=== PATIENT | female | born 1965 | race Caucasian/White ===

== ENCOUNTER 2017-10-01 08:24 | Outpatient (CLI) | payer OTHER, SELFPAY ==
[2017-10-01 09:04] VITALS: BP 136/99; PULSE 88; RESP 16; TEMP 36.8; O2SAT 98; BMI 44.9
[2017-10-01] MEDS: DiphenhydrAMINE 50 MG/ML Syringe 25 MG IV (09:07)
[2017-10-01] MEDS: Acetaminophen 325 MG Tablet 650 MG PO (09:08)
[2017-10-01] MEDS: Hydrocortisone Sod Succinate 100 MG/2 ML Vial IV (09:08)
[2017-10-01] MEDS: Immune Globulin 20 gm Premixed Solution IV ×3 (09:40→12:10)
[2017-10-01 10:17] VITALS: BP 132/77; PULSE 83; RESP 16; TEMP 36.7; O2SAT 96
[2017-10-01 10:53] VITALS: BP 142/84; PULSE 77; RESP 18; TEMP 36.6; O2SAT 97
[2017-10-01] MEDS: 0.9% NaCl PICC Flush IV ×3 (11:25→13:27)
[2017-10-01 12:07] VITALS: BP 140/88; PULSE 90; RESP 18; TEMP 37.1; O2SAT 98
[2017-10-01] MEDS: Immune Globulin 10 gm Premixed Solution IV (13:01)
[2017-10-01 13:18] VITALS: BP 137/81; PULSE 89; RESP 16; TEMP 36.8; O2SAT 97
== END 2017-10-01 13:40 | disposition home or self-care (01) ==
LOC: MEDOUTP 08:25 → MS2 08:31
PROVIDERS: Family Provider Family Medicine; PCP Family Medicine; Visit Provider Internal Medicine Hematology & Oncology
DX: D69.3 Immune thrombocytopenic purpura (principal); D50.8 Other iron deficiency anemias
CPT/HCPCS: 96365 ×2; 96366; 96375; A4216; J1568

== ENCOUNTER 2017-10-22 07:49 | Outpatient (CLI) | payer OTHER, SELFPAY ==
[2017-10-22] VITALS (7 sets, daily range): BP systolic 125–139; BP diastolic 73–90; PULSE 71–97; RESP 18; TEMP 36.4–36.8; O2SAT 97–98; BMI 42.7
[2017-10-22] MEDS: Hydrocortisone Sod Succinate 100 MG/2 ML Vial IV (08:55)
[2017-10-22] MEDS: Acetaminophen 325 MG Tablet 650 MG PO (08:55)
[2017-10-22] MEDS: DiphenhydrAMINE 50 MG/ML Syringe 25 MG IV (08:55)
[2017-10-22] MEDS: 0.9% NaCl VAD Flush 10 ML IV ×2 (09:30→13:12)
[2017-10-22] MEDS: Immune Globulin 20 gm Premixed Solution IV ×3 (09:32→11:49)
--- NOTE | 2017-10-22 10:50 | CASEMGMT ---
Per Razia, MS3 charge, pt has some concerns with insurance and coverage of infusion. This RN CM to room to speak with pt and per pt, she has been getting same IVIG infusions for a long time and has never had a problem with insurance coverage but as of yesterday she was still dealing with her work and insurance on coverage. Pt's insurance is the same and there have been no changes with this. Pt states that her boss and insurance both told her last pm that it would be covered but she was concerned because she had to sign a form this am prior to infusion stating that she would be responsible if insurance did not cover. This RN CM provided pt with number to [facility] Financial services and she was very appreciative at this time. Pt states she will be following up with insurance first thing tuesday am. Pt states no further concerns/needs for this RN CM at this time. SStaten RN CM
[2017-10-22] MEDS: Immune Globulin 10 gm Premixed Solution IV (12:44)
== END 2017-10-22 13:15 | disposition home or self-care (01) ==
LOC: MEDOUTP 07:52 → MS3 07:54
PROVIDERS: Family Provider Family Medicine; PCP Family Medicine; Visit Provider Internal Medicine Hematology & Oncology
DX: D69.3 Immune thrombocytopenic purpura (principal); D50.8 Other iron deficiency anemias
CPT/HCPCS: 96365; 96366; 96375; A4216; J1568

== ENCOUNTER 2017-11-05 08:12 | Outpatient (CLI) | payer OTHER, SELFPAY ==
[2017-11-05] VITALS (8 sets, daily range): BP systolic 114–134; BP diastolic 66–83; PULSE 70–90; RESP 16–20; TEMP 36.6; O2SAT 98–99
[2017-11-05] MEDS: Acetaminophen 325 MG Tablet 650 MG PO (09:13)
[2017-11-05] MEDS: DiphenhydrAMINE 50 MG/ML Syringe 25 MG IV (09:13)
[2017-11-05] MEDS: Hydrocortisone Sod Succinate 100 MG/2 ML Vial IV (09:14)
[2017-11-05] MEDS: 0.9% NaCl VAD Flush 10 ML IV ×3 (09:15→13:46)
[2017-11-05] MEDS: Immune Globulin 20 gm Premixed Solution IV ×3 (09:50→12:28)
[2017-11-05] MEDS: Immune Globulin 10 gm Premixed Solution IV (13:20)
== END 2017-11-05 14:04 | disposition home or self-care (01) ==
LOC: MEDOUTP 08:13 → MS3 08:14
PROVIDERS: Family Provider Family Medicine; PCP Family Medicine; Visit Provider Internal Medicine Hematology & Oncology
DX: D69.3 Immune thrombocytopenic purpura (principal); D50.9 Iron deficiency anemia, unspecified
CPT/HCPCS: 96365; 96366; 96375; A4216; J1568

== ENCOUNTER 2017-11-12 07:51 | Outpatient (CLI) | payer OTHER, SELFPAY ==
[2017-11-12] MEDS: Hydrocortisone Sod Succinate 100 MG/2 ML Vial IV (08:42)
[2017-11-12] MEDS: DiphenhydrAMINE 50 MG/ML Syringe 25 MG IV (08:43)
[2017-11-12] MEDS: Acetaminophen 325 MG Tablet 650 MG PO (08:43)
[2017-11-12] MEDS: 0.9% NaCl VAD Flush 10 ML IV (08:44)
[2017-11-12] MEDS: Immune Globulin 10 gm Premixed Solution IV (08:44)
[2017-11-12 08:45] VITALS: BP 122/70; PULSE 83; RESP 16; TEMP 36.7; O2SAT 98
--- NOTE | 2017-11-12 09:20 | NURSING ---
IVIG STARTED @ PRESCRIBED RATE @ 0915-AFTER 30 MINUTE WAIT AFTER PREMEDS
[2017-11-12 09:45] VITALS: BP 126/78; PULSE 76; RESP 16; TEMP 36.8; O2SAT 98
[2017-11-12] MEDS: Immune Globulin 20 gm Premixed Solution IV ×3 (10:12→11:58)
[2017-11-12 10:15] VITALS: BP 124/71; PULSE 78; RESP 16; TEMP 37; O2SAT 96
[2017-11-12 10:51] VITALS: BP 113/68; PULSE 74; RESP 16; TEMP 36.9; O2SAT 96
[2017-11-12 11:45] VITALS: BP 142/85; PULSE 86; RESP 16; TEMP 37; O2SAT 97
[2017-11-12 12:43] VITALS: BP 130/70; PULSE 90; RESP 16; TEMP 36.9; O2SAT 97
== END 2017-11-12 12:50 | disposition home or self-care (01) ==
LOC: MS3OUT 07:52 → MS3 07:52
PROVIDERS: Family Provider Family Medicine; PCP Family Medicine; Visit Provider Internal Medicine Hematology & Oncology
DX: D69.3 Immune thrombocytopenic purpura (principal); D50.8 Other iron deficiency anemias
CPT/HCPCS: 96365; 96366; 96375; A4216; J1568

== ENCOUNTER 2017-12-03 08:01 | Outpatient (CLI) | payer OTHER, SELFPAY ==
[2017-12-03] MEDS: 0.9% NaCl VAD Flush 10 ML IV ×4 (08:50→10:09)
[2017-12-03] MEDS: DiphenhydrAMINE 50 MG/ML Syringe 25 MG IV (08:52)
[2017-12-03] MEDS: Acetaminophen 325 MG Tablet 650 MG PO (08:52)
[2017-12-03] MEDS: Hydrocortisone Sod Succinate 100 MG/2 ML Vial IV (09:23)
[2017-12-03 09:25] VITALS: BP 116/78; PULSE 76; RESP 18; TEMP 36.7; O2SAT 98
[2017-12-03] MEDS: Immune Globulin 20 gm Premixed Solution IV ×3 (09:33→11:53)
[2017-12-03 10:00] VITALS: BP 115/72; PULSE 68; RESP 18; TEMP 36.6; O2SAT 94
[2017-12-03 11:20] VITALS: BP 130/73; PULSE 75; TEMP 36.4; O2SAT 97
[2017-12-03 11:56] VITALS: BP 120/74; PULSE 76; RESP 16; TEMP 36.7; O2SAT 97
[2017-12-03] MEDS: Immune Globulin 10 gm Premixed Solution IV (12:35)
== END 2017-12-03 13:15 | disposition home or self-care (01) ==
LOC: MEDOUTP 08:01 → MS2 08:12
PROVIDERS: Family Provider Family Medicine; PCP Family Medicine; Visit Provider Internal Medicine Hematology & Oncology
DX: D69.3 Immune thrombocytopenic purpura (principal); D50.8 Other iron deficiency anemias
CPT/HCPCS: 96365; 96366 ×4; 96375 ×2; A4216; J1568

== ENCOUNTER 2017-12-17 08:01 | Outpatient (CLI) | payer OTHER, SELFPAY ==
[2017-12-17 08:15] VITALS: BP 127/84; PULSE 85; RESP 16; TEMP 36.9; O2SAT 97
[2017-12-17 08:33] VITALS: BMI 42.9
[2017-12-17] MEDS: Acetaminophen 325 MG Tablet 650 MG PO (08:48)
[2017-12-17] MEDS: DiphenhydrAMINE 50 MG/ML Syringe 25 MG IV (08:48)
[2017-12-17] MEDS: Hydrocortisone Sod Succinate 100 MG/2 ML Vial IV (08:49)
[2017-12-17] MEDS: 0.9% NaCl VAD Flush 10 ML IV ×6 (08:57→12:40)
[2017-12-17] MEDS: Immune Globulin 20 gm Premixed Solution IV ×3 (09:29→11:27)
[2017-12-17 09:57] VITALS: BP 120/71; PULSE 73; RESP 14; TEMP 36.8; O2SAT 97
[2017-12-17 10:25] VITALS: BP 126/82; PULSE 74; RESP 14; TEMP 37; O2SAT 98
[2017-12-17 10:55] VITALS: BP 134/90; PULSE 72; RESP 16; TEMP 36.8; O2SAT 95
[2017-12-17 11:30] VITALS: BP 123/79; PULSE 67; RESP 14; TEMP 36.8; O2SAT 94
[2017-12-17] MEDS: Immune Globulin 10 gm Premixed Solution IV (12:14)
[2017-12-17 12:20] VITALS: BP 136/87; PULSE 81; RESP 16; TEMP 36.7; O2SAT 99
== END 2017-12-17 12:58 | disposition home or self-care (01) ==
LOC: MEDOUTP 08:01 → MS2 08:02
PROVIDERS: Family Provider Family Medicine; PCP Family Medicine; Visit Provider Internal Medicine Hematology & Oncology
DX: D69.3 Immune thrombocytopenic purpura (principal); D50.8 Other iron deficiency anemias
CPT/HCPCS: 96365; 96366; 96375; A4216; J1568

== ENCOUNTER 2017-12-31 07:56 | Outpatient (CLI) | payer OTHER, SELFPAY ==
[2017-12-31] MEDS: DiphenhydrAMINE 50 MG/ML Syringe 25 MG IV (08:21)
[2017-12-31] MEDS: Hydrocortisone Sod Succinate 100 MG/2 ML Vial IV (08:22)
[2017-12-31] MEDS: Acetaminophen 325 MG Tablet 650 MG PO (08:22)
[2017-12-31 08:39] VITALS: BP 127/77; PULSE 81; RESP 16; TEMP 36.9; O2SAT 98
[2017-12-31] MEDS: Immune Globulin 20 gm Premixed Solution IV ×3 (08:49→11:28)
[2017-12-31 08:57] VITALS: BP 126/81; PULSE 81; RESP 16; TEMP 36.9; O2SAT 97
[2017-12-31 09:28] VITALS: BP 124/70; PULSE 70; RESP 16; TEMP 36.9; O2SAT 96
[2017-12-31 09:58] VITALS: BP 126/71; PULSE 73; RESP 16; TEMP 36.8; O2SAT 98
[2017-12-31 10:43] VITALS: BP 125/69; PULSE 84; RESP 16; TEMP 36.9; O2SAT 97
[2017-12-31 11:33] VITALS: BP 118/83; PULSE 76; RESP 16; TEMP 36.7; O2SAT 96
[2017-12-31] MEDS: Immune Globulin 10 gm Premixed Solution IV (12:09)
[2017-12-31] MEDS: 0.9% NaCl PICC Flush IV (12:57)
== END 2017-12-31 12:58 | disposition home or self-care (01) ==
LOC: MS3OUT 07:56 → MS3 07:57
PROVIDERS: Family Provider Family Medicine; PCP Family Medicine; Visit Provider Internal Medicine Hematology & Oncology
DX: D69.3 Immune thrombocytopenic purpura (principal); D50.8 Other iron deficiency anemias
CPT/HCPCS: 96365; 96366; 96375; A4216; J1568

== ENCOUNTER 2018-01-14 08:03 | Outpatient (CLI) | payer OTHER, SELFPAY ==
[2018-01-14] MEDS: DiphenhydrAMINE 50 MG/ML Syringe 25 MG IV (08:58)
[2018-01-14] MEDS: Acetaminophen 325 MG Tablet 650 MG PO (08:58)
[2018-01-14] MEDS: 0.9% NaCl VAD Flush 10 ML IV ×3 (08:59→14:30)
[2018-01-14] MEDS: Hydrocortisone Sod Succinate 100 MG/2 ML Vial IV (09:59)
[2018-01-14] MEDS: Immune Globulin 20 gm Premixed Solution IV ×2 (10:00→11:51)
[2018-01-14 10:11] VITALS: BP 108/68; PULSE 74; RESP 16; TEMP 36.9; O2SAT 95
[2018-01-14 10:47] VITALS: BP 124/67; PULSE 74; RESP 16; TEMP 36.4; O2SAT 98
[2018-01-14 11:17] VITALS: BP 128/74; PULSE 75; RESP 16; TEMP 36.6; O2SAT 98
[2018-01-14 11:55] VITALS: BP 124/74; PULSE 75; RESP 16; TEMP 36.6; O2SAT 96
[2018-01-14] MEDS: Immune Globulin 20 gm Premixed Solution 4 GM IV (12:39)
[2018-01-14] MEDS: Immune Globulin 10 gm Premixed Solution IV (13:40)
[2018-01-14 13:43] VITALS: BP 129/71; PULSE 95; RESP 18; TEMP 37; O2SAT 96
== END 2018-01-14 14:36 | disposition home or self-care (01) ==
LOC: MEDOUTP 08:03 → MS3 08:05
PROVIDERS: Family Provider Family Medicine; PCP Family Medicine; Visit Provider Internal Medicine Hematology & Oncology
DX: D69.3 Immune thrombocytopenic purpura (principal); D50.8 Other iron deficiency anemias
CPT/HCPCS: 96365; 96366; 96375; A4216; J1568

== ENCOUNTER 2018-01-21 07:48 | Outpatient (CLI) | payer OTHER, SELFPAY ==
[2018-01-21] MEDS: DiphenhydrAMINE 50 MG/ML Syringe 25 MG IV (08:13)
[2018-01-21] MEDS: Acetaminophen 325 MG Tablet 650 MG PO (08:13)
[2018-01-21] MEDS: Hydrocortisone Sod Succinate 100 MG/2 ML Vial IV (08:14)
[2018-01-21 08:15] VITALS: BP 129/89; PULSE 77; RESP 18; TEMP 37.4; O2SAT 97
[2018-01-21] MEDS: Immune Globulin 20 gm Premixed Solution IV ×3 (08:45→11:09)
[2018-01-21 08:50] VITALS: BP 127/76; PULSE 75; RESP 18; TEMP 37.1; O2SAT 96
[2018-01-21 09:23] VITALS: BP 132/81; PULSE 75; RESP 18; TEMP 37.1; O2SAT 97
[2018-01-21 09:51] VITALS: BP 134/78; PULSE 72; RESP 18; TEMP 37.2; O2SAT 97
[2018-01-21 10:21] VITALS: BP 125/81; PULSE 79; RESP 18; TEMP 37.1; O2SAT 97
[2018-01-21] MEDS: Immune Globulin 10 gm Premixed Solution IV (12:02)
[2018-01-21 12:04] VITALS: BP 122/77; PULSE 80; RESP 18; TEMP 37.1; O2SAT 97
== END 2018-01-21 13:00 | disposition home or self-care (01) ==
LOC: MEDOUTP 07:48 → MS3 07:49
PROVIDERS: Family Provider Family Medicine; PCP Family Medicine; Visit Provider Internal Medicine Hematology & Oncology
DX: D69.3 Immune thrombocytopenic purpura (principal); D50.8 Other iron deficiency anemias
CPT/HCPCS: 96365; 96366; 96375; A4216; J1568

== ENCOUNTER 2018-02-18 08:01 | Outpatient (CLI) | payer OTHER, SELFPAY ==
[2018-02-18] MEDS: Acetaminophen 325 MG Tablet 650 MG PO (08:30)
[2018-02-18] MEDS: DiphenhydrAMINE 50 MG/ML Syringe 25 MG IV (08:55)
[2018-02-18] MEDS: 0.9% NaCl VAD Flush 10 ML IV ×3 (08:56→14:06)
[2018-02-18] MEDS: Hydrocortisone Sod Succinate 100 MG/2 ML Vial IV (08:56)
[2018-02-18] MEDS: Immune Globulin 20 gm Premixed Solution IV ×3 (09:22→11:47)
[2018-02-18 09:24] VITALS: BP 148/79; PULSE 83; RESP 18; TEMP 36.6; O2SAT 99; BMI 28.2
[2018-02-18 10:08] VITALS: BP 135/80; PULSE 78; RESP 18; TEMP 36.5; O2SAT 97; BMI 28.2
[2018-02-18 10:30] VITALS: BP 123/77; PULSE 75; RESP 20; TEMP 36.6; O2SAT 97
[2018-02-18 11:02] VITALS: BP 141/87; PULSE 76; RESP 18; TEMP 36.5; O2SAT 97
[2018-02-18 11:44] VITALS: BP 142/94; PULSE 81; RESP 18; TEMP 36.5; O2SAT 99
[2018-02-18] MEDS: Immune Globulin 10 gm Premixed Solution IV (12:57)
== END 2018-02-18 13:45 | disposition home or self-care (01) ==
LOC: MEDOUTP 08:01 → MS3 08:03
PROVIDERS: Family Provider Family Medicine; PCP Family Medicine; Visit Provider Internal Medicine Hematology & Oncology
DX: D69.3 Immune thrombocytopenic purpura (principal); D50.8 Other iron deficiency anemias
CPT/HCPCS: 96365; 96366; 96375; A4216; J1568

== ENCOUNTER 2018-03-11 08:01 | Outpatient (CLI) | payer OTHER, SELFPAY ==
[2018-03-11 09:00] VITALS: BMI 28.2
[2018-03-11] MEDS: 0.9% NaCl VAD Flush 10 ML IV ×3 (09:00→13:50)
[2018-03-11] MEDS: Acetaminophen 325 MG Tablet 650 MG PO (09:06)
[2018-03-11] MEDS: DiphenhydrAMINE 50 MG/ML Syringe 25 MG IV (09:07)
[2018-03-11] MEDS: Hydrocortisone Sod Succinate 100 MG/2 ML Vial IV (09:14)
[2018-03-11 09:30] VITALS: BP 147/78; PULSE 64; RESP 18; TEMP 36.7; O2SAT 99
[2018-03-11] MEDS: Immune Globulin 20 gm Premixed Solution IV ×3 (09:43→11:51)
[2018-03-11 10:00] VITALS: BP 148/76; PULSE 62; RESP 18; TEMP 36.8; O2SAT 99
[2018-03-11 10:39] VITALS: BP 139/81; PULSE 62; RESP 16; TEMP 36.6; O2SAT 99
[2018-03-11 12:11] VITALS: BP 138/74; PULSE 74; RESP 20; TEMP 36.7; O2SAT 97
[2018-03-11 12:30] VITALS: BP 134/72; PULSE 83; RESP 18; TEMP 36.7; O2SAT 98
[2018-03-11] MEDS: Immune Globulin 10 gm Premixed Solution IV (12:57)
== END 2018-03-11 14:00 | disposition home or self-care (01) ==
LOC: MEDOUTP 08:01 → MS2 08:02
PROVIDERS: Family Provider Family Medicine; PCP Family Medicine; Visit Provider Internal Medicine Hematology & Oncology
DX: D69.3 Immune thrombocytopenic purpura (principal); D50.8 Other iron deficiency anemias
CPT/HCPCS: 96365; 96366; 96375; A4216; J1568

== ENCOUNTER 2018-04-01 08:02 | Outpatient (CLI) | payer OTHER, SELFPAY ==
[2018-04-01 08:11] VITALS: BP 142/91; PULSE 82; RESP 18; TEMP 36.7; O2SAT 100
[2018-04-01 08:12] VITALS: BMI 43.0
[2018-04-01] MEDS: DiphenhydrAMINE 50 MG/ML Syringe 25 MG IV (08:31)
[2018-04-01] MEDS: Hydrocortisone Sod Succinate 100 MG/2 ML Vial IV (08:31)
[2018-04-01] MEDS: Acetaminophen 325 MG Tablet 650 MG PO (08:31)
[2018-04-01] MEDS: 0.9% NaCl VAD Flush 10 ML IV ×3 (08:35→13:17)
[2018-04-01] MEDS: Immune Globulin 20 gm Premixed Solution IV ×3 (09:13→11:47)
[2018-04-01 10:05] VITALS: BP 131/84; PULSE 74; RESP 18; O2SAT 97
[2018-04-01 10:45] VITALS: BP 156/99; PULSE 84; RESP 18; O2SAT 99
[2018-04-01 11:35] VITALS: BP 141/87; PULSE 77; RESP 18; O2SAT 97
[2018-04-01] MEDS: Immune Globulin 10 gm Premixed Solution IV (12:45)
[2018-04-01 13:22] VITALS: BP 129/77; PULSE 92; RESP 18; O2SAT 99
== END 2018-04-01 13:35 | disposition home or self-care (01) ==
LOC: MEDOUTP 08:02 → MS3 10:29
PROVIDERS: Family Provider Family Medicine; PCP Family Medicine; Visit Provider Internal Medicine Hematology & Oncology
DX: D69.3 Immune thrombocytopenic purpura (principal); D50.8 Other iron deficiency anemias
CPT/HCPCS: 96365; 96366; 96375; A4216; J1568

== ENCOUNTER → 2018-04-14 09:25 | Outpatient (CLI) | payer OTHER, SELFPAY ==
[2018-04-14 09:34] VITALS: BP 154/86; PULSE 81; RESP 16; TEMP 36.7; O2SAT 93; BMI 42.3
[2018-04-14] MEDS: Acetaminophen 325 MG Tablet 650 MG PO (09:52)
[2018-04-14] MEDS: DiphenhydrAMINE 50 MG/ML Syringe 25 MG IV (09:53)
[2018-04-14] MEDS: Hydrocortisone Sod Succinate 100 MG/2 ML Vial IV (10:02)
[2018-04-14] MEDS: Immune Globulin 20 gm Premixed Solution IV ×3 (10:23→12:59)
[2018-04-14 10:55] VITALS: BP 133/73; PULSE 62; RESP 15
[2018-04-14 12:15] VITALS: BP 138/83; PULSE 74; RESP 18; TEMP 36.9; O2SAT 96
[2018-04-14 12:42] VITALS: BP 123/67; PULSE 86; RESP 18; TEMP 36.8; O2SAT 96
[2018-04-14 13:49] VITALS: BP 127/80; PULSE 92
[2018-04-14] MEDS: Immune Globulin 10 gm Premixed Solution IV (13:53)
== END ==
PROVIDERS: Family Provider Family Medicine; PCP Family Medicine; Visit Provider Internal Medicine Hematology & Oncology
DX: D69.3 Immune thrombocytopenic purpura (principal); D50.8 Other iron deficiency anemias
CPT/HCPCS: 96365; 96366; 96375; A4216; J1568

== ENCOUNTER 2018-05-06 07:49 | Outpatient (CLI) | payer OTHER, SELFPAY ==
[2018-05-06] VITALS (7 sets, daily range): BP systolic 116–139; BP diastolic 62–82; PULSE 64–75; RESP 16; TEMP 36.5–36.8; O2SAT 94–97
[2018-05-06] MEDS: Acetaminophen 325 MG Tablet 650 MG PO (08:20)
[2018-05-06] MEDS: DiphenhydrAMINE 50 MG/ML Syringe 25 MG IV (08:20)
[2018-05-06] MEDS: Hydrocortisone Sod Succinate 100 MG/2 ML Vial IV (08:20)
[2018-05-06] MEDS: Immune Globulin 20 gm Premixed Solution IV ×3 (08:52→11:02)
[2018-05-06] MEDS: Immune Globulin 10 gm Premixed Solution IV (11:50)
== END 2018-05-06 12:39 | disposition home or self-care (01) ==
LOC: MEDOUTP 07:49 → MS3 07:50
PROVIDERS: Family Provider Family Medicine; PCP Family Medicine; Visit Provider Internal Medicine Hematology & Oncology
DX: D69.3 Immune thrombocytopenic purpura (principal); D50.8 Other iron deficiency anemias
CPT/HCPCS: 96365; 96366; 96375; A4216; J1568

== ENCOUNTER 2018-05-20 08:06 | Outpatient (CLI) | payer OTHER, SELFPAY ==
[2018-05-20] VITALS (7 sets, daily range): BP systolic 129–150; BP diastolic 79–92; PULSE 70–87; RESP 16; TEMP 36.4–37; O2SAT 95–99
[2018-05-20] MEDS: 0.9% NaCl VAD Flush 10 ML IV ×3 (08:35→13:48)
[2018-05-20] MEDS: Hydrocortisone Sod Succinate 100 MG/2 ML Vial IV (09:11)
[2018-05-20] MEDS: Acetaminophen 325 MG Tablet 650 MG PO (09:11)
[2018-05-20] MEDS: DiphenhydrAMINE 50 MG/ML Syringe 25 MG IV (09:11)
[2018-05-20] MEDS: Immune Globulin 20 gm Premixed Solution IV ×3 (09:45→12:13)
[2018-05-20] MEDS: Immune Globulin 10 gm Premixed Solution IV (13:09)
== END 2018-05-20 13:54 | disposition home or self-care (01) ==
LOC: MEDOUTP 08:06 → PCU 08:07
PROVIDERS: Family Provider Family Medicine; PCP Family Medicine; Referring Provider Internal Medicine Hematology & Oncology; Visit Provider Internal Medicine Hematology & Oncology
DX: D50.8 Other iron deficiency anemias (principal); D69.3 Immune thrombocytopenic purpura
CPT/HCPCS: 96365; 96366 ×3; 96375; A4216; J1568

== ENCOUNTER 2018-06-03 07:45 | Outpatient (CLI) | payer OTHER, SELFPAY ==
[2018-06-03 08:02] VITALS: BP 144/84; PULSE 77; RESP 14; TEMP 36.6; O2SAT 95; BMI 42.5
[2018-06-03] MEDS: Acetaminophen 325 MG Tablet 650 MG PO (08:22)
[2018-06-03] MEDS: DiphenhydrAMINE 50 MG/ML Syringe 25 MG IV (08:36)
[2018-06-03] MEDS: Hydrocortisone Sod Succinate 100 MG/2 ML Vial IV (08:37)
--- NOTE | 2018-06-03 09:02 | NURSING ---
PORT ACCESSED PATIENT GIVEN PREMEDS DENIES NEEDS/ RESTING IN RECLINER CALL LIGHT IN REACH
[2018-06-03] MEDS: Immune Globulin 20 gm Premixed Solution IV ×3 (09:05→11:23)
[2018-06-03 09:37] VITALS: BP 130/88; PULSE 74; RESP 14; TEMP 36.4; O2SAT 96
[2018-06-03 10:06] VITALS: BP 151/77; PULSE 70; RESP 15; TEMP 36.4; O2SAT 96
[2018-06-03 10:41] VITALS: BP 144/87; PULSE 71; RESP 14; TEMP 36.8; O2SAT 96
[2018-06-03 11:18] VITALS: BP 148/82; PULSE 77; RESP 17; TEMP 36.6; O2SAT 98
[2018-06-03] MEDS: Immune Globulin 10 gm Premixed Solution IV (12:07)
--- NOTE | 2018-06-03 12:08 | NURSING ---
SITTING IN RECLINER EATING DENIES NEEDS
[2018-06-03] MEDS: 0.9% NaCl VAD Flush 10 ML IV (12:31)
[2018-06-03 12:38] VITALS: BP 132/75; PULSE 84; RESP 14; TEMP 36.6; O2SAT 97
--- NOTE | 2018-06-03 12:41 | NURSING ---
DEACCESSED PORT. FINISHED INFUSION NO REACTION NOTED DC TO HOME
== END 2018-06-03 12:37 | disposition home or self-care (01) ==
LOC: MEDOUTP 07:45 → PCU 07:46
PROVIDERS: Family Provider Family Medicine; PCP Family Medicine; Referring Provider Internal Medicine Hematology & Oncology; Visit Provider Internal Medicine Hematology & Oncology
DX: D69.3 Immune thrombocytopenic purpura (principal); D50.8 Other iron deficiency anemias
CPT/HCPCS: 96365; 96366; 96375; A4216; J1568

== ENCOUNTER 2018-06-17 07:45 | Outpatient (CLI) | payer OTHER, SELFPAY ==
[2018-06-17] MEDS: Hydrocortisone Sod Succinate 100 MG/2 ML Vial IV (08:12)
[2018-06-17] MEDS: DiphenhydrAMINE 50 MG/ML Syringe 25 MG IV (08:12)
[2018-06-17] MEDS: Acetaminophen 325 MG Tablet 650 MG PO (08:13)
[2018-06-17] MEDS: Immune Globulin 20 gm Premixed Solution IV ×3 (08:46→11:03)
[2018-06-17 08:52] VITALS: BP 147/73; PULSE 76; RESP 16; TEMP 36.8; O2SAT 98
[2018-06-17 09:21] VITALS: BP 116/75; PULSE 71; RESP 16; TEMP 36.9; O2SAT 98
[2018-06-17 09:49] VITALS: BP 131/75; PULSE 77; RESP 16; TEMP 36.9; O2SAT 98
[2018-06-17 10:19] VITALS: BP 142/77; PULSE 65; RESP 16; TEMP 36.9; O2SAT 96
[2018-06-17 10:49] VITALS: BP 140/78; PULSE 73; RESP 16; TEMP 37; O2SAT 96
[2018-06-17 11:21] VITALS: BP 135/78; PULSE 77; RESP 16; TEMP 36.9; O2SAT 98
[2018-06-17] MEDS: Immune Globulin 10 gm Premixed Solution IV (11:52)
== END 2018-06-17 12:52 | disposition home or self-care (01) ==
LOC: MEDOUTP 07:45 → MS3 07:46
PROVIDERS: Family Provider Family Medicine; PCP Family Medicine; Referring Provider Internal Medicine Hematology & Oncology; Visit Provider Internal Medicine Hematology & Oncology
DX: D69.3 Immune thrombocytopenic purpura (principal); D50.8 Other iron deficiency anemias
CPT/HCPCS: 96365; 96366 ×4; 96375; A4216; J1568

== ENCOUNTER 2018-07-01 07:48 | Outpatient (CLI) | payer OTHER, SELFPAY ==
[2018-07-01 08:14] VITALS: BP 136/96; PULSE 80; RESP 18; TEMP 36.8; O2SAT 98
[2018-07-01] MEDS: Acetaminophen 325 MG Tablet 650 MG PO (08:29)
[2018-07-01] MEDS: Hydrocortisone Sod Succinate 100 MG/2 ML Vial IV (08:29)
[2018-07-01] MEDS: DiphenhydrAMINE 50 MG/ML Syringe 25 MG IV (08:30)
[2018-07-01] MEDS: Immune Globulin 20 gm Premixed Solution IV ×3 (09:12→12:29)
[2018-07-01 09:30] VITALS: BP 132/81; PULSE 66; RESP 16; TEMP 36.4; O2SAT 98
[2018-07-01] MEDS: 0.9% NaCl VAD Flush 10 ML IV ×2 (09:30→13:28)
--- NOTE | 2018-07-01 11:00 | NURSING ---
1st bottle ivig completed and porfirio rate well. pt resting in recliner with eyes closed. no needs noted at this time
[2018-07-01 11:45] VITALS: BP 136/74; PULSE 71; RESP 16; TEMP 36.8; O2SAT 97
[2018-07-01] MEDS: Immune Globulin 10 gm Premixed Solution IV (12:03)
[2018-07-01 14:54] VITALS: BP 128/85; PULSE 87; RESP 16; TEMP 36.6; O2SAT 96
--- NOTE | 2018-07-01 14:55 | NURSING ---
1230-charge account identification clerk in to deaccess after 10cc ns flush and heparin flushed. pt porfirio transfusions well with no side effects or immediate reactions. pt dc'd home with all belongings and .
== END 2018-07-01 13:35 | disposition home or self-care (01) ==
LOC: MEDOUTP 07:59 → MS3 08:00
PROVIDERS: Family Provider Family Medicine; PCP Family Medicine; Referring Provider Internal Medicine Hematology & Oncology; Visit Provider Internal Medicine Hematology & Oncology
DX: D69.3 Immune thrombocytopenic purpura (principal); D50.8 Other iron deficiency anemias
CPT/HCPCS: 96365; 96366; 96375; A4216; J1568

== ENCOUNTER 2018-07-22 08:05 | Outpatient (CLI) | payer OTHER, SELFPAY ==
[2018-07-22 08:10] VITALS: BMI 28.2
[2018-07-22] MEDS: DiphenhydrAMINE 50 MG/ML Syringe 25 MG IV (09:05)
[2018-07-22] MEDS: Hydrocortisone Sod Succinate 100 MG/2 ML Vial IV (09:06)
[2018-07-22] MEDS: Acetaminophen 325 MG Tablet 650 MG PO (09:06)
[2018-07-22] MEDS: Immune Globulin 20 gm Premixed Solution IV ×3 (09:24→11:37)
[2018-07-22 10:05] VITALS: BP 117/72; PULSE 68; RESP 18; TEMP 36.8; O2SAT 98
[2018-07-22 10:35] VITALS: BP 114/70; PULSE 72; RESP 18; TEMP 36.7; O2SAT 93
[2018-07-22 10:58] VITALS: BP 107/68; PULSE 73; RESP 18; TEMP 36.7; O2SAT 98
[2018-07-22 11:30] VITALS: BP 111/67; PULSE 73; RESP 20; TEMP 36.9; O2SAT 98
[2018-07-22] MEDS: Immune Globulin 10 gm Premixed Solution IV (12:28)
--- OUTSIDE RECORDS SUMMARY | 2018-09-15 18:58 | XMS RPT_ITS ---
:1965 Author Organization [facility] Support Name Relationship Address Phone ORLIN ALLISON Unavailable [address] + [place] [address] [employer] Unavailable [address] + [address] [place] [address] VICENTA FERNANDEZ Unavailable [address] + [place] [address] ALLISONJOSÉYL Unavailable [address] + [place] [address] [employer] Unavailable [address] + [address] [place] [address] VICENTA FERNANDEZ Unavailable [address] + [place] [address] ALLISON, ORLIN Unavailable [address] + [place] [address] [employer] Unavailable [address] + [address] [place] [address] VICENTA FERNANDEZ Unavailable [address] + [place] [address] KEEGAN ORLIN Unavailable [address] + [place] [address] [employer] Unavailable [address] + [address] [place] [address] VICENTA FERNANDEZ Unavailable [address] + [place] [address] KEEGAN, ORLIN Unavailable [address] + [place] [address] [employer] Unavailable [address] + [address] [place] [address] VICENTA FERNANDEZ Unavailable [address] + [place] [address] KEEGAN, ORLIN Unavailable [address] + [place] [address] [employer] Unavailable [address] + [address] [address] VICENTA FERNANDEZ Unavailable [address] + [place] [address] ALLISON, ORLIN Unavailable [address] + [place] [address] [employer] Unavailable [address] + [address] [address] VICENTA FERNANDEZ Unavailable [address] + [place] [address] KEEGAN, ORLIN Unavailable [address] + [place] [address] [employer] Unavailable [address] + [address] [address] VICENTA FERNANDEZ Unavailable [address] + [place] [address] ALLISON, ORLIN Unavailable [address] + [place] [address] [employer] Unavailable [address] + [address] [address] VICENTA FERNANDEZ Unavailable [address] + [place] [address] ALLISON, ORLIN Unavailable [address] + [place] [address] [employer] Unavailable [address] + [address] [address] VICENTA FERNANDEZ Unavailable [address] + [place] [address] ALLISON, ORLIN Unavailable [address] + [place] [address] [employer] Unavailable [address] + [address] [address] VICENTA FERNANDEZ Unavailable [address] + [place] [address] ALLISON, ORLIN Unavailable [address] + [place] [address] [employer] Unavailable [address] + [address] [address] VICENTA FERNANDEZ Unavailable [address] + [place] [address] ALLISON, ORLIN Unavailable [address] + [place] [address] [employer] Unavailable [address] + [address] [address] VICENTA FERNANDEZ Unavailable [address] + [place] [address] ALLISON, ORLIN Unavailable [address] + [place] [address] [employer] Unavailable [address] + [address] [address] VICENTA FERNANDEZ Unavailable [address] + [place] [address] ALLISON, ORLIN Unavailable [address] + [place] [address] [employer] Unavailable [address] + [address] [address] VICENTA FERNANDEZ Unavailable [address] + [place] [address] ALLISON, ORLIN Unavailable [address] + [place] [address] [employer] Unavailable [address] + [address] [address] VICENTA FERNANDEZ Unavailable [address] + [place] [address] ALLISON, ORLIN Unavailable [address] + [place] [address] [employer] Unavailable [address] + [address] [address] VICENTA FERNANDEZ Unavailable [address] + [place] [address] ALLISON, ORLIN Unavailable [address] + [place] [address] [employer] Unavailable [address] + [address] [place] [address] VICENTA FERNANDEZ Unavailable [address] + [place] [address] JOSÉ ALLISONYL Unavailable [address] + [place] [address] [employer] Unavailable [address] + [address] [address] VICENTA FERNANDEZ Unavailable [address] + [place] [address] KEEGAN ORLIN Unavailable [address] + [place] [address] [employer] Unavailable [address] + [address] [address] VICENTA FERNANDEZ Unavailable [address] + [place] [address] JOSÉ ALLISONYL Unavailable [address] + [place] [address] [employer] Unavailable [address] + [address] [address] VICENTA FERNANDEZ Unavailable [address] + [place] [address] JOSÉ ALLISONYL Unavailable [address] + [place] [address] [employer] Unavailable [address] + [address] [address] VICENTA FERNANDEZ Unavailable [address] + [place] [address] Care Team Providers Name Role Phone TAL, DALLAS A Referring Unavailable MASCI, DALLAS A Referring Unavailable MASCI, DALLAS A Referring Unavailable MASCI, DALLAS A Referring Unavailable MASCI, DALLAS A Referring Unavailable MASCI, DALLAS A Referring Unavailable MASCI, DALLAS A Referring Unavailable MASCI, DALLAS A Referring Unavailable MASCI, DALLAS A Referring Unavailable MASCI, DALLAS A Referring Unavailable MASCI, DALLAS A Referring Unavailable MASCI, DALLAS A Referring Unavailable MASCI, DALLAS A Referring Unavailable MASCI, DALLAS A Referring Unavailable MASCI, DALLAS A Referring Unavailable MASCI, DALLAS A Referring Unavailable MASCI, DALLAS A Referring Unavailable MASCI, DALLAS A Referring Unavailable MASCI, DALLAS A Referring Unavailable MASCI, DALLAS A Referring Unavailable MASCI, DALLAS A Referring Unavailable MASCI, DALLAS A Referring Unavailable MASCI, DALLAS A Referring Unavailable MASCI, DALLAS A Referring Unavailable MASCI, DALLAS A Referring Unavailable MASCI, DALLAS A Referring Unavailable MASCI, DALLAS A Referring Unavailable MASCI, DALLAS A Referring Unavailable GUS, JARAD Referring Unavailable MASCI, DALLAS A Referring Unavailable CHUCHO [place] S (TOWER OBSERVER) Attending Unavailable MASCI, DALLAS A Attending Unavailable MASCI, DALLAS A Referring Unavailable MASCI, DALLAS A Referring Unavailable MASCI, DALLAS A Referring Unavailable MASCI, DALLAS A Referring Unavailable MASCI, DALLAS A Referring Unavailable MASCI, DALLAS A Referring Unavailable MASCI, DALLAS A Referring Unavailable MASCI, DALLAS A Referring Unavailable MASCI, DALLAS A Referring Unavailable MASCI, DALLAS A Referring Unavailable MASCI, DALLAS A Referring Unavailable MASCI, DALLAS A Referring Unavailable MASCI, DALLAS A Referring Unavailable MASCI, DALLAS A Referring Unavailable MASCI, DALLAS A Referring Unavailable MASCI, DALLAS A Referring Unavailable MASCI, DALLAS A Referring Unavailable MASCI, DALLAS A Referring Unavailable MASCI, DALLAS A Referring Unavailable MASCI, DALLAS A Referring Unavailable MASCI, DALLAS A Referring Unavailable MASCI, DALLAS A Referring Unavailable MASCI, DALLAS A Referring Unavailable MASCI, DALLAS A Referring Unavailable MASCI, DALLAS A Referring Unavailable MASCI, DALLAS A Referring Unavailable MASCI, DALLAS A Referring Unavailable CHUCHO [place] S (TOWER OBSERVER) Referring Unavailable MASCI, DALLAS A Referring Unavailable MASCI, DALLAS A Referring Unavailable MASCI, DALLAS A Referring Unavailable MASCI, DALLAS A Referring Unavailable MASCI, DALLAS A Referring Unavailable MASCI, DALLAS A Referring Unavailable MASCI, DALLAS A Referring Unavailable MASCI, DALLAS A Referring Unavailable MASCI, DALLAS A Referring Unavailable MASCI, DALLAS A Attending Unavailable MASCI, DALLAS A Referring Unavailable MASCI, DALLAS A Referring Unavailable MASCI, DALLAS A Referring Unavailable MASCI, DALLAS A Referring Unavailable MASCI, DALLAS A Referring Unavailable MASCI, DALLAS A Referring Unavailable MASCI, DALLAS A Referring Unavailable MASCI, DALLAS A Referring Unavailable MASCI, DALLAS A Referring Unavailable MASCI, DALLAS A Referring Unavailable MASCI, DALLAS A Referring Unavailable MASCI, DALLAS A Referring Unavailable MASCI, DALLAS A Referring Unavailable MASCI, DALLAS A Referring Unavailable MASCI, DALLAS A Referring Unavailable MASCI, DALLAS A Referring Unavailable MASCI, DALLAS A Referring Unavailable MASCI, DALLAS A Referring Unavailable MASCI, DALLAS A Referring Unavailable MASCI, DALLAS A Referring Unavailable MASCI, DALLAS A Referring Unavailable MASCI, DALLAS A Referring Unavailable MASCI, DALLAS A Referring Unavailable MASCI, DALLAS A Referring Unavailable MASCI, DALLAS A Referring Unavailable MASCI, DALLAS A Referring Unavailable MASCI, DALLAS A Attending Unavailable MASCI, DALLAS A Referring Unavailable MASCI, DALLAS A Referring Unavailable MASCI, DALLAS A Referring Unavailable MASCI, DALLAS A Referring Unavailable MASCI, DALLAS A Referring Unavailable MASCI, DALLAS A Referring Unavailable MASCI, DALLAS A Referring Unavailable MASCI, DALLAS A Referring Unavailable MASCI, DALLAS A Referring Unavailable MASCI, DALLAS A Referring Unavailable MASCI, DALLAS A Referring Unavailable MASCI, DALLAS A Referring Unavailable MASCI, DALLAS A Referring Unavailable MASCI, DALLAS A Referring Unavailable Masci, Dallas Attending Unavailable Masci, Dallas Referring Unavailable [place], [place] [facility] Unavailable Masci, [place] Attending Unavailable [place], [place] [facility] Unavailable Masci, Dallas Referring Unavailable Masci, Dallas Attending Unavailable [place], [place] [facility] Unavailable Masci, Dallas Attending Unavailable Masci, Dallas Referring Unavailable [place], [place] [facility] Unavailable Masci, Dallas Attending Unavailable Masci, Dallas Referring Unavailable [place], [place] [facility] Unavailable Masci, Dallas Attending Unavailable Masci, Dallas Referring Unavailable [place], [place] [facility] Unavailable Masci, Dallas Attending Unavailable Masci, Dallas Referring Unavailable [place], [place] [facility] Unavailable Masci, Dallas Attending Unavailable Masci, Dallas Referring Unavailable [place], [facility] Unavailable Masci, Dallas Attending Unavailable Masci, Dallas Referring Unavailable [place], [facility] Unavailable Masci, Dallas Attending Unavailable Masci, Dallas Referring Unavailable [place], [place] [facility] Unavailable Masci, Dallas Attending Unavailable Masci, Dallas Referring Unavailable [place], [place] [facility] Unavailable Masci, Dallas Attending Unavailable Masci, Dallas Referring Unavailable [place], [place] [facility] Unavailable Masci, Dallas Attending Unavailable Masci, Dallas Referring Unavailable [place], [place] [facility] Unavailable Masci, Dallas Attending Unavailable Masci, Dallas Referring Unavailable [place], [place] [facility] Unavailable Masci, Dallas Attending Unavailable Masci, Dallas Referring Unavailable [place], [place] [facility] Unavailable Masci, Dallas Attending Unavailable Masci, Dallas Referring Unavailable [place], [place] [facility] Unavailable Masci, Dallas Attending Unavailable Masci, Dallas Referring Unavailable [place], [place] [facility] Unavailable Masci, Dallas Attending Unavailable Masci, Dallas Referring Unavailable [place], [facility] Unavailable Masci, Dallas Attending Unavailable Masci, Dallas Referring Unavailable [place], [facility] Unavailable Masci, Dallas Attending Unavailable Masci, Adllas Referring Unavailable [place], [facility] Unavailable Masci, Dallas Attending Unavailable Masci, Dallas Referring Unavailable [place], [facility] Unavailable Masci, Dallas Attending Unavailable Masci, Dallas Referring Unavailable [place], [facility] Unavailable PROBLEMS PROBLEMS DATE TYPE CONDITION / CODE ATTENDING STATUS SOURCE 04/19/2018 Unknown 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 Active [place] thrombocytopenic Community pur[facility] / Hospital D69.3(ICD-10) Repository 03/10/2015 Active Hyperlipidemia, NA Active [place] unspecified / Clinic Main E78.5(ICD-10) [place] Repository 11/04/2017 Active Type 2 diabetes NA Active [place] mellitus without Clinic Main complications / [place] E11.9(ICD-10) Repository 04/26/2008 Active Immune NA Active [place] thrombocytopenic [facility] Main purpura / [place] D69.3(ICD-10) Repository PROCEDURES PROCEDURES No Procedure Records FoundRESULTS RESULTS [place] CBC Collected: 08/04/2018 Status: F Source: [place] 8:07 AM [facility] REPOSITORY TYPE CODE TESTS RESULT OUT OF REFERENCE UNITS RANGE LAB WWBC 3.70-11.00 k/uL 12.90 High [place] WBC LAB WRBC 3.90-5.20 m/uL 4.04 [place] RBC LAB WHGB 11.5-15.5 g/dL 12.5 [place] Hemoglobin LAB WHCT 36.0-46.0 % 39.2 [place] Hematocrit LAB WMCV 80.0-100.0 fL 97.0 [place] MCV LAB WMCH 26.0-34.0 pg 30.9 [place] MCH LAB WMCHC 30.5-36.0 g/dL 31.9 [place] MCHC LAB WRDW 11.5-15.0 % 14.9 [place] RDW LAB WPLT 150-400 k/uL 42 Low [place] Platelet Cnt LAB WMPV 9.0-12.7 fL [place] MPV Unable to assay. Analytical difficulty. Result Comment: Test performed at: [facility] [place], [facility] [address] [place] [address]. [place] CBC Collected: 07/28/2018 Status: F Source: [place] 7:51 AM [facility] REPOSITORY TYPE CODE TESTS RESULT OUT OF REFERENCE UNITS RANGE LAB WWBC 3.70-11.00 k/uL [place] High WBC 15.74 LAB WRBC 3.90-5.20 m/uL [place] RBC 3.99 LAB WHGB 11.5-15.5 g/dL [place] Hemoglobin 12.4 LAB WHCT 36.0-46.0 % [place] Hematocrit 38.7 LAB WMCV 80.0-100.0 fL [place] MCV 97.0 LAB WMCH 26.0-34.0 pg [place] MCH 31.1 LAB WMCHC 30.5-36.0 g/dL [place] MCHC 32.0 LAB WRDW 11.5-15.0 % [place] RDW 14.9 LAB WPLT 150-400 k/uL Low [place] Platelet Cnt 71 Result Comment: Result rechecked. Sample checked for a clot. LAB ABSNUC <0.01 k/uL Preliminary Absolute nRBC result. Interpret with caution. Final results may vary. Results requested and read back by: Result Comment: WBC=15.56,PLT=62 ABSNUC=0.04 Performed By: #### WCBC #### [facility] [address] [place] [id number] [place] CBC Collected: 07/21/2018 Status: F Source: [place] 8:13 AM [facility] REPOSITORY TYPE CODE TESTS RESULT OUT OF REFERENCE UNITS RANGE LAB WWBC 3.70-11.00 k/uL [place] High WBC 14.61 LAB WRBC 3.90-5.20 m/uL [place] RBC 4.07 LAB WHGB 11.5-15.5 g/dL [place] Hemoglobin 12.6 LAB WHCT 36.0-46.0 % [place] Hematocrit 39.2 LAB WMCV 80.0-100.0 fL [place] MCV 96.3 LAB WMCH 26.0-34.0 pg [place] MCH 31.0 LAB WMCHC 30.5-36.0 g/dL [place] MCHC 32.1 LAB WRDW 11.5-15.0 % [place] RDW 14.4 LAB WPLT 150-400 k/uL Low [place] Platelet Cnt 19 Result Comment: Result checked and verified No clot detected. Called to and read back by: Anika Trucios LPN [place] 07/21/18 1543 J Magdi LAB WMPV 9.0-12.7 fL [place] MPV Unable to report Performed By: #### WCBC #### [facility] [address] [place], [place] [address] [place] CBC Collected: 07/14/2018 Status: F Source: [place] 9:52 AM [facility] REPOSITORY TYPE CODE TESTS RESULT OUT OF REFERENCE UNITS RANGE LAB WWBC 3.70-11.00 k/uL [place] High WBC 15.62 LAB WRBC 3.90-5.20 m/uL [place] RBC 4.06 LAB WHGB 11.5-15.5 g/dL [place] Hemoglobin 12.6 LAB WHCT 36.0-46.0 % [place] Hematocrit 39.1 LAB WMCV 80.0-100.0 fL [place] MCV 96.3 LAB WMCH 26.0-34.0 pg [place] MCH 31.0 LAB WMCHC 30.5-36.0 g/dL [place] MCHC 32.2 LAB WRDW 11.5-15.0 % [place] RDW 14.6 LAB WPLT 150-400 k/uL Low [place] Platelet Cnt 90 Result Comment: Result rechecked. Sample checked for a clot. LAB WMPV 9.0-12.7 fL Unable to [place] MPV assay. Analytical difficulty. Result Comment: Test performed at: [facility], [address] [place] [address]., [place] [address]. LAB ABSNUC <0.01 k/uL PRELIMINARY Absolute nRBC PLATELET=75 Performed By: #### WCBC #### [facility] [address] [place], [place] [address] [place] CBC Collected: 07/07/2018 Status: F Source: [place] 8:11 AM [facility] REPOSITORY TYPE CODE TESTS RESULT OUT OF REFERENCE UNITS RANGE LAB WWBC 3.70-11.00 k/uL [place] WBC 10.21 LAB WRBC 3.90-5.20 m/uL [place] RBC 3.92 LAB WHGB 11.5-15.5 g/dL [place] Hemoglobin 12.1 LAB WHCT 36.0-46.0 % [place] Hematocrit 37.8 LAB WMCV 80.0-100.0 fL [place] MCV 96.4 LAB WMCH 26.0-34.0 pg [place] MCH 30.9 LAB WMCHC 30.5-36.0 g/dL [place] MCHC 32.0 LAB WRDW 11.5-15.0 % [place] RDW 14.6 LAB WPLT 150-400 k/uL Low [place] Platelet Cnt 124 LAB WMPV 9.0-12.7 fL [place] High MPV 14.5 Result Comment: Test performed at: [facility], [address] [place] [address] Rd., [place] [address]. [place] CBC Collected: 06/30/2018 Status: F Source: [place] 7:42 AM [facility] REPOSITORY TYPE CODE TESTS RESULT OUT OF REFERENCE UNITS RANGE LAB WWBC 3.70-11.00 k/uL High [place] WBC 11.40 Result Comment: Result rechecked. No clot detected. LAB WRBC 3.90-5.20 m/uL [place] RBC 4.14 LAB WHGB 11.5-15.5 g/dL [place] Hemoglobin 13.0 LAB WHCT 36.0-46.0 % [place] Hematocrit 39.6 LAB WMCV 80.0-100.0 fL [place] MCV 95.7 LAB WMCH 26.0-34.0 pg [place] MCH 31.4 LAB WMCHC 30.5-36.0 g/dL [place] MCHC 32.8 LAB WRDW 11.5-15.0 % [place] RDW 14.6 LAB WPLT 150-400 k/uL [place] Low Platelet Cnt 25 Result Comment: Result rechecked. LAB WMPV 9.0-12.7 fL Unable to [place] MPV report LAB ABSNUC <0.01 k/uL Preliminary Absolute nRBC result. Interpret with caution. Final results may vary. Results requested and read back by: Result Comment: WBC=11.92,PLT=17 P.DROUHARD BY REGULO [id number] Performed By: #### WCBC #### [facility] [address] [place], [place] [address] CNOVSP Observed: 06/23/2018 Status: COMPLETED Source: [place] 9:00 AM [facility] REPOSITORY Visit (SP) Office (HEMAWS) GEOVANNA FERNANDEZ ([id number]) 1965 F Date Time Provider Department 06/23/18 9:00 AM DALLAS MCCALLUM During your visit today, we recorded the following information about you: Temperature Pulse Blood pressure Weight 98.5 degrees 70/minute 124/84 103.4 kg [place] Mccallum DO 06/23/2018 9:05 AM Signed Diagnosis: 1) ITP HPI: Patient is a 52 yo 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 Previous treatment: 1) Prednisone for 5 weeks initially (starting 04/18/2008) with slow platelet response. Count rapidly decreased to 1K (no bleeding) on 05/24/2008 and was admitted to [facility] for urgent IVIG administration. Tolerated 1 gm/kg daily for 2 days without acute infusion reaction or increase in serum Cr. Platelets increased to 65K. Last dose prednisone June 2009. 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 3) Eltrombopag 08/30/2008. Increased to 75 mg daily on 11/05/08. 4) Received 3 doses of rituximab, but developed serum sickness (fever, diffuse joint swelling and pain and rash). Current therapy: 1) IVIG every 1-2 weeks. This therapy has been complicated by HAs requiring steroid taper. 2) Nplate. 3) CellCept 500 mg BID. Initiated treatment due to autoimmune dermatologic disorder. Presents for ongoing hematologic management. Interim history: She has no complaints today. Requiring IVIG ~every other week. No unusual bleeding or unexplained bruising. No petechiae. No acute illnesses since last seen. No episode fever or night sweats. PMH, medications and allergies as below personally reviewed by me today. Any changes documented in appropriate section. ROS: Constitutional: See above. Neuro: Denies vertigo and imbalance. No symptoms of neuropathy. HEENT: No recent change in voice, vision or hearing. Resp: No cough, wheezing or sputum production. No history of hemoptysis. No shortness of breath at rest. CVS: Denies exertional chest pain, PND, orthopnea. GI: Denies reflux, n/v, change in bowel habits and abdominal pain. : No gross hematuria. Endo: No hot flashes. Musculoskeletal: Denies bone, back, joint and muscular pain. Derm: No rash. Psych: Normal mood. PHYSICAL EXAM: Vitals: Blood pressure 124/84, pulse 70, temperature 36.9 ?C (98.5 ?F), weight 103.4 kg (228 lb). Well-appearing and in no acute distress. EYES: Sclerae are anicteric bilaterally. NECK: Supple. LYMPHATIC: There is no palpable cervical, supraclavicular adenopathy. RESPIRATORY: Inspiratory breath sounds are of normal intensity in all giraldo. No rales, wheezes or rhonchi. Expiratory phase is normal. CARDIOVASCULAR: Rhythm is regular. Normal intensity S1/S2. There is no gallop or murmur. ABDOMEN: The abdomen is nondistended. There is no organomegaly. No tenderness. Extremities: Free of edema. SKIN: No jaundice or rash. No petechiae. 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 No focal motor weakness. ASSESSMENT/PLAN: 1) ITP. Bone marrow biopsy results and clinical picture (response to steroids and IVIG) consistent with ITP at time of diagnosis and remain so. 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 Filter placed 02/08/2013. -The frequency of IVIG administration increases when off thrombopoietin receptor agonist therapy. She therefore continues to benefit with Nplate administration. -We previously discussed the use of fostamatinib. She had read through literature available for patient use and because of the potential side effects, she wanted to hold off on starting and continue her present course of care. I think this is reasonable. -The only side effect she experiences migraine headache following IVIG administration but this is nicely relieved with Maxalt. -Discussed home IVIG with her, but insurance is changing soon and she'd like to wait for that before exploring that potential option. Plan: -Continue weekly CBC with possible Nplate and IVIG administration. -Continue oral iron supplement. DO Anai Fair, NAMAN, NAMAN 06/23/2018 8:58 AM Signed Est pt.discuss recent lab results, Nplate today Anai Turcios LPN Referring Provider: DALLAS MCCALLUM [[id number]] Allergies As of Date: 06/23/2018 Noted Allergy Reaction ASA (SALICYLATES) 07/22/2005 4 - Hives BEES 04/01/2008 CLINDAMYCIN 01/11/2011 14 - Other: See Comments Comments: lightheadness PENICILLINS 07/22/2005 2 - Rash 9 - Itching seasonal allergies [Other] 07/22/2005 ZOFRAN (ONDANSETRON) 04/30/2013 8 - GI Upset Comments: Worse nausea. 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] Order(s):ferrous sulfate (SLOW FE) 140 mg (45 mg iron) TbERTake 1 tablet by mouth once daily.Disp: Rfl: citalopram hydrobromide (CELEXA) 10 mg tabletTake 1 tablet by mouth once daily.Disp: 90 tabletRfl: 3 Follow-up and Disposition History Recorded Prescriptions as of 06/23/2018 Sig: FERROUS SULFATE ER 140 MG (45* Take 1 tablet by mouth once d* CITALOPRAM 10 MG TABLET Take 1 tablet by mouth once d* RIZATRIPTAN 10 MG TABLET Take 1 tablet by mouth as nee* MYCOPHENOLATE MOFETIL 500 MG * Take 500 mg by mouth twice da* METFORMIN ER 500 MG TABLET,EX* Take 2 tablets by mouth twice* SIMVASTATIN 10 MG TABLET Take 1 tablet by mouth daily * BLOOD SUGAR DIAGNOSTIC STRIPS Test blood sugar(s) 1 times d* ONETOUCH ULTRASOFT LANCETS Test blood sugar once daily. 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 Benign neoplasm of colon [D12.6] INVALID FOR*09/06/2016 Hyperlipidemia with target LDL less than 100 [E*INVALID FOR* Personal history of colonic polyps [Z86.010] INVALID FOR* Obesity, Class III, BMI 40-49.9 (morbid obesity*INVALID FOR* Visit Notes: >> Anai Izaguirre) NAMAN Turcios TueJun 23, 2018 9:00 AM Status: Signed Est pt.discuss recent lab results, Nplate today Anai Turcios LPN Encounter Status:Closed by DALLAS MCCALLUM DO on 06/23/18 PROGRESS Observed: 06/23/2018 Status: COMPLETED Source: [place] 8:54 AM [facility] REPOSITORY O ID: [id number] Author: [place] Mccallum Service: (none) Author Type: Physician Type: Progress Notes Filed: 06/23/2018 9:05 AM Note Text: Diagnosis: 1) ITP HPI: Patient is a 52 yo 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 Previous treatment: 1) Prednisone for 5 weeks initially (starting 04/18/2008) with slow platelet response. Count rapidly decreased to 1K (no bleeding) on 05/24/2008 and was admitted to [facility] for urgent IVIG administration. Tolerated 1 gm/kg daily for 2 days without acute infusion reaction or increase in serum Cr. Platelets increased to 65K. Last dose prednisone June 2009. 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 3) Eltrombopag 08/30/2008. Increased to 75 mg daily on 11/05/08. 4) Received 3 doses of rituximab, but developed serum sickness (fever, diffuse joint swelling and pain and rash). Current therapy: 1) IVIG every 1-2 weeks. This therapy has been complicated by HAs requiring steroid taper. 2) Nplate. 3) CellCept 500 mg BID. Initiated treatment due to autoimmune dermatologic disorder. Presents for ongoing hematologic management. Interim history: She has no complaints today. Requiring IVIG ~every other week. No unusual bleeding or unexplained bruising. No petechiae. No acute illnesses since last seen. No episode fever or night sweats. PMH, medications and allergies as below personally reviewed by me today. Any changes documented in appropriate section. ROS: Constitutional: See above. Neuro: Denies vertigo and imbalance. No symptoms of neuropathy. HEENT: No recent change in voice, vision or hearing. Resp: No cough, wheezing or sputum production. No history of hemoptysis. No shortness of breath at rest. CVS: Denies exertional chest pain, PND, orthopnea. GI: Denies reflux, n/v, change in bowel habits and abdominal pain. : No gross hematuria. Endo: No hot flashes. Musculoskeletal: Denies bone, back, joint and muscular pain. Derm: No rash. Psych: Normal mood. PHYSICAL EXAM: Vitals: Blood pressure 124/84, pulse 70, temperature 36.9 ?C (98.5 ?F), weight 103.4 kg (228 lb). Well-appearing and in no acute distress. EYES: Sclerae are anicteric bilaterally. NECK: Supple. LYMPHATIC: There is no palpable cervical, supraclavicular adenopathy. RESPIRATORY: Inspiratory breath sounds are of normal intensity in all giraldo. No rales, wheezes or rhonchi. Expiratory phase is normal. CARDIOVASCULAR: Rhythm is regular. Normal intensity S1/S2. There is no gallop or murmur. ABDOMEN: The abdomen is nondistended. There is no organomegaly. No tenderness. Extremities: Free of edema. SKIN: No jaundice or rash. No petechiae. 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 No focal motor weakness. ASSESSMENT/PLAN: 1) ITP. Bone marrow biopsy results and clinical picture (response to steroids and IVIG) consistent with ITP at time of diagnosis and remain so. 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 Filter placed 02/08/2013. -The frequency of IVIG administration increases when off thrombopoietin receptor agonist therapy. She therefore continues to benefit with Nplate administration. -We previously discussed the use of fostamatinib. She had read through literature available for patient use and because of the potential side effects, she wanted to hold off on starting and continue her present course of care. I think this is reasonable. -The only side effect she experiences migraine headache following IVIG administration but this is nicely relieved with Maxalt. -Discussed home IVIG with her, but insurance is changing soon and she'd like to wait for that before exploring that potential option. Plan: -Continue weekly CBC with possible Nplate and IVIG administration. -Continue oral iron supplement. Dallas A Masci, DO IRON AND TIBC Collected: 06/23/2018 Status: F Source: [place] 7:59 AM [facility] REPOSITORY TYPE CODE TESTS RESULT OUT OF REFERENCE UNITS RANGE LAB IRN 41-186 ug/dL Iron 107 LAB TIBC 232-386 ug/dL TIBC 343 LAB SAT 15-57 % Transferrin Saturatn 31 Performed By: #### IRON, FERR #### [facility] [address], [place] [address] FERRITIN Collected: 06/23/2018 Status: F Source: [place] 7:59 AM [facility] REPOSITORY TYPE CODE TESTS RESULT OUT OF REFERENCE UNITS RANGE LAB FERR 14.7-205.1 ng/mL Ferritin 138.7 Performed By: #### IRON, FERR #### [facility] [address] [place], [place] [address] [place] CBC AND DIFF Collected: 06/23/2018 Status: F Source: [place] 7:59 AM [facility] REPOSITORY TYPE CODE TESTS RESULT OUT OF REFERENCE UNITS RANGE LAB WWBC 3.70-11.00 k/uL [place] WBC 10.94 LAB WRBC 3.90-5.20 m/uL [place] RBC 3.98 LAB WHGB 11.5-15.5 g/dL [place] Hemoglobin 12.4 LAB WHCT 36.0-46.0 % [place] Hematocrit 38.8 LAB WMCV 80.0-100.0 fL [place] MCV 97.5 LAB WMCH 26.0-34.0 pg [place] MCH 31.2 LAB WMCHC 30.5-36.0 g/dL [place] MCHC 32.0 LAB WRDW 11.5-15.0 % [place] High RDW 15.1 LAB WPLT 150-400 k/uL Low [place] Platelet Cnt 124 LAB WMPV 9.0-12.7 fL [place] High MPV 14.8 Result Comment: Test performed at: [facility], [address] [place] [address] Rd[address] [place] [address]. LAB CBCCOM Preliminary Comment result. Interpret with caution. Final results may vary. Results requested and read back by: Result Comment: WBC=11.05 LAB WNEU % 57 [place] Neut% LAB WLYM % 30 [place] Lymp% LAB WMON % 8 [place]% LAB WEO % 3 [place] Eos% LAB WBLAST 0 % 2 High [place] Blast LAB WANEU 1.45-7.5 k/uL 0 6.24 [place] Abs Neut LAB WALYM 1.00-4.0 k/uL 0 3.28 [place] Abs Lymp LAB WAMON <0.87 k/uL 0.88 High [place] Abs [place] LAB WAEO <0.46 k/uL 0.33 [place] Abs Eos LAB WRBCM Anisocytosis [place] RBC Morph Result Comment: Occasional Unger Normanna Bodies LAB WPLTE [place] Platelet Platelet Est estimate decreased Performed By: #### WCBCDF #### [facility] [address] [place], [place] [address] [place] CBC Collected: 06/16/2018 Status: F Source: [place] 7:[address] [facility] [place] REPOSITORY TYPE CODE TESTS RESULT OUT OF REFERENCE UNITS RANGE LAB WWBC 3.70-11.00 k/uL High [place] WBC 12.38 Result Comment: Result rechecked. LAB WRBC 3.90-5.20 m/uL [place] RBC 4.03 LAB WHGB 11.5-15.5 g/dL [place] Hemoglobin 12.7 LAB WHCT 36.0-46.0 % [place] Hematocrit 38.6 LAB WMCV 80.0-100.0 fL [place] MCV 95.8 LAB WMCH 26.0-34.0 pg [place] MCH 31.5 LAB WMCHC 30.5-36.0 g/dL [place] MCHC 32.9 LAB WRDW 11.5-15.0 % [place] RDW 14.7 LAB WPLT 150-400 k/uL [place] Low Platelet Cnt 16 Result Comment: Result rechecked. No clot detected. LAB WMPV 9.0-12.7 fL Unable to [place] MPV report LAB ABSNUC <0.01 k/uL Preliminary Absolute nRBC result. Interpret with caution. Final results may vary. Results requested and read back by: Result Comment: WBC=13.24,PLT=12 P.DROUHARD BY REGULO 0757 Performed By: #### WCBC #### [facility] [address] [place], [place] [address] [place] CBC Collected: 06/09/2018 Status: F Source: [place] 7:43 AM [facility] REPOSITORY TYPE CODE TESTS RESULT OUT OF REFERENCE UNITS RANGE LAB WWBC 3.70-11.00 k/uL 11.53 High [place] WBC LAB WRBC 3.90-5.20 m/uL 4.00 [place] RBC LAB WHGB 11.5-15.5 g/dL 12.5 [place] Hemoglobin LAB WHCT 36.0-46.0 % 38.7 [place] Hematocrit LAB WMCV 80.0-100.0 fL 96.8 [place] MCV LAB WMCH 26.0-34.0 pg 31.3 [place] MCH LAB WMCHC 30.5-36.0 g/dL 32.3 [place] MCHC LAB WRDW 11.5-15.0 % 14.8 [place] RDW LAB WPLT 150-400 k/uL 77 Low [place] Platelet Cnt LAB WMPV 9.0-12.7 fL [place] MPV Unable to assay. Analytical difficulty. Result Comment: Test performed at: [address] [place] [address]. [place] CBC Collected: 06/02/2018 Status: F Source: [place] 8:13 AM [facility] REPOSITORY TYPE CODE TESTS RESULT OUT OF REFERENCE UNITS RANGE LAB WWBC 3.70-11.00 k/uL [place] High WBC 15.17 LAB WRBC 3.90-5.20 m/uL [place] RBC 4.06 LAB WHGB 11.5-15.5 g/dL [place] Hemoglobin 12.7 LAB WHCT 36.0-46.0 % [place] Hematocrit 38.4 LAB WMCV 80.0-100.0 fL [place] MCV 94.6 LAB WMCH 26.0-34.0 pg [place] MCH 31.3 LAB WMCHC 30.5-36.0 g/dL [place] MCHC 33.1 LAB WRDW 11.5-15.0 % [place] RDW 14.4 LAB WPLT 150-400 k/uL Low [place] Platelet Cnt 24 Result Comment: Result checked and verified LAB WMPV 9.0-12.7 fL Unable to [place] MPV assay. Analytical difficulty. Result Comment: Test performed at: [address] [place] [address]. DUNDEE CBC Collected: 05/26/2018 Status: F Source: [place] 8:12 AM [facility] REPOSITORY TYPE CODE TESTS RESULT OUT OF REFERENCE UNITS RANGE LAB WWBC 3.70-11.00 k/uL [place] High WBC 11.27 LAB WRBC 3.90-5.20 m/uL [place] RBC 4.25 LAB WHGB 11.5-15.5 g/dL [place] Hemoglobin 13.3 LAB WHCT 36.0-46.0 % [place] Hematocrit 40.4 LAB WMCV 80.0-100.0 fL [place] MCV 95.1 LAB WMCH 26.0-34.0 pg [place] MCH 31.3 LAB WMCHC 30.5-36.0 g/dL [place] MCHC 32.9 LAB WRDW 11.5-15.0 % [place] RDW 14.6 LAB WPLT 150-400 k/uL Low [place] Platelet Cnt 143 LAB WMPV 9.0-12.7 fL [place] High MPV 14.5 Result Comment: Test performed at: [address] [place] [address]. [place] CBC Collected: 05/19/2018 Status: F Source: [place] 7:43 AM [facility] REPOSITORY TYPE CODE TESTS RESULT OUT OF REFERENCE UNITS RANGE LAB WWBC 3.70-11.00 k/uL [place] High WBC 11.08 LAB WRBC 3.90-5.20 m/uL [place] RBC 4.00 LAB WHGB 11.5-15.5 g/dL [place] Hemoglobin 12.5 LAB WHCT 36.0-46.0 % [place] Hematocrit 38.6 LAB WMCV 80.0-100.0 fL [place] MCV 96.5 LAB WMCH 26.0-34.0 pg [place] MCH 31.3 LAB WMCHC 30.5-36.0 g/dL [place] MCHC 32.4 LAB WRDW 11.5-15.0 % [place] RDW 14.7 LAB WPLT 150-400 k/uL Low [place] Platelet Cnt 20 Result Comment: Result checked and verified LAB WMPV 9.0-12.7 fL Unable to [place] MPV assay. Analytical difficulty. Result Comment: Test performed at: [facility], [facility] [place] [address]. [place] CBC Collected: 05/12/2018 Status: F Source: [place] 8:35 AM [facility] REPOSITORY TYPE CODE TESTS RESULT OUT OF REFERENCE UNITS RANGE LAB WWBC 3.70-11.00 k/uL High [place] WBC 11.86 Result Comment: Result checked and verified No clot detected. LAB WRBC 3.90-5.20 m/uL [place] RBC 3.95 LAB WHGB 11.5-15.5 g/dL [place] Hemoglobin 12.4 LAB WHCT 36.0-46.0 % [place] Hematocrit 37.8 LAB WMCV 80.0-100.0 fL [place] MCV 95.7 LAB WMCH 26.0-34.0 pg [place] MCH 31.4 LAB WMCHC 30.5-36.0 g/dL [place] MCHC 32.8 LAB WRDW 11.5-15.0 % [place] RDW 14.9 LAB WPLT 150-400 k/uL [place] Low Platelet Cnt 101 Result Comment: Result checked and verified No clot detected. LAB WMPV 9.0-12.7 fL 14.6 High [place] MPV LAB ABSNUC <0.01 k/uL Preliminary Absolute nRBC result. Interpret with caution. Final results may vary. Results requested and read back by: Result Comment: WBC=11.29,PLT=92 Performed By: #### WCBC #### [facility] [address] [place], [place] [address] [place] CBC Collected: 05/05/2018 Status: F Source: [place] 8:03 AM [facility] REPOSITORY TYPE CODE TESTS RESULT OUT OF REFERENCE UNITS RANGE LAB WWBC 3.70-11.00 k/uL [place] High WBC 13.64 LAB WRBC 3.90-5.20 m/uL [place] RBC 3.99 LAB WHGB 11.5-15.5 g/dL [place] Hemoglobin 12.5 LAB WHCT 36.0-46.0 % [place] Hematocrit 38.2 LAB WMCV 80.0-100.0 fL [place] MCV 95.7 LAB WMCH 26.0-34.0 pg [place] MCH 31.3 LAB WMCHC 30.5-36.0 g/dL [place] MCHC 32.7 LAB WRDW 11.5-15.0 % [place] RDW 14.5 LAB WPLT 150-400 k/uL Low [place] Alert Platelet Cnt 7 Result Comment: Result checked and verified No clot detected. LAB WMPV 9.0-12.7 fL Unable to [place] MPV report LAB ABSNUC <0.01 k/uL Preliminary Absolute nRBC result. Interpret with caution. Final results may vary. Results requested and read back by: Result Comment: PLT=3,HONEY,BY REGULO,1240 Performed By: #### WCBC #### [facility] [address] [place] [address] [place] CBC Collected: 04/28/2018 Status: F Source: [place] 7:41 AM [facility] REPOSITORY TYPE CODE TESTS RESULT OUT OF REFERENCE UNITS RANGE LAB WWBC 3.70-11.00 k/uL 15.15 High [place] WBC LAB WRBC 3.90-5.20 m/uL 4.10 [place] RBC LAB WHGB 11.5-15.5 g/dL 12.8 [place] Hemoglobin LAB WHCT 36.0-46.0 % 39.0 [place] Hematocrit LAB WMCV 80.0-100.0 fL 95.1 [place] MCV LAB WMCH 26.0-34.0 pg 31.2 [place] MCH LAB WMCHC 30.5-36.0 g/dL 32.8 [place] MCHC LAB WRDW 11.5-15.0 % 14.8 [place] RDW LAB WPLT 150-400 k/uL 84 Low [place] Platelet Cnt LAB WMPV 9.0-12.7 fL [place] MPV Unable to assay. Analytical difficulty. Result Comment: NO CLOT DETECTED URINALYSIS WITH Collected: 04/21/2018 Status: F Source: [facility] 7:45 AM [facility] REPOSITORY TYPE CODE TESTS RESULT OUT OF RANGE REFERENCE UNITS LAB UC Yellow Color Yellow LAB [facility] Clear Clarity Abnormal Cloudy Alert LAB UGLUC Negative mg/dL Glucose, Urine Negative LAB UBIL Negative Bilirubin, Urine Negative LAB UKET Negative Ketones, Urine Negative LAB USPG 1.005-1.030 Specific [place], Ur 1.008 LAB UHGB Negative Abnormal Hemoglobin/Blood, 2+ Alert Ur LAB UPH 4.5-8.0 pH 6.0 LAB UPROT Negative mg/dL Protein, Urine Negative LAB UUROB Normal Urobilinogen Normal LAB UNITR Negative Nitrites Abnormal Positive Alert LAB ULKEST Negative Leukest Abnormal 3+ Alert LAB UCOM Comments SEE COMMENT Result Comment: N/A LAB UMCOM Urine SEE Aaron Comment COMMENT Result Comment: N/A LAB UWBC 0-5 /HPF Abnormal WBC Alert >25 LAB URBC 0-3 /HPF Abnormal RBC Alert 3-5 LAB UEPI /HPF Epithelial Cells SEE COMMENT Result Comment: Few Squamous Epithelial Cells Performed By: #### UAWMIC #### [facility] [address] [place], [place] [address] Observed: 04/21/2018 Status: F Source: [place] URINE CULTURE 7:45 AM [facility] REPOSITORY Sp. Request/Comment: - Specimen received in preservative Culture Result - >=100,000 CFU/ml Escherichia coli --> ABNORMAL ALERT ORGANISM: Escherichia coli METHOD: Minimum inhibitory concentration(Vitek) Antibiotic Interp AARON Status Ampicillin SUSCEPTIBLE <=2 F Gentamicin SUSCEPTIBLE <=1 F Trimeth sulfameth SUSCEPTIBLE <=20 F Cefazolin SUSCEPTIBLE <=4 F CLSI breakpoints for therapy of uncomplicated UTI's due to E.coli, K.pneumoniae, and P.mirabilis were applied and may be used to predict the activity of oral agents(cefaclor, cefdinir, cefpodoxime, cefp rozil, cefuroxime, cephalexin, loracarbef). Ciprofloxacin SUSCEPTIBLE <=0.25 F Nitrofurantoin SUSCEPTIBLE <=16 F Cefepime SUSCEPTIBLE <=1 F Piperacillin/Tazobac SUSCEPTIBLE <=4 F Ampicillin Sulbact SUSCEPTIBLE <=2 F Ceftriaxone SUSCEPTIBLE <=1 F Meropenem SUSCEPTIBLE <=0.25 F Ertapenem SUSCEPTIBLE <=0.5 F Performed By: #### URCUL #### [facility] [address] [place], [place] [address] [place] CBC Collected: 04/21/2018 Status: F Source: [place] 7:38 AM [facility] REPOSITORY TYPE CODE TESTS RESULT OUT OF REFERENCE UNITS RANGE LAB WWBC 3.70-11.00 k/uL [place] High WBC 12.75 LAB WRBC 3.90-5.20 m/uL [place] RBC 4.08 LAB WHGB 11.5-15.5 g/dL [place] Hemoglobin 12.8 LAB WHCT 36.0-46.0 % [place] Hematocrit 38.9 LAB WMCV 80.0-100.0 fL [place] MCV 95.3 LAB WMCH 26.0-34.0 pg [place] MCH 31.4 LAB WMCHC 30.5-36.0 g/dL [place] MCHC 32.9 LAB WRDW 11.5-15.0 % [place] RDW 14.3 LAB WPLT 150-400 k/uL Low [place] Platelet Cnt 34 Result Comment: Result rechecked. Sample checked for a clot. LAB ABSNUC <0.01 k/uL Preliminary Absolute nRBC result. Interpret with caution. Final results may vary. Results requested and read back by: Result Comment: PLT=28,RosalbaISAMAR Absolute NRBC=0.00 Performed By: #### WCBC #### [facility] [address] [place] [address] [place] CBC Collected: 04/14/2018 Status: F Source: [place] 7:30 AM [facility] REPOSITORY TYPE CODE TESTS RESULT OUT OF REFERENCE UNITS RANGE LAB WWBC 3.70-11.00 k/uL [place] High WBC 13.11 LAB WRBC 3.90-5.20 m/uL [place] RBC 4.16 LAB WHGB 11.5-15.5 g/dL [place] Hemoglobin 13.0 LAB WHCT 36.0-46.0 % [place] Hematocrit 39.8 LAB WMCV 80.0-100.0 fL [place] MCV 95.7 LAB WMCH 26.0-34.0 pg [place] MCH 31.3 LAB WMCHC 30.5-36.0 g/dL [place] MCHC 32.7 LAB WRDW 11.5-15.0 % [place] RDW 14.2 LAB WPLT 150-400 k/uL Low [place] Platelet Cnt 22 Result Comment: Result checked and verified NO CLOT LAB WMPV 9.0-12.7 fL Unable to [place] MPV assay. Analytical difficulty. [place] CBC Collected: 04/07/2018 Status: F Source: [place] 7:34 AM [facility] REPOSITORY TYPE CODE TESTS RESULT OUT OF REFERENCE UNITS RANGE LAB WWBC 3.70-11.00 k/uL [place] High WBC 13.39 LAB WRBC 3.90-5.20 m/uL [place] RBC 3.94 LAB WHGB 11.5-15.5 g/dL [place] Hemoglobin 12.3 LAB WHCT 36.0-46.0 % [place] Hematocrit 37.8 LAB WMCV 80.0-100.0 fL [place] MCV 95.9 LAB WMCH 26.0-34.0 pg [place] MCH 31.2 LAB WMCHC 30.5-36.0 g/dL [place] MCHC 32.5 LAB WRDW 11.5-15.0 % [place] RDW 14.1 LAB WPLT 150-400 k/uL Low [place] Platelet Cnt 38 Result Comment: Result rechecked. NO CLOT LAB WMPV 9.0-12.7 fL Unable to [place] MPV assay. Analytical difficulty. [place] CBC Collected: 03/31/2018 Status: F Source: [place] 7:[address] [facility] [place] REPOSITORY TYPE CODE TESTS RESULT OUT OF REFERENCE UNITS RANGE LAB WWBC 3.70-11.00 k/uL [place] High WBC 14.59 LAB WRBC 3.90-5.20 m/uL [place] RBC 4.05 LAB WHGB 11.5-15.5 g/dL [place] Hemoglobin 12.6 LAB WHCT 36.0-46.0 % [place] Hematocrit 38.9 LAB WMCV 80.0-100.0 fL [place] MCV 96.0 LAB WMCH 26.0-34.0 pg [place] MCH 31.1 LAB WMCHC 30.5-36.0 g/dL [place] MCHC 32.4 LAB WRDW 11.5-15.0 % [place] RDW 13.6 LAB WPLT 150-400 k/uL Low [place] Platelet Cnt 14 Result Comment: Result rechecked. No clot detected. Called to and read back by: [place] [id number] 03/31/2018 1817 [address] LAB WMPV 9.0-12.7 fL [place] MPV Unable to report LAB ABSNUC <0.01 k/uL Absolute nRBC Rechecked, called to and read back by: Result Comment: PLT=7,HONEY Performed By: #### WCBC #### [facility] [address] [place], [place] [address] CNOVSP Observed: 03/24/2018 Status: COMPLETED Source: [place] 9:00 AM [facility] REPOSITORY Visit (SP) Office (KIARA) GEOVANNA FERNANDEZ ([id number]) 1965 F Date Time Provider Department 03/24/18 9:00 AM DALLAS MCCALLUM During your visit today, we recorded the following information about you: Temperature Pulse Blood pressure Weight 98.3 degrees 96/minute 118/82 103 kg Bri Resendez LPN 03/24/2018 8:31 AM Signed Est patient. NPlate today. Bri Mccallum DO 03/24/2018 9:21 AM Signed Diagnosis: 1) ITP HPI: Patient is a 52 yo 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 Previous treatment: 1) Prednisone for 5 weeks initially (starting 04/18/2008) with slow platelet response. Count rapidly decreased to 1K (no bleeding) on 05/24/2008 and was admitted to [facility] for urgent IVIG administration. Tolerated 1 gm/kg daily for 2 days without acute infusion reaction or increase in serum Cr. Platelets increased to 65K. Last dose prednisone June 2009. 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 3) Eltrombopag 08/30/2008. Increased to 75 mg daily on 11/05/08. 4) Received 3 doses of rituximab, but developed serum sickness (fever, diffuse joint swelling and pain and rash). Current therapy: 1) IVIG every 1-2 weeks. This therapy has been complicated by HAs requiring steroid taper. 2) Nplate. 3) CellCept 500 mg BID. Initiated treatment due to autoimmune dermatologic disorder. Presents for ongoing hematologic management. Interim history: Since starting CellCept, her IVIG requirement has decreased to every third week more consistently over the last 2 months. She still developed migraine following IVIG administration but now Maxalt is relieving it completely. She has not been using Medrol Dosepak. She's not been acutely ill since last seen. Specifically no episode of fever or chills. She has nocturnal hot flashes. Menses are regular and the amount of flow is dependent on her platelet count with heavier flow 1 platelets are low. She's tolerating oral iron without side effect of nausea or constipation. She gets fatigued but she is working full-time. If she gets about 10 hours of sleep on a weekend nights she feels completely refreshed. She's had no other unusual bleeding and no unexplained bruising. She's noticed occasional lower extremity swelling since starting CellCept but only if she is on her feet for long time throughout the day. PMH, medications and allergies as below personally reviewed by me today. Any changes documented in appropriate section. ROS: Constitutional: See above. Neuro: Denies vertigo and imbalance. No symptoms of neuropathy. HEENT: No recent change in voice, vision or hearing. Resp: No cough, wheezing or sputum production. No history of hemoptysis. No shortness of breath at rest. CVS: Denies exertional chest pain, PND, orthopnea. GI: Denies reflux, n/v, change in bowel habits and abdominal pain. : No gross hematuria. Endo: No hot flashes. Musculoskeletal: Denies bone, back, joint and muscular pain. Derm: No rash. Psych: Normal mood. PHYSICAL EXAM: Vitals: Blood pressure 118/82, pulse 96, temperature 36.8 ?C (98.3 ?F), temperature source Oral, weight 103 kg (227 lb). Well-appearing and in no acute distress. EYES: Sclerae are anicteric bilaterally. NECK: Supple. LYMPHATIC: There is no palpable cervical, supraclavicular adenopathy. RESPIRATORY: Inspiratory breath sounds are of normal intensity in all giraldo. No rales, wheezes or rhonchi. Expiratory phase is normal. CARDIOVASCULAR: Rhythm is regular. Normal intensity S1/S2. There is no gallop or murmur. ABDOMEN: The abdomen is nondistended. There is no organomegaly. No tenderness. Extremities: Free of edema. SKIN: No jaundice or rash. No petechiae. 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 No focal motor weakness. ASSESSMENT/PLAN: 1) ITP. Bone marrow biopsy results and clinical picture (response to steroids and IVIG) consistent with ITP at time of diagnosis and remain so. 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 Filter placed 02/08/2013. -The frequency of IVIG administration increases when off thrombopoietin receptor agonist therapy. She therefore continues to benefit with Nplate administration. The addition of CellCept has decreased the frequency of need for IVIG infusion. -We discussed the use of fostamatinib. She has read through literature available for patient use and because of the potential side effects, she would like to hold off on starting this drug and continue her present course of care. I think this is reasonable. 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 -The only side effect she experiences migraine headache following IVIG administration but this is nicely relieved with Maxalt. Plan: -She'll continue weekly CBC with possible Nplate and IVIG administration. -Continue oral iron supplement. Dallas Mccallum DO Referring Provider: DALLAS MCCALLUM [[id number]] Allergies As of Date: 03/24/2018 Noted Allergy Reaction ASA (SALICYLATES) 07/22/2005 4 - Hives BEES 04/01/2008 CLINDAMYCIN 01/11/2011 14 - Other: See Comments Comments: lightheadness PENICILLINS 07/22/2005 2 - Rash 9 - Itching seasonal allergies [Other] 07/22/2005 ZOFRAN (ONDANSETRON) 04/30/2013 8 - GI Upset Comments: Worse nausea. 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 Medication notes this encounter METHYLPREDNISOLONE 4 MG TABLETS IN A DOSE PACK >> Dallas Mccallum DO 03/24/2018 8:55 AM >> DALLAS MCCALLUM DO TueMar 24, 2018 8:55 AM Had been using post IVIG infusion for HUERTA control. Now using Maxalt with good relief. 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 Benign neoplasm of colon [D12.6] INVALID FOR*09/06/2016 Hyperlipidemia with target LDL less than 100 [E*INVALID FOR* Personal history of colonic polyps [Z86.010] INVALID FOR* Obesity, Class III, BMI 40-49.9 (morbid obesity*INVALID FOR* Visit Notes: >> Bri Resendez LPN TueMar 24, 2018 8:27 AM Status: Signed Est patient. NPlate today. Bri Resendez LPN Encounter Status:Closed by DALLAS MCCALLUM DO on 03/24/18 PROGRESS Observed: 03/24/2018 Status: COMPLETED Source: [place] 8:53 AM [facility] REPOSITORY O ID: [id number] Author: Dallas Mccallum Service: (none) Author Type: Physician Type: Progress Notes Filed: 03/24/2018 9:21 AM Note Text: Diagnosis: 1) ITP HPI: Patient is a 52 yo 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 Previous treatment: 1) Prednisone for 5 weeks initially (starting 04/18/2008) with slow platelet response. Count rapidly decreased to 1K (no bleeding) on 05/24/2008 and was admitted to [facility] for urgent IVIG administration. Tolerated 1 gm/kg daily for 2 days without acute infusion reaction or increase in serum Cr. Platelets increased to 65K. Last dose prednisone June 2009. 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 3) Eltrombopag 08/30/2008. Increased to 75 mg daily on 11/05/08. 4) Received 3 doses of rituximab, but developed serum sickness (fever, diffuse joint swelling and pain and rash). Current therapy: 1) IVIG every 1-2 weeks. This therapy has been complicated by HAs requiring steroid taper. 2) Nplate. 3) CellCept 500 mg BID. Initiated treatment due to autoimmune dermatologic disorder. Presents for ongoing hematologic management. Interim history: Since starting CellCept, her IVIG requirement has decreased to every third week more consistently over the last 2 months. She still developed migraine following IVIG administration but now Maxalt is relieving it completely. She has not been using Medrol Dosepak. She's not been acutely ill since last seen. Specifically no episode of fever or chills. She has nocturnal hot flashes. Menses are regular and the amount of flow is dependent on her platelet count with heavier flow 1 platelets are low. She's tolerating oral iron without side effect of nausea or constipation. She gets fatigued but she is working full-time. If she gets about 10 hours of sleep on a weekend nights she feels completely refreshed. She's had no other unusual bleeding and no unexplained bruising. She's noticed occasional lower extremity swelling since starting CellCept but only if she is on her feet for long time throughout the day. PMH, medications and allergies as below personally reviewed by me today. Any changes documented in appropriate section. ROS: Constitutional: See above. Neuro: Denies vertigo and imbalance. No symptoms of neuropathy. HEENT: No recent change in voice, vision or hearing. Resp: No cough, wheezing or sputum production. No history of hemoptysis. No shortness of breath at rest. CVS: Denies exertional chest pain, PND, orthopnea. GI: Denies reflux, n/v, change in bowel habits and abdominal pain. : No gross hematuria. Endo: No hot flashes. Musculoskeletal: Denies bone, back, joint and muscular pain. Derm: No rash. Psych: Normal mood. PHYSICAL EXAM: Vitals: Blood pressure 118/82, pulse 96, temperature 36.8 ?C (98.3 ?F), temperature source Oral, weight 103 kg (227 lb). Well-appearing and in no acute distress. EYES: Sclerae are anicteric bilaterally. NECK: Supple. LYMPHATIC: There is no palpable cervical, supraclavicular adenopathy. RESPIRATORY: Inspiratory breath sounds are of normal intensity in all giraldo. No rales, wheezes or rhonchi. Expiratory phase is normal. CARDIOVASCULAR: Rhythm is regular. Normal intensity S1/S2. There is no gallop or murmur. ABDOMEN: The abdomen is nondistended. There is no organomegaly. No tenderness. Extremities: Free of edema. SKIN: No jaundice or rash. No petechiae. 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 No focal motor weakness. ASSESSMENT/PLAN: 1) ITP. Bone marrow biopsy results and clinical picture (response to steroids and IVIG) consistent with ITP at time of diagnosis and remain so. 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 Filter placed 02/08/2013. -The frequency of IVIG administration increases when off thrombopoietin receptor agonist therapy. She therefore continues to benefit with Nplate administration. The addition of CellCept has decreased the frequency of need for IVIG infusion. -We discussed the use of fostamatinib. She has read through literature available for patient use and because of the potential side effects, she would like to hold off on starting this drug and continue her present course of care. I think this is reasonable. 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 -The only side effect she experiences migraine headache following IVIG administration but this is nicely relieved with Maxalt. Plan: -She'll continue weekly CBC with possible Nplate and IVIG administration. -Continue oral iron supplement. Dallas Mccallum DO [place] CBC Collected: 03/24/2018 Status: F Source: [place] 7:43 AM [facility] REPOSITORY TYPE CODE TESTS RESULT OUT OF REFERENCE UNITS RANGE LAB WWBC 3.70-11.00 k/uL [place] High WBC 19.08 LAB WRBC 3.90-5.20 m/uL [place] RBC 4.17 LAB WHGB 11.5-15.5 g/dL [place] Hemoglobin 13.1 LAB WHCT 36.0-46.0 % [place] Hematocrit 39.8 LAB WMCV 80.0-100.0 fL [place] MCV 95.4 LAB WMCH 26.0-34.0 pg [place] MCH 31.4 LAB WMCHC 30.5-36.0 g/dL [place] MCHC 32.9 LAB WRDW 11.5-15.0 % [place] RDW 14.2 LAB WPLT 150-400 k/uL Low [place] Platelet Cnt 54 Result Comment: Result rechecked. Sample checked for a clot. LAB WMPV 9.0-12.7 fL Unable to [place] MPV report LAB ABSNUC <0.01 k/uL Preliminary Absolute nRBC result. Interpret with caution. Final results may vary. Results requested and read back by: Result Comment: PLT=46,NO CLOT DETECTED Performed By: #### WCBC #### [facility] [address] [place], [place] [address] [place] CBC Collected: 03/17/2018 Status: F Source: [place] 7:38 AM [facility] REPOSITORY TYPE CODE TESTS RESULT OUT OF REFERENCE UNITS RANGE LAB WWBC 3.70-11.00 k/uL [place] WBC 9.45 LAB WRBC 3.90-5.20 m/uL [place] RBC 4.21 LAB WHGB 11.5-15.5 g/dL [place] Hemoglobin 13.1 LAB WHCT 36.0-46.0 % [place] Hematocrit 40.2 LAB WMCV 80.0-100.0 fL [place] MCV 95.5 LAB WMCH 26.0-34.0 pg [place] MCH 31.1 LAB WMCHC 30.5-36.0 g/dL [place] MCHC 32.6 LAB WRDW 11.5-15.0 % [place] RDW 14.5 LAB WPLT 150-400 k/uL Low [place] Platelet Cnt 49 Result Comment: Result checked and verified LAB WMPV 9.0-12.7 fL Unable to [place] MPV assay. Analytical difficulty. [place] CBC Collected: 03/10/2018 Status: F Source: [place] 7:50 AM [facility] REPOSITORY TYPE CODE TESTS RESULT OUT OF REFERENCE UNITS RANGE LAB WWBC 3.70-11.00 k/uL [place] High WBC 12.90 LAB WRBC 3.90-5.20 m/uL [place] RBC 4.09 LAB WHGB 11.5-15.5 g/dL [place] Hemoglobin 12.8 LAB WHCT 36.0-46.0 % [place] Hematocrit 39.0 LAB WMCV 80.0-100.0 fL [place] MCV 95.4 LAB WMCH 26.0-34.0 pg [place] MCH 31.3 LAB WMCHC 30.5-36.0 g/dL [place] MCHC 32.8 LAB WRDW 11.5-15.0 % [place] RDW 14.4 LAB WPLT 150-400 k/uL Low [place] Platelet Cnt 17 Result Comment: Result rechecked. No clot detected. Platelet count confirmed by manual review of peripheral blood smear. Final report called to and read back by Jason [phone] [id number] 7.20.18 [place] LAB WMPV 9.0-12.7 fL High [place] MPV 16.8 LAB ABSNUC <0.01 k/uL Absolute nRBC Rechecked, called to and read back by: Result Comment: PLT=8,HONEY Performed By: #### WCBC #### [facility] [address] [place] [address] DIEUDONNE CBC Collected: 03/03/2018 Status: F Source: [place] 7:35 AM [facility] REPOSITORY TYPE CODE TESTS RESULT OUT OF REFERENCE UNITS RANGE LAB WWBC 3.70-11.00 k/uL [place] High WBC 22.22 LAB WRBC 3.90-5.20 m/uL [place] RBC 4.11 LAB WHGB 11.5-15.5 g/dL [place] Hemoglobin 13.0 LAB WHCT 36.0-46.0 % [place] Hematocrit 39.2 LAB WMCV 80.0-100.0 fL [place] MCV 95.4 LAB WMCH 26.0-34.0 pg [place] MCH 31.6 LAB WMCHC 30.5-36.0 g/dL [place] MCHC 33.2 LAB WRDW 11.5-15.0 % [place] RDW 14.3 LAB WPLT 150-400 k/uL Low [place] Platelet Cnt 36 Result Comment: Result checked and verified LAB WMPV 9.0-12.7 fL Unable to [place] MPV assay. Analytical difficulty. BASIC METABOLIC PANL Collected: 02/24/2018 Status: F Source: [place] 7:35 AM [facility] REPOSITORY TYPE CODE TESTS RESULT OUT OF REFERENCE UNITS RANGE LAB GLU 74-99 mg/dL High Glucose 144 Result Comment: The [place] [employer] (ADA) provides guidance for cutoff values for fasting glucose and random glucose. The ADA defines fasting as no caloric intake for at least 8 hours. Fas ting plasma glucose results between 100 to 125 mg/dL indicate increased risk for diabetes (prediabetes). Fasting plasma glucose results greater than or equal to 126 mg/dL meet the criteria for diagnosis of diabetes. In the absence of unequivocal hyperglycemia, results should be confirmed by repeat testing. In a patient with classic symptoms of hyperglycemia or hyperglycemic crisis, random plasma glucose results greater than or equal to 200 mg/dL meet the criteria for diagnosis of diabetes. Reference: Standards of Medical Care in Diabetes 2016, [place] [employer]. Diabetes Care. 2016.39(Suppl 1). LAB BUN 7-21 mg/dL BUN 10 LAB CRET 0.58-0.96 mg/dL Creatinine 0.61 LAB NA 136-144 mmol/L Sodium Low 135 LAB K 3.7-5.1 mmol/L Potassium 4.3 LAB CL 97-105 mmol/L Chloride 97 LAB CO2 22-30 mmol/L CO2 24 LAB AGAP 9-18 mmol/L Anion Gap 14 LAB CA 8.5-10.2 mg/dL Calcium, Total 9.2 LAB GFRAA eGFR- Amer. >60 LAB GFRNAA . eGFR-All Other Races >60 Result Comment: eGFR (Estimated GFR) Units of measure: mL/min/1.73 meters squared eGFR is derived from the reexpressed MDRD Study equation using the following parameters: serum creatinine, age, gender and race. The creatinine assay has been calibrated to be traceable to IDMS. An eGFR <60 mL/min/1.73m2 for >3 months is consistent with chronic kidney disease. Refer to KDOQI guidelines for clinical interpretation. In patients with unstable renal function, e.g. those with acute kidney injury, the eGFR may not accurately reflect actual GFR. Performed By: #### BMP, HBA1C #### [facility] [address] [place] [address] HEMOGLOBIN A1C Collected: 02/24/2018 Status: F Source: [place] 7:[address] [facility] REPOSITORY TYPE CODE TESTS RESULT OUT OF REFERENCE UNITS RANGE LAB HGBA1C 4.3-5.6 % High Hemoglobin A1c 5.7 LAB HBA0 mg/dL Est. Average Glucose 117 Result Comment: eAG: (Estimated average glucose) is a calculated value from HgbA1c and is sales representative canvas products of the average blood glucose level in the last 2-3 month period. Performed By: #### BMP, HBA1C #### [facility] [place] [id number] ALBUMIN/CREAT RATIO Collected: 02/24/2018 Status: F Source: [place] 7:35 AM [facility] REPOSITORY TYPE CODE TESTS RESULT OUT OF REFERENCE UNITS RANGE LAB UCRR 20-300 mg/dL 30.0 Creatinine,Ur ine,Ran LAB UALBR 0.0-23.0 mg/L <12.0 Albumin Urine Random LAB UALBCR 0-30 mg/g Not Albumin/Creat calculated Ratio Performed By: #### UACR #### [place] [id number] [place] [address] [place] CBC Collected: 02/24/2018 Status: F Source: [place] 7:35 AM [facility] REPOSITORY TYPE CODE TESTS RESULT OUT OF REFERENCE UNITS RANGE LAB WWBC 3.70-11.00 k/uL High [place] WBC 11.79 Result Comment: Result rechecked. LAB WRBC 3.90-5.20 m/uL [place] RBC 4.24 LAB WHGB 11.5-15.5 g/dL [place] Hemoglobin 13.3 LAB WHCT 36.0-46.0 % [place] Hematocrit 40.9 LAB WMCV 80.0-100.0 fL [place] MCV 96.5 LAB WMCH 26.0-34.0 pg [place] MCH 31.4 LAB WMCHC 30.5-36.0 g/dL [place] MCHC 32.5 LAB WRDW 11.5-15.0 % [place] RDW 14.3 LAB WPLT 150-400 k/uL [place] Low Platelet Cnt 45 Result Comment: Result rechecked. No clot detected. LAB WMPV 9.0-12.7 fL Unable to [place] MPV report LAB ABSNUC <0.01 k/uL Preliminary Absolute nRBC result. Interpret with caution. Final results may vary. Results requested and read back by: Result Comment: WBC=12.26,PLT=34,MISAMAR Performed By: #### WCBC #### [facility] [place] [id number] D[place]NE CBC Collected: 02/17/2018 Status: F Source: [place] 7:40 AM [facility] REPOSITORY TYPE CODE TESTS RESULT OUT OF REFERENCE UNITS RANGE LAB WWBC 3.70-11.00 k/uL [place] High WBC 11.48 LAB WRBC 3.90-5.20 m/uL [place] RBC 3.96 LAB WHGB 11.5-15.5 g/dL [place] Hemoglobin 12.4 LAB WHCT 36.0-46.0 % [place] Hematocrit 38.3 LAB WMCV 80.0-100.0 fL [place] MCV 96.7 LAB WMCH 26.0-34.0 pg [place] MCH 31.3 LAB WMCHC 30.5-36.0 g/dL [place] MCHC 32.4 LAB WRDW 11.5-15.0 % [place] RDW 14.3 LAB WPLT 150-400 k/uL Low [place] Platelet Cnt 25 LAB WMPV 9.0-12.7 fL [place] MPV 12.7 Result Comment: Test performed at: [facility], [address] [place] [address] Rd[address] [place] [address]. DIEUDONNE CBC Collected: 02/10/2018 Status: F Source: [place] 7:35 AM [facility] REPOSITORY TYPE CODE TESTS RESULT OUT OF REFERENCE UNITS RANGE LAB WWBC 3.70-11.00 k/uL [place] High WBC 11.93 LAB WRBC 3.90-5.20 m/uL Low [place] RBC 3.87 LAB WHGB 11.5-15.5 g/dL [place] Hemoglobin 12.1 LAB WHCT 36.0-46.0 % [place] Hematocrit 37.4 LAB WMCV 80.0-100.0 fL [place] MCV 96.6 LAB WMCH 26.0-34.0 pg [place] MCH 31.3 LAB WMCHC 30.5-36.0 g/dL [place] MCHC 32.4 LAB WRDW 11.5-15.0 % [place] RDW 14.8 LAB WPLT 150-400 k/uL Low [place] Platelet Cnt 25 Result Comment: Result checked and verified LAB WMPV 9.0-12.7 fL Unable to [place] MPV assay. Analytical difficulty. [place] CBC Collected: 02/03/2018 Status: F Source: [place] 7:42 AM [facility] REPOSITORY TYPE CODE TESTS RESULT OUT OF REFERENCE UNITS RANGE LAB WWBC 3.70-11.00 k/uL [place] High WBC 12.68 LAB WRBC 3.90-5.20 m/uL [place] RBC 3.99 LAB WHGB 11.5-15.5 g/dL [place] Hemoglobin 12.5 LAB WHCT 36.0-46.0 % [place] Hematocrit 38.5 LAB WMCV 80.0-100.0 fL [place] MCV 96.5 LAB WMCH 26.0-34.0 pg [place] MCH 31.3 LAB WMCHC 30.5-36.0 g/dL [place] MCHC 32.5 LAB WRDW 11.5-15.0 % [place] High RDW 15.2 LAB WPLT 150-400 k/uL Low [place] Platelet Cnt 129 LAB WMPV 9.0-12.7 fL [place] High MPV 14.1 Result Comment: Test performed at: [address], [place] [address]. DIEUDONNE CBC Collected: 01/27/2018 Status: F Source: [place] 7:41 AM [facility] REPOSITORY TYPE CODE TESTS RESULT OUT OF REFERENCE UNITS RANGE LAB WWBC 3.70-11.00 k/uL [place] High WBC 15.95 LAB WRBC 3.90-5.20 m/uL Low [place] RBC 3.76 LAB WHGB 11.5-15.5 g/dL [place] Hemoglobin 11.9 LAB WHCT 36.0-46.0 % [place] Hematocrit 36.5 LAB WMCV 80.0-100.0 fL [place] MCV 97.1 LAB WMCH 26.0-34.0 pg [place] MCH 31.6 LAB WMCHC 30.5-36.0 g/dL [place] MCHC 32.6 LAB WRDW 11.5-15.0 % [place] RDW 15.0 LAB WPLT 150-400 k/uL Low [place] Platelet Cnt 78 LAB WMPV 9.0-12.7 fL [place] MPV Unable to report Performed By: #### WCBC #### [facility] [address] [place], [place] [address] DIEUDONNE CBC Collected: 01/20/2018 Status: F Source: [place] 7:16 AM [facility] REPOSITORY TYPE CODE TESTS RESULT OUT OF REFERENCE UNITS RANGE LAB WWBC 3.70-11.00 k/uL 11.72 High [place] WBC LAB WRBC 3.90-5.20 m/uL 3.72 Low [place] RBC LAB WHGB 11.5-15.5 g/dL 11.7 [place] Hemoglobin LAB WHCT 36.0-46.0 % 36.0 [place] Hematocrit LAB WMCV 80.0-100.0 fL 96.8 [place] MCV LAB WMCH 26.0-34.0 pg 31.5 [place] MCH LAB WMCHC 30.5-36.0 g/dL 32.5 [place] MCHC LAB WRDW 11.5-15.0 % 14.6 [place] RDW LAB WPLT 150-400 k/uL 48 Low [place] Platelet Cnt LAB WMPV 9.0-12.7 fL [place] MPV Unable to assay. Analytical difficulty. [place] CBC Collected: 01/13/2018 Status: F Source: [place] 7:38 AM [facility] REPOSITORY TYPE CODE TESTS RESULT OUT OF REFERENCE UNITS RANGE LAB WWBC 3.70-11.00 k/uL [place] High WBC 13.25 LAB WRBC 3.90-5.20 m/uL [place] RBC 3.91 LAB WHGB 11.5-15.5 g/dL [place] Hemoglobin 12.1 LAB WHCT 36.0-46.0 % [place] Hematocrit 37.6 LAB WMCV 80.0-100.0 fL [place] MCV 96.2 LAB WMCH 26.0-34.0 pg [place] MCH 30.9 LAB WMCHC 30.5-36.0 g/dL [place] MCHC 32.2 LAB WRDW 11.5-15.0 % [place] RDW 14.3 LAB WPLT 150-400 k/uL Low [place] Platelet Cnt 12 Result Comment: NO CLOT DETECTED Result checked and verified Called to and read back by: Honey Bro Ref Lab 01/13/18 0825 [place]ts LAB WMPV 9.0-12.7 fL Unable to [place] MPV assay. Analytical difficulty. [place] CBC Collected: 01/06/2018 Status: F Source: [place] 7:51 AM [facility] REPOSITORY TYPE CODE TESTS RESULT OUT OF REFERENCE UNITS RANGE LAB WWBC 3.70-11.00 k/uL 12.31 High [place] WBC LAB WRBC 3.90-5.20 m/uL 3.71 Low [place] RBC LAB WHGB 11.5-15.5 g/dL 11.5 [place] Hemoglobin LAB WHCT 36.0-46.0 % 35.9 Low [place] Hematocrit LAB WMCV 80.0-100.0 fL 96.8 [place] MCV LAB WMCH 26.0-34.0 pg 31.0 [place] MCH LAB WMCHC 30.5-36.0 g/dL 32.0 [place] MCHC LAB WRDW 11.5-15.0 % 14.5 [place] RDW LAB WPLT 150-400 k/uL 68 Low [place] Platelet Cnt LAB WMPV 9.0-12.7 fL [place] MPV Unable to assay. Analytical difficulty. Result Comment: Test performed at: [address], [place] [address]. DIEUDONNE CBC Collected: 12/30/2017 Status: F Source: [place] 7:54 AM [facility] REPOSITORY TYPE CODE TESTS RESULT OUT OF REFERENCE UNITS RANGE LAB WWBC 3.70-11.00 k/uL [place] WBC 10.46 LAB WRBC 3.90-5.20 m/uL [place] RBC 4.00 LAB WHGB 11.5-15.5 g/dL [place] Hemoglobin 12.4 LAB WHCT 36.0-46.0 % [place] Hematocrit 38.2 LAB WMCV 80.0-100.0 fL [place] MCV 95.5 LAB WMCH 26.0-34.0 pg [place] MCH 31.0 LAB WMCHC 30.5-36.0 g/dL [place] MCHC 32.5 LAB WRDW 11.5-15.0 % [place] RDW 14.5 LAB WPLT 150-400 k/uL Low [place] Alert Platelet Cnt 7 Result Comment: Called to and read back by: Honey [phone] 12/31/07 0812 BBlum LAB WMPV 9.0-12.7 fL Unable to [place] MPV assay. Analytical difficulty. Result Comment: Test performed at: [address] [place] [address]. LAB ABSNUC <0.01 k/uL Preliminary Absolute nRBC result. Interpret with caution. Final results may vary. Results requested and read back by: Result Comment: PLATELET=7,P.PETEREZEKIELMICHAEL,COMBINATION PRESSER,[id number],BYVALENTE [place] CBC Collected: 12/23/2017 Status: F Source: [place] 7:30 AM [facility] REPOSITORY TYPE CODE TESTS RESULT OUT OF REFERENCE UNITS RANGE LAB WWBC 3.70-11.00 k/uL [place] WBC 10.58 LAB WRBC 3.90-5.20 m/uL [place] RBC 3.94 LAB WHGB 11.5-15.5 g/dL [place] Hemoglobin 12.2 LAB WHCT 36.0-46.0 % [place] Hematocrit 37.5 LAB WMCV 80.0-100.0 fL [place] MCV 95.2 LAB WMCH 26.0-34.0 pg [place] MCH 31.0 LAB WMCHC 30.5-36.0 g/dL [place] MCHC 32.5 LAB WRDW 11.5-15.0 % [place] RDW 14.9 LAB WPLT 150-400 k/uL Low [place] Platelet Cnt 63 Result Comment: Result rechecked. NO CLOT DETECTED LAB WMPV 9.0-12.7 fL Unable to [place] MPV assay. Analytical difficulty. D[place]NE CBC Collected: 12/16/2017 Status: F Source: [place] 7:40 AM [facility] REPOSITORY TYPE CODE TESTS RESULT OUT OF REFERENCE UNITS RANGE LAB WWBC 3.70-11.00 k/uL 14.99 High [place] WBC LAB WRBC 3.90-5.20 m/uL 4.02 [place] RBC LAB WHGB 11.5-15.5 g/dL 12.6 [place] Hemoglobin LAB WHCT 36.0-46.0 % 38.4 [place] Hematocrit LAB WMCV 80.0-100.0 fL 95.5 [place] MCV LAB WMCH 26.0-34.0 pg 31.3 [place] MCH LAB WMCHC 30.5-36.0 g/dL 32.8 [place] MCHC LAB WRDW 11.5-15.0 % 14.8 [place] RDW LAB WPLT 150-400 k/uL 26 Low [place] Platelet Cnt LAB WMPV 9.0-12.7 fL [place] MPV Unable to assay. Analytical difficulty. Result Comment: Test performed at: [facility], [address] [facility] [address] [place] [address]. DUNDEE CBC Collected: 12/09/2017 Status: F Source: [place] 7:42 AM [facility] REPOSITORY TYPE CODE TESTS RESULT OUT OF REFERENCE UNITS RANGE LAB WWBC 3.70-11.00 k/uL 10.23 [place] WBC LAB WRBC 3.90-5.20 m/uL 3.91 [place] RBC LAB WHGB 11.5-15.5 g/dL 12.1 [place] Hemoglobin LAB WHCT 36.0-46.0 % 38.0 [place] Hematocrit LAB WMCV 80.0-100.0 fL 97.2 [place] MCV LAB WMCH 26.0-34.0 pg 30.9 [place] MCH LAB WMCHC 30.5-36.0 g/dL 31.8 [place] MCHC LAB WRDW 11.5-15.0 % 15.4 High [place] RDW LAB WPLT 150-400 k/uL 66 Low [place] Platelet Cnt LAB WMPV 9.0-12.7 fL [place] MPV Unable to assay. Analytical difficulty. Result Comment: Test performed at: [facility], [address] [place] [address]., [place] [address]. DUNDEE CBC Collected: 12/02/2017 Status: F Source: [place] 7:46 AM [facility] REPOSITORY TYPE CODE TESTS RESULT OUT OF REFERENCE UNITS RANGE LAB WWBC 3.70-11.00 k/uL [place] High WBC 13.39 LAB WRBC 3.90-5.20 m/uL [place] RBC 4.00 LAB WHGB 11.5-15.5 g/dL [place] Hemoglobin 12.4 LAB WHCT 36.0-46.0 % [place] Hematocrit 38.6 LAB WMCV 80.0-100.0 fL [place] MCV 96.5 LAB WMCH 26.0-34.0 pg [place] MCH 31.0 LAB WMCHC 30.5-36.0 g/dL [place] MCHC 32.1 LAB WRDW 11.5-15.0 % [place] High RDW 15.7 LAB WPLT 150-400 k/uL Low [place] Platelet Cnt 26 Result Comment: Result rechecked. No clot detected. LAB WMPV 9.0-12.7 fL Unable to [place] MPV assay. Analytical difficulty. LAB ABSNUC <0.01 k/uL Preliminary Absolute nRBC result. Interpret with caution. Final results may vary. Results requested and read back by: Result Comment: PLATELET=16 J.CL[place] [id number] DAVID Performed By: #### WCBC #### [facility] [address] [place], [place] [address] D[place]NE CBC Collected: 11/25/2017 Status: F Source: [place] 7:40 AM [facility] REPOSITORY TYPE CODE TESTS RESULT OUT OF REFERENCE UNITS RANGE LAB WWBC 3.70-11.00 k/uL [place] High WBC 14.23 LAB WRBC 3.90-5.20 m/uL Low [place] RBC 3.86 LAB WHGB 11.5-15.5 g/dL [place] Hemoglobin 11.9 LAB WHCT 36.0-46.0 % [place] Hematocrit 37.1 LAB WMCV 80.0-100.0 fL [place] MCV 96.1 LAB WMCH 26.0-34.0 pg [place] MCH 30.8 LAB WMCHC 30.5-36.0 g/dL [place] MCHC 32.1 LAB WRDW 11.5-15.0 % [place] High RDW 16.0 LAB WPLT 150-400 k/uL Low [place] Platelet Cnt 101 Result Comment: NO CLOT DETECTED Result rechecked. LAB WMPV 9.0-12.7 fL High [place] MPV 14.5 Result Comment: Test performed at: [facility], [address] [place] [address] Rd[address] [place] [address]. PROTIME Collected: 11/25/2017 Status: F Source: [place] 7:40 AM [facility] REPOSITORY TYPE CODE TESTS RESULT OUT OF RANGE REFERENCE UNITS LAB PSEC 9.7-13.0 sec PT Sec 10.2 LAB INR 0.9-1.3 PT INR 1.0 Result Comment: Vitamin K Antagonist (VKA) Therapeutic Range: INR 2 to 3 (Target INR of 2.5) Note: For patients treated with VKA drugs, such as warfarin, the [place] [employer] 2012 Guideline recommends a therapeutic INR range of 2 to 3 (target INR of 2.5). This recommendation includes high-risk patients with antiphospholipid syndrome with previous arterial or venous thromboembolism, current-generation mechanical or bioprosthetic aortic heart valve replacement. Note: Patients with mechanical aortic valve replacement and additional risk factors for thromboembolic events (atrial fibrillation, previous thromboembolism, LV dysfunction, hypercoagulable conditions) or an older generation mechanical AVR (i.e., ball in-Cage) or any mechanical MVR should have a INR therapeutic range of 2.5 to 3.5 (target INR of 3). Meg GH, et al. Chest 2012, 141:[id number] Shad RA, et al. [facility] 2017, 70: [phone] Performed By: #### PT, PTT #### [facility] [address] [place], [place] [address] APTT Collected: 11/25/2017 Status: F Source: [place] 7:40 AM [facility] REPOSITORY TYPE CODE TESTS RESULT OUT OF RANGE REFERENCE UNITS LAB APTT 23.0-32.4 sec Low APTT 22.8 Result Comment: Unfractionated Heparin Therapeutic Ranges: Standard Heparin Nomogram: 53 to 78 seconds (anti-Xa level of 0.3 to 0.7 U/ml) Low Dose/ACS Nomogram: 49 to 67 seconds (anti-Xa level of 0.2 to 0.5 U/ml) Stroke Treatment Nomogram: 49 to 67 seconds (anti-Xa level of 0.2 to 0.5 U/ml) Note: The APTT therapeutic range has been determined for the current lot of laboratory APTT reagent in use throughout the [facility]. Performed By: #### PT, PTT #### [facility] [address] [place], [place] [address] PROGRESS Observed: 11/24/2017 Status: COMPLETED Source: [place] 4:02 PM [facility] REPOSITORY HNO ID: [id number] Author: Dallas Mccallum Service: (none) Author Type: Physician Type: Progress Notes Filed: 11/25/2017 4:30 PM Note Text: Diagnosis: 1) ITP HPI: Patient is a 52 yo 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 Previously treatment: 1) Prednisone for 5 weeks initially (starting 04/18/08) with slow platelet response. Count rapidly decreased to 1K (no bleeding) on 05/24/08 and was admitted to [facility] for urgent IVIG administration. Tolerated 1 gm/kg daily for 2 days without acute infusion reaction or increase in serum Cr. Platelets increased to 65K. Last dose prednisone June 2009. 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 3) Eltrombopag 08/30/2008. Increased to 75 mg daily on 11/05/08. 4) Received 3 doses of rituximab, but developed serum sickness (fever, diffuse joint swelling and pain and rash). Current therapy: 1) IVIG every 1-2 weeks. This therapy has been complicated by HAs requiring steroid taper. 2) Nplate. Presents for ongoing care. Interim history: She's been tolerating Nplate injections without side effect. When the drug was omitted for 2 weeks, she had an increase in frequency of need for IVIG to once a week. When she resumed injection she's been receiving IV Ig on average about every 2 weeks. She's not had any unusual bleeding or unexplained bruising. However when she went off Nplate injections her platelet count was found to be 0 on a routine check but she had developed total body petechiae about two days prior to that. No acute illnesses since last seen. No episodes of fever or shaking chills. 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 PMH, medications and allergies as below personally reviewed by me today. Any changes documented in appropriate section. ROS: Constitutional: See above. Neuro: Denies vertigo and imbalance. No symptoms of neuropathy. HEENT: No recent change in voice, vision or hearing. Resp: No shortness of breath at rest. CVS: Denies exertional chest pain, PND, orthopnea and LE edema. GI: Denies reflux, n/v, change in bowel habits and abdominal pain. : No gross hematuria. Endo: No hot flashes. Musculoskeletal: Denies bone, back, joint and muscular pain. Derm: No rash. Psych: Normal mood. PHYSICAL EXAM: Vitals: Blood pressure 112/80, pulse 83, temperature 36.4 ?C (97.6 ?F), weight 101.6 kg (224 lb), last menstrual period 11/15/2017. Well-appearing and in no acute distress. EYES: Sclerae are anicteric bilaterally. ENT: Oral mucosa is unremarkable. There is no sign of thrush or mucositis. NECK: Supple. LYMPHATIC: There is no palpable cervical, supraclavicular adenopathy. RESPIRATORY: Inspiratory breath sounds are of normal intensity in all giraldo. No rales, wheezes or rhonchi. Expiratory phase is normal. CARDIOVASCULAR: Rhythm is regular. Normal intensity S1/S2. There is no gallop or murmur. ABDOMEN: The abdomen is nondistended. There is no organomegaly. No tenderness. Extremities: Free of edema. SKIN: No jaundice or rash. No petechiae. 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 No focal motor weakness. ASSESSMENT/PLAN: 1) ITP. Bone marrow biopsy results and clinical picture (response to steroids and IVIG) consistent with ITP at time of diagnosis. 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 Filter placed 02/08/2013. -The frequency of IVIG administration increases when off thrombopoietin receptor agonist therapy. Plan: -She'll continue weekly CBC with possible Nplate and IVIG administration. -I will check with about increasing dose of IVIG. -She will call to schedule possible skin biopsy early next week. CBC that morning to check platelet count. -Coags tomorrow. Dallas Mccallum DO CNOVSP Observed: 11/24/2017 Status: COMPLETED Source: [place] 4:00 PM [facility] REPOSITORY Visit (SP) Office (KIARA) GEOVANNA FERNANDEZ ([id number]) 1965 F Date Time Provider Department 11/24/17 4:00 PM DALLAS MCCALLUM During your visit today, we recorded the following information about you: Temperature Pulse Blood pressure Weight 97.6 degrees 83/minute 112/80 101.6 kg Anai Turcios LPN, LPN 11/24/2017 4:11 PM Signed Est pt., discuss labs done 11/18. 6 month f/u Anaipito Contreras Tam, COMBINATION PRESSER Dallas Mccallum DO 11/25/2017 4:30 PM Signed Diagnosis: 1) ITP HPI: Patient is a 52 yo 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 Previously treatment: 1) Prednisone for 5 weeks initially (starting 04/18/08) with slow platelet response. Count rapidly decreased to 1K (no bleeding) on 05/24/08 and was admitted to [facility] for urgent IVIG administration. Tolerated 1 gm/kg daily for 2 days without acute infusion reaction or increase in serum Cr. Platelets increased to 65K. Last dose prednisone June 2009. 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 3) Eltrombopag 08/30/2008. Increased to 75 mg daily on 11/05/08. 4) Received 3 doses of rituximab, but developed serum sickness (fever, diffuse joint swelling and pain and rash). Current therapy: 1) IVIG every 1-2 weeks. This therapy has been complicated by HAs requiring steroid taper. 2) Nplate. Presents for ongoing care. Interim history: She's been tolerating Nplate injections without side effect. When the drug was omitted for 2 weeks, she had an increase in frequency of need for IVIG to once a week. When she resumed injection she's been receiving IV Ig on average about every 2 weeks. She's not had any unusual bleeding or unexplained bruising. However when she went off Nplate injections her platelet count was found to be 0 on a routine check but she had developed total body petechiae about two days prior to that. No acute illnesses since last seen. No episodes of fever or shaking chills. 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 PMH, medications and allergies as below personally reviewed by me today. Any changes documented in appropriate section. ROS: Constitutional: See above. Neuro: Denies vertigo and imbalance. No symptoms of neuropathy. HEENT: No recent change in voice, vision or hearing. Resp: No shortness of breath at rest. CVS: Denies exertional chest pain, PND, orthopnea and LE edema. GI: Denies reflux, n/v, change in bowel habits and abdominal pain. : No gross hematuria. Endo: No hot flashes. Musculoskeletal: Denies bone, back, joint and muscular pain. Derm: No rash. Psych: Normal mood. PHYSICAL EXAM: Vitals: Blood pressure 112/80, pulse 83, temperature 36.4 ?C (97.6 ?F), weight 101.6 kg (224 lb), last menstrual period 11/15/2017. Well-appearing and in no acute distress. EYES: Sclerae are anicteric bilaterally. ENT: Oral mucosa is unremarkable. There is no sign of thrush or mucositis. NECK: Supple. LYMPHATIC: There is no palpable cervical, supraclavicular adenopathy. RESPIRATORY: Inspiratory breath sounds are of normal intensity in all giraldo. No rales, wheezes or rhonchi. Expiratory phase is normal. CARDIOVASCULAR: Rhythm is regular. Normal intensity S1/S2. There is no gallop or murmur. ABDOMEN: The abdomen is nondistended. There is no organomegaly. No tenderness. Extremities: Free of edema. SKIN: No jaundice or rash. No petechiae. 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 No focal motor weakness. ASSESSMENT/PLAN: 1) ITP. Bone marrow biopsy results and clinical picture (response to steroids and IVIG) consistent with ITP at time of diagnosis. 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 Filter placed 02/08/2013. -The frequency of IVIG administration increases when off thrombopoietin receptor agonist therapy. Plan: -She'll continue weekly CBC with possible Nplate and IVIG administration. -I will check with about increasing dose of IVIG. -She will call to schedule possible skin biopsy early next week. CBC that morning to check platelet count. -Coags tomorrow. Dallas Mccallum DO Referring Provider: DALLAS MCCALLUM [[id number]] Allergies As of Date: 11/24/2017 Noted Allergy Reaction ASA (SALICYLATES) 07/22/2005 4 - Hives BEES 04/01/2008 CLINDAMYCIN 01/11/2011 14 - Other: See Comments Comments: lightheadness PENICILLINS 07/22/2005 2 - Rash 9 - Itching ZOFRAN (ONDANSETRON) 04/30/2013 8 - GI Upset Comments: Worse nausea. seasonal allergies [Other] 07/22/2005 Date Reviewed: 11/24/2017 Reviewed by: Anai Turcios LPN - Fully Assessed Reason for Visit: Established Patient [[id number]] Primary Visit Diagnosis:Immune thrombocytopenic purpura (HCC) [D69.3] Order(s):ACTIVATED PTT [SQPTT] Order #: [id number] FUTURE PROTHROMBIN TIME/PT [SQPT] Order #: [id number] FUTURE Follow-up and Disposition History Recorded Prescriptions as of 11/24/2017 Sig: METFORMIN ER 500 MG TABLET,EX* Take 2 tablets by mouth twice* SIMVASTATIN 10 MG TABLET Take 1 tablet by mouth daily * RIZATRIPTAN 10 MG TABLET Take 1 tablet by mouth as nee* FERROUS SULFATE ER 140 MG (45* Take 1 tablet by mouth twice * Patient taking differently: Take 140 mg by mouth once casey* FUROSEMIDE 20 MG TABLET Take 1 tablet by mouth once d* ELTROMBOPAG 25 MG TABLET Take 3 tablets by mouth once * METHYLPREDNISOLONE 4 MG TABLE* as directed BLOOD SUGAR DIAGNOSTIC STRIPS Test blood sugar(s) 1 times d* ONETOUCH ULTRASOFT LANCETS Test blood sugar once daily. 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 Benign neoplasm of colon [D12.6] INVALID FOR*09/06/2016 Hyperlipidemia with target LDL less than 100 [E*INVALID FOR* Personal history of colonic polyps [Z86.010] INVALID FOR* Visit Notes: >> Anai Turcios LPN Yasmine Nov 24, 2017 4:01 PM Status: Signed Est pt., discuss labs done 11/18. 6 month f/u Anai Turcios LPN Encounter Status:Closed by DALLAS MCCALLUM DO on 11/25/17 PROGRESS Observed: 11/21/2017 Status: COMPLETED Source: [place] 1:[address] [facility] [place] REPOSITORY HNO ID: [id number] Author: Chucho Tobar (Edson) Issac Service: (none) Author Type: Nurse Practitioner Type: Progress Notes Filed: 11/21/2017 5:34 PM Note Text: Patient presents with: Refill Request: Medication refill Geovanna Fernandez is a 52 year old female who presents in follow up of DM, and Hyperlipidemia and lab review. She will be establishing care with Dr. Xavier later this summer. Feels well, denies any complaints. Follows closely with Dr. Mccallum for ITP. Component Latest Ref Rng AND Units 11/04/2017 Cholesterol, Total <200 mg/dL 152 Triglyceride <150 mg/dL 127 HDL Cholesterol >39 mg/dL 46 LDL Cholesterol <100 mg/dL 81 Non HDL Cholesterol <130 mg/dL 106 Fasting Time hrs 12 VLDL Cholesterol <30 mg/dL 25 TC:HDL Ratio <5.10 3.30 LDL:HDL Ratio <2.54 1.76 Hemoglobin A1C 4.3 - 5.6 % 6.6 (H) Estimated Average Glucose mg/dL 143 DIABETES MELLITUS: Ms. Fernandez was last seen 1 year ago. Since our last visit she denies excessive thirst or increased frequency of urination, chest pain or dyspnea , numbness, tingling or pain in extremities, new or unusual visual symptoms, low sugar/hypoglycemic reactions, weight loss/gain, lightheadedness/dizziness and bowel changes/loose stools. Follows a diabetic diet most of the time. She is compliant with medication(s) and is tolerating med(s) without any side effects. She reports checking her glucose on a infrequent to not at all basis schedule . Patient's last HgA1C was Hemoglobin A1C (%) Date Value 11/04/2017 6.6 07/23/2016 6.7 ) Last Ophthalmology exam Due now and apt scheduled Type of glucometer- One Touch Ultra Pneumovax given Yes Does NOT get Influenza vaccine HTN: No history of HTN Ms. Fernandez indicates that she is feeling well and denies any symptoms referable to elevated blood pressure. Specifically denies headache, chest pain, palpitations, dyspnea and peripheral edema. She does check BP's away from this office with average BP's in the < 120/70's range. Geovanna denies regular aerobic exercise, walks as much as she can at work. She watches her diet for sodium, low fat and low cholesterol most of the time. Not on an ACEI or ARB. Last 3 Encounter BP Readings: Date: BP: 11/21/2017 116/84 11/18/2017 106/74 11/11/2017 122/86 Hyperlipidemia. Ms. Fernandez reports doing well on current therapy of simvastatin (Zocor) 10 mg. Denies side effects of muscle weakness or achiness. Her most recent lipid panels are: Cholesterol, Total (mg/dL) Date Value 11/04/2017 152 07/23/2016 161 HDL Cholesterol (mg/dL) Date Value 11/04/2017 46 07/23/2016 40 LDL Cholesterol (mg/dL) Date Value 11/04/2017 81 07/23/2016 73 Triglyceride (mg/dL) Date Value 11/04/2017 127 07/23/2016 238 Past Medical, Surgical, Family and Social Histories reviewed and updated today in the History tab of [employer]. Current Medications and allergies reviewed. PAST MEDICAL HISTORY Diagnosis Date - Diabetes (HCC) - Hyperlipidemia with target LDL less than 100 03/08/2014 - Immune thrombocytopenic purpura (HCC) - Pulmonary embolism (HCC) 01/12/12, 12/2012 PAST SURGICAL HISTORY Procedure Laterality Date - COLONOSCOP W/ OR W/O [facility] SPEC 01-26-16 - FILTER PLACEMENT (VENA CAVA) 02-08-13 - PAST SURGICAL HISTORY OF knee surgery [place] - REMOVAL SPLEEN, TOTAL 12/03/2011 Splenectomy - RETRIEV INTRAVASC FOREGN BODY 07-17-12 - TUNNEL VAD W SUB Q PORT >=5 Left 02-03-16 - VENA CAVA FILTER 01/14/12 ACTIVE PROBLEM LIST Immune Thrombocytopenic Purpura (Hcc) Serum Sickness Diabetes Mellitus Type 2, Controlled, Without Complications (Hcc) Family History of Colon Cancer Pulmonary Embolism (Hcc) Hyperlipidemia With Target Ldl Less Than 100 Personal History of Colonic Polyps ALLERGIES: Asa [Salicylates]; Bees; Clindamycin; Penicillins; Zofran [Ondansetron]; Seasonal Allergies [Other] PHYSICAL EXAM: BP 116/84 Pulse 86 Temp 37.3 ?C (99.1 ?F) (Tympanic) Resp 17 Wt 100.7 kg (222 lb) LMP 11/15/2017 BMI 41.95 kg/m2 BMI 41.95 kg/(m2) General appearance: Alert, cooperative, pleasant, in no acute distress, well dressed, well groomed, obese Head: Normocephalic, atraumatic Eyes: conjunctiva/corneas normal, PERRL, EOMI Oropharynx: moist without lesions, teeth in good repair Neck: supple, no adenopathy, thyroid normal size, non-tender, without nodularity and no bruits Heart: regular rate and rhythm, without murmur Lungs: clear to auscultation, without rales or wheeze, good air exchange Ext: no edema in LE bilaterally, good distal pulses Feet: Shoes and socks removed, No deformities, ulcers, calluses, normal distal pulses, sensitive to 10 gm monofilament and vibratory perception normal ASSESSMENT/PLAN: 1. Controlled type 2 diabetes mellitus without complication, without long-term current use of insulin (HCC) - ICD9: 250.00, ICD10: E11.9 (primary diagnosis) Controlled. - Continue current medications - Blood glucose monitoring on a every other day schedule - Encouraged regular aerobic exercise and weight loss - Follow up in 4 months, sooner should any other issues arise. 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 - BP goal of <130/80 - LDL goal of <100 - METFORMIN ER 500 MG TABLET,EXTENDED RELEASE 24 HR - ALBUMIN/CREAT RATIO RND UR - HGB A1C - BASIC METABOLIC PNL 2. Hyperlipidemia with target LDL less than 100 - ICD9: 272.4, ICD10: E78.5 - good control - Continue current dose of simvastatin (Zocor) 10 mg. - SIMVASTATIN 10 MG TABLET 3. Visit for screening mammogram - ICD9: V76.12, ICD10: Z12.31 - Set up for mammogram, yearly mammogram recommended - Follow up for annual exam in one year. 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 - [facility] SCREENING Health Maintenance Addressed: Will check with Dr. Mccallum re: New Shingles vaccine. Chucho Davenport, MSN WHARF TENDER HELPER.TANDEM MILL STICKER CNOV Observed: 11/21/2017 Status: COMPLETED Source: [place] 1:[address] [facility] REPOSITORY Office Visit (FAMPWS) GEOVANNA FERNANDEZ ([id number]) 1965 F Date Time Provider Department 11/21/17 1:20 PM CHUCHO DAVENPORT (TOWER OBSERVER) [facility] During your visit today, we recorded the following information about you: Temperature Pulse Respiration Blood pressure 99.1 degrees 86/minute 17/minute 116/84 Weight Last Period 100.7 kg 11/15/17 Chucho Davenport, MSN WHARF TENDER HELPER.TANDEM MILL STICKER 11/21/2017 5:34 PM Signed Patient presents with: Refill Request: Medication refill Geovanna Fernandez is a 52 year old female who presents in follow up of DM, and Hyperlipidemia and lab review. She will be establishing care with Dr. Xavier later this summer. Feels well, denies any complaints. Follows closely with Dr. Mccallum for ITP. Component Latest Ref Rng ANDamp; Units 11/04/2017 Cholesterol, Total ANDlt;200 mg/dL 152 Triglyceride ANDlt;150 mg/dL 127 HDL Cholesterol ANDgt;39 mg/dL 46 LDL Cholesterol ANDlt;100 mg/dL 81 Non HDL Cholesterol ANDlt;130 mg/dL 106 Fasting Time hrs 12 VLDL Cholesterol ANDlt;30 mg/dL 25 TC:HDL Ratio ANDlt;5.10 3.30 LDL:HDL Ratio ANDlt;2.54 1.76 Hemoglobin A1C 4.3 - 5.6 % 6.6 (H) Estimated Average Glucose mg/dL 143 DIABETES MELLITUS: Ms. Fernandez was last seen 1 year ago. Since our last visit she denies excessive thirst or increased frequency of urination, chest pain or dyspnea , numbness, tingling or pain in extremities, new or unusual visual symptoms, low sugar/hypoglycemic reactions, weight loss/gain, lightheadedness/dizziness and bowel changes/loose stools. Follows a diabetic diet most of the time. She is compliant with medication(s) and is tolerating med(s) without any side effects. She reports checking her glucose on a infrequent to not at all basis schedule . Patient's last HgA1C was Hemoglobin A1C (%) Date Value 11/04/2017 6.6 07/23/2016 6.7 ) Last Ophthalmology exam Due now and apt scheduled Type of glucometer- One Touch Ultra Pneumovax given Yes Does NOT get Influenza vaccine HTN: No history of HTN Ms. Fernandez indicates that she is feeling well and denies any symptoms referable to elevated blood pressure. Specifically denies headache, chest pain, palpitations, dyspnea and peripheral edema. She does check BP's away from this office with average BP's in the ANDlt; 120/70's range. Geovanna denies regular aerobic exercise, walks as much as she can at work. She watches her diet for sodium, low fat and low cholesterol most of the time. Not on an ACEI or ARB. Last 3 Encounter BP Readings: Date: BP: 11/21/2017 116/84 11/18/2017 106/74 11/11/2017 122/86 Hyperlipidemia. Ms. Fernandez reports doing well on current therapy of simvastatin (Zocor) 10 mg. Denies side effects of muscle weakness or achiness. Her most recent lipid panels are: Cholesterol, Total (mg/dL) Date Value 11/04/2017 152 07/23/2016 161 HDL Cholesterol (mg/dL) Date Value 11/04/2017 46 07/23/2016 40 LDL Cholesterol (mg/dL) Date Value 11/04/2017 81 07/23/2016 73 Triglyceride (mg/dL) Date Value 11/04/2017 127 07/23/2016 238 Past Medical, Surgical, Family and Social Histories reviewed and updated today in the History tab of [employer]. Current Medications and allergies reviewed. PAST MEDICAL HISTORY Diagnosis Date - Diabetes (HCC) - Hyperlipidemia with target LDL less than 100 03/08/2014 - Immune thrombocytopenic purpura (HCC) - Pulmonary embolism (HCC) 01/12/12, 12/2012 PAST SURGICAL HISTORY Procedure Laterality Date - COLONOSCOP W/ OR W/O [facility] SPEC 01-26-16 - FILTER PLACEMENT (VENA CAVA) 6-20-13 - PAST SURGICAL HISTORY OF knee surgery in [place]. Rt - REMOVAL SPLEEN, TOTAL 12/03/2011 Splenectomy - RETRIEV INTRAVASC FOREGN BODY 07-17-12 - TUNNEL VAD W SUB Q PORT ANDgt;=5 Left 02-03-16 - VENA CAVA FILTER 01/14/12 ACTIVE PROBLEM LIST Immune Thrombocytopenic Purpura (Hcc) Serum Sickness Diabetes Mellitus Type 2, Controlled, Without Complications (Hcc) Family History of Colon Cancer Pulmonary Embolism (Hcc) Hyperlipidemia With Target Ldl Less Than 100 Personal History of Colonic Polyps ALLERGIES: Asa [Salicylates]; Bees; Clindamycin; Penicillins; Zofran [Ondansetron]; Seasonal Allergies [Other] PHYSICAL EXAM: BP 116/84 Pulse 86 Temp 37.3 ?C (99.1 ?F) (Tympanic) Resp 17 Wt 100.7 kg (222 lb) LMP 11/15/2017 BMI 41.95 kg/m2 BMI 41.95 kg/(m2) General appearance: Alert, cooperative, pleasant, in no acute distress, well dressed, well groomed, obese Head: Normocephalic, atraumatic Eyes: conjunctiva/corneas normal, PERRL, EOMI Oropharynx: moist without lesions, teeth in good repair Neck: supple, no adenopathy, thyroid normal size, non-tender, without nodularity and no bruits Heart: regular rate and rhythm, without murmur Lungs: clear to auscultation, without rales or wheeze, good air exchange Ext: no edema in LE bilaterally, good distal pulses Feet: Shoes and socks removed, No deformities, ulcers, calluses, normal distal pulses, sensitive to 10 gm monofilament and vibratory perception normal ASSESSMENT/PLAN: 1. Controlled type 2 diabetes mellitus without complication, without long-term current use of insulin (HCC) - ICD9: 250.00, ICD10: E11.9 (primary diagnosis) Controlled. - Continue current medications - Blood glucose monitoring on a every other day schedule - Encouraged regular aerobic exercise and weight loss - Follow up in 4 months, sooner should any other issues arise. - Discussed diabetic education issues of half-way diabetic complications, diet, medications- side effects and need for compliance and importance of exercise with patient. - BP goal of ANDlt;130/80 - LDL goal of ANDlt;100 - METFORMIN ER 500 MG TABLET,EXTENDED RELEASE 24 HR - ALBUMIN/CREAT RATIO RND UR - HGB A1C - BASIC METABOLIC PNL 2. Hyperlipidemia with target LDL less than 100 - ICD9: 272.4, ICD10: E78.5 - good control - Continue current dose of simvastatin (Zocor) 10 mg. - SIMVASTATIN 10 MG TABLET 3. Visit for screening mammogram - ICD9: V76.12, ICD10: Z12.31 - Set up for mammogram, yearly mammogram recommended - Follow up for annual exam in one year. 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 - [facility] SCREENING Health Maintenance Addressed: Will check with Dr. Mccallum re: New Shingles vaccine. Chucho Davenport, MSN WHARF TENDER HELPER.TANDEM MILL STICKER Referring Provider: SELF [[id number]] Allergies As of Date: 11/21/2017 Noted Allergy Reaction ASA (SALICYLATES) 07/22/2005 4 - Hives BEES 04/01/2008 CLINDAMYCIN 01/11/2011 14 - Other: See Comments Comments: lightheadness PENICILLINS 07/22/2005 2 - Rash 9 - Itching ZOFRAN (ONDANSETRON) 04/30/2013 8 - GI Upset Comments: Worse nausea. seasonal allergies [Other] 07/22/2005 Date Reviewed: 11/21/2017 Reviewed by: Nadege Luis Head Librarian - Fully Assessed Reason for Visit: Refill Request [94] Cmt: Medication refill Primary Visit Diagnosis:Controlled type 2 diabetes mellitus without complication, without long-term current use of insulin (HCC) [E11.9] Other Visit Diagnoses:Hyperlipidemia with target LDL less than 100 [E78.5] Visit for screening mammogram [Z12.31] Order(s):metFORMIN ER (GLUCOPHAGE XR) 500 mg 24 hr tabletTake 2 tablets by mouth twice daily.Disp: 360 tabletRfl: 3 simvastatin (ZOCOR) 10 mg tabletTake 1 tablet by mouth daily at bedtime.Disp: 90 tabletRfl: 3 [facility] SCREENING [[id number]] Order #: [id number] FUTURE ALBUMIN/CREAT RATIO RND UR [SQUACR] Order #: [id number] FUTURE HGB A1C [[id number]] Order #: [id number] FUTURE BASIC METABOLIC PNL [SQBMP] Order #: [id number] FUTURE Prescriptions as of 11/21/2017 Sig: METFORMIN ER 500 MG TABLET,EX* Take 2 tablets by mouth twice* SIMVASTATIN 10 MG TABLET Take 1 tablet by mouth daily * RIZATRIPTAN 10 MG TABLET Take 1 tablet by mouth as nee* FERROUS SULFATE ER 140 MG (45* Take 1 tablet by mouth twice * Patient taking differently: Take 140 mg by mouth once casey* BLOOD SUGAR DIAGNOSTIC STRIPS Test blood sugar(s) 1 times d* ONETOUCH ULTRASOFT LANCETS Test blood sugar once daily. 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 Benign neoplasm of colon [D12.6] INVALID FOR*09/06/2016 Hyperlipidemia with target LDL less than 100 [E*INVALID FOR* Personal history of colonic polyps [Z86.010] INVALID FOR* Prescriptions ordered this encounter Disp Refills Start End METFORMIN ER 500 MG TABLET,EXTENDED * 360 * 3 11/21/2017 Class: [facility] Route: ORAL Sig: Take 2 tablets by mouth twice daily. SIMVASTATIN 10 MG TABLET 90 t* 3 11/21/2017 Class: [facility] Route: ORAL Sig: Take 1 tablet by mouth daily at bedtime. Medications Discontinued During This Encounter blood-glucose meter(ONE TOUCH ULTRA * 1 0 12/01/2009 11/21/2017 Class: Print RX Route: Miscell. (Med.Supl.;Non-Drugs) Sig: Daily check. Disc: Duplicate Entry blood sugar diagnostic (ONE TOUCH UL* 50 S* 11 07/03/2012 11/21/2017 Sig: Test blood sugar(s) 1 times daily. Dx: 250.00. Insulin: No Disc: Duplicate Entry metFORMIN ER (GLUCOPHAGE XR) 500 mg * 120 * 0 11/09/2017 11/21/2017 Route: ORAL Sig: Take 2 tablets by mouth twice daily. Disc: Reason for discontinue is not on file. simvastatin (ZOCOR) 10 mg tablet 30 t* 0 11/09/2017 11/21/2017 Route: ORAL Sig: Take 1 tablet by mouth daily at bedtime. Disc: Reason for discontinue is not on file. Encounter Status:Closed by CHUCHO DAVENPORT CNP on 11/21/17 DUNDEE CBC Collected: 11/18/2017 Status: F Source: [place] 8:17 AM [facility] REPOSITORY TYPE CODE TESTS RESULT OUT OF REFERENCE UNITS RANGE LAB WWBC 3.70-11.00 k/uL [place] WBC 10.45 LAB WRBC 3.90-5.20 m/uL Low [place] RBC 3.78 LAB WHGB 11.5-15.5 g/dL [place] Hemoglobin 11.7 LAB WHCT 36.0-46.0 % Low [place] Hematocrit 35.9 LAB WMCV 80.0-100.0 fL [place] MCV 95.0 LAB WMCH 26.0-34.0 pg [place] MCH 31.0 LAB WMCHC 30.5-36.0 g/dL [place] MCHC 32.6 LAB WRDW 11.5-15.0 % [place] High RDW 15.9 LAB WPLT 150-400 k/uL Low [place] Platelet Cnt 99 LAB WMPV 9.0-12.7 fL [place] High MPV 14.7 Result Comment: Test performed at: [facility], [address] [place] [address]., [place] [address]. IRON AND TIBC Collected: 11/18/2017 Status: F Source: [place] 8:17 AM [facility] REPOSITORY TYPE CODE TESTS RESULT OUT OF REFERENCE UNITS RANGE LAB IRN 41-186 ug/dL Iron 113 LAB TIBC 232-386 ug/dL TIBC 301 LAB SAT 15-57 % Transferrin Saturatn 38 Performed By: #### IRON, FERR #### [facility] [address] [place], [place] [address] FERRITIN Collected: 11/18/2017 Status: F Source: [place] 8:17 AM [facility] REPOSITORY TYPE CODE TESTS RESULT OUT OF REFERENCE UNITS RANGE LAB FERR 14.7-205.1 ng/mL Ferritin 165.0 Performed By: #### IRON, FERR #### [facility] [address] [place], [place] [address] DIEUDONNE CBC Collected: 11/11/2017 Status: F Source: [place] 7:46 AM [facility] REPOSITORY TYPE CODE TESTS RESULT OUT OF REFERENCE UNITS RANGE LAB WWBC 3.70-11.00 k/uL 9.03 [place] WBC LAB WRBC 3.90-5.20 m/uL 4.06 [place] RBC LAB WHGB 11.5-15.5 g/dL 12.4 [place] Hemoglobin LAB WHCT 36.0-46.0 % 38.2 [place] Hematocrit LAB WMCV 80.0-100.0 fL 94.1 [place] MCV LAB WMCH 26.0-34.0 pg 30.5 [place] MCH LAB WMCHC 30.5-36.0 g/dL 32.5 [place] MCHC LAB WRDW 11.5-15.0 % 15.2 High [place] RDW LAB WPLT 150-400 k/uL <0 Low Alert [place] Platelet Cnt LAB WMPV 9.0-12.7 fL [place] MPV Unable to assay. Analytical difficulty. Result Comment: Test performed at: [facility], [address] [place] [address] Rd[address] [place] [address]. LAB ABSNUC <0.01 k/uL Preliminary Absolute nRBC result. Interpret with caution. Final results may vary. Results requested and read back by: Result Comment: PLATLET=0,NAMAN BENITES,[id number],BYVALENTE [place] CBC Collected: 11/04/2017 Status: F Source: [place] 8:00 AM [facility] REPOSITORY TYPE CODE TESTS RESULT OUT OF REFERENCE UNITS RANGE LAB WWBC 3.70-11.00 k/uL [place] High WBC 12.94 LAB WRBC 3.90-5.20 m/uL [place] RBC 4.02 LAB WHGB 11.5-15.5 g/dL [place] Hemoglobin 12.3 LAB WHCT 36.0-46.0 % [place] Hematocrit 37.6 LAB WMCV 80.0-100.0 fL [place] MCV 93.5 LAB WMCH 26.0-34.0 pg [place] MCH 30.6 LAB WMCHC 30.5-36.0 g/dL [place] MCHC 32.7 LAB WRDW 11.5-15.0 % [place] RDW 14.9 LAB WPLT 150-400 k/uL Low [place] Alert Platelet Cnt 6 Result Comment: Result rechecked. No clot detected. Reviewed No call per procedure. 11/04/17 1620 Carlyn LAB ABSNUC <0.01 k/uL Preliminary Absolute nRBC result. Interpret with caution. Final results may vary. Results requested and read back by: Result Comment: PLATELET=0 KAMARI [id number] ADIAMOND Performed By: #### WCBC #### [facility] [address] [place], [place] [address] LIPID PANEL, BASIC Collected: 11/04/2017 Status: F Source: [place] 8:[address] [facility] REPOSITORY TYPE CODE TESTS RESULT OUT OF REFERENCE UNITS RANGE LAB CHOL <200 mg/dL Cholesterol 152 Result Comment: <200 mg/dL, Desirable 200-239 mg/dL, Borderline high >239 mg/dL, High LAB TRIGLY <150 mg/dL Triglyceride 127 Result Comment: <150 mg/dL, Normal 150-199 mg/dL, Borderline high 200-499 mg/dL, High >499 mg/dL, Very high LAB HDL >39 mg/dL HDL-Cholesterol 46 Result Comment: 40-59 mg/dL, Acceptable >59 mg/dL, High: Negative risk factor for coronary heart disease <40 mg/dL, Low: Positive risk factor for coronary heart disease LAB LDL <100 mg/dL LDL-Cholesterol 81 Result Comment: <100 mg/dL, Optimal 100-129 mg/dL, Near optimal/above optimal 130-159 mg/dL, Borderline high 160-189 mg/dL, High >189 mg/dL, Very high Secondary prevention optimal LDL Cholesterol levels are recommended to be < 70 mg/dL LAB NONHDL <130 mg/dL Non HDL Cholesterol 106 Result Comment: <130 mg/dL, Optimal 130-159 mg/dL, Near optimal/above optimal 160-189 mg/dL, Borderline high 190-219 mg/dL, High >219 mg/dL, Very high Secondary prevention optimal non HDL Cholesterol levels are recommended to be < 100 mg/dL LAB FT hrs Fasting Time 12 LAB VLDL <30 mg/dL VLDL Cholesterol 25 LAB TCHDL <5.10 TC:HDL Ratio 3.30 LAB LDLHDL <2.54 LDL:HDL Ratio 1.76 Result Comment: Reference: 1. National Cholesterol Education Program ATP III Guideline At-A-Glance Quick Desk Reference: National Heart, Lung, and Blood [place]. National Institutes of Health. 2001: NIH Publication No. 01-3305. 2. An International Atherosclerosis Society position paper: global recommendations for the management of dyslipidemia: executive summary, Atherosclerosis. 2014: 232(2):410-413. Performed By: #### LIPB, HBA1C #### [facility] [address] [place], [place] [address] HEMOGLOBIN A1C Collected: 11/04/2017 Status: F Source: [place] 8:00 AM [facility] REPOSITORY TYPE CODE TESTS RESULT OUT OF REFERENCE UNITS RANGE LAB HGBA1C 4.3-5.6 % High Hemoglobin A1c 6.6 LAB HBA0 mg/dL Est. Average Glucose 143 Result Comment: eAG: (Estimated average glucose) is a calculated value from HgbA1c and is sales representative canvas products of the average blood glucose level in the last 2-3 month period. Performed By: #### LIPB, HBA1C #### [facility] [address] [place], [place] [address] DIEUDONNE CBC Collected: 10/28/2017 Status: F Source: [place] 8:13 AM [facility] REPOSITORY TYPE CODE TESTS RESULT OUT OF REFERENCE UNITS RANGE LAB WWBC 3.70-11.00 k/uL [place] High WBC 11.20 LAB WRBC 3.90-5.20 m/uL [place] RBC 4.31 LAB WHGB 11.5-15.5 g/dL [place] Hemoglobin 13.2 LAB WHCT 36.0-46.0 % [place] Hematocrit 40.3 LAB WMCV 80.0-100.0 fL [place] MCV 93.5 LAB WMCH 26.0-34.0 pg [place] MCH 30.6 LAB WMCHC 30.5-36.0 g/dL [place] MCHC 32.8 LAB WRDW 11.5-15.0 % [place] RDW 14.8 LAB WPLT 150-400 k/uL Low [place] Platelet Cnt 97 LAB WMPV 9.0-12.7 fL [place] High MPV 14.0 Result Comment: Test performed at: [facility] [place], [address] [place] [address] Rd., [place] [address]. DIEUDONNE CBC Collected: 10/21/2017 Status: F Source: [place] 7:35 AM [facility] REPOSITORY TYPE CODE TESTS RESULT OUT OF REFERENCE UNITS RANGE LAB WWBC 3.70-11.00 k/uL [place] WBC 9.74 LAB WRBC 3.90-5.20 m/uL [place] RBC 4.09 LAB WHGB 11.5-15.5 g/dL [place] Hemoglobin 12.4 LAB WHCT 36.0-46.0 % [place] Hematocrit 38.4 LAB WMCV 80.0-100.0 fL [place] MCV 93.9 LAB WMCH 26.0-34.0 pg [place] MCH 30.3 LAB WMCHC 30.5-36.0 g/dL [place] MCHC 32.3 LAB WRDW 11.5-15.0 % [place] RDW 14.2 LAB WPLT 150-400 k/uL Low [place] Alert Platelet Cnt <0 Result Comment: Result rechecked. Called to and read back by: Tj Cazares at [facility] 10/21/2017 0750 Melina Valentino LAB WMPV 9.0-12.7 fL Low [place] MPV 7.1 Result Comment: Test performed at: [facility], [address] [place] [address]. LAB ABSNUC <0.01 k/uL NO CLOT Absolute nRBC DETECTED RESULTS GIVEN TO MELISSA BY DAVID DUNDEE CBC Collected: 10/14/2017 Status: F Source: [place] 8:08 AM [facility] REPOSITORY TYPE CODE TESTS RESULT OUT OF REFERENCE UNITS RANGE LAB WWBC 3.70-11.00 k/uL [place] High WBC 11.64 LAB WRBC 3.90-5.20 m/uL [place] RBC 4.23 LAB WHGB 11.5-15.5 g/dL [place] Hemoglobin 12.7 LAB WHCT 36.0-46.0 % [place] Hematocrit 39.6 LAB WMCV 80.0-100.0 fL [place] MCV 93.6 LAB WMCH 26.0-34.0 pg [place] MCH 30.0 LAB WMCHC 30.5-36.0 g/dL [place] MCHC 32.1 LAB WRDW 11.5-15.0 % [place] RDW 14.4 LAB WPLT 150-400 k/uL Low [place] Platelet Cnt 42 LAB WMPV 9.0-12.7 fL [place] MPV Unable to report Performed By: #### WCBC #### [facility] [address] [place], [place] [address] DEIUDONNE CBC Collected: 10/07/2017 Status: F Source: [place] 8:04 AM [facility] REPOSITORY TYPE CODE TESTS RESULT OUT OF REFERENCE UNITS RANGE LAB WWBC 3.70-11.00 k/uL [place] High WBC 11.69 LAB WRBC 3.90-5.20 m/uL [place] RBC 4.14 LAB WHGB 11.5-15.5 g/dL [place] Hemoglobin 12.5 LAB WHCT 36.0-46.0 % [place] Hematocrit 39.2 LAB WMCV 80.0-100.0 fL [place] MCV 94.7 LAB WMCH 26.0-34.0 pg [place] MCH 30.2 LAB WMCHC 30.5-36.0 g/dL [place] MCHC 31.9 LAB WRDW 11.5-15.0 % [place] RDW 14.9 LAB WPLT 150-400 k/uL Low [place] Platelet Cnt 127 LAB WMPV 9.0-12.7 fL [place] High MPV 14.5 Result Comment: Test performed by: [facility] [place], [address] [place] [address]. DIEUDONNE CBC Collected: 09/30/2017 Status: F Source: [place] 7:38 AM [facility] REPOSITORY TYPE CODE TESTS RESULT OUT OF REFERENCE UNITS RANGE LAB WWBC 3.70-11.00 k/uL [place] WBC 10.93 LAB WRBC 3.90-5.20 m/uL [place] RBC 4.20 LAB WHGB 11.5-15.5 g/dL [place] Hemoglobin 12.8 LAB WHCT 36.0-46.0 % [place] Hematocrit 39.3 LAB WMCV 80.0-100.0 fL [place] MCV 93.6 LAB WMCH 26.0-34.0 pg [place] MCH 30.5 LAB WMCHC 30.5-36.0 g/dL [place] MCHC 32.6 LAB WRDW 11.5-15.0 % [place] RDW 14.3 LAB WPLT 150-400 k/uL Low [place] Platelet Cnt 12 Result Comment: Result checked and verified No clot detected. Called to and read back by: [place] [id number] 09/30/17 1710 Beto Douglas LAB WMPV 9.0-12.7 fL Unable to [place] MPV report LAB ABSNUC <0.01 k/uL Preliminary Absolute nRBC result. Interpret with caution. Final results may vary. Results requested and read back by: Result Comment: PLATELET=4 MISAMAR [id number] DAVID Performed By: #### WCBC #### [facility] [address] [place] [address] DIEUDONNE CBC Collected: 09/23/2017 Status: F Source: [place] 7:13 AM [facility] REPOSITORY TYPE CODE TESTS RESULT OUT OF REFERENCE UNITS RANGE LAB WWBC 3.70-11.00 k/uL 11.61 High [place] WBC LAB WRBC 3.90-5.20 m/uL 4.11 [place] RBC LAB WHGB 11.5-15.5 g/dL 12.4 [place] Hemoglobin LAB WHCT 36.0-46.0 % 38.6 [place] Hematocrit LAB WMCV 80.0-100.0 fL 93.9 [place] MCV LAB WMCH 26.0-34.0 pg 30.2 [place] MCH LAB WMCHC 30.5-36.0 g/dL 32.1 [place] MCHC LAB WRDW 11.5-15.0 % 14.8 [place] RDW LAB WPLT 150-400 k/uL 36 Low [place] Platelet Cnt LAB WMPV 9.0-12.7 fL [place] MPV Unable to assay. Analytical difficulty. Result Comment: Test performed at: [facility], [address] [place], [place] [address] [place] [address]. HOSP Observed: 09/16/2017 Status: COMPLETED Source: [place] 8:30 AM [facility] REPOSITORY Infusion Center (HEMAWS) GEOVANNA FERNANDEZ ([id number]) 1965 F Date Time Provider Department 09/16/17 8:30 AM INJECTION [facility] During your visit today, we recorded the following information about you: Temperature Pulse Blood pressure Weight 97.9 degrees 80/minute 124/82 104.6 kg Bri Resendez LPN 09/16/2017 8:40 AM Signed Patient presents with: Imm/Inj Pt is identified by name and birthdate: Yes. Allergies and medications reviewed. Latex allergy? No. Does this patient have: Unplanned weight loss or gain of greater than 10 pounds, or a change of appetite over the last year? No Does the patient have any concerns about safety in the home/falls? Not at risk for falls Has the patient fallen in the past year? No Does the patient have difficulty performing or completing routine daily living activities? No Does this patient have concerns about personal safety? No Is patient having pain? Pain: No=0 (pain 0 on a scale of 0-10). Health Maintenance: Reviewed and updated. Does patient have MyChart access or Caregiver proxy: yes Pt/Caregiver willingness and readiness to learn assessed: Yes. Barriers: none NPlate injection administered left arm, tolerated well, no immediate adverse reactions noted. Bri Resendez LPN Referring Provider: DALLAS MCCALLUM [[id number]] Allergies As of Date: 09/16/2017 Noted Allergy Reaction ASA (SALICYLATES) 07/22/2005 4 - Hives BEES 04/01/2008 CLINDAMYCIN 01/11/2011 14 - Other: See Comments Comments: lightheadness PENICILLINS 07/22/2005 2 - Rash 9 - Itching ZOFRAN (ONDANSETRON) 04/30/2013 8 - GI Upset Comments: Worse nausea. seasonal allergies [Other] 07/22/2005 Date Reviewed: 09/16/2017 Reviewed by: Bri Resendez LPN - Fully Assessed Reason for Visit: Imm/Inj [58] Primary Visit Diagnosis:Immune thrombocytopenic purpura (HCC) [D69.3] Order(s):TREATMENT PARAMETER-NOT NEEDED [[id number]] Order #: [id number]: 1 [] romiPLOStim 1,039 mcg injection (NPLATE)Disp: Rfl: Prescriptions as of 09/16/2017 Sig: METFORMIN ER 500 MG TABLET,EX* TAKE 2 TABLETS TWICE A DAY SIMVASTATIN 10 MG TABLET TAKE 1 TABLET DAILY AT BEDTIME RIZATRIPTAN 10 MG TABLET Take 1 tablet by mouth as nee* FERROUS SULFATE ER 140 MG (45* Take 1 tablet by mouth twice * Patient taking differently: Take 140 mg by mouth once casey* FUROSEMIDE 20 MG TABLET Take 1 tablet by mouth once d* ELTROMBOPAG 25 MG TABLET Take 3 tablets by mouth once * METHYLPREDNISOLONE 4 MG TABLE* as directed BLOOD SUGAR DIAGNOSTIC STRIPS Test blood sugar(s) 1 times d* BLOOD SUGAR DIAGNOSTIC STRIPS Test blood sugar(s) 1 times d* ONETOUCH ULTRA SMART KIT Daily check. ONETOUCH ULTRASOFT LANCETS Test blood sugar once daily. 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 Benign neoplasm of colon [D12.6] INVALID FOR*09/06/2016 Hyperlipidemia with target LDL less than 100 [E*INVALID FOR* Personal history of colonic polyps [Z86.010] INVALID FOR* Visit Notes: >> Bri Dipti [place] TueSep 16, 2017 8:19 AM Status: Signed Patient presents with: Imm/Inj Pt is identified by name and birthdate: Yes. Allergies and medications reviewed. Latex allergy? No. Does this patient have: Unplanned weight loss or gain of greater than 10 pounds, or a change of appetite over the last year? No Does the patient have any concerns about safety in the home/falls? Not at risk for falls Has the patient fallen in the past year? No Does the patient have difficulty performing or completing routine daily living activities? No Does this patient have concerns about personal safety? No Is patient having pain? Pain: No=0 (pain 0 on a scale of 0-10). Health Maintenance: Reviewed and updated. Does patient have MyChart access or Caregiver proxy: yes Pt/Caregiver willingness and readiness to learn assessed: Yes. Barriers: none NPlate injection administered left arm, tolerated well, no immediate adverse reactions noted. Bri Resendez LPN Prescriptions ordered this encounter Disp Refills Start End ROMIPLOSTIM 500 MCG SUBCUTANEOUS HIWOT* 09/16/2017 09/16/2017 Cmt: Dose out of 1 vial with overfill. Route: SUBCUTANEOUS SODIUM CHLORIDE 0.9 % INTRAVENOUS SO* 09/16/2017 09/16/2017 Cmt: Inform physician Route: INTRAVENOUS Disc: Auto DC at discharge. DIPHENHYDRAMINE 50 MG/ML INJECTION S* 09/16/2017 09/16/2017 Route: INTRAVENOUS Disc: Auto DC at discharge. HYDROCORTISONE SOD SUCCINATE (PF) 10* 09/16/2017 09/16/2017 Route: INTRAVENOUS Disc: Auto DC at discharge. EPINEPHRINE 1 MG/ML (1 ML) INJECTION* 09/16/2017 09/16/2017 Route: INTRAMUSCULA Disc: Auto DC at discharge. Medications Discontinued During This Encounter EPINEPHrine 1 mg/mL (1 mL) 0.3 mg in* 09/16/2017 09/16/2017 Route: INTRAMUSCULAR Sig: Disc: Auto DC at discharge. hydrocortisone sodium succinate (PF)* 09/16/2017 09/16/2017 Route: INTRAVENOUS Sig: Disc: Auto DC at discharge. diphenhydrAMINE 50 mg injection (ANUJ* 09/16/2017 09/16/2017 Route: INTRAVENOUS Sig: Disc: Auto DC at discharge. NaCl 0.9% iv infusion 09/16/2017 09/16/2017 Cmt: Inform physician Route: INTRAVENOUS Sig: Disc: Auto DC at discharge. Encounter Status:Closed by BRI RESENDEZ LPN on 09/16/17 DIEUDONNE CBC Collected: 09/16/2017 Status: F Source: [place] 7:[address] [facility] [place] REPOSITORY TYPE CODE TESTS RESULT OUT OF REFERENCE UNITS RANGE LAB WWBC 3.70-11.00 k/uL [place] WBC 10.77 LAB WRBC 3.90-5.20 m/uL [place] RBC 4.07 LAB WHGB 11.5-15.5 g/dL [place] Hemoglobin 12.3 LAB WHCT 36.0-46.0 % [place] Hematocrit 38.2 LAB WMCV 80.0-100.0 fL [place] MCV 93.9 LAB WMCH 26.0-34.0 pg [place] MCH 30.2 LAB WMCHC 30.5-36.0 g/dL [place] MCHC 32.2 LAB WRDW 11.5-15.0 % [place] RDW 14.6 LAB WPLT 150-400 k/uL Low [place] Platelet Cnt 69 LAB WMPV 9.0-12.7 fL [place] High MPV 14.8 Result Comment: Test performed at: [facility] [place], [address] [place] [address]. OBSOLETE Observed: 09/10/2017 Status: COMPLETED Source: [place] 12:00 AM [facility] REPOSITORY Refill (FAMPWS) GEOVANNA FERNANDEZ ([id number]) 1965 F Date Time Provider Department 09/10/17 VASILE CARLTON FAMPWS During your visit today, we recorded the following information about you: Manuela Lightbrenda Banks 09/12/2017 9:05 AM Signed Patient has been identified by name and date of : Yes RX INSTRUCTIONS: Patient aware RX will be sent to pharmacy. No need to notify patient. Patient phones requesting refills as follows: Please verify quantity and correct dosage instructions before approval. Pending Prescriptions Disp Refills METFORMIN ER 500 MG TABLET,EXTENDED RELEASE 24 HR 360 tablet 0 Sig: TAKE 2 TABLETS TWICE A DAY LATOYA: Yes Please review and advise. Manuela Marialuisa Carlton MD 09/12/2017 9:39 AM Signed She hasn't been seen for her sugar since 2015. Has not seen PCP since 2012. She has open order for fasting lipid and HBA1c . Rx is OK'd for 30 days. Get the labs, schedule appt. No further refills until seen. The following approved medication requests have been transmitted electronically. Signed Prescriptions Disp Refills metFORMIN ER (GLUCOPHAGE XR) 500 mg 24 hr tablet 120 tablet 0 Sig: TAKE 2 TABLETS TWICE A DAY LATOYA: No Authorizing Provider: VASILE CARLTON MD Lili Shyam Silk [employer] Psr 09/14/2017 7:42 PM Signed Called Patient cell phone again and voicemail still full. Called home number and got answering machine but got cut off. Allergies As of Date: 09/10/2017 Noted Allergy Reaction ASA (SALICYLATES) 07/22/2005 4 - Hives BEES 04/01/2008 CLINDAMYCIN 01/11/2011 14 - Other: See Comments Comments: lightheadness PENICILLINS 07/22/2005 2 - Rash 9 - Itching ZOFRAN (ONDANSETRON) 04/30/2013 8 - GI Upset Comments: Worse nausea. seasonal allergies [Other] 07/22/2005 Date Reviewed: 09/09/2017 Reviewed by: Bri Resendez LPN - Fully Assessed Reason for Visit: Refill Request [94] Primary Visit Diagnosis:Controlled type 2 diabetes mellitus without complication, without long-term current use of insulin (HCC) [E11.9] Order(s):metFORMIN ER (GLUCOPHAGE XR) 500 mg 24 hr tabletTAKE 2 TABLETS TWICE A DAYDisp: 120 tabletRfl: 0 Prescriptions as of 09/10/2017 Sig: METFORMIN ER 500 MG TABLET,EX* TAKE 2 TABLETS TWICE A DAY SIMVASTATIN 10 MG TABLET TAKE 1 TABLET DAILY AT BEDTIME FUROSEMIDE 20 MG TABLET Take 1 tablet by mouth once d* RIZATRIPTAN 10 MG TABLET Take 1 tablet by mouth as nee* ELTROMBOPAG 25 MG TABLET Take 3 tablets by mouth once * METHYLPREDNISOLONE 4 MG TABLE* as directed FERROUS SULFATE ER 140 MG (45* Take 1 tablet by mouth twice * Patient taking differently: Take 140 mg by mouth once casey* BLOOD SUGAR DIAGNOSTIC STRIPS Test blood sugar(s) 1 times d* BLOOD SUGAR DIAGNOSTIC STRIPS Test blood sugar(s) 1 times d* ONETOUCH ULTRA SMART KIT Daily check. ONETOUCH ULTRASOFT LANCETS Test blood sugar once daily. 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 Benign neoplasm of colon [D12.6] INVALID FOR*09/06/2016 Hyperlipidemia with target LDL less than 100 [E*INVALID FOR* Personal history of colonic polyps [Z86.010] INVALID FOR* Prescriptions ordered this encounter Disp Refills Start End METFORMIN ER 500 MG TABLET,EXTENDED * 120 * 0 09/12/2017 Sig: TAKE 2 TABLETS TWICE A DAY Medications Discontinued During This Encounter metFORMIN ER (GLUCOPHAGE XR) 500 mg * 360 * 0 07/04/2017 09/12/2017 Sig: TAKE 2 TABLETS TWICE A DAY Disc: Reason for discontinue is not on file. Encounter Status:Closed by BIN PACKER LILI FARMER on 09/14/17 HOSP Observed: 09/09/2017 Status: COMPLETED Source: [place] 8:30 AM [facility] REPOSITORY Infusion Center (HEMA[facility]) GEOVANNA FERNANDEZ ([id number]) 1965 F Date Time Provider Department 09/09/17 8:30 AM INJECTION [facility] HEMA[facility] During your visit today, we recorded the following information about you: Temperature Pulse Blood pressure Weight 97.9 degrees 72/minute 110/82 104.6 kg Bri Resendez LPN 09/09/2017 8:22 AM Signed Patient presents with: Imm/Inj Pt is identified by name and birthdate: Yes. Allergies and medications reviewed. Latex allergy? No. Does this patient have: Unplanned weight loss or gain of greater than 10 pounds, or a change of appetite over the last year? No Does the patient have any concerns about safety in the home/falls? Not at risk for falls Has the patient fallen in the past year? No Does the patient have difficulty performing or completing routine daily living activities? No Does this patient have concerns about personal safety? No Is patient having pain? Pain: No=0 (pain 0 on a scale of 0-10). Health Maintenance: Reviewed and updated. Does patient have [employer] access or Caregiver proxy: yes Pt/Caregiver willingness and readiness to learn assessed: Yes. Barriers: none NPlate injection administered right arm, tolerated well, no immediate adverse reactions noted. Bri Resendez LPN Referring Provider: DALLAS MCCALLUM [[id number]] Allergies As of Date: 09/09/2017 Noted Allergy Reaction ASA (SALICYLATES) 07/22/2005 4 - Hives BEES 04/01/2008 CLINDAMYCIN 01/11/2011 14 - Other: See Comments Comments: lightheadness PENICILLINS 07/22/2005 2 - Rash 9 - Itching ZOFRAN (ONDANSETRON) 04/30/2013 8 - GI Upset Comments: Worse nausea. seasonal allergies [Other] 07/22/2005 Date Reviewed: 09/09/2017 Reviewed by: Bri Resendez LPN - Fully Assessed Reason for Visit: Imm/Inj [58] Primary Visit Diagnosis:Immune thrombocytopenic purpura (HCC) [D69.3] Order(s):TREATMENT PARAMETER-NOT NEEDED [[id number]] Order #: [id number]: 1 [] romiPLOStim 1,039 mcg injection (NPLATE)Disp: Rfl: Prescriptions as of 09/09/2017 Sig: SIMVASTATIN 10 MG TABLET TAKE 1 TABLET DAILY AT BEDTIME METFORMIN ER 500 MG TABLET,EX* TAKE 2 TABLETS TWICE A DAY RIZATRIPTAN 10 MG TABLET Take 1 tablet by mouth as nee* FERROUS SULFATE ER 140 MG (45* Take 1 tablet by mouth twice * Patient taking differently: Take 140 mg by mouth once casey* FUROSEMIDE 20 MG TABLET Take 1 tablet by mouth once d* ELTROMBOPAG 25 MG TABLET Take 3 tablets by mouth once * METHYLPREDNISOLONE 4 MG TABLE* as directed BLOOD SUGAR DIAGNOSTIC STRIPS Test blood sugar(s) 1 times d* BLOOD SUGAR DIAGNOSTIC STRIPS Test blood sugar(s) 1 times d* ONETOUCH ULTRA SMART KIT Daily check. ONETOUCH ULTRASOFT LANCETS Test blood sugar once daily. 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 Benign neoplasm of colon [D12.6] INVALID FOR*09/06/2016 Hyperlipidemia with target LDL less than 100 [E*INVALID FOR* Personal history of colonic polyps [Z86.010] INVALID FOR* Visit Notes: >> Bri Resendez LPN TueSep 09, 2017 8:15 AM Status: Signed Patient presents with: Imm/Inj Pt is identified by name and birthdate: Yes. Allergies and medications reviewed. Latex allergy? No. Does this patient have: Unplanned weight loss or gain of greater than 10 pounds, or a change of appetite over the last year? No Does the patient have any concerns about safety in the home/falls? Not at risk for falls Has the patient fallen in the past year? No Does the patient have difficulty performing or completing routine daily living activities? No Does this patient have concerns about personal safety? No Is patient having pain? Pain: No=0 (pain 0 on a scale of 0-10). Health Maintenance: Reviewed and updated. Does patient have MyChart access or Caregiver proxy: yes Pt/Caregiver willingness and readiness to learn assessed: Yes. Barriers: none NPlate injection administered right arm, tolerated well, no immediate adverse reactions noted. Bri Resendez LPN Prescriptions ordered this encounter Disp Refills Start End ROMIPLOSTIM 500 MCG SUBCUTANEOUS HIWOT* 09/09/2017 09/09/2017 Cmt: Out of 2 vials Route: SUBCUTANEOUS SODIUM CHLORIDE 0.9 % INTRAVENOUS SO* 09/09/2017 09/09/2017 Cmt: Inform physician Route: INTRAVENOUS Disc: Auto DC at discharge. DIPHENHYDRAMINE 50 MG/ML INJECTION S* 09/09/2017 09/09/2017 Route: INTRAVENOUS Disc: Auto DC at discharge. HYDROCORTISONE SOD SUCCINATE (PF) 10* 09/09/2017 09/09/2017 Route: INTRAVENOUS Disc: Auto DC at discharge. EPINEPHRINE 1 MG/ML (1 ML) INJECTION* 09/09/2017 09/09/2017 Route: INTRAMUSCULA Disc: Auto DC at discharge. Medications Discontinued During This Encounter EPINEPHrine 1 mg/mL (1 mL) 0.3 mg in* 09/09/2017 09/09/2017 Route: INTRAMUSCULAR Sig: Disc: Auto DC at discharge. hydrocortisone sodium succinate (PF)* 09/09/2017 09/09/2017 Route: INTRAVENOUS Sig: Disc: Auto DC at discharge. diphenhydrAMINE 50 mg injection (ANUJ* 09/09/2017 09/09/2017 Route: INTRAVENOUS Sig: Disc: Auto DC at discharge. NaCl 0.9% iv infusion 09/09/2017 09/09/2017 Cmt: Inform physician Route: INTRAVENOUS Sig: Disc: Auto DC at discharge. Encounter Status:Closed by BRI RESENDEZ LPN on 09/09/17 D[place]NE CBC Collected: 09/09/2017 Status: F Source: [place] 7:35 AM [facility] REPOSITORY TYPE CODE TESTS RESULT OUT OF REFERENCE UNITS RANGE LAB WWBC 3.70-11.00 k/uL [place] High WBC 12.91 LAB WRBC 3.90-5.20 m/uL [place] RBC 4.12 LAB WHGB 11.5-15.5 g/dL [facility] Hemoglobin 12.5 LAB WHCT 36.0-46.0 % [facility] Hematocrit 38.5 LAB WMCV 80.0-100.0 fL [facility] MCV 93.4 LAB WMCH 26.0-34.0 pg [place] MCH 30.3 LAB WMCHC 30.5-36.0 g/dL [facility] MCHC 32.5 LAB WRDW 11.5-15.0 % [facility] RDW 14.1 LAB WPLT 150-400 k/uL Low [place] Platelet Cnt 14 Result Comment: Result checked and verified No clot detected. Reviewed LAB WMPV 9.0-12.7 fL Unable to [place] MPV report LAB ABSNUC <0.01 k/uL Preliminary Absolute nRBC result. Interpret with caution. Final results may vary. Results requested and read back by: Result Comment: PLT=8 P.PETERLILIBETH [id number] DAVID Performed By: #### WCBC #### [facility] [address] [place] [address] HOSP Observed: 09/02/2017 Status: COMPLETED Source: [place] 8:30 AM [facility] REPOSITORY Infusion Center ([facility]) JIMGEOVANNA ([id number]) 1965 F Date Time Provider Department 09/02/17 8:30 AM INJECTION [facility] During your visit today, we recorded the following information about you: Temperature Pulse Blood pressure Weight 97.8 degrees 88/minute 126/86 104.8 kg Bri Resendez LPN 09/02/2017 8:41 AM Signed Patient presents with: Imm/Inj Pt is identified by name and birthdate: Yes. Allergies and medications reviewed. Latex allergy? No. Does this patient have: Unplanned weight loss or gain of greater than 10 pounds, or a change of appetite over the last year? No Does the patient have any concerns about safety in the home/falls? Not at risk for falls Has the patient fallen in the past year? No Does the patient have difficulty performing or completing routine daily living activities? No Does this patient have concerns about personal safety? No Is patient having pain? Pain: No=0 (pain 0 on a scale of 0-10). Health Maintenance: Reviewed and updated. Does patient have MyChart access or Caregiver proxy: yes Pt/Caregiver willingness and readiness to learn assessed: Yes. Barriers: none NPlate injection administered left arm, tolerated well, no immediate adverse reactions noted. Bri Resendez LPN Referring Provider: DALLAS MCCALLUM [[id number]] Allergies As of Date: 09/02/2017 Noted Allergy Reaction ASA (SALICYLATES) 07/22/2005 4 - Hives BEES 04/01/2008 CLINDAMYCIN 01/11/2011 14 - Other: See Comments Comments: lightheadness PENICILLINS 07/22/2005 2 - Rash 9 - Itching ZOFRAN (ONDANSETRON) 04/30/2013 8 - GI Upset Comments: Worse nausea. seasonal allergies [Other] 07/22/2005 Date Reviewed: 09/02/2017 Reviewed by: Bri Resendez LPN - Fully Assessed Reason for Visit: Imm/Inj [58] Primary Visit Diagnosis:Immune thrombocytopenic purpura (HCC) [D69.3] Order(s):[] romiPLOStim 1,039 mcg injection (NPLATE)Disp: Rfl: TREATMENT PARAMETER-NOT NEEDED [[id number]] Order #: [id number]: 1 Prescriptions as of 09/02/2017 Sig: SIMVASTATIN 10 MG TABLET TAKE 1 TABLET DAILY AT BEDTIME METFORMIN ER 500 MG TABLET,EX* TAKE 2 TABLETS TWICE A DAY RIZATRIPTAN 10 MG TABLET Take 1 tablet by mouth as nee* FERROUS SULFATE ER 140 MG (45* Take 1 tablet by mouth twice * Patient taking differently: Take 140 mg by mouth once casey* FUROSEMIDE 20 MG TABLET Take 1 tablet by mouth once d* ELTROMBOPAG 25 MG TABLET Take 3 tablets by mouth once * METHYLPREDNISOLONE 4 MG TABLE* as directed BLOOD SUGAR DIAGNOSTIC STRIPS Test blood sugar(s) 1 times d* BLOOD SUGAR DIAGNOSTIC STRIPS Test blood sugar(s) 1 times d* ONETOUCH ULTRA SMART KIT Daily check. ONETOUCH ULTRASOFT LANCETS Test blood sugar once daily. 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 Benign neoplasm of colon [D12.6] INVALID FOR*09/06/2016 Hyperlipidemia with target LDL less than 100 [E*INVALID FOR* Personal history of colonic polyps [Z86.010] INVALID FOR* Visit Notes: >> Bri Resendez LPN TueSep 02, 2017 8:33 AM Status: Signed Patient presents with: Imm/Inj Pt is identified by name and birthdate: Yes. Allergies and medications reviewed. Latex allergy? No. Does this patient have: Unplanned weight loss or gain of greater than 10 pounds, or a change of appetite over the last year? No Does the patient have any concerns about safety in the home/falls? Not at risk for falls Has the patient fallen in the past year? No Does the patient have difficulty performing or completing routine daily living activities? No Does this patient have concerns about personal safety? No Is patient having pain? Pain: No=0 (pain 0 on a scale of 0-10). Health Maintenance: Reviewed and updated. Does patient have MyChart access or Caregiver proxy: yes Pt/Caregiver willingness and readiness to learn assessed: Yes. Barriers: none NPlate injection administered left arm, tolerated well, no immediate adverse reactions noted. Bri Resendez LPN Prescriptions ordered this encounter Disp Refills Start End ROMIPLOSTIM 500 MCG SUBCUTANEOUS HIWOT* 09/02/2017 09/02/2017 Cmt: Dose out of 2 vials with overfill Route: SUBCUTANEOUS SODIUM CHLORIDE 0.9 % INTRAVENOUS SO* 09/02/2017 09/02/2017 Cmt: Inform physician Route: INTRAVENOUS Disc: Auto DC at discharge. DIPHENHYDRAMINE 50 MG/ML INJECTION S* 09/02/2017 09/02/2017 Route: INTRAVENOUS Disc: Auto DC at discharge. HYDROCORTISONE SOD SUCCINATE (PF) 10* 09/02/2017 09/02/2017 Route: INTRAVENOUS Disc: Auto DC at discharge. EPINEPHRINE 1 MG/ML (1 ML) INJECTION* 09/02/2017 09/02/2017 Route: INTRAMUSCULA Disc: Auto DC at discharge. Medications Discontinued During This Encounter EPINEPHrine 1 mg/mL (1 mL) 0.3 mg in* 09/02/2017 09/02/2017 Route: INTRAMUSCULAR Sig: Disc: Auto DC at discharge. hydrocortisone sodium succinate (PF)* 09/02/2017 09/02/2017 Route: INTRAVENOUS Sig: Disc: Auto DC at discharge. diphenhydrAMINE 50 mg injection (ANUJ* 09/02/2017 09/02/2017 Route: INTRAVENOUS Sig: Disc: Auto DC at discharge. NaCl 0.9% iv infusion 09/02/2017 09/02/2017 Cmt: Inform physician Route: INTRAVENOUS Sig: Disc: Auto DC at discharge. Encounter Status:Closed by BRI RESENDEZ LPN on 09/02/17 DIE[place] CBC Collected: 09/02/2017 Status: F Source: [place] 7:[address] [facility] REPOSITORY TYPE CODE TESTS RESULT OUT OF REFERENCE UNITS RANGE LAB WWBC 3.70-11.00 k/uL 11.48 High [place] WBC LAB WRBC 3.90-5.20 m/uL 3.92 [place] [facility] RBC LAB WHGB 11.5-15.5 g/dL 12.0 [place] Hemoglobin LAB WHCT 36.0-46.0 % 37.1 [place] Hematocrit LAB WMCV 80.0-100.0 fL 94.6 [facility] MCV LAB WMCH 26.0-34.0 pg 30.6 [facility] MCH LAB WMCHC 30.5-36.0 g/dL 32.3 [facility] MCHC LAB WRDW 11.5-15.0 % 14.1 [facility] RDW LAB WPLT 150-400 k/uL 81 Low [facility] Platelet Cnt LAB WMPV 9.0-12.7 fL [facility] MPV Unable to assay. Analytical difficulty. Result Comment: Test performed at: [facility], [address] [place] [address]. HOSP Observed: 08/26/2017 Status: COMPLETED Source: [place] 8:30 AM [facility] REPOSITORY Infusion Center ([facility]) GEOVANNA FERNANDEZ ([id number]) 1965 F Date Time Provider Department 08/26/17 8:30 AM INJECTION [facility] During your visit today, we recorded the following information about you: Temperature Pulse Blood pressure Weight 97.5 degrees 85/minute 118/80 104.8 kg Bri Resendez NAMAN 08/26/2017 8:50 AM Signed Patient presents with: Imm/Inj Pt is identified by name and birthdate: Yes. Allergies and medications reviewed. Latex allergy? No. Does this patient have: Unplanned weight loss or gain of greater than 10 pounds, or a change of appetite over the last year? No Does the patient have any concerns about safety in the home/falls? Not at risk for falls Has the patient fallen in the past year? No Does the patient have difficulty performing or completing routine daily living activities? No Does this patient have concerns about personal safety? No Is patient having pain? Pain: No=0 (pain 0 on a scale of 0-10). Health Maintenance: Reviewed and updated. Does patient have MyChart access or Caregiver proxy: yes Pt/Caregiver willingness and readiness to learn assessed: Yes. Barriers: none NPlate injection administered right arm, tolerated well, no immediate adverse reactions noted. Bri Resendez LPN Referring Provider: DALLAS MCCALLUM [[id number]] Allergies As of Date: 08/26/2017 Noted Allergy Reaction ASA (SALICYLATES) 07/22/2005 4 - Hives BEES 04/01/2008 CLINDAMYCIN 01/11/2011 14 - Other: See Comments Comments: lightheadness PENICILLINS 07/22/2005 2 - Rash 9 - Itching ZOFRAN (ONDANSETRON) 04/30/2013 8 - GI Upset Comments: Worse nausea. seasonal allergies [Other] 07/22/2005 Date Reviewed: 08/26/2017 Reviewed by: Bri Resendez LPN - Fully Assessed Reason for Visit: Imm/Inj [58] Primary Visit Diagnosis:Immune thrombocytopenic purpura (HCC) [D69.3] Order(s):TREATMENT PARAMETER-NOT NEEDED [[id number]] Order #: [id number]: 1 [] romiPLOStim 1,039 mcg injection (NPLATE)Disp: Rfl: Prescriptions as of 08/26/2017 Sig: SIMVASTATIN 10 MG TABLET TAKE 1 TABLET DAILY AT BEDTIME METFORMIN ER 500 MG TABLET,EX* TAKE 2 TABLETS TWICE A DAY RIZATRIPTAN 10 MG TABLET Take 1 tablet by mouth as nee* FERROUS SULFATE ER 140 MG (45* Take 1 tablet by mouth twice * Patient taking differently: Take 140 mg by mouth once casey* FUROSEMIDE 20 MG TABLET Take 1 tablet by mouth once d* ELTROMBOPAG 25 MG TABLET Take 3 tablets by mouth once * METHYLPREDNISOLONE 4 MG TABLE* as directed BLOOD SUGAR DIAGNOSTIC STRIPS Test blood sugar(s) 1 times d* BLOOD SUGAR DIAGNOSTIC STRIPS Test blood sugar(s) 1 times d* ONETOUCH ULTRA SMART KIT Daily check. ONETOUCH ULTRASOFT LANCETS Test blood sugar once daily. 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 Benign neoplasm of colon [D12.6] INVALID FOR*09/06/2016 Hyperlipidemia with target LDL less than 100 [E*INVALID FOR* Personal history of colonic polyps [Z86.010] INVALID FOR* Visit Notes: >> Bri Resendez LPN TueAug 26, 2017 8:42 AM Status: Signed Patient presents with: Imm/Inj Pt is identified by name and birthdate: Yes. Allergies and medications reviewed. Latex allergy? No. Does this patient have: Unplanned weight loss or gain of greater than 10 pounds, or a change of appetite over the last year? No Does the patient have any concerns about safety in the home/falls? Not at risk for falls Has the patient fallen in the past year? No Does the patient have difficulty performing or completing routine daily living activities? No Does this patient have concerns about personal safety? No Is patient having pain? Pain: No=0 (pain 0 on a scale of 0-10). Health Maintenance: Reviewed and updated. Does patient have MyChart access or Caregiver proxy: yes Pt/Caregiver willingness and readiness to learn assessed: Yes. Barriers: none NPlate injection administered right arm, tolerated well, no immediate adverse reactions noted. Bri Resendez LPN Prescriptions ordered this encounter Disp Refills Start End ROMIPLOSTIM 500 MCG SUBCUTANEOUS HIWOT* 08/26/2017 08/26/2017 Cmt: Dose out of 2 vials with overfill Route: SUBCUTANEOUS SODIUM CHLORIDE 0.9 % INTRAVENOUS SO* 08/26/2017 08/26/2017 Cmt: Inform physician Route: INTRAVENOUS Disc: Auto DC at discharge. DIPHENHYDRAMINE 50 MG/ML INJECTION S* 08/26/2017 08/26/2017 Route: INTRAVENOUS Disc: Auto DC at discharge. HYDROCORTISONE SOD SUCCINATE (PF) 10* 08/26/2017 08/26/2017 Route: INTRAVENOUS Disc: Auto DC at discharge. EPINEPHRINE 1 MG/ML (1 ML) INJECTION* 08/26/2017 08/26/2017 Route: INTRAMUSCULA Disc: Auto DC at discharge. Medications Discontinued During This Encounter EPINEPHrine 1 mg/mL (1 mL) 0.3 mg in* 08/26/2017 08/26/2017 Route: INTRAMUSCULAR Sig: Disc: Auto DC at discharge. hydrocortisone sodium succinate (PF)* 08/26/2017 08/26/2017 Route: INTRAVENOUS Sig: Disc: Auto DC at discharge. diphenhydrAMINE 50 mg injection (ANUJ* 08/26/2017 08/26/2017 Route: INTRAVENOUS Sig: Disc: Auto DC at discharge. NaCl 0.9% iv infusion 08/26/2017 08/26/2017 Cmt: Inform physician Route: INTRAVENOUS Sig: Disc: Auto DC at discharge. Encounter Status:Closed by BRI RESENDEZ LPN on 08/26/17 [place] CBC Collected: 08/26/2017 Status: F Source: [place] 7:45 AM [facility] REPOSITORY TYPE CODE TESTS RESULT OUT OF REFERENCE UNITS RANGE LAB WWBC 3.70-11.00 k/uL [facility] WBC 9.91 LAB WRBC 3.90-5.20 m/uL [place] [facility] RBC 4.09 LAB WHGB 11.5-15.5 g/dL [facility] Hemoglobin 12.4 LAB WHCT 36.0-46.0 % [facility] Hematocrit 38.4 LAB WMCV 80.0-100.0 fL [facility] MCV 93.9 LAB WMCH 26.0-34.0 pg [place] [facility] MCH 30.3 LAB WMCHC 30.5-36.0 g/dL [place] MCHC 32.3 LAB WRDW 11.5-15.0 % [place] RDW 13.3 LAB WPLT 150-400 k/uL Low [facility] Platelet Cnt 12 Result Comment: Result rechecked. No clot detected. LAB WMPV 9.0-12.7 fL [place] MPV Unable to report Performed By: #### WCBC #### [facility] [address] [place], [place] [address] HOSP Observed: 08/19/2017 Status: COMPLETED Source: [place] 8:30 AM [facility] REPOSITORY Infusion Center ([facility]) GEOVANNA FERNANDEZ ([id number]) 1965 F Date Time Provider Department 08/19/17 8:30 AM [facility] During your visit today, we recorded the following information about you: Temperature Pulse Blood pressure Weight 98 degrees 95/minute 134/64 105 kg Bri Resendez LPN 08/19/2017 8:50 AM Signed Patient presents with: Imm/Inj Pt is identified by name and birthdate: Yes. Allergies and medications reviewed. Latex allergy? No. Does this patient have: Unplanned weight loss or gain of greater than 10 pounds, or a change of appetite over the last year? No Does the patient have any concerns about safety in the home/falls? Not at risk for falls Has the patient fallen in the past year? No Does the patient have difficulty performing or completing routine daily living activities? No Does this patient have concerns about personal safety? No Is patient having pain? Pain: No=0 (pain 0 on a scale of 0-10). Health Maintenance: Reviewed and updated. Does patient have MyChart access or Caregiver proxy: yes Pt/Caregiver willingness and readiness to learn assessed: Yes. Barriers: none NPlate injection administered left arm, tolerated well, no immediate adverse reactions noted. Bri Resendez LPN Referring Provider: DALLAS MCCALLUM [[id number]] Allergies As of Date: 08/19/2017 Noted Allergy Reaction ASA (SALICYLATES) 07/22/2005 4 - Hives BEES 04/01/2008 CLINDAMYCIN 01/11/2011 14 - Other: See Comments Comments: lightheadness PENICILLINS 07/22/2005 2 - Rash 9 - Itching ZOFRAN (ONDANSETRON) 04/30/2013 8 - GI Upset Comments: Worse nausea. seasonal allergies [Other] 07/22/2005 Date Reviewed: 08/19/2017 Reviewed by: Bri Resendez LPN - Fully Assessed Reason for Visit: Imm/Inj [58] Primary Visit Diagnosis:Immune thrombocytopenic purpura (HCC) [D69.3] Order(s):TREATMENT PARAMETER-NOT NEEDED [[id number]] Order #: [id number]: 1 [] romiPLOStim 1,039 mcg injection (NPLATE)Disp: Rfl: Prescriptions as of 08/19/2017 Sig: SIMVASTATIN 10 MG TABLET TAKE 1 TABLET DAILY AT BEDTIME METFORMIN ER 500 MG TABLET,EX* TAKE 2 TABLETS TWICE A DAY RIZATRIPTAN 10 MG TABLET Take 1 tablet by mouth as nee* FERROUS SULFATE ER 140 MG (45* Take 1 tablet by mouth twice * Patient taking differently: Take 140 mg by mouth once casey* FUROSEMIDE 20 MG TABLET Take 1 tablet by mouth once d* ELTROMBOPAG 25 MG TABLET Take 3 tablets by mouth once * METHYLPREDNISOLONE 4 MG TABLE* as directed BLOOD SUGAR DIAGNOSTIC STRIPS Test blood sugar(s) 1 times d* BLOOD SUGAR DIAGNOSTIC STRIPS Test blood sugar(s) 1 times d* ONETOUCH ULTRA SMART KIT Daily check. ONETOUCH ULTRASOFT LANCETS Test blood sugar once daily. 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 Benign neoplasm of colon [D12.6] INVALID FOR*09/06/2016 Hyperlipidemia with target LDL less than 100 [E*INVALID FOR* Personal history of colonic polyps [Z86.010] INVALID FOR* Visit Notes: >> Bri Resendez LPN TueAug 19, 2017 8:41 AM Status: Signed Patient presents with: Imm/Inj Pt is identified by name and birthdate: Yes. Allergies and medications reviewed. Latex allergy? No. Does this patient have: Unplanned weight loss or gain of greater than 10 pounds, or a change of appetite over the last year? No Does the patient have any concerns about safety in the home/falls? Not at risk for falls Has the patient fallen in the past year? No Does the patient have difficulty performing or completing routine daily living activities? No Does this patient have concerns about personal safety? No Is patient having pain? Pain: No=0 (pain 0 on a scale of 0-10). Health Maintenance: Reviewed and updated. Does patient have MyChart access or Caregiver proxy: yes Pt/Caregiver willingness and readiness to learn assessed: Yes. Barriers: none NPlate injection administered left arm, tolerated well, no immediate adverse reactions noted. Bri Resendez LPN Prescriptions ordered this encounter Disp Refills Start End ROMIPLOSTIM 500 MCG SUBCUTANEOUS HIWOT* 08/19/2017 08/19/2017 Cmt: Out of 2 vials Route: SUBCUTANEOUS SODIUM CHLORIDE 0.9 % INTRAVENOUS SO* 08/19/2017 08/19/2017 Cmt: Inform physician Route: INTRAVENOUS Disc: Auto DC at discharge. DIPHENHYDRAMINE 50 MG/ML INJECTION S* 08/19/2017 08/19/2017 Route: INTRAVENOUS Disc: Auto DC at discharge. HYDROCORTISONE SOD SUCCINATE (PF) 10* 08/19/2017 08/19/2017 Route: INTRAVENOUS Disc: Auto DC at discharge. EPINEPHRINE 1 MG/ML (1 ML) INJECTION* 08/19/2017 08/19/2017 Route: INTRAMUSCULA Disc: Auto DC at discharge. Medications Discontinued During This Encounter EPINEPHrine 1 mg/mL (1 mL) 0.3 mg in* 08/19/2017 08/19/2017 Route: INTRAMUSCULAR Sig: Disc: Auto DC at discharge. hydrocortisone sodium succinate (PF)* 08/19/2017 08/19/2017 Route: INTRAVENOUS Sig: Disc: Auto DC at discharge. diphenhydrAMINE 50 mg injection (ANUJ* 08/19/2017 08/19/2017 Route: INTRAVENOUS Sig: Disc: Auto DC at discharge. NaCl 0.9% iv infusion 08/19/2017 08/19/2017 Cmt: Inform physician Route: INTRAVENOUS Sig: Disc: Auto DC at discharge. Encounter Status:Closed by BRI RESENDEZ LPN on 08/19/17 DIEUDONNE CBC Collected: 08/19/2017 Status: F Source: [place] 8:15 AM [facility] REPOSITORY TYPE CODE TESTS RESULT OUT OF REFERENCE UNITS RANGE LAB WWBC 3.70-11.00 k/uL [place] WBC 10.88 LAB WRBC 3.90-5.20 m/uL [place] RBC 4.03 LAB WHGB 11.5-15.5 g/dL [place] Hemoglobin 12.4 LAB WHCT 36.0-46.0 % [place] Hematocrit 37.9 LAB WMCV 80.0-100.0 fL [place] MCV 94.0 LAB WMCH 26.0-34.0 pg [place] MCH 30.8 LAB WMCHC 30.5-36.0 g/dL [place] MCHC 32.7 LAB WRDW 11.5-15.0 % [place] RDW 14.0 LAB WPLT 150-400 k/uL Low [place] Platelet Cnt 111 Result Comment: Result rechecked. LAB WMPV 9.0-12.7 fL Unable to [place] MPV assay. Analytical difficulty. HOSP Observed: 08/12/2017 Status: COMPLETED Source: [place] 8:30 AM [facility] REPOSITORY Infusion Center ([facility]) GEOVANNA FERNANDEZ ([id number]) 1965 F Date Time Provider Department 08/12/17 8:30 AM INJECTION [facility] During your visit today, we recorded the following information about you: Temperature Pulse Blood pressure Weight 98.2 degrees 85/minute 134/86 104.8 kg Anai Turcios LPN, LPN 08/12/2017 8:33 AM Signed Patient presents with: Imm/Inj Pt is identified by name and birthdate: Yes. Allergies and medications reviewed. Latex allergy? No. Does this patient have: Unplanned weight loss or gain of greater than 10 pounds, or a change of appetite over the last year? No Does the patient have any concerns about safety in the home/falls? Not at risk for falls Has the patient fallen in the past year? No Does the patient have difficulty performing or completing routine daily living activities? No Does this patient have concerns about personal safety? No Is patient having pain? Pain: Yes, pain rated 3 on a scale of 0-10 (0=none, 10=worst). Location: all over. Character: aching. Duration: weeks. Frequency: occurs intermittently. Health Maintenance: Reviewed and updated. Does patient have MyChart access or Caregiver proxy: yes Pt/Caregiver willingness and readiness to learn assessed: Yes. Barriers: none nplate injection administered, left arm, tolerated well, no immediate adverse reactions noted. Anai Turcios LPN Referring Provider: DALLAS MCCALLUM [[id number]] Allergies As of Date: 08/12/2017 Noted Allergy Reaction ASA (SALICYLATES) 07/22/2005 4 - Hives BEES 04/01/2008 CLINDAMYCIN 01/11/2011 14 - Other: See Comments Comments: lightheadness PENICILLINS 07/22/2005 2 - Rash 9 - Itching ZOFRAN (ONDANSETRON) 04/30/2013 8 - GI Upset Comments: Worse nausea. seasonal allergies [Other] 07/22/2005 Date Reviewed: 08/12/2017 Reviewed by: Anai Contreras (Naman) NAMAN Turcios - Fully Assessed Reason for Visit: Imm/Inj [58] Primary Visit Diagnosis:Immune thrombocytopenic purpura (HCC) [D69.3] Order(s):[] romiPLOStim 1,039 mcg injection (NPLATE)Disp: Rfl: TREATMENT PARAMETER-NOT NEEDED [[id number]] Order #: [id number]: 1 [facility] [[id number]] Order #: [id number]: 1 STANDING NaCl 0.9% iv infusionDisp: Rfl: diphenhydrAMINE 50 mg injection (BENADRYL)Disp: Rfl: hydrocortisone sodium succinate (PF) 100 mg injection (Solu-CORTEF)Disp: Rfl: EPINEPHrine 1 mg/mL (1 mL) 0.3 mg injectionDisp: Rfl: Prescriptions as of 08/12/2017 Sig: METFORMIN ER 500 MG TABLET,EX* TAKE 2 TABLETS TWICE A DAY RIZATRIPTAN 10 MG TABLET Take 1 tablet by mouth as nee* X SIMVASTATIN 10 MG TABLET Take 1 tablet by mouth daily * FERROUS SULFATE ER 140 MG (45* Take 1 tablet by mouth twice * Patient taking differently: Take 140 mg by mouth once casey* FUROSEMIDE 20 MG TABLET Take 1 tablet by mouth once d* ELTROMBOPAG 25 MG TABLET Take 3 tablets by mouth once * METHYLPREDNISOLONE 4 MG TABLE* as directed BLOOD SUGAR DIAGNOSTIC STRIPS Test blood sugar(s) 1 times d* BLOOD SUGAR DIAGNOSTIC STRIPS Test blood sugar(s) 1 times d* ONETOUCH ULTRA SMART KIT Daily check. ONETOUCH ULTRASOFT LANCETS Test blood sugar once daily. 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 Benign neoplasm of colon [D12.6] INVALID FOR*09/06/2016 Hyperlipidemia with target LDL less than 100 [E*INVALID FOR* Personal history of colonic polyps [Z86.010] INVALID FOR* Visit Notes: >> Anai NeriNamanGordy TurciosNAMAN TueAug 12, 2017 8:21 AM Status: Signed Patient presents with: Imm/Inj Pt is identified by name and birthdate: Yes. Allergies and medications reviewed. Latex allergy? No. Does this patient have: Unplanned weight loss or gain of greater than 10 pounds, or a change of appetite over the last year? No Does the patient have any concerns about safety in the home/falls? Not at risk for falls Has the patient fallen in the past year? No Does the patient have difficulty performing or completing routine daily living activities? No Does this patient have concerns about personal safety? No Is patient having pain? Pain: Yes, pain rated 3 on a scale of 0-10 (0=none, 10=worst). Location: all over. Character: aching. Duration: weeks. Frequency: occurs intermittently. Health Maintenance: Reviewed and updated. Does patient have MyChart access or Caregiver proxy: yes Pt/Caregiver willingness and readiness to learn assessed: Yes. Barriers: none nplate injection administered, left arm, tolerated well, no immediate adverse reactions noted. Anai TurciosNAMAN Prescriptions ordered this encounter Disp Refills Start End ROMIPLOSTIM 500 MCG SUBCUTANEOUS HIWOT* 08/12/2017 08/12/2017 Cmt: Out of 2 vials with overfill Route: SUBCUTANEOUS SODIUM CHLORIDE 0.9 % INTRAVENOUS SO* 08/12/2017 Cmt: Inform physician Route: INTRAVENOUS DIPHENHYDRAMINE 50 MG/ML INJECTION S* 08/12/2017 Route: INTRAVENOUS HYDROCORTISONE SOD SUCCINATE (PF) 10* 08/12/2017 Route: INTRAVENOUS EPINEPHRINE 1 MG/ML (1 ML) INJECTION* 08/12/2017 Route: INTRAMUSCULA Encounter Status:Closed by VERONIQUE (PHARMACIST)MARAL on 08/16/17 [place] CBC Collected: 08/12/2017 Status: F Source: [place] 7:[address] [facility] REPOSITORY TYPE CODE TESTS RESULT OUT OF REFERENCE UNITS RANGE LAB WWBC 3.70-11.00 k/uL [place] WBC 10.57 LAB WRBC 3.90-5.20 m/uL [place] RBC 3.90 LAB WHGB 11.5-15.5 g/dL [place] Hemoglobin 12.2 LAB WHCT 36.0-46.0 % [place] Hematocrit 36.3 LAB WMCV 80.0-100.0 fL [place] MCV 93.1 LAB WMCH 26.0-34.0 pg [place] MCH 31.3 LAB WMCHC 30.5-36.0 g/dL [place] MCHC 33.6 LAB WRDW 11.5-15.0 % [place] RDW 13.7 LAB WPLT 150-400 k/uL Low [place] Platelet Cnt 20 Result Comment: Result rechecked. LAB WMPV 9.0-12.7 fL Unable to [place] MPV assay. Analytical difficulty. OBSOLETE Observed: 08/11/2017 Status: COMPLETED Source: [place] 12:00 AM [facility] REPOSITORY [facility] GEOVANNA FERNANDEZ ([id number]) 1965 F Date Time Provider Department 08/11[facility]17 [facility] During your visit today, we recorded the following information about you: Libertad Ervin Ma 08/12/2017 8:08 AM Signed 07/26/16 last ov. jg [place]. No upcoming Pt is active with and gus Patient has been identified by name and date of : Yes RX INSTRUCTIONS: Patient aware RX will be sent to pharmacy. No need to notify patient. Libertad Carlton MD 08/12/2017 11:32 AM Signed The following approved medication requests have been transmitted electronically. Due for labs/ appt. Refill on 08/11/17 -LIPID PANEL BASIC -HEPATIC FUNCTION PNL Signed Prescriptions Disp Refills simvastatin (ZOCOR) 10 mg tablet 90 tablet 0 Sig: TAKE 1 TABLET DAILY AT BEDTIME LATOYA: No Authorizing Provider: VASILE CARLTON MD Vivian P Kasubienski Ma 08/12/2017 12:05 PM Signed My chart message sent. Allergies As of Date: 08/11/2017 Noted Allergy Reaction ASA (SALICYLATES) 07/22/2005 4 - Hives BEES 04/01/2008 CLINDAMYCIN 01/11/2011 14 - Other: See Comments Comments: lightheadness PENICILLINS 07/22/2005 2 - Rash 9 - Itching ZOFRAN (ONDANSETRON) 04/30/2013 8 - GI Upset Comments: Worse nausea. seasonal allergies [Other] 07/22/2005 Date Reviewed: 08/05/2017 Reviewed by: Anai Contreras (Naman) NAMAN Turcios - Fully Assessed Reason for Visit: Refill Request [94] Primary Visit Diagnosis:Hyperlipidemia with target LDL less than 100 [E78.5] Order(s):simvastatin (ZOCOR) 10 mg tabletTAKE 1 TABLET DAILY AT BEDTIMEDisp: 90 tabletRfl: 0 LIPID PANEL BASIC [SQLIPB] Order #: [id number] FUTURE HEPATIC FUNCTION PNL [SQHFP] Order #: [id number] FUTURE Prescriptions as of 08/11/2017 Sig: SIMVASTATIN 10 MG TABLET TAKE 1 TABLET DAILY AT BEDTIME FUROSEMIDE 20 MG TABLET Take 1 tablet by mouth once d* METFORMIN ER 500 MG TABLET,EX* TAKE 2 TABLETS TWICE A DAY RIZATRIPTAN 10 MG TABLET Take 1 tablet by mouth as nee* ELTROMBOPAG 25 MG TABLET Take 3 tablets by mouth once * METHYLPREDNISOLONE 4 MG TABLE* as directed FERROUS SULFATE ER 140 MG (45* Take 1 tablet by mouth twice * Patient taking differently: Take 140 mg by mouth once casey* BLOOD SUGAR DIAGNOSTIC STRIPS Test blood sugar(s) 1 times d* BLOOD SUGAR DIAGNOSTIC STRIPS Test blood sugar(s) 1 times d* ONETOUCH ULTRA SMART KIT Daily check. ONETOUCH ULTRASOFT LANCETS Test blood sugar once daily. 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 Benign neoplasm of colon [D12.6] INVALID FOR*09/06/2016 Hyperlipidemia with target LDL less than 100 [E*INVALID FOR* Personal history of colonic polyps [Z86.010] INVALID FOR* Prescriptions ordered this encounter Disp Refills Start End SIMVASTATIN 10 MG TABLET 90 t* 0 08/12/2017 Sig: TAKE 1 TABLET DAILY AT BEDTIME Medications Discontinued During This Encounter simvastatin (ZOCOR) 10 mg tablet 90 t* 0 05/20/2017 08/12/2017 Route: ORAL Sig: Take 1 tablet by mouth daily at bedtime. Disc: Reason for discontinue is not on file. Encounter Status:Closed by LIBERTAD REVIN MA on 08/12/17 ALLERGIES ALLERGIES DATE TYPE / CODE NAME / CODE REACTION SEVERITY SOURCE 04/14/2018 Drug ondansetron Other Unknown [place] Allergy/065526611( HCl/V872590512(R [facility]) XNORM) Hospital Repository 04/14/2018 Drug Penicillins/F001 Rash Unknown [place] Allergy/556353722( 209982(RXNORM) [facility]) [facility] Repository 04/14/2018 Drug aspirin/P9614511 Hives Unknown [place] Allergy/176927085( 87(RXNORM) [facility]) Hospital Repository 04/14/2018 Drug clindamycin/F006 Vomiting Unknown [place] Allergy/698367469( 499838(RXNORM) [facility]) Hospital Repository 04/14/2018 Drug venom-honey Swelling Unknown [place] Allergy/633078035( bee/S854430615(R [facility]) XNORM) Hospital Repository 04/14/2018 Drug rituximab/F21724 Other Unknown [place] Allergy/593246505( 7236(RXNORM) [facility] Hospital Repository 04/30/2013 DRUG ONDANSETRON GI UPSET [place] INGREDI/152876878( [facility] Main SNOMED CT) [place] Repository 02/07/2012 DRUG RITUXIMAB OTHER: SEE Markel [place] INGREDI/842827448( [facility] Main SNOMED CT) [place] Repository 01/11/2011 DRUG CLINDAMYCIN OTHER: SEE C [place] INGREDI/269895761( [facility]) [place] Repository 04/01/2008 Environ/356566207( BEES [place] SNOMED CT) [facility] Main [place] Repository 07/22/2005 Drug SALICYLATES HIVES [place] Class/692350825(SN [facility] Main OMED CT) [place] Repository 07/22/2005 Drug PENICILLINS RASH [place] Class/792797786(SN [facility] Main OMED [facility]) [place] Repository 07/22/2005 Miscellaneous OTHER [place] Allergy/756187773( [facility] Main SNOMED [facility]) [place] Repository ENCOUNTERS ENCOUNTERS ADMIT/DISCHARGE ACCOUNT ADMITTING ENCOUNTER LOCATION SOURCE NUMBER CLASS 08/05/2018/08/05/20 [id number] Ambulatory [address] ing:MEDOUTP Repository 08/04/2018/08/07/20 [id number] Ambulatory [address] Main [place] Repository 08/04/2018/08/04/20 [id number] Ambulatory [address] Main [place] Repository 07/28/2018/07/31/20 [id number] Ambulatory [address] Main [place] Repository 07/28/2018/07/28/20 [id number] Ambulatory [address] Main [place] Repository 07/22/2018/07/22/20 [id number] Ambulatory [address] ing:BoomratOUTPRo Repository om: [id number] 07/21/2018/07/28/20 [id number] Ambulatory [address] Main [place] Repository 07/21/2018/07/22/20 [id number] Ambulatory [address] Main [place] Repository 07/14/2018/07/17/20 [id number] Ambulatory [address] Main [place] Repository 07/14/2018/07/14/20 [id number] Ambulatory [address] Main [place] Repository 07/07/2018/07/10/20 [id number] Ambulatory [address] Main [place] Repository 07/07/2018/07/07/20 [id number] Ambulatory [address] Main [place] Repository 07/01/2018/07/01/20 [id number] Ambulatory [address] ing:MEDOUTP Repository 06/30/2018/07/03/20 [id number] Ambulatory [address] Main [place] Repository 06/30/2018/06/30/20 [id number] Ambulatory [facility] [facility] [place] Repository 06/23/2018/06/26/20 [id number] Ambulatory [place] [facility] Main [place] Repository 06/23/2018/06/26/20 [id number] Ambulatory [place] 18 [facility] Main [place] Repository 06/23/2018/06/23/20 [id number] Ambulatory [place] 18 [facility] Main [place] Repository 06/17/2018/06/17/20 [id number] Ambulatory [place] 18 [facility] ing:MEDOUTP Repository 06/16/2018/06/19/20 [id number] Ambulatory [place] 18 [facility] Main [place] Repository 06/16/2018/06/16/20 [id number] Ambulatory [place] 18 [facility] Main [place] Repository 06/09/2018/06/12/20 [id number] Ambulatory [place] 18 [facility] Main [place] Repository 06/09/2018/06/09/20 [id number] Ambulatory [place] 18 [facility] Main [place] Repository 06/03/2018/06/03/20 [id number] Ambulatory [place] [address] [place] [address] ing:MEDOUTPRo Repository om: [id number] 06/02/2018/06/05/20 [id number] Ambulatory [place] 18 [facility] Main [place] Repository 06/02/2018/06/02/20 [id number] Ambulatory [place] 18 [facility] Main [place] Repository 05/26/2018/05/29/20 [id number] Ambulatory [place] 18 [facility] Main [place] Repository 05/26/2018/05/26/20 [id number] Ambulatory [place] 18 [facility] Main [place] Repository 05/20/2018/05/20/20 [id number] Ambulatory [place] 18 [facility] ing:MEDOUTP Repository 05/19/2018/05/22/20 [id number] Ambulatory [place] [facility] Main [place] Repository 05/19/2018/05/19/20 [id number] Ambulatory [place] 18 [facility] Main [place] Repository 05/12/2018/05/12/20 [id number] Ambulatory [place] 18 [facility] Main [place] Repository 05/12/2018/05/15/20 [id number] Ambulatory [place] 18 [facility] Main [place] Repository 05/06/2018/05/06/20 [id number] Ambulatory [address] ing:MEDOUTPRo Repository om: [id number] 05/05/2018/05/08/20 [id number] Ambulatory [address] Main [place] Repository 05/05/2018/05/05/20 [id number] Ambulatory [place] 18 [facility] Main [place] Repository 04/28/2018/05/01/20 [id number] Ambulatory [place] 18 [facility] Main [place] Repository 04/28/2018/04/28/20 [id number] Ambulatory [place] 18 [facility] Main [place] Repository 04/21/2018/04/25/20 [id number] Ambulatory [place] 18 [facility] Main [place] Repository 04/21/2018/04/21/20 [id number] Ambulatory [place] 18 [facility] Main [place] Repository 04/14/2018 [id number] Ambulatory [facility] ing:MEDOUTP Repository 04/14/2018/04/17/20 [id number] Ambulatory [address] Main [place] Repository 04/14/2018/04/14/20 [id number] Ambulatory [address] Main [place] Repository 04/07/2018/04/10/20 [id number] Ambulatory [address] Main [place] Repository 04/07/2018/04/07/20 [id number] Ambulatory [address] Main [place] Repository 04/01/2018/04/01/20 [id number] Ambulatory [address] ing:MEDOUTP Repository 03/31/2018/04/03/20 [id number] Ambulatory [place] 18 [facility] Main [place] Repository 03/31/2018/03/31/20 [id number] Ambulatory [place] 18 [facility] Main [place] Repository 03/24/2018/03/27/20 [id number] Ambulatory [place] 18 [facility] Main [place] Repository 03/24/2018/03/27/20 [id number] Ambulatory [place] 18 [facility] Main [place] Repository 03/24/2018/03/24/20 [id number] Ambulatory [place] 18 [facility] [place] Repository 03/17/2018/03/20/20 [id number] Ambulatory [place] 18 [facility] Main [place] Repository 03/17/2018/03/17/20 [id number] Ambulatory [place] 18 [facility] Main [place] Repository 03/11/2018/03/11/20 [id number] Ambulatory [place] ing:MEDOUTP Repository 03/10/2018/03/13/20 [id number] Ambulatory [place] [facility] Main [place] Repository 03/10/2018/03/10/20 [id number] Ambulatory [place] 18 [facility] Main [place] Repository 03/03/2018/03/06/20 [id number] Ambulatory [place] 18 [facility] [place] Repository 03/03/2018/03/03/20 [id number] Ambulatory [place] 18 [facility] Main [place] Repository 02/24/2018/02/28/20 [id number] Ambulatory [place] 18 [facility] Main [place] Repository 02/24/2018/02/25/20 [id number] Ambulatory [place] 18 [facility] Main [place] Repository 02/18/2018/02/19/20 [id number] Ambulatory [place] 18 [facility] ing:MEDOUTP Repository 02/17/2018/02/21/20 [id number] Ambulatory [place] 18 [facility] Main [place] Repository 02/17/2018/02/18/20 [id number] Ambulatory [place] 18 [facility] Main [place] Repository 02/10/2018/02/14/20 [id number] Ambulatory [place] 18 [facility] Main [place] Repository 02/10/2018/02/11/20 [id number] Ambulatory [place] 18 [facility] [place] Repository 02/03/2018/02/07/20 [id number] Ambulatory [place] 18 [facility] [place] Repository 02/03/2018/02/04/20 [id number] Ambulatory [place] 18 [facility] [place] Repository 01/27/2018/01/31/20 [id number] Ambulatory [place] [facility] [place] Repository 01/27/2018/01/28/20 [id number] Ambulatory [place] 18 [facility] Main [place] Repository 01/21/2018/01/22/20 [id number] Ambulatory [place] 18 [facility] ing:MEDOUTP Repository 01/20/2018/01/24/20 [id number] Ambulatory [place] [facility] [place] Repository 01/20/2018/01/21/20 [id number] Ambulatory [place] 18 [facility] Main [place] Repository 01/14/2018/01/15/20 [id number] Ambulatory [place] [facility] ing:MEDOUTP Repository 01/13/2018/01/18/20 [id number] Ambulatory [place] 18 [facility] [place] Repository 01/13/2018/01/14/20 [id number] Ambulatory [place] 18 [facility] Main [place] Repository 01/06/2018/01/10/20 [id number] Ambulatory [address] Main [place] Repository 01/06/2018/01/07/20 [id number] Ambulatory [place] 18 [facility] Main [place] Repository 12/31/2017/01/01/20 [id number] Ambulatory [place] [address] [place] [address] ing:MI3QOYBia Repository m: [id number] 12/30/2017/01/03/20 [id number] Ambulatory [address] Main [place] Repository 12/30/2017/12/31/19 [id number] Ambulatory [address] Main [place] Repository 12/23/2017/12/27/19 [id number] Ambulatory [address] Main [place] Repository 12/23/2017/12/24/19 [id number] Ambulatory [address] Main [place] Repository 12/17/2017/12/18/19 [id number] Ambulatory [place] [address] [place] [address] ing:MEDOUTP Repository 12/16/2017/12/20/19 [id number] Ambulatory [address] Main [place] Repository 12/16/2017/12/17/19 [id number] Ambulatory [address] Main [place] Repository 12/09/2017/12/13/19 [id number] Ambulatory [address] Main [place] Repository 12/09/2017/12/10/19 [id number] Ambulatory [address] Main [place] Repository 12/03/2017/12/04/19 [id number] Ambulatory [place] [address] [place] [address] ing:MEDOUTP Repository 12/02/2017/12/06/19 [id number] Ambulatory [place] [facility] [place] Repository 12/02/2017/12/03/19 [id number] Ambulatory [place] [facility] [place] Repository 11/25/2017/11/29/19 [id number] Ambulatory [place] [facility] [place] Repository 11/25/2017/11/26/19 [id number] Ambulatory [place] [facility] [place] Repository 11/24/2017/11/29/19 [id number] Ambulatory [place] [facility] [place] Repository 11/21/2017/11/23/19 [id number] Ambulatory [place] [facility] [place] Repository 11/18/2017/11/22/19 [id number] Ambulatory [address] Main [place] Repository 11/18/2017/11/19/19 [id number] Ambulatory [address] Main [place] Repository 11/12/2017/11/13/19 [id number] Ambulatory [place] [facility] ing:MS3OUT Repository 11/11/2017/11/15/19 [id number] Ambulatory [address] Main [place] Repository 11/11/2017/11/12/19 [id number] Ambulatory [address] Main [place] Repository 11/05/2017/11/06/19 [id number] Ambulatory [place] [address] [place] [address] ing:MEDOUTP Repository 11/04/2017 [id number] Ambulatory [facility] Main [place] Repository 11/04/2017/11/05/19 [id number] Ambulatory [address] Main [place] Repository 10/28/2017/11/01/19 [id number] Ambulatory [address] Main [place] Repository 10/28/2017/10/29/19 [id number] Ambulatory [address] Main [place] Repository 10/22/2017/10/23/19 [id number] Ambulatory [place] [address] [place] [address] ing:MEDOUTPRo Repository om: [id number] 10/21/2017/10/25/19 [id number] Ambulatory [address] Main [place] Repository 10/21/2017/10/22/19 [id number] Ambulatory [address] Main [place] Repository 10/14/2017/10/17/19 [id number] Ambulatory [address] Main [place] Repository 10/14/2017/10/14/19 [id number] Ambulatory [address] Main [place] Repository 10/07/2017/10/10/19 [id number] Ambulatory [address] Main [place] Repository 10/07/2017 [id number] Ambulatory [facility] Main [place] Repository 10/01/2017/10/01/19 [id number] Ambulatory [place] [facility] ing:MEDOUTP Repository 09/30/2017/10/03/19 [id number] Ambulatory [address] Main [place] Repository 09/30/2017/09/30/19 [id number] Ambulatory [address] Main [place] Repository 09/23/2017/02/05/20 [id number] Ambulatory [address] Main [place] Repository 09/23/2017/09/23/19 [id number] Ambulatory [address] [place] Repository 09/16/2017/09/19/19 [id number] Ambulatory [address] [place] Repository 09/16/2017/09/16/19 [id number] Ambulatory [address] [place] Repository 09/10/2017/09/10/19 [id number] Ambulatory [place] ing:MEDOUTP Repository 09/09/2017/09/12/19 [id number] Ambulatory [address] Repository 09/09/2017/09/09/19 [id number] Ambulatory [address] Repository 09/02/2017/09/05/19 [id number] Ambulatory [address] Repository 09/02/2017/09/02/19 [id number] Ambulatory [address] Repository 08/27/2017/08/27/19 [id number] Ambulatory [place] ing:MEDOUTP Repository 08/26/2017/08/26/19 [id number] Ambulatory [address] Main [place] Repository 08/26/2017/08/26/19 [id number] Ambulatory [address] Repository 08/19/2017/08/23/19 [id number] Ambulatory [address] [place] Repository 08/19/2017/08/19/20 [id number] Ambulatory [address] [address] [facility] Repository 08/12/2017/08/16/20 [id number] Ambulatory [address] Repository 08/12/2017/08/12/20 [id number] Ambulatory [address] Repository PAYERS PAYERS ENCOUNTER GUARANTOR PAYER SUBSCRIBER SOURCE 08/05/2018 GEOVANNA [id number] Primary Insurance:MED GEOVANNA EMERSON: Dieudonne [facility] [id number] Number: Hospital [address]Loa: [phone] [id number] Repository [phone] () Date:7267-46-76KE [address] [address]KATQKMSOV, [place] [address]EU: CHECK WEBSITE 08/05/2018 Secondary NOT GIVENUNK Dieudonne Insurance:SELF PAY [facility] Number: Effective Repository Date:2018-08-04 07/22/2018 GEOVANNA [id number] Primary Insurance:MED GEOVANNA MURILLOB: [place] [employer] [id number] Number: Hospital [address]Zff: 330 [id number] Repository [phone] () Date:2022-80-87YF [address] [address]VBOJCPHEX, [place] [address]LO: CHECK WEBSITE 07/22/2018 Secondary NOT GIVENUNK [place] Insurance:SELF PAY [facility] Number: Effective Repository Date:2018-07-21 07/01/2018 GEOVANNA Kenny [id number] Primary Insurance:MED GEOVANNA EMERSON: [place] [employer] [employer] TPAPolicy [id number], [place] Number: Hospital [address]Ykg: 330 [id number] Repository [phone] () Date:9053-71-95HI [address] [address]YHCBOBWFA, [place] [address]XE: CHECK WEBSITE 07/01/2018 Secondary NOT GIVENUNK Dieudonne Insurance:SELF PAY [facility] Number: Effective Repository Date:2018-06-30 06/17/2018 GEOVANNA Kenny [id number] Primary Insurance:MED GEOVANNA EMERSON: [place] [employer] TP[employer] [id number], [place] Number: Hospital [address]Byi: [phone] [id number] Repository [phone] () Date:5711-67-03ER [address] [address]NDSCMBXKB, [place] [address]YK: CHECK WEBSITE 06/17/2018 Secondary NOT GIVENUNK Dieudonne Insurance:SELF PAY [facility] Number: Effective Repository Date:2018-06-16 06/03/2018 GEOVANNA Kenny [id number] Primary Insurance:MED GEOVANNA EMERSON: [place] [employer] [id number] Number: Hospital [address]Ido: [phone] [id number] Repository [phone] (HP) Date:5610-16-13GR [address] [address]JWCSPYBWM, [place] [address]DN: CHECK WEBSITE 06/03/2018 Secondary NOT GIVENUNK Dieudonne Insurance:SELF PAY [facility] Number: Effective Repository Date:2018-06-02 05/20/2018 GEOVANNA Kenny [id number] Primary Insurance:MED GEOVANNA EMERSON: Dieudonne [employer] [id number], [place] Number: Hospital [address]Bph: [phone] [id number] Repository [phone] (HP) Date:1013-94-81JC [address] [address]FSIJZBUWM, [place] [address]EA: CHECK WEBSITE 05/20/2018 Secondary NOT GIVENUNK [place] Insurance:SELF PAY [facility] Number: Effective Repository Date:2018-05-19 05/06/2018 GEOVANNA [id number] Primary Insurance:MED GEOVANNA EMERSON: Dieudonne [employer] TPAPolicy [id number], [place] Number: Hospital [id number]: [phone] [id number] Repository [phone] () Date:0747-84-69IW [address] [address]NXJBANGNW, [place] [address]IC: CHECK WEBSITE 05/06/2018 Secondary NOT GIVENUNK Dieudonne Insurance:SELF PAY [facility] Number: Effective Repository Date:2018-05-05 04/14/2018 GEOVANNA [id number] Primary Insurance:MED GEOVANNA EMERSON: Dieudonne [employer] [id number], [place] Number: Hospital [address]Cwu: [phone] [id number] Repository [phone] () Date:3309-54-68ZH [address] [address]EANXYBZNX, [place] [address]NW: CHECK WEBSITE 04/14/2018 Secondary NOT GIVENUNK [place] Insurance:SELF PAY [facility] Number: Effective Repository Date:2018-04-14 04/01/2018 GEOVANNA [id number] Primary Insurance:MED GEOVANNA EMERSON: Dieudonne AYALA [employer] [id number], [place] Number: [facility] [address]Wsp: 330 [id number] Repository [phone] (HP) Date:3419-51-33NO [address] [address]ADZCAGSEH, [place] [address]BU: CHECK WEBSITE 04/01/2018 Secondary NOT GIVENUNK Dieudonne Insurance:SELF PAY [facility] Number: Effective Repository Date:2018-03-31 03/11/2018 Geovanna [id number] Primary Insurance:MED Geovanna Emerson: Dieudonne Ayala [employer] TPAPolicy [id number] [place] Number: [facility] [id number]: 330 [id number] Repository [phone] (HP) Date:8713-46-76LO [address] [address]EVJKCXILX, [place] [address]RR: CHECK WEBSITE 03/11/2018 Secondary NOT GIVENUNK [place] Insurance:SELF PAY [facility] Number: Effective Repository Date:2018-03-10 02/18/2018 Geovanna Kenny [id number] Primary Insurance:MED Geovanna Emerson: Dieudonne Ayala [employer] TP[employer] [id number] [place] Number: Hospital [address]Fdn: 330 [id number] Repository [phone] () Date:1002-12-39HB [address] [address]ARTAECNLK, [place] [address]SB: CHECK WEBSITE 02/18/2018 Secondary NOT GIVENUNK [place] Insurance:SELF PAY [facility] Number: Effective Repository Date:2018-02-17 01/21/2018 Geovanna Kenny [id number] Primary Insurance:MED Geovanna Emerson: Dieudonne Ayala [employer] TPAPolicy [id number] [place] Number: Hospital [address]Tvu: 330 [id number] Repository [phone] () Date:5368-52-24OU [address] [address]XLNAYSQEL, [place] [address]ED: CHECK WEBSITE 01/21/2018 Secondary NOT GIVENUNK [place] Insurance:SELF PAY [facility] Number: Effective Repository Date:2018-01-20 01/14/2018 Geovanna Kenny [id number] Primary Insurance:MED Geovanna Emerson: Dieudonne [place] [employer] TP[employer] [id number] [place] Number: Hospital [address]Akk: [id number] Repository [phone] Date:9202-09-46ZA [address] [address]NJXUUVODF, [place] [address]QR: CHECK WEBSITE 01/14/2018 Secondary NOT GIVENUNK [place] Insurance:SELF PAY [facility] Number: Effective Repository Date:2018-01-13 12/31/2017 Geovanna [id number] Primary Insurance:MED Geovanna Emerson: [place] [employer] [id number][facility] [place] Number[facility] Hospital [address]Nmc: [id number] Repository [phone] Date:5715-16-97CX [address] () 02498XHYZRTUYS, [place] [address]WJ: CHECK WEBSITE 12/31/2017 Secondary NOT GIVENUNK [place] Insurance:SELF PAY [facility] Number: Effective Repository Date:2017-12-30 12/17/2017 Geovanna Kenny [id number] Primary Insurance:MED Geovanna Emerson: [place] [employer] TP[employer]icy [id number]-[facility] [place] Number: Hospital [address]Tde: [id number] Repository [phone] Date:3040-52-77AM [address] () [address]LHIPQAGMN, [place] [address]EC: CHECK WEBSITE 12/17/2017 Secondary NOT GIVENUNK [place] Insurance:SELF PAY [facility] Number: Effective Repository Date:2017-12-15 12/03/2017 Geovanna Kenny [id number] Primary Insurance:MED Geovanna Emerson: [place] [employer] TP[employer]icy [id number] [place] Number: Hospital [address]Asa: [id number] Repository [phone] Date:6213-24-97AW [address] [address]SHFWZABCJ, [place] [address]QF: CHECK WEBSITE 12/03/2017 Secondary NOT GIVENUNK Dieudonne Insurance:SELF PAY [facility] Number: Effective Repository Date:2017-12-02 11/12/2017 Geovanna Kenny [id number] Primary Insurance:MED Geovanna MurilloB: [place] [employer] [employer] [id number] [place], [place] Number: Hospital [address]Qdx: [id number] Repository [phone] Date:0344-98-44KH [address] () 88365ETRLZMOZD, [place] [address]TD: CHECK WEBSITE 11/12/2017 Secondary NOT GIVENUNK [place] Insurance:SELF PAY [facility] Number: Effective Repository Date:2017-11-11 11/05/2017 Geovanna [id number] Primary Insurance:MED Geovanna Emerson: Dieudonne [place] [employer] TP[employer] [id number] [place], [place] Number: Hospital [address]Qwf: [id number] Repository [phone] Date:6572-77-08HA [address] () [address]ZUXTNQDEB, [place] [address]SH: CHECK WEBSITE 11/05/2017 Secondary NOT GIVENUNK [place] Insurance:SELF PAY [facility] Number: Effective Repository Date:2017-11-04 10/22/2017 Geovanna [id number] Primary Insurance:MED Geovanna Emerson: [place] [employer] [id number] [place], [place] Number: Hospital [address]Ocx: [id number] Repository [phone] Date:3762-48-82TM [address] () [address]KOGLHEQQA, [place] [address]OL: CHECK WEBSITE 10/22/2017 Secondary NOT GIVENUNK [place] Insurance:SELF PAY [facility] Number: Effective Repository Date:2017-10-21 10/01/2017 Geovanna [id number] Primary Insurance:MED Geovanna Emerson: Dieudonne Ayala [employer] TP[employer] [id number] [place] Number: Hospital [address]Avn: [id number] Repository [phone] Date:0369-27-08BM [address] (HP) [address]892MPIQVFIWG, [place] [address]DC: CHECK WEBSITE 10/01/2017 Secondary NOT GIVENUNK [place] Insurance:SELF PAY [facility] Number: Effective Repository Date:2017-09-30 09/10/2017 Geovanna [id number] Primary Insurance:MED Geovanna Emerson: Dieudonne Ayala [employer] TPAPolicy [id number] [place] Number: [facility] [address]Ozd: [id number] Repository [phone] Date:7574-08-02XY [address] () [address]BSQCZXYVW, [place] [address]MB: CHECK WEBSITE 09/10/2017 Secondary NOT GIVENUNK [place] Insurance:SELF PAY [facility] Number: Effective Repository Date:2017-09-09 08/27/2017 Geovanna Kenny [id number] Primary Insurance:MED Geovanna Emerson: Dieudonne Ayala [employer] TP[employer] [id number] [place] Number: [facility] [address]Awn: [id number] Repository [phone] Date:1335-56-64TN [address] () [address]OSULKPJQE, [place] [address]XD: CHECK WEBSITE 08/27/2017 Secondary NOT GIVENUNK [place] Insurance:SELF PAY [facility] Number: Effective Repository Date:2017-08-26
== END 2018-07-22 13:35 | disposition home or self-care (01) ==
LOC: MEDOUTP 08:06 → MS2 08:07
PROVIDERS: Family Provider Family Medicine; PCP Family Medicine; Referring Provider Internal Medicine Hematology & Oncology; Visit Provider Internal Medicine Hematology & Oncology
DX: D69.3 Immune thrombocytopenic purpura (principal); D50.8 Other iron deficiency anemias
CPT/HCPCS: 96365; 96366; 96375; A4216; J1568

== ENCOUNTER 2018-08-05 08:00 | Outpatient (CLI) | payer OTHER, SELFPAY ==
[2018-08-05] MEDS: Acetaminophen 325 MG Tablet 650 MG PO (09:08)
[2018-08-05] MEDS: Hydrocortisone Sod Succinate 100 MG/2 ML Vial IV (09:09)
[2018-08-05] MEDS: DiphenhydrAMINE 50 MG/ML Syringe 25 MG IV (09:09)
[2018-08-05] MEDS: 0.9% NaCl VAD Flush 10 ML IV ×2 (09:10→13:08)
[2018-08-05 09:16] VITALS: BP 143/82; PULSE 72; RESP 14; TEMP 36.8; O2SAT 99
[2018-08-05] MEDS: Immune Globulin 20 gm Premixed Solution IV ×3 (09:45→11:59)
[2018-08-05 10:07] VITALS: BP 133/69; PULSE 64; RESP 18; TEMP 36.7; O2SAT 97
[2018-08-05 10:31] VITALS: BP 137/84; PULSE 66; RESP 18; TEMP 36.6; O2SAT 99
[2018-08-05 11:00] VITALS: BP 137/78; PULSE 72; RESP 16; TEMP 36.6; O2SAT 100
[2018-08-05 12:01] VITALS: BP 138/96; PULSE 88; RESP 16; TEMP 36.9; O2SAT 100
[2018-08-05 12:42] VITALS: BP 153/82; PULSE 81; RESP 16; TEMP 36.8
[2018-08-05] MEDS: Immune Globulin 10 gm Premixed Solution IV (12:44)
--- OUTSIDE RECORDS SUMMARY | 2018-11-08 08:32 | XMS RPT_ITS ---
:1965 Author Organization [place] Support Name Relationship Address Phone JOSÉ ALLISONYL Unavailable [facility] + [place] [address] VICENTA FERNANDEZ Unavailable [address] + [place] [address] OR[facility]ISCH Unavailable [address] + [place] [address] ALLISON, ORLIN Unavailable [facility] + [place] [address] VICENTA FERNANDEZ Unavailable [address] + [place] [address] ORRCISCH Unavailable [address] + [place] [address] ALLISON, ORLIN Unavailable [facility] + [place] [address] [facility] Unavailable [address] + [address] [place] [address] VICENTA FERNANDEZ Unavailable [address] + [place] [address] KEEGAN ORLIN Unavailable [facility] + [place] [address] [facility] Unavailable [address] + [address] [place] [address] VICENTA FERNANDEZ Unavailable [address] + [place] [address] ALLISON, ORLIN Unavailable [facility] + [place] [address] [facility] Unavailable [address] + [address] [place] [address] VICENTA FERNANDEZ Unavailable [address] + [place] [address] ALLISON, ORLIN Unavailable [facility] + [place] [address] [facility] Unavailable [address] + [address] [address] VICENTA FERNANDEZ Unavailable [address] + [place] [address] ALLISON, ORLIN Unavailable [facility] + [place] [address] [facility] Unavailable [address] + [address] [address] VICENTA FERNANDEZ Unavailable [address] + [place] [address] ALLISON, ORLIN Unavailable [facility] + [place] [address] [facility] Unavailable [address] + [address] [address] VICENTA FERNANDEZ Unavailable [address] + [place] [address] ALLISON, ORLIN Unavailable [facility] + [place] [address] [facility] Unavailable [address] + [address] [address] VICENTA FERNANDEZ Unavailable [address] + [place] [address] ALLISON, ORLIN Unavailable [facility] + [place] [address] [facility] Unavailable [address] + [address] [address] VICENTA FERNANDEZ Unavailable [address] + [place] [address] ALLISON, ORLIN Unavailable [facility] + [place] [address] [facility] Unavailable [address] + [address] [address] VICENTA FERNANDEZ Unavailable [address] + [place] [address] ALLISON, ORLIN Unavailable [facility] + [place] [address] [facility] Unavailable [address] + [address] [place] [address] VICENTA FERNANDEZ Unavailable [address] + [place] [address] ALLISON, ORLIN Unavailable [facility] + [place] [address] [facility] Unavailable [address] + [address] [place] [address] VICENTA FERNANDEZ Unavailable [address] + [place] [address] ALLISON, ORLIN Unavailable [facility] + [place] [address] [facility] Unavailable [address] + [address] [place] [address] VICENTA FERNANDEZ Unavailable [address] + [place] [address] ALLISON, ORLIN Unavailable [facility] + [place] [address] [facility] Unavailable [address] + [address] [place] [address] VICENTA FERNANDEZ Unavailable [address] + [place] [address] ALLISON, ORLIN Unavailable [facility] + [place] [address] [facility] Unavailable [address] + [address] [place] [address] VICENTA FERNANDEZ Unavailable [address] + [place] [address] ALLISON, ORLIN Unavailable [facility] + [place] [address] [facility] Unavailable [address] + [address] [place] [address] VICENTA FERNANDEZ Unavailable [address] + [place] [address] ALLISON, ORLIN Unavailable [facility] + [place] [address] [facility] Unavailable [address] + [address] [place] [address] VICENTA FERNANDEZ Unavailable [address] + [place] [address] JOSÉ ALLISONYL Unavailable [facility] + [place] [address] [facility] Unavailable [address] + [address] [place] [address] VICENTA EFRNANDEZ Unavailable [address] + [place] [address] KEEGAN, ORLIN Unavailable [facility] + [place] [address] [facility] Unavailable [address] + [address] [place] [address] VICENTA FERNANDEZ Unavailable [address] + [place] [address] KEEGAN ORLIN Unavailable [facility] + [place] [address] [facility] Unavailable [address] + [address] [place] [address] VICENTA FERNANDEZ Unavailable [address] + [place] [address] KEEGAN ORLIN Unavailable [facility] + [place] [address] [facility] Unavailable [address] + [address] [place] [address] VICENTA FERNANDEZ Unavailable [address] + [place] [address] Care Team Providers Name Role Phone TAL, DALLAS Dubon Referring Unavailable MASCI, DALLAS A Referring Unavailable [...] Referring Unavailable MASCI, DALLAS A Referring Unavailable JARAD WEBER Referring Unavailable MASCI, DALLAS Dubon Referring Unavailable MEGAN DAVENPORT (RETAIL MANAGER) Attending Unavailable MASCI, DALLAS A Attending Unavailable [...] Unavailable MASCI, DALLAS A Referring Unavailable MASCI, DALLSA A Referring Unavailable MASCI, DALLAS A Referring Unavailable MASCI, DALLAS A Referring Unavailable MASCI, DALLAS A Referring Unavailable MASCI, DALLAS A Referring Unavailable MASCI, DALLAS A Referring Unavailable MASCI, DALLAS A Referring Unavailable MASCI, DALLAS A Referring Unavailable MASCI, DALLAS A Referring Unavailable MASCI, DALLAS A Referring Unavailable MASCI, DALLAS A Referring Unavailable MASCI, DALLAS A Referring Unavailable MASCI, DALLAS A Referring Unavailable DAVENPORTMEGAN S (RETAIL MANAGER) Referring Unavailable MASCI, DALLAS A Referring Unavailable [...] Unavailable MASCI, DALLAS A Referring Unavailable MASCI, DALALS A Referring Unavailable MASCI, DALLAS A Referring Unavailable MASCI, DALLAS A Referring Unavailable MASCI, DALLAS A Referring Unavailable MASCI, DALLAS A Referring Unavailable MASCI, DALLAS A Referring Unavailable MASCI, DALLAS A Referring Unavailable MASCI, DALLAS A Referring Unavailable MASCI, DALLAS A Referring Unavailable MASCI, DALLAS A Referring Unavailable MASCI, DALLAS A Referring Unavailable Masci, Dallas Attending Unavailable Masci, Dallas Referring Unavailable [place] Unavailable Masci, Dallas Attending Unavailable Masci, Dallas Referring Unavailable [place] Unavailable Masci, Dallas Attending Unavailable Masci, Dallas Referring Unavailable [facility] Unavailable Masci, Dallas Attending Unavailable Masci, Dallas Referring Unavailable [place] Unavailable Masci, Dallas Attending Unavailable Masci, Dallas Referring Unavailable [place] Unavailable Masci, Dallas Attending Unavailable Masci, Dallas Referring Unavailable [place], [facility] Unavailable Masci, Dallas Attending Unavailable Masci, Dallas Referring Unavailable [place], [facility] Unavailable Masci, Dallas Attending Unavailable Masci, Dallas Referring Unavailable [place], [facility] Unavailable Masci, Dallas Attending Unavailable Masci, Dallas Referring Unavailable [place], [facility] Unavailable Masci, Dallas Attending Unavailable Masci, Dallas Referring Unavailable [place], [facility] Unavailable Masci, Dallas Attending Unavailable Masci, Dallas Referring Unavailable [place], [facility] Unavailable Masci, Dallas Attending Unavailable Masci, Dallas Referring Unavailable [place], [facility] Unavailable Masci, Dallas Attending Unavailable Masci, Dallas Referring Unavailable [place], [facility] Unavailable Masci, Dallas Attending Unavailable Masci, Dallas Referring Unavailable [place], [facility] Unavailable Masci, Dallas Attending Unavailable Masci, Dallas Referring Unavailable [place], [facility] Unavailable Masci, Dallas Attending Unavailable Masci, Dallas Referring Unavailable [place], [facility] Unavailable Masci, Dallas Attending Unavailable Masci, Dallas Referring Unavailable [place], [facility] Unavailable Masci, Dallas Attending Unavailable [...] Unknown 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 Active [place] [facility] [place] D69.3(ICD-10) Repository 03/10/2015 Active Hyperlipidemia, NA Active [place] unspecified / Clinic Main E78.5(ICD-10) [place] Repository 11/04/2017 Active Type 2 diabetes NA Active [facility] mellitus without Clinic Main complications / [place] E11.9(ICD-10) Repository 04/26/2008 Active Immune NA Active [facility]ocytopen[facility] [place] / [place] D69.3(ICD-10) Repository PROCEDURES PROCEDURES No Procedure Records FoundRESULTS RESULTS [place] CBC Collected: 08/25/2018 Status: F Source: [place] 9:06 AM [facility] REPOSITORY TYPE CODE TESTS RESULT OUT OF REFERENCE UNITS RANGE LAB WWBC 3.70-11.00 k/uL [place] High WBC 11.86 LAB WRBC 3.90-5.20 m/uL [place] RBC 4.39 LAB WHGB 11.5-15.5 g/dL [place] Hemoglobin 13.5 LAB WHCT 36.0-46.0 % [place] Hematocrit 42.2 LAB WMCV 80.0-100.0 fL [place] MCV 96.1 LAB WMCH 26.0-34.0 pg [place] MCH 30.8 LAB WMCHC 30.5-36.0 g/dL [place] MCHC 32.0 LAB WRDW 11.5-15.0 % [place] RDW 14.4 LAB WPLT 150-400 k/uL Low [place] Platelet Cnt 40 Result Comment: Result rechecked. Sample checked for a clot. LAB ABSNUC <0.01 k/uL Preliminary Absolute nRBC result. Interpret with caution. Final results may vary. Results requested and read back by: Result Comment: WBC=12.64,PLT=37 Performed By: #### WCBC #### [facility] [address] [place], [place] [address] [place] CBC Collected: 08/18/2018 Status: F Source: [place] 7:48 AM [facility] REPOSITORY TYPE CODE TESTS RESULT OUT OF REFERENCE UNITS RANGE LAB WWBC 3.70-11.00 k/uL [place] WBC 13.18 Result Comment: Result rechecked. Sample checked for a clot. LAB WRBC 3.90-5.20 m/uL [place] RBC 4.08 LAB WHGB 11.5-15.5 g/dL [place] Hemoglobin 12.7 LAB WHCT 36.0-46.0 % [place] Hematocrit 39.7 LAB WMCV 80.0-100.0 fL [place] MCV 97.3 LAB WMCH 26.0-34.0 pg [place] MCH 31.1 LAB WMCHC 30.5-36.0 g/dL [place] MCHC 32.0 LAB WRDW 11.5-15.0 % [place] RDW 15.0 LAB WPLT 150-400 k/uL [place] Low Platelet Cnt 112 Result Comment: Result rechecked. Sample checked for a clot. LAB WMPV 9.0-12.7 fL Unable to [place] MPV report LAB ABSNUC <0.01 k/uL Preliminary Absolute nRBC result. Interpret with caution. Final results may vary. Results requested and read back by: Result Comment: WBC=13.67,EIQ=629,MPV=13.6 Performed By: #### WCBC #### [facility] [address] [place], [place] [address] [place] CBC Collected: 08/11/2018 Status: F Source: [place] 8:18 AM [facility] REPOSITORY TYPE CODE TESTS RESULT OUT OF REFERENCE UNITS RANGE LAB WWBC 3.70-11.00 k/uL [place] WBC 12.51 Result Comment: Result rechecked. No clot detected. LAB WRBC 3.90-5.20 m/uL [place] RBC 4.06 LAB WHGB 11.5-15.5 g/dL [place] Hemoglobin 12.5 LAB WHCT 36.0-46.0 % [place] Hematocrit 39.1 LAB WMCV 80.0-100.0 fL [place] MCV 96.3 LAB WMCH 26.0-34.0 pg [place] MCH 30.8 LAB WMCHC 30.5-36.0 g/dL [place] MCHC 32.0 LAB WRDW 11.5-15.0 % [place] RDW 14.7 LAB WPLT 150-400 k/uL [place] Low Platelet Cnt 83 LAB WMPV 9.0-12.7 fL [place] MPV High 14.8 Result Comment: Test performed at: [address] [place] [address]. LAB ABSNUC <0.01 k/uL Preliminary Absolute nRBC result. Interpret with caution. Final results may vary. Results requested and read back by: Result Comment: WBC=12.71 Performed By: #### WCBC #### [facility] [address] [place], [place] [address] [place] CBC Collected: 08/04/2018 Status: F Source: [place] 8:07 AM [facility] REPOSITORY TYPE CODE TESTS RESULT OUT OF REFERENCE UNITS RANGE LAB WWBC 3.70-11.00 k/uL 12.90 [place] WBC LAB WRBC 3.90-5.20 m/uL 4.04 [place] RBC LAB WHGB 11.5-15.5 g/dL 12.5 [place] Hemoglobin LAB WHCT 36.0-46.0 % 39.2 [place] Hematocrit LAB WMCV 80.0-100.0 fL 97.0 [place] MCV LAB WMCH 26.0-34.0 pg 30.9 [place] MCH LAB WMCHC 30.5-36.0 g/dL 31.9 [place] MCHC LAB WRDW 11.5-15.0 % 14.9 [place] RDW LAB WPLT 150-400 k/uL 42 Low [place] Platelet Cnt LAB WMPV 9.0-12.7 fL [place] MPV Unable to assay. Analytical difficulty. Result Comment: Test performed at: [address] [place] [address]. [place] CBC Collected: 07/28/2018 Status: F Source: [place] 7:51 AM [facility] REPOSITORY TYPE CODE TESTS RESULT OUT OF REFERENCE UNITS RANGE LAB WWBC 3.70-11.00 k/uL [place] High WBC 15.74 LAB WRBC 3.90-5.20 m/uL [place] RBC 3.99 LAB WHGB 11.5-15.5 g/dL [place] Hemoglobin 12.4 LAB WHCT 36.0-46.0 % [place] Hematocrit 38.7 LAB WMCV 80.0-100.0 fL [place] MCV 97.0 LAB WMCH 26.0-34.0 pg [place] MCH 31.1 LAB WMCHC 30.5-36.0 g/dL [place] MCHC 32.0 LAB WRDW 11.5-15.0 % [place] RDW 14.9 LAB WPLT 150-400 k/uL Low [place] Platelet Cnt 71 Result Comment: Result rechecked. Sample checked for a clot. LAB ABSNUC <0.01 k/uL Preliminary Absolute nRBC result. Interpret with caution. Final results may vary. Results requested and read back by: Result Comment: WBC=15.56,PLT=62 ABSNUC=0.04 Performed By: #### WCBC #### [facility] [address] [place], [place] [address] [place] CBC Collected: 07/21/2018 Status: F Source: [place] 8:13 AM [facility] [place] REPOSITORY TYPE CODE TESTS RESULT OUT OF REFERENCE UNITS RANGE LAB WWBC 3.70-11.00 k/uL [place] High WBC 14.61 LAB WRBC 3.90-5.20 m/uL [place] RBC 4.07 LAB WHGB 11.5-15.5 g/dL [place] Hemoglobin 12.6 LAB WHCT 36.0-46.0 % [place] Hematocrit 39.2 LAB WMCV 80.0-100.0 fL [place] MCV 96.3 LAB WMCH 26.0-34.0 pg [place] MCH 31.0 LAB WMCHC 30.5-36.0 g/dL [place] MCHC 32.1 LAB WRDW 11.5-15.0 % [place] RDW 14.4 LAB WPLT 150-400 k/uL Low [place] Platelet Cnt 19 Result Comment: Result checked and verified No clot detected. Called to and read back by: Anika Turcios LPN [place] 07/21/18 [address] [place] LAB WMPV 9.0-12.7 fL [place] MPV Unable to report Performed By: #### WCBC #### [facility] [address] [place] [id number] [place] CBC Collected: 07/14/2018 Status: F Source: [place] 9:52 AM [facility] REPOSITORY TYPE CODE TESTS RESULT OUT OF REFERENCE UNITS RANGE LAB WWBC 3.70-11.00 k/uL [place] High WBC 15.62 LAB WRBC 3.90-5.20 m/uL [place] RBC 4.06 LAB WHGB 11.5-15.5 g/dL [place] Hemoglobin 12.6 LAB WHCT 36.0-46.0 % [place] Hematocrit 39.1 LAB WMCV 80.0-100.0 fL [place] MCV 96.3 LAB WMCH 26.0-34.0 pg [place] MCH 31.0 LAB WMCHC 30.5-36.0 g/dL [place] MCHC 32.2 LAB WRDW 11.5-15.0 % [place] RDW 14.6 LAB WPLT 150-400 k/uL Low [place] Platelet Cnt 90 Result Comment: Result rechecked. Sample checked for a clot. LAB WMPV 9.0-12.7 fL Unable to [place] MPV assay. Analytical difficulty. Result Comment: Test performed at: [facility], [address] [place] [address], [place] [address]. LAB ABSNUC <0.01 k/uL PRELIMINARY Absolute nRBC PLATELET=75 Performed By: #### WCBC #### [place] [id number] [place] [address] [place] CBC Collected: 07/07/2018 Status: F Source: [place] 8:11 AM [facility] REPOSITORY TYPE CODE TESTS RESULT OUT OF REFERENCE UNITS RANGE LAB WWBC 3.70-11.00 k/uL [place] WBC 10.21 LAB WRBC 3.90-5.20 m/uL [place] RBC 3.92 LAB WHGB 11.5-15.5 g/dL [place] Hemoglobin 12.1 LAB WHCT 36.0-46.0 % [place] Hematocrit 37.8 LAB WMCV 80.0-100.0 fL [place] MCV 96.4 LAB WMCH 26.0-34.0 pg [place] MCH 30.9 LAB WMCHC 30.5-36.0 g/dL [place] MCHC 32.0 LAB WRDW 11.5-15.0 % [place] RDW 14.6 LAB WPLT 150-400 k/uL Low [place] Platelet Cnt 124 LAB WMPV 9.0-12.7 fL [place] MPV 14.5 Result Comment: Test performed at: [facility] [place], [address] [place] [address]. [place] CBC Collected: 06/30/2018 Status: F Source: [place] 7:42 AM [facility] REPOSITORY TYPE CODE TESTS RESULT OUT OF REFERENCE UNITS RANGE LAB WWBC 3.70-11.00 k/uL [place] WBC 11.40 Result Comment: Result rechecked. No clot detected. LAB WRBC 3.90-5.20 m/uL [place] RBC 4.14 LAB WHGB 11.5-15.5 g/dL [place] Hemoglobin 13.0 LAB WHCT 36.0-46.0 % [place] Hematocrit 39.6 LAB WMCV 80.0-100.0 fL [place] MCV 95.7 LAB WMCH 26.0-34.0 pg [place] MCH 31.4 LAB WMCHC 30.5-36.0 g/dL [place] MCHC 32.8 LAB WRDW 11.5-15.0 % [place] RDW 14.6 LAB WPLT 150-400 k/uL [place] Low Platelet Cnt 25 Result Comment: Result rechecked. LAB WMPV 9.0-12.7 fL Unable to [place] MPV report LAB ABSNUC <0.01 k/uL Preliminary Absolute nRBC result. Interpret with caution. Final results may vary. Results requested and read back by: Result Comment: WBC=11.92,PLT=17 P.DROUHARD BY REGULO 0758 Performed By: #### WCBC #### [facility] [address] [place], [place] [address] CNOVSP Observed: 06/23/2018 Status: COMPLETED Source: [place] 9:00 AM [facility] REPOSITORY Visit (SP) Office (HEMAWS) GEOVANNA FERNANDEZ ([id number]) 1965 F Date Time Provider Department 06/23/18 [...] bleeding) on 05/24/2008 and was admitted to [facility] for urgent IVIG administration. Tolerated 1 gm/kg [...] No jaundice or rash. No petechiae. 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 No focal motor [...] administration. -Continue oral iron supplement. DO Anai Fair LPN, NAMAN 06/23/2018 8:58 AM Signed Est pt.discuss recent lab results, Nplate today Anai Turcios LPN Referring Provider: DALLAS MCCALLUM [[id number]] Allergies As of Date: 06/23/2018 Noted Allergy [...] (morbid obesity*INVALID FOR* Visit Notes: >> Anai Contreras ([facility] TurciosNAMAN TueJun 23, 2018 9:00 AM Status: Signed Est pt.discuss recent lab results, Nplate today Anai Turcios LPN Encounter Status:Closed by DALLAS MCCALLUM DO on 06/23/18 PROGRESS Observed: 06/23/2018 Status: COMPLETED Source: [place] 8:54 AM [facility] REPOSITORY HNO ID: [id number] Author: [place] Mccallum Service: (none) Author Type: Physician Type: Progress Notes Filed: 06/23/2018 9:05 AM Note Text: Diagnosis: 1) ITP HPI: Patient is a 52 yo 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 Previous treatment: 1) Prednisone for 5 weeks initially (starting 04/18/2008) with slow platelet response. Count rapidly decreased to 1K (no bleeding) on 05/24/2008 and was admitted to [facility] for urgent IVIG administration. Tolerated 1 gm/kg [...] No jaundice or rash. No petechiae. 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 No focal motor [...] IVIG administration. -Continue oral iron supplement. [place] Mccallum, DO IRON AND TIBC Collected: 06/23/2018 Status: F Source: [place] 7:59 AM [facility] [place] REPOSITORY TYPE CODE TESTS RESULT OUT OF REFERENCE UNITS RANGE LAB IRN 41-186 ug/dL Iron 107 LAB TIBC 232-386 ug/dL TIBC 343 LAB SAT 15-57 % Transferrin Saturatn 31 Performed By: #### IRON, FERR #### [facility] [address] [place], [place] [address] FERRITIN Collected: 06/23/2018 Status: F Source: [place] 7:59 AM [facility] REPOSITORY TYPE CODE TESTS RESULT OUT OF REFERENCE UNITS RANGE LAB FERR 14.7-205.1 ng/mL Ferritin 138.7 Performed By: #### IRON, FERR #### [facility] [address] [place], [place] [address] [place] CBC AND DIFF Collected: 06/23/2018 Status: F Source: [place] 7:59 AM [facility] REPOSITORY TYPE CODE TESTS RESULT OUT OF REFERENCE UNITS RANGE LAB WWBC 3.70-11.00 k/uL [place] WBC 10.94 LAB WRBC 3.90-5.20 m/uL [place] RBC 3.98 LAB WHGB 11.5-15.5 g/dL [place] Hemoglobin 12.4 LAB WHCT 36.0-46.0 % [place] Hematocrit 38.8 LAB WMCV 80.0-100.0 fL [place] MCV 97.5 LAB WMCH 26.0-34.0 pg [place] MCH 31.2 LAB WMCHC 30.5-36.0 g/dL [place] MCHC 32.0 LAB WRDW 11.5-15.0 % [place] RDW 15.1 LAB WPLT 150-400 k/uL Low [place] Platelet Cnt 124 LAB WMPV 9.0-12.7 fL [place] MPV 14.8 Result Comment: Test performed at: [facility], [address] [place] [address] Rd., [place] [address]. LAB CBCCOM Preliminary Comment result. Interpret with caution. Final results may vary. Results requested and read back by: Result Comment: WBC=11.05 LAB WNEU % 57 [place] Neut% LAB WLYM % 30 [place] Lymp% LAB WMON % 8 [place] Fallon% LAB WEO % 3 [place] Eos% LAB WBLAST 0 % 2 High [place] Blast LAB WANEU 1.45-7.5 k/uL 0 6.24 [place] Abs Neut LAB WALYM 1.00-4.0 k/uL 0 3.28 [place] Abs Lymp LAB WAMON <0.87 k/uL 0.88 High [place] Abs Fallon LAB WAEO <0.46 k/uL 0.33 [place] Abs Eos LAB WRBCM Anisocytosis [place] RBC Morph Result Comment: Occasional [place] Bodies LAB WPLTE [place] Platelet Platelet Est estimate decreased Performed By: #### WCBCDF #### [facility] [address] [place] [address] [place] CBC Collected: 06/16/2018 Status: F Source: [place] 7:36 AM [facility] REPOSITORY TYPE CODE TESTS RESULT OUT OF REFERENCE UNITS RANGE LAB WWBC 3.70-11.00 k/uL [place] WBC 12.38 Result Comment: Result rechecked. LAB WRBC 3.90-5.20 m/uL [place] RBC 4.03 LAB WHGB 11.5-15.5 g/dL [place] Hemoglobin 12.7 LAB WHCT 36.0-46.0 % [place] Hematocrit 38.6 LAB WMCV 80.0-100.0 fL [place] MCV 95.8 LAB WMCH 26.0-34.0 pg [place] MCH 31.5 LAB WMCHC 30.5-36.0 g/dL [place] MCHC 32.9 LAB WRDW 11.5-15.0 % [place] RDW 14.7 LAB WPLT 150-400 k/uL [place] Low Platelet Cnt 16 Result Comment: Result rechecked. No clot detected. LAB WMPV 9.0-12.7 fL Unable to [place] MPV report LAB ABSNUC <0.01 k/uL Preliminary Absolute nRBC result. Interpret with caution. Final results may vary. Results requested and read back by: Result Comment: WBC=13.24,PLT=12 P.DROUHARD BY REGULO 0757 Performed By: #### WCBC #### [facility] [address] [place], [place] [address] [place] CBC Collected: 06/09/2018 Status: F Source: [place] 7:43 AM [facility] REPOSITORY TYPE CODE TESTS RESULT OUT OF REFERENCE UNITS RANGE LAB WWBC 3.70-11.00 k/uL 11.53 [place] WBC LAB WRBC 3.90-5.20 m/uL 4.00 [place] RBC LAB WHGB 11.5-15.5 g/dL 12.5 [place] Hemoglobin LAB WHCT 36.0-46.0 % 38.7 [place] Hematocrit LAB WMCV 80.0-100.0 fL 96.8 [place] MCV LAB WMCH 26.0-34.0 pg 31.3 [place] MCH LAB WMCHC 30.5-36.0 g/dL 32.3 [place] MCHC LAB WRDW 11.5-15.0 % 14.8 [place] RDW LAB WPLT 150-400 k/uL 77 Low [place] Platelet Cnt LAB WMPV 9.0-12.7 fL [place] MPV Unable to assay. Analytical difficulty. Result Comment: Test performed at: [address] [place] [address]. [place] CBC Collected: 06/02/2018 Status: F Source: [place] 8:13 AM [facility] REPOSITORY TYPE CODE TESTS RESULT OUT OF REFERENCE UNITS RANGE LAB WWBC 3.70-11.00 k/uL [place] WBC 15.17 LAB WRBC 3.90-5.20 m/uL [place] RBC 4.06 LAB WHGB 11.5-15.5 g/dL [place] Hemoglobin 12.7 LAB WHCT 36.0-46.0 % [place] Hematocrit 38.4 LAB WMCV 80.0-100.0 fL [place] MCV 94.6 LAB WMCH 26.0-34.0 pg [place] MCH 31.3 LAB WMCHC 30.5-36.0 g/dL [place] MCHC 33.1 LAB WRDW 11.5-15.0 % [place] RDW 14.4 LAB WPLT 150-400 k/uL Low [place] Platelet Cnt 24 Result Comment: Result checked and verified LAB WMPV 9.0-12.7 fL Unable to [place] MPV assay. Analytical difficulty. Result Comment: Test performed at: [facility], [address] [place] [address]., [place] [address]. [place] CBC Collected: 05/26/2018 Status: F Source: [place] 8:12 AM [facility] REPOSITORY TYPE CODE TESTS RESULT OUT OF REFERENCE UNITS RANGE LAB WWBC 3.70-11.00 k/uL [place] High WBC 11.27 LAB WRBC 3.90-5.20 m/uL [place] RBC 4.25 LAB WHGB 11.5-15.5 g/dL [place] Hemoglobin 13.3 LAB WHCT 36.0-46.0 % [place] Hematocrit 40.4 LAB WMCV 80.0-100.0 fL [place] MCV 95.1 LAB WMCH 26.0-34.0 pg [place] MCH 31.3 LAB WMCHC 30.5-36.0 g/dL [place] MCHC 32.9 LAB WRDW 11.5-15.0 % [place] RDW 14.6 LAB WPLT 150-400 k/uL Low Dieudonne Platelet Cnt 143 LAB WMPV 9.0-12.7 fL Sells High MPV 14.5 Result Comment: Test performed at: [facility], [address] [place] [address]., [place] [address]. DIEUDONNE CBC Collected: 05/19/2018 Status: F Source: [place] 7:43 AM [facility] REPOSITORY TYPE CODE TESTS RESULT OUT OF REFERENCE UNITS RANGE LAB WWBC 3.70-11.00 k/uL Dieudonne High WBC 11.08 LAB WRBC 3.90-5.20 m/uL Sells RBC 4.00 LAB WHGB 11.5-15.5 g/dL Sells Hemoglobin 12.5 LAB WHCT 36.0-46.0 % Dieudonne Hematocrit 38.6 LAB WMCV 80.0-100.0 fL Sells MCV 96.5 LAB WMCH 26.0-34.0 pg Sells MCH 31.3 LAB WMCHC 30.5-36.0 g/dL Sells MCHC 32.4 LAB WRDW 11.5-15.0 % Dieudonne RDW 14.7 LAB WPLT 150-400 k/uL Low Sells Platelet Cnt 20 Result Comment: Result checked and verified LAB WMPV 9.0-12.7 fL Unable to Sells MPV assay. Analytical difficulty. Result Comment: Test performed at: [facility], [address] [place] [address]., [place] [address]. DIEUDONNE CBC Collected: 05/12/2018 Status: F Source: [place] 8:35 AM [facility] REPOSITORY TYPE CODE TESTS RESULT OUT OF REFERENCE UNITS RANGE LAB WWBC 3.70-11.00 k/uL High Dieudonne WBC 11.86 Result Comment: Result checked and verified No clot detected. LAB WRBC 3.90-5.20 m/uL Sells RBC 3.95 LAB WHGB 11.5-15.5 g/dL Sells Hemoglobin 12.4 LAB WHCT 36.0-46.0 % Sells Hematocrit 37.8 LAB WMCV 80.0-100.0 fL Sells MCV 95.7 LAB WMCH 26.0-34.0 pg Sells MCH 31.4 LAB WMCHC 30.5-36.0 g/dL Dieudonne MCHC 32.8 LAB WRDW 11.5-15.0 % Dieudonne RDW 14.9 LAB WPLT 150-400 k/uL Dieudonne Low Platelet Cnt 101 Result Comment: Result checked and verified No clot detected. LAB WMPV 9.0-12.7 fL 14.6 High Dieudonne MPV LAB ABSNUC <0.01 k/uL Preliminary Absolute nRBC result. Interpret with caution. Final results may vary. Results requested and read back by: Result Comment: WBC=11.29,PLT=92 Performed By: #### WCBC #### [facility] [address] [place], [place] [address] DIEUDONNE CBC Collected: 05/05/2018 Status: F Source: [place] 8:03 AM [facility] REPOSITORY TYPE CODE TESTS RESULT OUT OF REFERENCE UNITS RANGE LAB WWBC 3.70-11.00 k/uL Dieudonne High WBC 13.64 LAB WRBC 3.90-5.20 m/uL Dieudonne RBC 3.99 LAB WHGB 11.5-15.5 g/dL Dieudonne Hemoglobin 12.5 LAB WHCT 36.0-46.0 % Sells Hematocrit 38.2 LAB WMCV 80.0-100.0 fL Sells MCV 95.7 LAB WMCH 26.0-34.0 pg Sells MCH 31.3 LAB WMCHC 30.5-36.0 g/dL Dieudonne MCHC 32.7 LAB WRDW 11.5-15.0 % Dieudonne RDW 14.5 LAB WPLT 150-400 k/uL Low Dieudonne Alert Platelet Cnt 7 Result Comment: Result checked and verified No clot detected. LAB WMPV 9.0-12.7 fL Unable to Dieudonne MPV report LAB ABSNUC <0.01 k/uL Preliminary Absolute nRBC result. Interpret with caution. Final results may vary. Results requested and read back by: Result Comment: PLT=3,YaimaRESENDEZ,BY REGULO,3355 Performed By: #### WCBC #### [facility] [address] [place] [id number] DIEUDONNE CBC Collected: 04/28/2018 Status: F Source: [place] 7:41 AM [facility] REPOSITORY TYPE CODE TESTS RESULT OUT OF REFERENCE UNITS RANGE LAB WWBC 3.70-11.00 k/uL 15.15 High Sells WBC LAB WRBC 3.90-5.20 m/uL 4.10 Dieudonne RBC LAB WHGB 11.5-15.5 g/dL 12.8 Dieudonne Hemoglobin LAB WHCT 36.0-46.0 % 39.0 Dieudonne Hematocrit LAB WMCV 80.0-100.0 fL 95.1 Sells MCV LAB WMCH 26.0-34.0 pg 31.2 Sells MCH LAB WMCHC 30.5-36.0 g/dL 32.8 Sells MCHC LAB WRDW 11.5-15.0 % 14.8 Sells RDW LAB WPLT 150-400 k/uL 84 Low Dieudonne Platelet Cnt LAB WMPV 9.0-12.7 fL Sells MPV Unable to assay. Analytical difficulty. Result Comment: NO CLOT DETECTED URINALYSIS WITH Collected: 04/21/2018 Status: F Source: [facility] 7:45 AM [facility] REPOSITORY TYPE CODE TESTS RESULT OUT OF RANGE REFERENCE UNITS LAB UCOL Yellow Color Yellow LAB [facility] Clear Clarity Abnormal Cloudy Alert LAB UGLUC Negative mg/dL Glucose, Urine Negative LAB UBIL Negative Bilirubin, Urine Negative LAB UKET Negative Ketones, Urine Negative LAB USPG 1.005-1.030 Specific [place], Ur 1.008 LAB UHGB Negative Abnormal Hemoglobin/Blood, [...] Epithelial Cells Performed By: #### UAWMIC #### [facility] [address] [place], [place] [address] Observed: 04/21/2018 Status: F Source: [place] URINE CULTURE 7:45 AM [facility] REPOSITORY Sp. Request/Comment: - Specimen received in [...] <=0.5 F Performed By: #### URCUL #### [facility] [address], [place] [address] DIEUDONNE CBC Collected: 04/21/2018 Status: F Source: [place] 7:38 AM [facility] REPOSITORY TYPE CODE TESTS RESULT OUT OF REFERENCE UNITS RANGE LAB WWBC 3.70-11.00 k/uL Sells High WBC 12.75 LAB WRBC 3.90-5.20 m/uL Sells RBC 4.08 LAB WHGB 11.5-15.5 g/dL Dieudonne Hemoglobin 12.8 LAB WHCT 36.0-46.0 % Sells Hematocrit 38.9 LAB WMCV 80.0-100.0 fL Dieudonne MCV 95.3 LAB WMCH 26.0-34.0 pg Sells MCH 31.4 LAB WMCHC 30.5-36.0 g/dL Dieudonne MCHC 32.9 LAB WRDW 11.5-15.0 % Sells RDW 14.3 LAB WPLT 150-400 k/uL Low Dieudonne Platelet Cnt 34 Result Comment: Result rechecked. Sample checked for a clot. LAB ABSNUC <0.01 k/uL Preliminary Absolute nRBC result. Interpret with caution. Final results may vary. Results requested and read back by: Result Comment: PLT=28,M.RESENDEZ Absolute NRBC=0.00 Performed By: #### WCBC #### [facility] [address] [place], [place] [address] DIEUDONNE CBC Collected: 04/14/2018 Status: F Source: [place] 7:30 AM [facility] REPOSITORY TYPE CODE TESTS RESULT OUT OF REFERENCE UNITS RANGE LAB WWBC 3.70-11.00 k/uL Dieudonne High WBC 13.11 LAB WRBC 3.90-5.20 m/uL Dieudonne RBC 4.16 LAB WHGB 11.5-15.5 g/dL Dieudonne Hemoglobin 13.0 LAB WHCT 36.0-46.0 % Dieudonne Hematocrit 39.8 LAB WMCV 80.0-100.0 fL Dieudonne MCV 95.7 LAB WMCH 26.0-34.0 pg Dieudonne MCH 31.3 LAB WMCHC 30.5-36.0 g/dL Sells MCHC 32.7 LAB WRDW 11.5-15.0 % Sells RDW 14.2 LAB WPLT 150-400 k/uL Low Sells Platelet Cnt 22 Result Comment: Result checked and verified NO CLOT LAB WMPV 9.0-12.7 fL Unable to Sells MPV assay. Analytical difficulty. DIEUDONNE CBC Collected: 04/07/2018 Status: F Source: [place] 7:34 AM [facility] REPOSITORY TYPE CODE TESTS RESULT OUT OF REFERENCE UNITS RANGE LAB WWBC 3.70-11.00 k/uL Sells High WBC 13.39 LAB WRBC 3.90-5.20 m/uL Sells RBC 3.94 LAB WHGB 11.5-15.5 g/dL Dieudonne Hemoglobin 12.3 LAB WHCT 36.0-46.0 % Dieudonne Hematocrit 37.8 LAB WMCV 80.0-100.0 fL Sells MCV 95.9 LAB WMCH 26.0-34.0 pg Sells MCH 31.2 LAB WMCHC 30.5-36.0 g/dL Dieudonne MCHC 32.5 LAB WRDW 11.5-15.0 % Sells RDW 14.1 LAB WPLT 150-400 k/uL Low Sells Platelet Cnt 38 Result Comment: Result rechecked. NO CLOT LAB WMPV 9.0-12.7 fL Unable to Dieudonne MPV assay. Analytical difficulty. DIEUDONNE CBC Collected: 03/31/2018 Status: F Source: [place] 7:35 AM [facility] REPOSITORY TYPE CODE TESTS RESULT OUT OF REFERENCE UNITS RANGE LAB WWBC 3.70-11.00 k/uL Sells High WBC 14.59 LAB WRBC 3.90-5.20 m/uL Sells RBC 4.05 LAB WHGB 11.5-15.5 g/dL Dieudonne Hemoglobin 12.6 LAB WHCT 36.0-46.0 % Dieudonne Hematocrit 38.9 LAB WMCV 80.0-100.0 fL Sells MCV 96.0 LAB WMCH 26.0-34.0 pg Sells MCH 31.1 LAB WMCHC 30.5-36.0 g/dL Dieudonne MCHC 32.4 LAB WRDW 11.5-15.0 % Sells RDW 13.6 LAB WPLT 150-400 k/uL Low Sells Platelet Cnt 14 Result Comment: Result rechecked. No clot detected. Called to and read back by: [place] [id number] 03/31/2018 1817 [place] LAB WMPV 9.0-12.7 fL Dieudonne MPV Unable to report LAB ABSNUC <0.01 k/uL Absolute nRBC Rechecked, called to and read back by: Result Comment: PLT=7,RosalbaISAMAR Performed By: #### WCBC #### [facility] [address] [place], [place] [address] CNOVSP Observed: 03/24/2018 Status: COMPLETED Source: [place] 9:00 AM [facility] REPOSITORY Visit (SP) Office (HEMAWS) GEOVANNA FERNANDEZ ([id number]) 1965 F Date Time Provider Department 03/24/18 [...] bleeding) on 05/24/2008 and was admitted to [facility] for urgent IVIG administration. Tolerated 1 gm/kg [...] No jaundice or rash. No petechiae. 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 -The only side effect she experiences migraine headache following IVIG administration but this is nicely relieved with Maxalt. Plan: -She'll continue weekly CBC with possible Nplate and IVIG administration. -Continue oral iron supplement. Dallas Mccallum DO Referring Provider: DALLAS MCCALLUM [[id number]] Allergies As of Date: 03/24/2018 Noted Allergy [...] 03/24/18 PROGRESS Observed: 03/24/2018 Status: COMPLETED Source: [place] 8:53 AM [facility] REPOSITORY [facility] ID: [id number] Author: Dallas Mccallum Service: (none) Author Type: Physician Type: Progress Notes Filed: 03/24/2018 9:21 AM Note Text: Diagnosis: 1) ITP HPI: Patient is a 52 yo 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 Previous treatment: 1) Prednisone for 5 weeks initially (starting 04/18/2008) with slow platelet response. Count rapidly decreased to 1K (no bleeding) on 05/24/2008 and was admitted to [facility] for urgent IVIG administration. Tolerated 1 gm/kg [...] No jaundice or rash. No petechiae. 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 -The only side effect she experiences migraine headache following IVIG administration but this is nicely relieved with Maxalt. Plan: -She'll continue weekly CBC with possible Nplate and IVIG administration. -Continue oral iron supplement. DO DIEUDONNE Fair CBC Collected: 03/24/2018 Status: F Source: [place] 7:43 AM [facility] REPOSITORY TYPE CODE TESTS RESULT OUT OF REFERENCE UNITS RANGE LAB WWBC 3.70-11.00 k/uL Dieudonne High WBC 19.08 LAB WRBC 3.90-5.20 m/uL Dieudonne RBC 4.17 LAB WHGB 11.5-15.5 g/dL Dieudonne Hemoglobin 13.1 LAB WHCT 36.0-46.0 % Dieudonne Hematocrit 39.8 LAB WMCV 80.0-100.0 fL Dieudonne MCV 95.4 LAB WMCH 26.0-34.0 pg Dieudonne MCH 31.4 LAB WMCHC 30.5-36.0 g/dL Sells MCHC 32.9 LAB WRDW 11.5-15.0 % Dieudonne RDW 14.2 LAB WPLT 150-400 k/uL Low Sells Platelet Cnt 54 Result Comment: Result rechecked. Sample checked for a clot. LAB WMPV 9.0-12.7 fL Unable to Dieudonne MPV report LAB ABSNUC <0.01 k/uL Preliminary Absolute nRBC result. Interpret with caution. Final results may vary. Results requested and read back by: Result Comment: PLT=46,NO CLOT DETECTED Performed By: #### WCBC #### [facility] [address] [place] [address] DIEUDONNE CBC Collected: 03/17/2018 Status: F Source: [place] 7:38 AM [facility] REPOSITORY TYPE CODE TESTS RESULT OUT OF REFERENCE UNITS RANGE LAB WWBC 3.70-11.00 k/uL Sells WBC 9.45 LAB WRBC 3.90-5.20 m/uL Dieudonne RBC 4.21 LAB WHGB 11.5-15.5 g/dL Dieudonne Hemoglobin 13.1 LAB WHCT 36.0-46.0 % Dieudonne Hematocrit 40.2 LAB WMCV 80.0-100.0 fL Sells MCV 95.5 LAB WMCH 26.0-34.0 pg Dieudonne MCH 31.1 LAB WMCHC 30.5-36.0 g/dL Sells MCHC 32.6 LAB WRDW 11.5-15.0 % Dieudonne RDW 14.5 LAB WPLT 150-400 k/uL Low Dieudonne Platelet Cnt 49 Result Comment: Result checked and verified LAB WMPV 9.0-12.7 fL Unable to Sells MPV assay. Analytical difficulty. DIEUDONNE CBC Collected: 03/10/2018 Status: F Source: [place] 7:50 AM [facility] REPOSITORY TYPE CODE TESTS RESULT OUT OF REFERENCE UNITS RANGE LAB WWBC 3.70-11.00 k/uL Dieudonne High WBC 12.90 LAB WRBC 3.90-5.20 m/uL Dieudonne RBC 4.09 LAB WHGB 11.5-15.5 g/dL Sells Hemoglobin 12.8 LAB WHCT 36.0-46.0 % Sells Hematocrit 39.0 LAB WMCV 80.0-100.0 fL Sells MCV 95.4 LAB WMCH 26.0-34.0 pg Sells MCH 31.3 LAB WMCHC 30.5-36.0 g/dL Dieudonne MCHC 32.8 LAB WRDW 11.5-15.0 % Dieudonne RDW 14.4 LAB WPLT 150-400 k/uL Low Sells Platelet Cnt 17 Result Comment: Result rechecked. No clot detected. Platelet count confirmed by manual review of peripheral blood smear. Final report called to and read back by Jason [phone] 1640 7.20.18 K.[place] LAB WMPV 9.0-12.7 fL High Dieudonne MPV 16.8 LAB ABSNUC <0.01 k/uL Absolute nRBC Rechecked, called to and read back by: Result Comment: PLT=8,YaimaALYCE Performed By: #### WCBC #### [facility] [address] [place] [address] DIEUDONNE CBC Collected: 03/03/2018 Status: F Source: [place] 7:35 AM [facility] REPOSITORY TYPE CODE TESTS RESULT OUT OF REFERENCE UNITS RANGE LAB WWBC 3.70-11.00 k/uL Sells High WBC 22.22 LAB WRBC 3.90-5.20 m/uL Sells RBC 4.11 LAB WHGB 11.5-15.5 g/dL Sells Hemoglobin 13.0 LAB WHCT 36.0-46.0 % Dieudonne Hematocrit 39.2 LAB WMCV 80.0-100.0 fL Sells MCV 95.4 LAB WMCH 26.0-34.0 pg Sells MCH 31.6 LAB WMCHC 30.5-36.0 g/dL Dieudonne MCHC 33.2 LAB WRDW 11.5-15.0 % Sells RDW 14.3 LAB WPLT 150-400 k/uL Low Sells Platelet Cnt 36 Result Comment: Result checked and verified LAB WMPV 9.0-12.7 fL Unable to Sells MPV assay. Analytical difficulty. BASIC METABOLIC PANL Collected: 02/24/2018 Status: F Source: [place] 7:35 AM [facility] REPOSITORY TYPE CODE TESTS RESULT OUT OF REFERENCE UNITS RANGE LAB GLU 74-99 mg/dL High Glucose 144 Result Comment: The [place] [employer] (ADA) provides guidance for cutoff [...] Standards of Medical Care in Diabetes 2016, [place] [employer]. Diabetes Care. 2016.39(Suppl 1). LAB [...] GFR. Performed By: #### BMP, HBA1C #### [facility] [address] [place], [place] [address] HEMOGLOBIN A1C Collected: 02/24/2018 Status: F Source: [place] 7:35 AM [facility] REPOSITORY TYPE CODE TESTS RESULT OUT OF REFERENCE UNITS RANGE LAB HGBA1C 4.3-5.6 % High Hemoglobin A1c 5.7 LAB HBA0 mg/dL Est. Average Glucose 117 Result Comment: eAG: (Estimated average glucose) is a calculated value from HgbA1c and is patient accounting representative of the average blood glucose level in the last 2-3 month period. Performed By: #### BMP, HBA1C #### [facility] [address] [place], [place] [address] ALBUMIN/CREAT RATIO Collected: 02/24/2018 Status: F Source: [place] 7:35 AM [facility] REPOSITORY TYPE CODE TESTS RESULT OUT OF REFERENCE UNITS RANGE LAB UCRR 20-300 mg/dL 30.0 Creatinine,Ur ine,Ran LAB UALBR 0.0-23.0 mg/L <12.0 Albumin Urine Random LAB UALBCR 0-30 mg/g Not Albumin/Creat calculated Ratio Performed By: #### UACR #### [facility] [address], [place] [address] DIEUDONNE CBC Collected: 02/24/2018 Status: F Source: [place] 7:35 AM [facility] REPOSITORY TYPE CODE TESTS RESULT OUT OF REFERENCE UNITS RANGE LAB WWBC 3.70-11.00 k/uL High Dieudonne WBC 11.79 Result Comment: Result rechecked. LAB WRBC 3.90-5.20 m/uL Sells RBC 4.24 LAB WHGB 11.5-15.5 g/dL Sells Hemoglobin 13.3 LAB WHCT 36.0-46.0 % Sells Hematocrit 40.9 LAB WMCV 80.0-100.0 fL Sells MCV 96.5 LAB WMCH 26.0-34.0 pg Dieudonne MCH 31.4 LAB WMCHC 30.5-36.0 g/dL Dieudonne MCHC 32.5 LAB WRDW 11.5-15.0 % Dieudonne RDW 14.3 LAB WPLT 150-400 k/uL Dieudonne Low Platelet Cnt 45 Result Comment: Result rechecked. No clot detected. LAB WMPV 9.0-12.7 fL Unable to Dieudonne MPV report LAB ABSNUC <0.01 k/uL Preliminary Absolute nRBC result. Interpret with caution. Final results may vary. Results requested and read back by: Result Comment: WBC=12.26,PLT=34,MISAMAR Performed By: #### WCBC #### [facility] [address], [place] [address] DIEUDONNE CBC Collected: 02/17/2018 Status: F Source: [place] 7:40 AM [facility] REPOSITORY TYPE CODE TESTS RESULT OUT OF REFERENCE UNITS RANGE LAB WWBC 3.70-11.00 k/uL Dieudonne High WBC 11.48 LAB WRBC 3.90-5.20 m/uL Sells RBC 3.96 LAB WHGB 11.5-15.5 g/dL Sells Hemoglobin 12.4 LAB WHCT 36.0-46.0 % Sells Hematocrit 38.3 LAB WMCV 80.0-100.0 fL Sells MCV 96.7 LAB WMCH 26.0-34.0 pg Dieudonne MCH 31.3 LAB WMCHC 30.5-36.0 g/dL Sells MCHC 32.4 LAB WRDW 11.5-15.0 % Dieudonne RDW 14.3 LAB WPLT 150-400 k/uL Low Dieudonne Platelet Cnt 25 LAB WMPV 9.0-12.7 fL Dieudonne MPV 12.7 Result Comment: Test performed at: [address] [place] [address]. DIEUDONNE CBC Collected: 02/10/2018 Status: F Source: [place] 7:35 AM [facility] REPOSITORY TYPE CODE TESTS RESULT OUT OF REFERENCE UNITS RANGE LAB WWBC 3.70-11.00 k/uL Dieudonne High WBC 11.93 LAB WRBC 3.90-5.20 m/uL Low Dieudonne RBC 3.87 LAB WHGB 11.5-15.5 g/dL Sells Hemoglobin 12.1 LAB WHCT 36.0-46.0 % Sells Hematocrit 37.4 LAB WMCV 80.0-100.0 fL Sells MCV 96.6 LAB WMCH 26.0-34.0 pg Sells MCH 31.3 LAB WMCHC 30.5-36.0 g/dL Sells MCHC 32.4 LAB WRDW 11.5-15.0 % Sells RDW 14.8 LAB WPLT 150-400 k/uL Low Dieudonne Platelet Cnt 25 Result Comment: Result checked and verified LAB WMPV 9.0-12.7 fL Unable to Sells MPV assay. Analytical difficulty. DIEUDONNE CBC Collected: 02/03/2018 Status: F Source: [place] 7:42 AM [facility] REPOSITORY TYPE CODE TESTS RESULT OUT OF REFERENCE UNITS RANGE LAB WWBC 3.70-11.00 k/uL Dieudonne High WBC 12.68 LAB WRBC 3.90-5.20 m/uL Sells RBC 3.99 LAB WHGB 11.5-15.5 g/dL Dieudonne Hemoglobin 12.5 LAB WHCT 36.0-46.0 % Sells Hematocrit 38.5 LAB WMCV 80.0-100.0 fL Sells MCV 96.5 LAB WMCH 26.0-34.0 pg Dieudonne MCH 31.3 LAB WMCHC 30.5-36.0 g/dL Dieudonne MCHC 32.5 LAB WRDW 11.5-15.0 % Sells High RDW 15.2 LAB WPLT 150-400 k/uL Low Sells Platelet Cnt 129 LAB WMPV 9.0-12.7 fL Dieudonne High MPV 14.1 Result Comment: Test performed at: [facility], [address] [place] [address] Rd., [place] [address]. DIEUDONNE CBC Collected: 01/27/2018 Status: F Source: [place] 7:41 AM [facility] REPOSITORY TYPE CODE TESTS RESULT OUT OF REFERENCE UNITS RANGE LAB WWBC 3.70-11.00 k/uL Dieudonne High WBC 15.95 LAB WRBC 3.90-5.20 m/uL Low Sells RBC 3.76 LAB WHGB 11.5-15.5 g/dL Dieudonne Hemoglobin 11.9 LAB WHCT 36.0-46.0 % Sells Hematocrit 36.5 LAB WMCV 80.0-100.0 fL Dieudonne MCV 97.1 LAB WMCH 26.0-34.0 pg Sells MCH 31.6 LAB WMCHC 30.5-36.0 g/dL Dieudonne MCHC 32.6 LAB WRDW 11.5-15.0 % Dieudonne RDW 15.0 LAB WPLT 150-400 k/uL Low Dieudonne Platelet Cnt 78 LAB WMPV 9.0-12.7 fL Dieudonne MPV Unable to report Performed By: #### WCBC #### [facility] [address] [place], [place] [address] DIEUDONNE CBC Collected: 01/20/2018 Status: F Source: [place] 7:16 AM [facility] REPOSITORY TYPE CODE TESTS RESULT OUT OF REFERENCE UNITS RANGE LAB WWBC 3.70-11.00 k/uL 11.72 High Dieudonne WBC LAB WRBC 3.90-5.20 m/uL 3.72 Low Sells RBC LAB WHGB 11.5-15.5 g/dL 11.7 Dieudonne Hemoglobin LAB WHCT 36.0-46.0 % 36.0 Sells Hematocrit LAB WMCV 80.0-100.0 fL 96.8 Dieudonne MCV LAB WMCH 26.0-34.0 pg 31.5 Sells MCH LAB WMCHC 30.5-36.0 g/dL 32.5 Dieudonne MCHC LAB WRDW 11.5-15.0 % 14.6 Sells RDW LAB WPLT 150-400 k/uL 48 Low Sells Platelet Cnt LAB WMPV 9.0-12.7 fL Dieudonne MPV Unable to assay. Analytical difficulty. DIEUDONNE CBC Collected: 01/13/2018 Status: F Source: [place] 7:38 AM [facility] REPOSITORY TYPE CODE TESTS RESULT OUT OF REFERENCE UNITS RANGE LAB WWBC 3.70-11.00 k/uL Sells High WBC 13.25 LAB WRBC 3.90-5.20 m/uL Sells RBC 3.91 LAB WHGB 11.5-15.5 g/dL Sells Hemoglobin 12.1 LAB WHCT 36.0-46.0 % Sells Hematocrit 37.6 LAB WMCV 80.0-100.0 fL Sells MCV 96.2 LAB WMCH 26.0-34.0 pg Sells MCH 30.9 LAB WMCHC 30.5-36.0 g/dL Sells MCHC 32.2 LAB WRDW 11.5-15.0 % Dieudonne RDW 14.3 LAB WPLT 150-400 k/uL Low Sells Platelet Cnt 12 Result Comment: NO CLOT DETECTED Result checked and verified Called to and read back by: Honey Dieudonne Ref Lab 01/13/18 0825 [place] LAB WMPV 9.0-12.7 fL Unable to Dieudonne MPV assay. Analytical difficulty. DIEUDONNE CBC Collected: 01/06/2018 Status: F Source: [place] 7:51 AM [facility] REPOSITORY TYPE CODE TESTS RESULT OUT OF REFERENCE UNITS RANGE LAB WWBC 3.70-11.00 k/uL 12.31 High Sells WBC LAB WRBC 3.90-5.20 m/uL 3.71 Low Sells RBC LAB WHGB 11.5-15.5 g/dL 11.5 Dieudonne Hemoglobin LAB WHCT 36.0-46.0 % 35.9 Low Sells Hematocrit LAB WMCV 80.0-100.0 fL 96.8 Sells MCV LAB WMCH 26.0-34.0 pg 31.0 Dieudonne MCH LAB WMCHC 30.5-36.0 g/dL 32.0 Sells MCHC LAB WRDW 11.5-15.0 % 14.5 Dieudonne RDW LAB WPLT 150-400 k/uL 68 Low Dieudonne Platelet Cnt LAB WMPV 9.0-12.7 fL Sells MPV Unable to assay. Analytical difficulty. Result Comment: Test performed at: [address] [place] [address]. DIEUDONNE CBC Collected: 12/30/2017 Status: F Source: [place] 7:54 AM [facility] REPOSITORY TYPE CODE TESTS RESULT OUT OF REFERENCE UNITS RANGE LAB WWBC 3.70-11.00 k/uL Dieudonne WBC 10.46 LAB WRBC 3.90-5.20 m/uL Dieudonne RBC 4.00 LAB WHGB 11.5-15.5 g/dL Sells Hemoglobin 12.4 LAB WHCT 36.0-46.0 % Dieudonne Hematocrit 38.2 LAB WMCV 80.0-100.0 fL Dieudonne MCV 95.5 LAB WMCH 26.0-34.0 pg Sells MCH 31.0 LAB WMCHC 30.5-36.0 g/dL Dieudonne MCHC 32.5 LAB WRDW 11.5-15.0 % Sells RDW 14.5 LAB WPLT 150-400 k/uL Low Sells Alert Platelet Cnt 7 Result Comment: Called to and read back by: Honey [phone] 12/31/07 0812 [place] LAB WMPV 9.0-12.7 fL Unable to Dieudonne MPV assay. Analytical difficulty. Result Comment: Test performed at: [address] [place] [address]. LAB ABSNUC <0.01 k/uL Preliminary Absolute nRBC result. Interpret with caution. Final results may vary. Results requested and read back by: Result Comment: PLATELET=7,P.PETERUHARD,UNIFORM MAKER,[id number],BYVALENTE DIEUDONNE CBC Collected: 12/23/2017 Status: F Source: [place] 7:30 AM [facility] REPOSITORY TYPE CODE TESTS RESULT OUT OF REFERENCE UNITS RANGE LAB WWBC 3.70-11.00 k/uL [place] WBC 10.58 LAB WRBC 3.90-5.20 m/uL [place] RBC 3.94 LAB WHGB 11.5-15.5 g/dL [place] Hemoglobin 12.2 LAB WHCT 36.0-46.0 % [place] Hematocrit 37.5 LAB WMCV 80.0-100.0 fL [place] MCV 95.2 LAB WMCH 26.0-34.0 pg [place] MCH 31.0 LAB WMCHC 30.5-36.0 g/dL [place] MCHC 32.5 LAB WRDW 11.5-15.0 % [place] RDW 14.9 LAB WPLT 150-400 k/uL Low [place] Platelet Cnt 63 Result Comment: Result rechecked. NO CLOT DETECTED LAB WMPV 9.0-12.7 fL Unable to [place] MPV assay. Analytical difficulty. [place] CBC Collected: 12/16/2017 Status: F Source: [place] 7:40 AM [facility] REPOSITORY TYPE CODE TESTS RESULT OUT OF REFERENCE UNITS RANGE LAB WWBC 3.70-11.00 k/uL 14.99 High [place] WBC LAB WRBC 3.90-5.20 m/uL 4.02 Sells RBC LAB WHGB 11.5-15.5 g/dL 12.6 [place] Hemoglobin LAB WHCT 36.0-46.0 % 38.4 [place] Hematocrit LAB WMCV 80.0-100.0 fL 95.5 [place] MCV LAB WMCH 26.0-34.0 pg 31.3 [place] MCH LAB WMCHC 30.5-36.0 g/dL 32.8 [place] MCHC LAB WRDW 11.5-15.0 % 14.8 [place]ells RDW LAB WPLT 150-400 k/uL 26 Low [place] Platelet Cnt LAB WMPV 9.0-12.7 fL Sells MPV Unable to assay. Analytical difficulty. Result Comment: Test performed at: [facility] [place], [address] [place], [place] [address] [place] [address]. [place] CBC Collected: 12/09/2017 Status: F Source: [place] 7:42 AM [facility] REPOSITORY TYPE CODE TESTS RESULT OUT OF REFERENCE UNITS RANGE LAB WWBC 3.70-11.00 k/uL 10.23 [place] WBC LAB WRBC 3.90-5.20 m/uL 3.91 [place] RBC LAB WHGB 11.5-15.5 g/dL 12.1 [place] Hemoglobin LAB WHCT 36.0-46.0 % 38.0 [place] Hematocrit LAB WMCV 80.0-100.0 fL 97.2 [place] MCV LAB WMCH 26.0-34.0 pg 30.9 [place] MCH LAB WMCHC 30.5-36.0 g/dL 31.8 [place] MCHC LAB WRDW 11.5-15.0 % 15.4 High [place] RDW LAB WPLT 150-400 k/uL 66 Low [place] Platelet Cnt LAB WMPV 9.0-12.7 fL [place]ells MPV Unable to assay. Analytical difficulty. Result Comment: Test performed at: [facility], [address] [place] [address] Rd[address] [place] [address]. [place] CBC Collected: 12/02/2017 Status: F Source: [place] 7:46 AM [facility] REPOSITORY TYPE CODE TESTS RESULT OUT OF REFERENCE UNITS RANGE LAB WWBC 3.70-11.00 k/uL [place] High WBC 13.39 LAB WRBC 3.90-5.20 m/uL [place] RBC 4.00 LAB WHGB 11.5-15.5 g/dL [place] Hemoglobin 12.4 LAB WHCT 36.0-46.0 % [place] Hematocrit 38.6 LAB WMCV 80.0-100.0 fL [place] MCV 96.5 LAB WMCH 26.0-34.0 pg [place] MCH 31.0 LAB WMCHC 30.5-36.0 g/dL [place] MCHC 32.1 LAB WRDW 11.5-15.0 % [place] High RDW 15.7 LAB WPLT 150-400 k/uL Low [place] Platelet Cnt 26 Result Comment: Result rechecked. No clot detected. LAB WMPV 9.0-12.7 fL Unable to [place] MPV assay. Analytical difficulty. LAB ABSNUC <0.01 k/uL Preliminary Absolute nRBC result. Interpret with caution. Final results may vary. Results requested and read back by: Result Comment: PLATELET=16 JSaqibCLINTON [id number] DAVID Performed By: #### WCBC #### [facility] [address] [place], [place] [address] [place] CBC Collected: 11/25/2017 Status: F Source: [place] 7:40 AM [facility] REPOSITORY TYPE CODE TESTS RESULT OUT OF REFERENCE UNITS RANGE LAB WWBC 3.70-11.00 k/uL [place] High WBC 14.23 LAB WRBC 3.90-5.20 m/uL Low [place] RBC 3.86 LAB WHGB 11.5-15.5 g/dL [place] Hemoglobin 11.9 LAB WHCT 36.0-46.0 % [place] Hematocrit 37.1 LAB WMCV 80.0-100.0 fL [place] MCV 96.1 LAB WMCH 26.0-34.0 pg [place] MCH 30.8 LAB WMCHC 30.5-36.0 g/dL [place] MCHC 32.1 LAB WRDW 11.5-15.0 % [place] High RDW 16.0 LAB WPLT 150-400 k/uL Low [place] Platelet Cnt 101 Result Comment: NO CLOT DETECTED Result rechecked. LAB WMPV 9.0-12.7 fL High [place] MPV 14.5 Result Comment: Test performed at: [facility], [address] [place] [address]., [place] [address]. PROTIME Collected: 11/25/2017 Status: F Source: [place] 7:40 AM [facility] REPOSITORY TYPE CODE TESTS RESULT OUT OF RANGE REFERENCE UNITS LAB PSEC 9.7-13.0 sec PT Sec 10.2 LAB INR 0.9-1.3 PT INR 1.0 Result Comment: Vitamin K Antagonist (VKA) Therapeutic Range: INR 2 to 3 (Target INR of 2.5) Note: For patients treated with VKA drugs, such as warfarin, the [employer] [employer] 2012 Guideline recommends [...] Chest 2012, 141:7S-47S Shad RA, et al. [facility] 2017, 70: 252-289 Performed By: #### PT, PTT #### [facility] [address] [place], [place] [address] APTT Collected: 11/25/2017 Status: F Source: [place] 7:40 AM [facility] REPOSITORY TYPE CODE TESTS RESULT OUT OF [...] laboratory APTT reagent in use throughout the [facility]. Performed By: #### PT, PTT #### [facility] [address] [place], [place] [address] PROGRESS Observed: 11/24/2017 Status: COMPLETED Source: [place] 4:02 PM [facility] REPOSITORY HNO ID: [id number] Author: Dallas Mccallum Service: (none) Author Type: Physician Type: Progress Notes Filed: 11/25/2017 4:30 PM Note Text: Diagnosis: 1) ITP HPI: Patient is a 52 yo 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 Previously treatment: 1) Prednisone for 5 weeks initially (starting 04/18/08) with slow platelet response. Count rapidly decreased to 1K (no bleeding) on 05/24/08 and was admitted to [facility] for urgent IVIG administration. Tolerated 1 gm/kg [...] scalp but she has areas in the moravian region suggestive of an autoimmune process. PMH, [...] No jaundice or rash. No petechiae. 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 No focal motor [...] and IVIG administration. -I will check with [facility] about increasing dose of IVIG. -She will call to schedule possible skin biopsy early next week. CBC that morning to check platelet count. -Coags tomorrow. Dallas Mccallum DO CNOVSP Observed: 11/24/2017 Status: COMPLETED Source: [place] 4:00 PM [facility] REPOSITORY Visit (SP) Office (KIARA) GEOVANNA FERNANDEZ ([id number]) 1965 F Date Time Provider Department 11/24/17 4:00 PM DALLAS MCCALLUM During your visit today, we recorded the following information about you: Temperature Pulse Blood pressure Weight 97.6 degrees 83/minute 112/80 101.6 kg Anai Turcios LPN, LPN 11/24/2017 4:11 PM Signed Est pt., discuss labs done 11/18. 6 month f/u NAMAN Nunes DO 11/25/2017 4:30 PM Signed Diagnosis: 1) ITP HPI: Patient is a 52 yo 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 Previously treatment: 1) Prednisone for 5 weeks initially (starting 04/18/08) with slow platelet response. Count rapidly decreased to 1K (no bleeding) on 05/24/08 and was admitted to [facility] for urgent IVIG administration. Tolerated 1 gm/kg [...] scalp but she has areas in the moravian region suggestive of an autoimmune process. PMH, [...] No jaundice or rash. No petechiae. 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 No focal motor [...] and IVIG administration. -I will check with [facility] about increasing dose of IVIG. -She will call to schedule possible skin biopsy early next week. CBC that morning to check platelet count. -Coags tomorrow. Dallas Mccallum DO Referring Provider: DALLAS MCCALLUM [[id number]] Allergies As of Date: 11/24/2017 Noted Allergy Reaction ASA (SALICYLATES) 07/22/2005 4 - Hives BEES 04/01/2008 CLINDAMYCIN 01/11/2011 14 - Other: See Comments Comments: lightheadness PENICILLINS 07/22/2005 2 - Rash 9 - Itching ZOFRAN (ONDANSETRON) 04/30/2013 8 - GI Upset Comments: Worse nausea. seasonal allergies [Other] 07/22/2005 Date Reviewed: 11/24/2017 Reviewed by: Anai Contreras (Naman) NAMAN Turcios - Fully Assessed Reason for Visit: Established Patient [175] Primary Visit Diagnosis:Immune thrombocytopenic purpura (HCC) [D69.3] Order(s):ACTIVATED PTT [SQPTT] Order #: [id number] FUTURE PROTHROMBIN TIME/PT [SQPT] Order #: [id number] FUTURE Follow-up and Disposition History Recorded Prescriptions [...] 11/25/17 PROGRESS Observed: 11/21/2017 Status: COMPLETED Source: [place] 1:48 PM [facility] REPOSIT[facility] HNO ID: [id number] Author: Megan Tobar (Brennen Davenport Service: (none) Author Type: Nurse Practitioner Type: [...] updated today in the History tab of [employer]. Current Medications and allergies reviewed. PAST MEDICAL [...] arise. 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 - [facility] SCREENING Health Maintenance Addressed: Will check with Dr. Mccallum re: New Rolando morales. Megan Davenport, MSN INSTALL TECHNICIAN.CONSUMER LOAN MANAGER CNOV Observed: 11/21/2017 Status: COMPLETED Source: [place] 1:20 PM [facility] [place] REPOSITORY [facility] GEOVANNA FERNANDEZ ([id number]) 1965 F Date Time Provider Department 11/21/17 1:20 PM MEGAN DAVENPORT (RETAIL MANAGER) KELSEY During your visit today, we recorded the following information about you: Temperature Pulse Respiration Blood pressure 99.1 degrees 86/minute 17/minute 116/84 Weight Last Period 100.7 kg 11/15/17 Megan Davenport, MSN INSTALL TECHNICIAN.CONSUMER LOAN MANAGER 11/21/2017 5:34 PM Signed Patient presents with: [...] updated today in the History tab of [employer]. Current Medications and allergies reviewed. PAST MEDICAL HISTORY Diagnosis Date - Diabetes (HCC) - Hyperlipidemia with target LDL less than 100 03/08/2014 - Immune thrombocytopenic purpura (HCC) - Pulmonary embolism (HCC) 01/12/12, 12/2012 PAST SURGICAL HISTORY Procedure Laterality Date - [facility] 01-26-16 - FILTER PLACEMENT (VENA CAVA) 02-08-13 - PAST SURGICAL HISTORY OF knee surgery 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 - Continue current medications - Blood glucose monitoring on a every other day schedule - Encouraged regular aerobic exercise and weight loss - Follow up in 4 months, sooner should any other issues arise. - Discussed diabetic education issues of intermediate diabetic complications, diet, medications- side effects and [...] year. 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 - [facility] SCREENING Health Maintenance Addressed: Will check with Dr. Mccallum re: New Shingles vaccine. Megan Davenport, MSN INSTALL TECHNICIAN.CONSUMER LOAN MANAGER Referring Provider: SELF [200] Allergies As of Date: 11/21/2017 Noted Allergy Reaction ASA (SALICYLATES) 07/22/2005 4 - Hives BEES 04/01/2008 CLINDAMYCIN 01/11/2011 14 - Other: See Comments Comments: lightheadness PENICILLINS 07/22/2005 2 - Rash 9 - Itching ZOFRAN (ONDANSETRON) 04/30/2013 8 - GI Upset Comments: Worse nausea. seasonal allergies [Other] 07/22/2005 Date Reviewed: 11/21/2017 Reviewed by: Nadege Luis Rotoprinter - Fully Assessed Reason for Visit: Refill [...] mouth daily at bedtime.Disp: 90 tabletRfl: 3 [facility] SCREEN[facility] [[id number]] Order #: [id number] FUTURE ALBUMIN/CREAT RATIO RND UR [SQUACR] Order #: [id number] FUTURE HGB A1C [PONWJ8C] Order #: [id number] FUTURE BASIC METABOLIC PNL [SQBMP] Order #: [id number] FUTURE Prescriptions as of 11/21/2017 Sig: METFORMIN [...] is not on file. Encounter Status:Closed by MEGAN DAVENPORT CONSUMER LOAN MANAGER on 11/21/17 [place] CBC Collected: 11/18/2017 Status: F Source: [place] 8:17 AM [facility] REPOSITORY TYPE CODE TESTS RESULT OUT OF REFERENCE UNITS RANGE LAB WWBC 3.70-11.00 k/uL [place] WBC 10.45 LAB WRBC 3.90-5.20 m/uL Low [place] RBC 3.78 LAB WHGB 11.5-15.5 g/dL [place] Hemoglobin 11.7 LAB WHCT 36.0-46.0 % Low [place] Hematocrit 35.9 LAB WMCV 80.0-100.0 fL [place] MCV 95.0 LAB WMCH 26.0-34.0 pg [place] MCH 31.0 LAB WMCHC 30.5-36.0 g/dL [place] MCHC 32.6 LAB WRDW 11.5-15.0 % [place] High RDW 15.9 LAB WPLT 150-400 k/uL Low [place] Platelet Cnt 99 LAB WMPV 9.0-12.7 fL [place] High MPV 14.7 Result Comment: Test performed at: [facility], [address] [place] [address]., [place] [address]. IRON AND TIBC Collected: 11/18/2017 Status: F Source: [place] 8:17 AM [facility] REPOSITORY TYPE CODE TESTS RESULT OUT OF REFERENCE UNITS RANGE LAB IRN 41-186 ug/dL Iron 113 LAB TIBC 232-386 ug/dL TIBC 301 LAB SAT 15-57 % Transferrin Saturatn 38 Performed By: #### IRON, FERR #### [facility] [address] [place], [place] [id number] FERRITIN Collected: 11/18/2017 Status: F Source: [place] 8:17 AM [facility] REPOSITORY TYPE CODE TESTS RESULT OUT OF REFERENCE UNITS RANGE LAB FERR 14.7-205.1 ng/mL Ferritin 165.0 Performed By: #### IRON, FERR #### [facility] [address] [place], [place] [address] DIEUDONNE CBC Collected: 11/11/2017 Status: F Source: [place] 7:46 AM [facility] REPOSITORY TYPE CODE TESTS RESULT OUT OF REFERENCE UNITS RANGE LAB WWBC 3.70-11.00 k/uL 9.03 [place] WBC LAB WRBC 3.90-5.20 m/uL 4.06 [place] RBC LAB WHGB 11.5-15.5 g/dL 12.4 [place] Hemoglobin LAB WHCT 36.0-46.0 % 38.2 [place] Hematocrit LAB WMCV 80.0-100.0 fL 94.1 [place] MCV LAB WMCH 26.0-34.0 pg 30.5 [place] MCH LAB WMCHC 30.5-36.0 g/dL 32.5 [place] MCHC LAB WRDW 11.5-15.0 % 15.2 High [place] RDW LAB WPLT 150-400 k/uL <0 Low Alert [place] Platelet Cnt LAB WMPV 9.0-12.7 fL [place] MPV Unable to assay. Analytical difficulty. Result Comment: Test performed at: [facility], [address] [place] [address] Rd., [place] [address]. LAB ABSNUC <0.01 k/uL Preliminary Absolute nRBC result. Interpret with caution. Final results may vary. Results requested and read back by: Result Comment: PLATLET=0,NAMAN BENITES,[id number],[place]E [place] CBC Collected: 11/04/2017 Status: F Source: [place] 8:00 AM [facility] [place] REPOSITORY TYPE CODE TESTS RESULT OUT OF REFERENCE UNITS RANGE LAB WWBC 3.70-11.00 k/uL [place] High WBC 12.94 LAB WRBC 3.90-5.20 m/uL [place] RBC 4.02 LAB WHGB 11.5-15.5 g/dL [place] Hemoglobin 12.3 LAB WHCT 36.0-46.0 % [place] Hematocrit 37.6 LAB WMCV 80.0-100.0 fL [place] MCV 93.5 LAB WMCH 26.0-34.0 pg [place] MCH 30.6 LAB WMCHC 30.5-36.0 g/dL [place] MCHC 32.7 LAB WRDW 11.5-15.0 % [place] RDW 14.9 LAB WPLT 150-400 k/uL Low [place] Alert Platelet Cnt 6 Result Comment: Result rechecked. No clot detected. Reviewed No call per procedure. 11/04/17 1620 Carlyn LAB ABSNUC <0.01 k/uL Preliminary Absolute nRBC result. Interpret with caution. Final results may vary. Results requested and read back by: Result Comment: PLATELET=0 KAMARI WR10 [id number] DAVID Performed By: #### WCBC #### [facility] [address] [place], [place] [address] LIPID PANEL, BASIC Collected: 11/04/2017 Status: F Source: [place] 8:00 AM [facility] REPOSITORY TYPE CODE TESTS RESULT OUT OF [...] Desk Reference: National Heart, Lung, and Blood [place]. National Institutes of Health. 2001: NIH Publication No. 01-3305. 2. An International Atherosclerosis Society position paper: global recommendations for the management of dyslipidemia: executive summary, Atherosclerosis. 2014: 232(2):410-413. Performed By: #### LIPB, HBA1C #### [facility] [address] [place], [place] [address] HEMOGLOBIN A1C Collected: 11/04/2017 Status: F Source: [place] 8:00 AM [facility] REPOSITORY TYPE CODE TESTS RESULT OUT OF REFERENCE UNITS RANGE LAB HGBA1C 4.3-5.6 % High Hemoglobin A1c 6.6 LAB HBA0 mg/dL Est. Average Glucose 143 Result Comment: eAG: (Estimated average glucose) is a calculated value from HgbA1c and is patient accounting representative of the average blood glucose level in the last 2-3 month period. Performed By: #### LIPB, HBA1C #### [facility] [address] [place], [place] [address] DIEUDONNE CBC Collected: 10/28/2017 Status: F Source: [place] 8:13 AM [facility] REPOSITORY TYPE CODE TESTS RESULT OUT OF REFERENCE UNITS RANGE LAB WWBC 3.70-11.00 k/uL [place] High WBC 11.20 LAB WRBC 3.90-5.20 m/uL [place] RBC 4.31 LAB WHGB 11.5-15.5 g/dL [place] Hemoglobin 13.2 LAB WHCT 36.0-46.0 % [place] Hematocrit 40.3 LAB WMCV 80.0-100.0 fL [place] MCV 93.5 LAB WMCH 26.0-34.0 pg [place] MCH 30.6 LAB WMCHC 30.5-36.0 g/dL [place] MCHC 32.8 LAB WRDW 11.5-15.0 % [place] RDW 14.8 LAB WPLT 150-400 k/uL Low [place] Platelet Cnt 97 LAB WMPV 9.0-12.7 fL [place] High MPV 14.0 Result Comment: Test performed at: [facility], [address] [place] [address] Rd., [place] [address]. DIEUDONNE CBC Collected: 10/21/2017 Status: F Source: [place] 7:35 AM [facility] REPOSITORY TYPE CODE TESTS RESULT OUT OF REFERENCE UNITS RANGE LAB WWBC 3.70-11.00 k/uL [place] WBC 9.74 LAB WRBC 3.90-5.20 m/uL [place] RBC 4.09 LAB WHGB 11.5-15.5 g/dL [place] Hemoglobin 12.4 LAB WHCT 36.0-46.0 % [place] Hematocrit 38.4 LAB WMCV 80.0-100.0 fL [place] MCV 93.9 LAB WMCH 26.0-34.0 pg [place] MCH 30.3 LAB WMCHC 30.5-36.0 g/dL [place] MCHC 32.3 LAB WRDW 11.5-15.0 % [place] RDW 14.2 LAB WPLT 150-400 k/uL Low [place] Alert Platelet Cnt <0 Result Comment: Result rechecked. Called to and read back by: Tj Cazares at [facility] 10/21/2017 0750 Melina Valentino LAB WMPV 9.0-12.7 fL Low [place] MPV 7.1 Result Comment: Test performed at: [facility], [address] [place] [address] Rd., [place] [address]. LAB ABSNUC <0.01 k/uL NO CLOT Absolute nRBC DETECTED RESULTS GIVEN TO MELISSA BY DAVID RODRÍGUEZ CBC Collected: 10/14/2017 Status: F Source: [place] 8:08 AM [facility] REPOSITORY TYPE CODE TESTS RESULT OUT OF REFERENCE UNITS RANGE LAB WWBC 3.70-11.00 k/uL [place] High WBC 11.64 LAB WRBC 3.90-5.20 m/uL [place] RBC 4.23 LAB WHGB 11.5-15.5 g/dL [place] Hemoglobin 12.7 LAB WHCT 36.0-46.0 % [place] Hematocrit 39.6 LAB WMCV 80.0-100.0 fL [place] MCV 93.6 LAB WMCH 26.0-34.0 pg [place] MCH 30.0 LAB WMCHC 30.5-36.0 g/dL [place] MCHC 32.1 LAB WRDW 11.5-15.0 % [place] RDW 14.4 LAB WPLT 150-400 k/uL Low [place] Platelet Cnt 42 LAB WMPV 9.0-12.7 fL [place] MPV Unable to report Performed By: #### WCBC #### [facility] [address] [place], [place] [address] DIEUDONNE CBC Collected: 10/07/2017 Status: F Source: [place] 8:04 AM [facility] REPOSITORY TYPE CODE TESTS RESULT OUT OF REFERENCE UNITS RANGE LAB WWBC 3.70-11.00 k/uL [place] High WBC 11.69 LAB WRBC 3.90-5.20 m/uL [place] RBC 4.14 LAB WHGB 11.5-15.5 g/dL [place] Hemoglobin 12.5 LAB WHCT 36.0-46.0 % [place] Hematocrit 39.2 LAB WMCV 80.0-100.0 fL [place] MCV 94.7 LAB WMCH 26.0-34.0 pg [place] MCH 30.2 LAB WMCHC 30.5-36.0 g/dL [place] MCHC 31.9 LAB WRDW 11.5-15.0 % [place] RDW 14.9 LAB WPLT 150-400 k/uL Low [place] Platelet Cnt 127 LAB WMPV 9.0-12.7 fL [place] High MPV 14.5 Result Comment: Test performed by: [facility] [place], [address] [place] [address]. DIEUDONNE CBC Collected: 09/30/2017 Status: F Source: [place] 7:38 AM [facility] REPOSITORY TYPE CODE TESTS RESULT OUT OF REFERENCE UNITS RANGE LAB WWBC 3.70-11.00 k/uL [place] WBC 10.93 LAB WRBC 3.90-5.20 m/uL [place] RBC 4.20 LAB WHGB 11.5-15.5 g/dL [place] Hemoglobin 12.8 LAB WHCT 36.0-46.0 % [place] Hematocrit 39.3 LAB WMCV 80.0-100.0 fL [place] MCV 93.6 LAB WMCH 26.0-34.0 pg [place] MCH 30.5 LAB WMCHC 30.5-36.0 g/dL [place] MCHC 32.6 LAB WRDW 11.5-15.0 % [place] RDW 14.3 LAB WPLT 150-400 k/uL Low [place] Platelet Cnt 12 Result Comment: Result checked and verified No clot detected. Called to and read back by: [place] [id number] 09/30/17 1710 Beto Douglas LAB WMPV 9.0-12.7 fL Unable to [place] MPV report LAB ABSNUC <0.01 k/uL Preliminary Absolute nRBC result. Interpret with caution. Final results may vary. Results requested and read back by: Result Comment: PLATELET=4 MISAMAR [id number] A.CLARK Performed By: #### WCBC #### [facility] [address] [place], [place] [address] [place] CBC Collected: 09/23/2017 Status: F Source: [place] 7:13 AM [facility] REPOSITORY TYPE CODE TESTS RESULT OUT OF REFERENCE UNITS RANGE LAB WWBC 3.70-11.00 k/uL 11.61 High [place] WBC LAB WRBC 3.90-5.20 m/uL 4.11 [place] RBC LAB WHGB 11.5-15.5 g/dL 12.4 [place] Hemoglobin LAB WHCT 36.0-46.0 % 38.6 [place] Hematocrit LAB WMCV 80.0-100.0 fL 93.9 [place] MCV LAB WMCH 26.0-34.0 pg 30.2 [place] MCH LAB WMCHC 30.5-36.0 g/dL 32.1 [place] MCHC LAB WRDW 11.5-15.0 % 14.8 [place] RDW LAB WPLT 150-400 k/uL 36 Low [place] Platelet Cnt LAB WMPV 9.0-12.7 fL [place] MPV Unable to assay. Analytical difficulty. Result Comment: Test performed at: [facility], [address] [place] [address]. HOSP Observed: 09/16/2017 Status: COMPLETED Source: [place] 8:30 AM [facility] REPOSITORY Infusion Center ([facility]) GEOVANNA FERNANDEZ ([id number]) 1965 F Date Time Provider Department 09/16/17 8:30 AM INJECTION [facility] During your visit today, we [...] Bri Resendez LPN Referring Provider: DALLAS MCCALLUM [[id number]] Allergies As of Date: 09/16/2017 Noted Allergy [...] thrombocytopenic purpura (HCC) [D69.3] Order(s):TREATMENT PARAMETER-NOT NEEDED [[id number]] Order #: [id number]: 1 [] romiPLOStim 1,039 mcg injection (NPLATE)Disp: [...] Visit Notes: >> Bri Resendez LPN TueSep 16, 2017 8:19 AM Status: Signed [...] DIEUDONNE CBC Collected: 09/16/2017 Status: F Source: [place] 7:40 AM [facility] REPOSITORY TYPE CODE TESTS RESULT OUT OF REFERENCE UNITS RANGE LAB WWBC 3.70-11.00 k/uL [place] WBC 10.77 LAB WRBC 3.90-5.20 m/uL [place] RBC 4.07 LAB WHGB 11.5-15.5 g/dL [place] Hemoglobin 12.3 LAB WHCT 36.0-46.0 % [place] Hematocrit 38.2 LAB WMCV 80.0-100.0 fL [place] MCV 93.9 LAB WMCH 26.0-34.0 pg [place] MCH 30.2 LAB WMCHC 30.5-36.0 g/dL [place] MCHC 32.2 LAB WRDW 11.5-15.0 % [place] RDW 14.6 LAB WPLT 150-400 k/uL Low [place] Platelet Cnt 69 LAB WMPV 9.0-12.7 fL [place] High MPV 14.8 Result Comment: Test performed at: [facility] [place], [address] [place] [address]. ALLERGIES ALLERGIES DATE TYPE / CODE NAME / CODE REACTION SEVERITY SOURCE 04/14/2018 Drug ondansetron Other Unknown [place] Allergy/742312129( HCl/[id number](R [facility] SN[facility]) XNORM) Hospital Repository 04/14/2018 Drug Penicillins/F001 Rash Unknown [place] Allergy/933627920( 427025(RXNORM) Community SNOM[facility]) Hospital Repository 04/14/2018 Drug aspirin/T7444481 Hives Unknown [place] Allergy/869577668( 87(RXNORM) Community SNOM[facility]) Hospital Repository 04/14/2018 Drug clindamycin/F006 Vomiting Unknown [place] Allergy/148781615( 811198(RXNORM) Community SN[facility]) Hospital Repository 04/14/2018 Drug venom-honey Swelling Unknown [place] Allergy/819219296( bee/U960469347(R [facility]) XNORM) Hospital Repository 04/14/2018 Drug rituximab/H65284 Other Unknown [place] Allergy/424163843( 7236(RXNORM) [facility] SN[facility]) Hospital Repository 04/30/2013 DRUG ONDANSETRON GI UPSET [place] INGREDI/238531828( Clinic Main SNOMED CT) [place] Repository 02/07/2012 DRUG RITUXIMAB OTHER: SEE C [place] INGREDI/862342047( [facility] Main SNOMED CT) [place] Repository 01/11/2011 DRUG CLINDAMYCIN OTHER: SEE C [place] INGREDI/485005514( [facility] Main SNOMED CT) [place] Repository 04/01/2008 Environ/922527858( BEES [place] SNOMED CT) Clinic Main [place] Repository 07/22/2005 Drug SALICYLATES HIVES [place] Class/060784829([facility] Main OMED CT) [place] Repository 07/22/2005 Drug PENICILLINS RASH [place] Class/148741724([facility] Main OMED CT) [place] Repository 07/22/2005 Miscellaneous OTHER [place] Allergy/444204427( [facility] Main SNOMED CT) [place] Repository ENCOUNTERS ENCOUNTERS ADMIT/DISCHARGE ACCOUNT ADMITTING ENCOUNTER LOCATION SOURCE NUMBER CLASS 09/09/2018/09/09/19 [id number] Ambulatory [facility] [address] [facility] ing:MEDOUTP Repository 09/08/2018/09/11/19 [id number] Ambulatory [place] [facility] [place] Repository 09/08/2018/09/08/19 [id number] Ambulatory [place] [facility] [place] Repository 09/01/2018/09/01/19 [id number] Ambulatory [place] [facility] [place] Repository 09/01/2018/09/01/19 [id number] Ambulatory [place] [facility] [place] Repository 08/26/2018/08/26/19 [id number] Ambulatory [address] ing:MEDOUTP Repository 08/25/2018/08/28/19 [id number] Ambulatory [place] [facility] [place] Repository 08/25/2018/08/25/19 [id number] Ambulatory [place] [facility] [place] Repository 08/18/2018/08/21/20 [id number] Ambulatory [place] [facility] [place] Repository 08/18/2018/08/18/20 [id number] Ambulatory [place] [facility] [place] Repository 08/11/2018/08/14/20 [id number] Ambulatory [place] [facility] [place] Repository 08/11/2018/08/11/20 [id number] Ambulatory [place] [facility] [place] Repository 08/05/2018/08/05/20 [id number] Ambulatory [address] ing:MEDOUTP Repository 08/04/2018/08/07/20 [id number] Ambulatory [place] [facility] [place] Repository 08/04/2018/08/04/20 [id number] Ambulatory [place] [facility] [place] Repository 07/28/2018/07/31/20 [id number] Ambulatory [place] [facility] [place] Repository 07/28/2018/07/28/20 [id number] Ambulatory [place] [facility] [place] Repository 07/22/2018/07/22/20 [id number] Ambulatory [address] [facility] om[facility] [id number] 07/21/2018/07/28/20 [id number] Amb[facility] [place] [facility] [place] Repository 07/21/2018/07/22/20 [id number] Amb[facility] [place] [facility] [place] Repository 07/14/2018/07/17/20 [id number] [facility] [place] Repository 07/14/2018/07/14/20 [id number] [facility] [place] Repository 07/07/2018/07/10/20 [id number] [facility] [place] Repository 07/07/2018/07/07/20 [id number] [facility] [place] Repository 07/01/2018/07/01/20 [id number] Ambulatory Dieudonne Sells 18 [facility] ing:MEDOUTP Repository 06/30/2018/07/03/20 [id number] Ambulatory [place] [facility] [place] Repository 06/30/2018/06/30/20 [id number] Ambulatory [place] [facility] [place] Repository 06/23/2018/06/26/20 [id number] Amb[facility] [place] Repository 06/23/2018/06/26/20 [id number] Ambulatory [place] [facility] [place] Repository 06/23/2018/06/23/20 [id number] Ambulatory [place] [facility] [place] Repository 06/17/2018/06/17/20 [id number] Ambulatory Dieudonne Sells 18 [facility] ing:MEDOUTP Repository 06/16/2018/06/19/20 [id number] Amb[facility] [place] Repository 06/16/2018/06/16/20 [id number] Amb[facility] [place] Repository 06/09/2018/06/12/20 [id number] Amb[facility] [place] Repository 06/09/2018/06/09/20 [id number] [facility] [place] Repository 06/03/2018/06/03/20 [id number] Ambulatory Dieudonne Sells 18 [facility] ing:MEDOUTPRo Repository om: [id number] 06/02/2018/06/05/20 [id number] Amb[facility] [place] Repository 06/02/2018/06/02/20 [id number] [facility] [place] Repository 05/26/2018/05/29/20 [id number] [facility] [place] Repository 05/26/2018/05/26/20 [id number] [facility] [place] Repository 05/20/2018/05/20/20 [id number] Ambulatory Dieudonne[address] ing:MEDOUTP Repository 05/19/2018/05/22/20 [id number] Amb[facility] [place] Repository 05/19/2018/05/19/20 [id number] Amb[facility] [place] Repository 05/12/2018/05/12/20 [id number] Ambulatory [place] [facility] [place] Repository 05/12/2018/05/15/20 [id number] Ambulatory [place] [facility] [place] Repository 05/06/2018/05/06/20 [id number] Ambulatory [address] [facility] om: [id number] 05/05/2018/05/08/20 [id number] Amb[facility] [place] Repository 05/05/2018/05/05/20 [id number] [facility] [place] Repository 04/28/2018/05/01/20 [id number] Amb[facility] [place] Repository 04/28/2018/04/28/20 [id number] [facility] [place] Repository 04/21/2018/04/25/20 [id number] [facility] [place] Repository 04/21/2018/04/21/20 [id number] Amb[facility] [place] Repository 04/14/2018 [id number] [facility] 04/14/2018/04/17/20 [id number] Amb[facility] [place] Repository 04/14/2018/04/14/20 [id number] Ambulatory [facility] [place] Repository 04/07/2018/04/10/20 [id number] Amb[facility] [place] Repository 04/07/2018/04/07/20 [id number] Amb[facility] [place] Repository 04/01/2018/04/01/20 [id number] Ambulatory Sells[address] ing:MEDOUTP Repository 03/31/2018/04/03/20 [id number] Ambulatory [facility] [place] Repository 03/31/2018/03/31/20 [id number] Ambulatory [facility] [place] Repository 03/24/2018/03/27/20 [id number] Amb[facility] [place] Repository 03/24/2018/03/27/20 [id number] Amb[facility] [place] Repository 03/24/2018/03/24/20 [id number] Amb[facility] [place] Repository 03/17/2018/03/20/20 [id number] Ambulatory [place] [facility] [place] Repository 03/17/2018/03/17/20 [id number] Ambulatory [place] [facility] [place] Repository 03/11/2018/03/11/20 [id number] Ambulatory Sells Dieudonne [address] [place] [address] ing:MEDOUTP Repository 03/10/2018/03/13/20 [id number] Ambulatory [place] [facility] [place] Repository 03/10/2018/03/10/20 [id number] Ambulatory [place] [facility] [place] Repository 03/03/2018/03/06/20 [id number] Ambulatory [place] [facility] [place] Repository 03/03/2018/03/03/20 [id number] Ambulatory [place] [facility] [place] Repository 02/24/2018/02/28/20 [id number] Ambulatory [place] [facility] [place] Repository 02/24/2018/02/25/20 [id number] Ambulatory [place] [facility] [place] Repository 02/18/2018/02/19/20 [id number] Ambulatory Dieudonne Sells [address] [place] [address] ing:MEDOUTP Repository 02/17/2018/02/21/20 [id number] [facility] [place] Repository 02/17/2018/02/18/20 [id number] Amb[facility] [place] Repository 02/10/2018/02/14/20 [id number] Amb[facility] [place] Repository 02/10/2018/02/11/20 [id number] Amb[facility] [place] Repository 02/03/2018/02/07/20 [id number] [facility] [place] Repository 02/03/2018/02/04/20 [id number] Amb[facility] [place] Repository 01/27/2018/01/31/20 [id number] Ambulatory [address] [place] Repository 01/27/2018/01/28/20 [id number] Ambulatory [address] [place] Repository 01/21/2018/01/22/20 [id number] Ambulatory Dieudonne Sells 18 [facility] ing:MEDOUTP Repository 01/20/2018/01/24/20 [id number] Ambulatory [address] [place] Repository 01/20/2018/01/21/20 [id number] Ambulatory [address] [place] Repository 01/14/2018/01/15/20 [id number] Ambulatory Sells Sells [address] [place] [address] ing:MEDOUTP Repository 01/13/2018/01/18/20 [id number] Ambulatory [address] [place] Repository 01/13/2018/01/14/20 [id number] Ambulatory [address] [place] Repository 01/06/2018/01/10/20 [id number] Ambulatory [address] [place] Repository 01/06/2018/01/07/20 [id number] Ambulatory [address] [place] Repository 12/31/2017/01/01/20 [id number] Ambulatory Dieudonne Dieudonne[address] ing:OU8THUUll Repository m: MS303 12/30/2017/01/03/20 [id number] Ambulatory [address] [place] Repository 12/30/2017/12/31/19 [id number] Ambulatory [address] [place] Repository 12/23/2017/12/27/19 [id number] Ambulatory [address] [place] Repository 12/23/2017/12/24/19 [id number] Ambulatory [address] [place] Repository 12/17/2017/12/18/19 [id number] Ambulatory S[place] Dieudonne[address] ing:MEDOUTP Repository 12/16/2017/12/20/19 [id number] Ambulatory [address] [place] Repository 12/16/2017/12/17/19 [id number] Ambulatory [address] [place] Repository 12/09/2017/12/13/19 [id number] Ambulatory [address] [place] Repository 12/09/2017/12/10/19 [id number] Ambulatory [place] [facility] [place] Repository 12/03/2017/12/04/19 [id number] Ambulatory Dieudonne Dieudonne[address] ing:MEDOUTP Repository 12/02/2017/12/06/19 [id number] Ambulatory [address] [place] Repository 12/02/2017/12/03/19 [id number] Ambulatory [address] [place] Repository 11/25/2017/11/29/19 [id number] Ambulatory [address] [place] Repository 11/25/2017/11/26/19 [id number] Ambulatory [address] [place] Repository 11/24/2017/11/29/19 [id number] Ambulatory [address] [place] Repository 11/21/2017/11/23/19 [id number] Ambulatory [address] [place] Repository 11/18/2017/11/22/19 [id number] Ambulatory [address] [place] Repository 11/18/2017/11/19/19 [id number] Ambulatory [address] [place] Repository 11/12/2017/11/13/19 [id number] Ambulatory Sells Sells[address] ing:MS3OUT Repository 11/11/2017/11/15/19 [id number] Ambulatory [address] [place] Repository 11/11/2017/11/12/19 [id number] Ambulatory [address] [place] Repository 11/05/2017/11/06/19 [id number] Ambulatory S[place] Dieudonne[address] ing:MEDOUTP Repository 11/04/2017 [id number] Ambulatory [facility] [place] Repository 11/04/2017/11/05/19 [id number] Ambulatory [address] [place] Repository 10/28/2017/11/01/19 [id number] Ambulatory [address] [place] Repository 10/28/2017/10/29/19 [id number] Ambulatory [address] [place] Repository 10/22/2017/10/23/19 [id number] Ambulatory Dieudonne Sells [address] [place] [address] ing:MEDOUTPRo Repository om: [id number] 10/21/2017/10/25/19 [id number] Ambulatory [address] [place] Repository 10/21/2017/10/22/19 [id number] Ambulatory [address] [place] Repository 10/14/2017/10/17/19 [id number] Ambulatory [address] [place] Repository 10/14/2017/10/14/19 [id number] Ambulatory [address] Repository 10/07/2017/10/10/19 [id number] Ambulatory [address] Repository 10/07/2017 [id number] Ambulatory [facility] Repository 10/01/2017/10/01/19 [id number] Ambulatory [place] [address] [facility] 09/30/2017/10/03/19 [id number] Ambulatory [address] Repository 09/30/2017/09/30/19 [id number] Ambulatory [address] Repository 09/23/2017/09/26/19 [id number] Ambulatory [address] Repository 09/23/2017/09/23/19 [id number] Ambulatory [address] Repository 09/16/2017/09/19/19 [id number] Ambulatory [address] Repository 09/16/2017/09/16/19 [id number] Ambulatory [address] Repository PAYERS PAYERS ENCOUNTER GUARANTOR PAYER SUBSCRIBER SOURCE 09/09/2018 GEOVANNA [id number] Primary GEOVANNA EMERSON: Sells BATSAMY Insurance:MEDICAL [id number] [id number]: (330) Number: Repository [phone] () [id number] Date:0116-34-41TN[address] [address]IJ: 09/09/2018 Secondary NOT GIVENUNK Dieudonne Insurance:SELF PAY [facility] Number: Effective Repository Date:2018-09-08 08/26/2018 GEOVANNA [id number] Primary GEOVANNA EMERSON: Dieudonne BATSAMY Insurance:MEDICAL [id number] [facility] [id number]: (330) Number: Repository [phone] () [id number] Date:0969-43-75[address], [place] [address]MT: 08/26/2018 Secondary NOT GIVENUNK Dieudonne Insurance:SELF PAY [facility] Effective Repository Date:2018-08-25 08/05/2018 GEOVANNA Kenny [id number] Primary Insurance:MED GEOVANNA EMERSON: Sells [place] MUTUAL TPAPolicy [id number], [place] Number: Hospital [id number]: 330 [id number] Repository [phone] (HP) Date:3654-36-39JH [address]QFJCVGXCY, [place] [address]WZ: CHECK WEBSITE 08/05/2018 Secondary NOT GIVENUNK Sells Insurance:SELF PAY [facility] Number: Effective Repository Date:2018-08-04 07/22/2018 GEOVANNA [id number] Primary Insurance:MED GEOVANNA EMERSON: Sells [place] MUTUAL TPAPolicy [id number] Number: Hospital [id number]: (653) [id number] Repository [phone]) Date:7758-35-51YM [address] [address]YSZRZYNVB, [place] [address]PH: CHECK WEBSITE 07/22/2018 Secondary NOT GIVENUNK Dieudonne Insurance:SELF PAY [facility] Number: Effective Repository Date:2018-07-21 07/01/2018 GEOVANNA Kenny [id number] Primary Insurance:MED GEOVANNA EMERSON: Dieudonne [place] MUTUAL TPAPolicy [id number], [place] Number: Hospital [id number]: ([phone]) [id number] Repository [phone]) Date:3807-80-98PH [address] [address]PGXPLDNZD, [place] [address]NV: CHECK WEBSITE 07/01/2018 Secondary NOT GIVENUNK Sells Insurance:SELF PAY [facility] Number: Effective Repository Date:2018-06-30 06/17/2018 GEOVANNA Kenny [id number] Primary Insurance:MED GEOVANNA EMERSON: Sells [place] MUTUAL TPAPolicy [id number], [place] Number: Hospital [address]Omi: 330 [id number] Repository [phone] (HP) Date:6723-74-38AY [address] [address]UOMBHEAKN, [place] [address]HL: CHECK WEBSITE 06/17/2018 Secondary NOT GIVENUNK Dieudonne Insurance:SELF PAY [facility] Number: Effective Repository Date:2018-06-16 06/03/2018 GEOVANNA [id number] Primary Insurance:MED GEOVANNA MURILLOB: Dieudonne [place] MUTUAL TPAPolicy [id number], [place] Number: Hospital [id number]: 330 [id number] Repository [phone] (HP) Date:0657-35-93IM [address] [address]HRSHIFOUB, [place] [address]TV: CHECK WEBSITE 06/03/2018 Secondary NOT GIVENUNK Dieudonne Insurance:SELF PAY [facility] Number: Effective Repository Date:2018-06-02 05/20/2018 GEOVANNA [id number] Primary Insurance:MED GEOVANNA MURILLOB: Dieudonne PAXTONDOJENELLE MUTUAL TPAPolicy [id number], [place] Number: Hospital [id number]: 330 [id number] Repository [phone] (HP) Date:1329-12-23KE [address] [address]LJAMSOCRW, [place] [address]NJ: CHECK WEBSITE 05/20/2018 Secondary NOT GIVENUNK Sells Insurance:SELF PAY [facility] Number: Effective Repository Date:2018-05-19 05/06/2018 GEOVANNA Kenny [id number] Primary Insurance:MED GEOVANNA EMERSON: Sells PAXTONDOJENELLE MUTUAL TPAPolicy [id number], [place] Number: Hospital [id number]: ([phone]) [id number] Repository [phone] (HP) Date:4183-23-84PK [address] [address]RPJYECIKB, [place] [address]KG: CHECK WEBSITE 05/06/2018 Secondary NOT GIVENUNK Dieudonne Insurance:SELF PAY [facility] Number: Effective Repository Date:2018-05-05 04/14/2018 GEOVANNA Kenny [id number] Primary Insurance:MED GEOVANNA EMERSON: Dieudonne PAXTONDORF MUTUAL TPAPolicy [id number], [place] Number: Hospital [id number]: 330 [id number] Repository [phone] (HP) Date:3738-38-31PX [address] [address]PYJVYIPPW, [place] [address]UO: CHECK WEBSITE 04/14/2018 Secondary NOT GIVENUNK Dieudonne Insurance:SELF PAY [facility] Number: Effective Repository Date:2018-04-14 04/01/2018 GEOVANNA [id number] Primary Insurance:MED GEOVANNA EMERSON: Dieudonne PAXTONDORF MUTUAL TPAPolicy [id number], [place] Number: [facility] [id number]: 330 [id number] Repository [phone] (HP) Date:3390-39-06PV [address] [address]CECGUXNUB, [place] [address]RW: CHECK WEBSITE 04/01/2018 Secondary NOT GIVENUNK Dieudonne Insurance:SELF PAY [facility] Number: Effective Repository Date:2018-03-31 03/11/2018 Geovanna Kenny [id number] Primary Insurance:MED Geovanna Emerson: Sells Jin MUTUAL TPAPolicy [id number], [place] Number: Hospital [id number]: 330 [id number] Repository [phone] (HP) Date:7832-45-08WZ [address] [address]KQUHVSYIH, [place] [address]VC: CHECK WEBSITE 03/11/2018 Secondary NOT GIVENUNK Sells Insurance:SELF PAY [facility] Number: Effective Repository Date:2018-03-10 02/18/2018 Geovanna Kenyn [id number] Primary Insurance:MED Geovanna Emerson: Sells Paxtondorf MUTUAL TPAPolicy [id number], [place] Number: Hospital [id number]: (317) [id number] Repository [phone]) Date:5451-16-83DA [address] [address], [place] [address]BT: CHECK WEBSITE 02/18/2018 Secondary NOT GIVENUNK Sells Insurance:SELF PAY [facility] Number: Effective Repository Date:2018-02-17 01/21/2018 Geovanna Kenny [id number] Primary Insurance:MED Geovanna MurilloB: Dieudonne [place] MUTUAL TPAPolicy [id number], [place] Number: Hospital [id number]: 330 [id number] Repository [phone]) Date:7952-78-36TW [address] [address]WXKBSXRHU, [place] [address]RJ: CHECK WEBSITE 01/21/2018 Secondary NOT GIVENUNK Sells Insurance:SELF PAY [facility] Number: Effective Repository Date:2018-01-20 01/14/2018 Geovanna [id number] Primary Insurance:MED Geovanna mEerson: Sells [place] MUTUAL TPAPolicy [id number], [place] Number: Hospital [id number]: [id number] Repository [phone] Date:3766-50-90QI [address] () [address]UPLIWOBWH, [place] [address]NZ: CHECK WEBSITE 01/14/2018 Secondary NOT GIVENUNK Dieudonne Insurance:SELF PAY [facility] Number: Effective Repository Date:2018-01-13 12/31/2017 Geovanna Kenny [id number] Primary Insurance:MED Geovanna Emerson: Sells [place] MUTUAL TPAPolicy [id number], [place] Number: Hospital [id number]: [id number] Repository [phone] Date:0873-16-43GH [address] (HP) [address]LWUTLBMUK, [place] [address]DU: CHECK WEBSITE 12/31/2017 Secondary NOT GIVENUNK Sells Insurance:SELF PAY [facility] Number: Effective Repository Date:2017-12-30 12/17/2017 Geovanna Kenny [id number] Primary Insurance:MED Geovanna Emerson: Dieudonne [place] MUTUAL TPAPolicy [id number], [place] Number: Hospital [id number]: [id number] Repository [phone] Date:9045-65-94OX [address] () [address]AXTKQJIHG, [place] [address]PF: CHECK WEBSITE 12/17/2017 Secondary NOT GIVENUNK Dieudonne Insurance:SELF PAY [facility] Number: Effective Repository Date:2017-12-15 12/03/2017 Geovanna [id number] Primary Insurance:MED Geovanna MurilloB: Dieudonne [place] MUTUAL TPAPolicy [id number][facility] [place] Number[facility] Hospital [address]Fzy: [id number] Repository [phone] Date:6231-78-57ZH [address] () [address]WFFZFNUTT, [place] [address]PH: CHECK WEBSITE 12/03/2017 Secondary NOT GIVENUNK Dieudonne Insurance:SELF PAY [facility] Number: Effective Repository Date:2017-12-02 11/12/2017 Geovanna Kenny [id number] Primary Insurance:MED Geovanna MurilloB: Dieudonne [place] MUTUAL TPAPolicy [id number], [place] Number: Hospital [address]Ihl: [id number] Repository [phone] Date:0361-71-32PM [address] () [address]UXMFBOINH, [place] [address]YV: CHECK WEBSITE 11/12/2017 Secondary NOT GIVENUNK Dieudonne Insurance:SELF PAY [facility] Number: Effective Repository Date:2017-11-11 11/05/2017 Geovanna Kenny [id number] Primary Insurance:MED Geovanna MurilloB: Sells [place] MUTUAL TPAPolicy [id number], [place] Number: Hospital [id number]: [id number] Repository [phone] Date:7060-84-64KG [address] (HP) [address]NNROQCTFV, [place] [address]CJ: CHECK WEBSITE 11/05/2017 Secondary NOT GIVENUNK Sells Insurance:SELF PAY [facility] Number: Effective Repository Date:2017-11-04 10/22/2017 Geovanna Kenny [id number] Primary Insurance:MED Geovanna Emerson: Sellscat Merlossamy [facility] [id number], [place] Number: [facility] [address]Nay: [id number] Repository [phone] Date:9418-96-66GF [address] () [address]NQAHURWJF, [place] [address]XI: CHECK WEBSITE 10/22/2017 Secondary NOT GIVENUNK Sells Insurance:SELF PAY [facility] Number: Effective Repository Date:2017-10-21 10/01/2017 Geovanna Kenny [id number] Primary Insurance:MED Geovanna Emerson: Dieudonne [facility] [id number], [place] Number: [facility] [address]Mfs: [id number] Repository [phone] Date:9477-52-58NZ [address] () [address]UILWCXYPS, [place] [address]SO: CHECK WEBSITE 10/01/2017 Secondary NOT GIVENUNK Sells Insurance:SELF PAY [facility] Number: Effective Repository Date:2017-09-30
== END 2018-08-05 13:25 | disposition home or self-care (01) ==
LOC: MEDOUTP 08:00 → MS2 08:01
PROVIDERS: Family Provider Family Medicine; PCP Family Medicine; Referring Provider Internal Medicine Hematology & Oncology; Visit Provider Internal Medicine Hematology & Oncology
DX: D69.3 Immune thrombocytopenic purpura (principal); D50.8 Other iron deficiency anemias
CPT/HCPCS: 96365; 96366; 96375; A4216; J1568

== ENCOUNTER 2018-08-26 08:07 | Outpatient (CLI) | payer OTHER, SELFPAY ==
[2018-08-26] MEDS: Acetaminophen 325 MG Tablet 650 MG PO (08:41)
[2018-08-26] MEDS: 0.9% NaCl VAD Flush 10 ML IV ×2 (08:41→12:52)
[2018-08-26] MEDS: DiphenhydrAMINE 50 MG/ML Syringe 25 MG IV (08:41)
[2018-08-26] MEDS: Hydrocortisone Sod Succinate 100 MG/2 ML Vial IV (08:41)
[2018-08-26 08:55] VITALS: BP 145/76; PULSE 73; RESP 18; TEMP 36.5
[2018-08-26] MEDS: Immune Globulin 20 gm Premixed Solution IV (09:20)
[2018-08-26 10:00] VITALS: BP 125/75; PULSE 70
[2018-08-26 10:35] VITALS: BP 130/80; PULSE 68; RESP 18
[2018-08-26] MEDS: Immune Globulin 20 gm Premixed Solution 3 GM IV (10:57)
[2018-08-26 11:07] VITALS: BP 132/77; PULSE 67; RESP 18
[2018-08-26] MEDS: Immune Globulin 20 gm Premixed Solution 4 GM IV (11:44)
[2018-08-26 12:29] VITALS: BP 121/73; PULSE 86; RESP 18
[2018-08-26] MEDS: Immune Globulin 10 gm Premixed Solution 4 GM IV (12:29)
== END 2018-08-26 13:08 | disposition home or self-care (01) ==
LOC: MEDOUTP 08:15 → MS3 08:18
PROVIDERS: Family Provider Family Medicine; PCP Family Medicine; Referring Provider Internal Medicine Hematology & Oncology; Visit Provider Internal Medicine Hematology & Oncology
DX: D69.3 Immune thrombocytopenic purpura (principal); D50.8 Other iron deficiency anemias
CPT/HCPCS: 96365; 96366; 96375; A4216; J1568

== ENCOUNTER 2018-09-09 08:16 | Outpatient (CLI) | payer OTHER, SELFPAY ==
[2018-09-09] VITALS (7 sets, daily range): BP systolic 123–131; BP diastolic 69–86; PULSE 69–90; RESP 16; TEMP 36.7–36.8; O2SAT 95–96
[2018-09-09] MEDS: 0.9% NaCl VAD Flush 10 ML IV ×2 (08:42→12:43)
[2018-09-09] MEDS: Acetaminophen 325 MG Tablet 650 MG PO (08:43)
[2018-09-09] MEDS: Hydrocortisone Sod Succinate 100 MG/2 ML Vial IV (08:43)
[2018-09-09] MEDS: DiphenhydrAMINE 50 MG/ML Syringe 25 MG IV (08:44)
[2018-09-09] MEDS: Immune Globulin 20 gm Premixed Solution IV ×3 (08:50→11:32)
[2018-09-09] MEDS: Immune Globulin 10 gm Premixed Solution IV (12:17)
--- OUTSIDE RECORDS SUMMARY | 2018-11-13 09:15 | XMS RPT_ITS ---
:1965 Author Organization [place] Support Name Relationship Address Phone ALLISONJOSÉ KAHNYL Unavailable [facility] + [place] [address] VICENTA FERNANDEZ Unavailable [address] + [place] [address] [facility] Unavailable [address] + [place] [address] ALLISON, ORLIN Unavailable [facility] + [place] [address] VICENTA FERNANDEZ Unavailable [address] + [place] [address] [facility] Unavailable [address] + [place] [address] ALLISON, ORLIN Unavailable [facility] + [place] [address] [facility] Unavailable [address] + [address] [place] [address] VICENTA FERNANDEZ Unavailable [address] + [place] [address] KEEGAN, ORLIN Unavailable [facility] + [place] [address] [facility] Unavailable [address] + [address] [place] [address] VICENTA FERNANDEZ Unavailable [address] + [place] [address] ALLISON, ORLIN Unavailable [facility] + [place] [address] [facility] Unavailable [address] + [address] [place] [address] VICENTA FERNANDEZ Unavailable [address] + [place] [address] KEEGAN, ORLIN Unavailable [facility] + [place] [address] [facility] Unavailable [address] + [address] [address] VICENTA FERNANDEZ Unavailable [address] + [place] [address] ALLISON, ORLIN Unavailable [facility] + [place] [address] [facility] Unavailable [address] + [address] [address] VICENTA FERNANDEZ Unavailable [address] + [place] [address] ALLISON, ORLIN Unavailable [facility] + [place] [address] [facility] Unavailable [address] + [address] [address] VICENTA FERNANDEZ Unavailable [address] + [place] [address] ALLISON, ORLIN Unavailable [facility] + [place] [address] [facility] Unavailable [address] + [address] [address] VICENTA FERNANDEZ Unavailable [address] + [place] [id number] ALLISON, ORLIN Unavailable [facility] + [place] [address] [facility] Unavailable [address] + [address] [address] VICENTA FERNANDEZ Unavailable [address] + [place] [address] ALLISON, ORLIN Unavailable [facility] + [place] [address] [facility] Unavailable [address] + [address] [address] VICENTA FERNANDEZ Unavailable [address] + [place] [address] ALLISON, ORLIN Unavailable [facility] + [place] [address] [facility] Unavailable [address] + [address] [place] [address] VICENTA FERNANDEZ Unavailable [address] + [place] [address] ALLISON, ORLIN Unavailable [facility] + [place] [address] [facility] Unavailable [address] + [address] [place] [address] VICENTA FERNANDEZ Unavailable [address] + [place] [address] ALLISON, ORLIN Unavailable [facility] + [place] [address] [facility] Unavailable [address] + [address] [place] [address] VICENTA FERNANDEZ Unavailable [address] + [place] [address] ALLISON, ORLIN Unavailable [facility] + [place] [address] [facility] Unavailable [address] + [address] [place] [address] VICENTA FERNANDEZ Unavailable [address] + [place] [address] ALLISON, ORLIN Unavailable [facility] + [place] [address] [facility] Unavailable [address] + [address] [address] VICENTA FERNANDEZ Unavailable [address] + [place] [address] ALLISON, ORLIN Unavailable [facility] + [place] [address] [facility] Unavailable [address] + [address] [place] [address] VICENTA FERNANDEZ Unavailable [address] + [place] [address] ALLISON, ORLIN Unavailable [facility] + [place] [address] [facility] Unavailable [address] + [address] [place] [address] VICENTA FERNANDEZ Unavailable [address] + [place] [address] KEEGAN ORLIN Unavailable [facility] + [place] [address] [facility] Unavailable [address] + [address] [address] JIM, VICENTA Unavailable [address] + [place] [address] KEEGAN, ORLIN Unavailable [facility] + [place] [address] [facility] Unavailable [address] + [address] [place] [address] VICENTA FERNANDEZ Unavailable [address] + [place] [address] KEEGAN ORLIN Unavailable [facility] + [place] [address] [facility] Unavailable [address] + [address] [place] [address] JIM, VICENTA Unavailable [address] + [place] [address] KEEGAN ORLIN Unavailable [facility] + [place] [address] [facility] Unavailable [address] + [address] [place] [address] VICENTA FERNANDEZ Unavailable [address] + [place] [address] Care Team Providers Name Role Phone TAL, DALLAS Dubon Referring Unavailable MASCI, DALLAS Dubon Referring Unavailable MASCI, DALLAS A [...] MASCI, DALLAS A Referring Unavailable MASCI, DALLAS Dubon Referring Unavailable JARAD WEBER Referring Unavailable MASCI, DALLAS Dubon Referring Unavailable MEGAN DAVENPORT (PIN CLEANER) Attending Unavailable MASCI, DALLAS Dubon Attending Unavailable MASCI, DALLAS A Referring Unavailable [...] Referring Unavailable MASCI, DALLAS A Referring Unavailable DAVENPORT, MEGAN Tobar (PIN CLEANER) Referring Unavailable MASCI, DALLAS A Referring Unavailable [...] Attending Unavailable Masci, Dallas Referring Unavailable [facility], [facility] Unavailable Masci, Dallas Attending Unavailable Masci, Dallas Referring Unavailable [facility], [facility] Unavailable Masci, Dallas Attending Unavailable Masci, Dallas Referring Unavailable [facility], [facility] Unavailable Masci, Dallas Attending Unavailable Masci, Dallas Referring Unavailable [facility], [facility] Unavailable Masci, Dallas Attending Unavailable Masci, Dallas Referring Unavailable [facility], [facility] Unavailable Masci, Dallas Attending Unavailable Masci, Dallas Referring Unavailable [facility], [facility] Unavailable Masci, Dallas Attending Unavailable Masci, Dallas Referring Unavailable [facility], [place] Unavailable Masci, Dallas Attending Unavailable Masci, Dallas Referring Unavailable [facility], [place] Unavailable Masci, Dallas Attending Unavailable Masci, Dallas Referring Unavailable [facility], [place] Unavailable Masci, Dallas Attending Unavailable Masci, Dallas Referring Unavailable [facility], [place] Unavailable Masci, Dallas Attending Unavailable Masci, Dallas Referring Unavailable [place], [place] Unavailable Masci, Dallas Attending Unavailable Masci, Dallas Referring Unavailable [facility], [facility] Unavailable Masci, Dallas Attending Unavailable Masci, Dallas Referring Unavailable [place], [facility] Unavailable Masci, Dallas Attending Unavailable Masci, Dallas Referring Unavailable [facility], [facility] Unavailable Masci, Dalals Attending Unavailable Masci, Dallas Referring Unavailable [facility], [facility] Unavailable Masci, Dallas Attending Unavailable Masci, Dallas Referring Unavailable [facility], [facility] Unavailable Masci, Dallas Attending Unavailable Masci, Dallas Referring Unavailable [facility], [facility] Unavailable Masci, Dallas Attending Unavailable Masci, Dallas Referring Unavailable [facility], [facility] Unavailable Masci, Dallas Attending Unavailable Masci, Dallas Referring Unavailable [place], [facility] Unavailable Mascdari, Dallas Attending Unavailable Masci, Dallas Referring Unavailable [place], [facility] Unavailable Masci, Dallas Attending Unavailable Masci, Dallas Referring Unavailable [place], [facility] Unavailable Mascdari, Dallas Attending Unavailable Masci, Dallas Referring Unavailable [place], [facility] Unavailable PROBLEMS PROBLEMS DATE TYPE CONDITION / CODE ATTENDING STATUS SOURCE 04/19/2018 Unknown 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 Active [place] [facility]open[facility] D69.3(ICD-10) Repository 03/10/2015 Active Hyperlipidemia, NA Active [facility] unspecified / Clinic Main E78.5(ICD-10) [place] Repository 11/04/2017 Active Type 2 diabetes NA Active [facility] mellitus without Clinic Main complications / [place] E11.9(ICD-10) Repository 04/26/2008 Active Immune NA Active [facility] Main [place] / [place] D69.3(ICD-10) Repository PROCEDURES PROCEDURES No Procedure Records FoundRESULTS RESULTS [place] CBC Collected: 09/15/2018 Status: F Source: [place] 7:43 AM [facility] REPOSITORY TYPE CODE TESTS RESULT OUT OF REFERENCE UNITS RANGE LAB WWBC 3.70-11.00 k/uL [facility] High WBC 12.75 LAB WRBC 3.90-5.20 m/uL [facility] RBC 4.09 LAB WHGB 11.5-15.5 g/dL [facility] Hemoglobin 12.7 LAB WHCT 36.0-46.0 % [facility] Hematocrit 38.7 LAB WMCV 80.0-100.0 fL [place] MCV 94.6 LAB WMCH 26.0-34.0 pg [facility] MCH 31.1 LAB WMCHC 30.5-36.0 g/dL [facility] MCHC 32.8 LAB WRDW 11.5-15.0 % [facility] RDW 14.6 LAB WPLT 150-400 k/uL Low [place] Platelet Cnt 122 LAB WMPV 9.0-12.7 fL [facility] High MPV 14.6 Result Comment: Test performed by: [facility] [place], [address] [place] [address]. IRON AND TIBC Collected: 09/15/2018 Status: F Source: [place] 7:43 AM [facility] REPOSITORY TYPE CODE TESTS RESULT OUT OF REFERENCE UNITS RANGE LAB IRN 41-186 ug/dL Iron 91 LAB TIBC 232-386 ug/dL TIBC 330 LAB SAT 15-57 % Transferrin Saturatn 28 Performed By: #### IRON, FERR #### [facility] [address] [place], [place] [address] FERRITIN Collected: 09/15/2018 Status: F Source: [place] 7:43 AM [facility] REPOSITORY TYPE CODE TESTS RESULT OUT OF REFERENCE UNITS RANGE LAB FERR 14.7-205.1 ng/mL Ferritin 169.1 Performed By: #### IRON, FERR #### [facility] [address] [place], [place] [address] [place] CBC Collected: 08/25/2018 Status: F Source: [place] 9:06 AM [facility] REPOSITORY TYPE CODE TESTS RESULT OUT OF REFERENCE UNITS RANGE LAB WWBC 3.70-11.00 k/uL [place] High WBC 11.86 LAB WRBC 3.90-5.20 m/uL [place] RBC 4.39 LAB WHGB 11.5-15.5 g/dL [facility] Hemoglobin 13.5 LAB WHCT 36.0-46.0 % [place] Hematocrit 42.2 LAB WMCV 80.0-100.0 fL [facility] MCV 96.1 LAB WMCH 26.0-34.0 pg [facility] MCH 30.8 LAB WMCHC 30.5-36.0 g/dL [facility] MCHC 32.0 LAB WRDW 11.5-15.0 % [facility] RDW 14.4 LAB WPLT 150-400 k/uL Low [place] Platelet Cnt 40 Result Comment: Result rechecked. Sample checked for a clot. LAB ABSNUC <0.01 k/uL Preliminary Absolute nRBC result. Interpret with caution. Final results may vary. Results requested and read back by: Result Comment: WBC=12.64,PLT=37 Performed By: #### WCBC #### [facility] [address] [place], [place] [address] [place] CBC Collected: 08/18/2018 Status: F Source: [place] 7:48 AM [facility] REPOSITORY TYPE CODE TESTS RESULT OUT OF REFERENCE UNITS RANGE LAB WWBC 3.70-11.00 k/uL High [place] WBC 13.18 Result Comment: Result rechecked. Sample checked for a clot. LAB WRBC 3.90-5.20 m/uL [facility] RBC 4.08 LAB WHGB 11.5-15.5 g/dL [place] Hemoglobin 12.7 LAB WHCT 36.0-46.0 % [facility] Hematocrit 39.7 LAB WMCV 80.0-100.0 fL [facility] MCV 97.3 LAB WMCH 26.0-34.0 pg [place] MCH 31.1 LAB WMCHC 30.5-36.0 g/dL [place] MCHC 32.0 LAB WRDW 11.5-15.0 % [facility] RDW 15.0 LAB WPLT 150-400 k/uL [place] Low Platelet Cnt 112 Result Comment: Result rechecked. Sample checked for a clot. LAB WMPV 9.0-12.7 fL Unable to [place] MPV report LAB ABSNUC <0.01 k/uL Preliminary Absolute nRBC result. Interpret with caution. Final results may vary. Results requested and read back by: Result Comment: WBC=13.67,KJT=877,MPV=13.6 Performed By: #### WCBC #### [facility] [address] [place], [place] [address] [place] CBC Collected: 08/11/2018 Status: F Source: [place] 8:18 AM [facility] REPOSITORY TYPE CODE TESTS RESULT OUT OF REFERENCE UNITS RANGE LAB WWBC 3.70-11.00 k/uL High [place] WBC 12.51 Result Comment: Result rechecked. No clot detected. LAB WRBC 3.90-5.20 m/uL [place] RBC 4.06 LAB WHGB 11.5-15.5 g/dL [place] Hemoglobin 12.5 LAB WHCT 36.0-46.0 % [place] Hematocrit 39.1 LAB WMCV 80.0-100.0 fL [facility] MCV 96.3 LAB WMCH 26.0-34.0 pg [place] MCH 30.8 LAB WMCHC 30.5-36.0 g/dL [place] MCHC 32.0 LAB WRDW 11.5-15.0 % [facility] RDW 14.7 LAB WPLT 150-400 k/uL [facility] Low Platelet Cnt 83 LAB WMPV 9.0-12.7 fL [facility] MPV High 14.8 Result Comment: Test performed at: [facility], [address] [place] [address]., [place] [address]. LAB ABSNUC <0.01 k/uL Preliminary Absolute nRBC result. Interpret with caution. Final results may vary. Results requested and read back by: Result Comment: WBC=12.71 Performed By: #### WCBC #### [facility] [address] [place], [place] [address] [place] CBC Collected: 08/04/2018 Status: F Source: [place] 8:07 AM [facility] REPOSITORY TYPE CODE TESTS RESULT OUT OF REFERENCE UNITS RANGE LAB WWBC 3.70-11.00 k/uL 12.90 High [place] WBC LAB WRBC 3.90-5.20 m/uL 4.04 [facility] RBC LAB WHGB 11.5-15.5 g/dL 12.5 [place] Hemoglobin LAB WHCT 36.0-46.0 % 39.2 [facility] Hematocrit LAB WMCV 80.0-100.0 fL 97.0 [place] MCV LAB WMCH 26.0-34.0 pg 30.9 [facility] MCH LAB WMCHC 30.5-36.0 g/dL 31.9 [facility] MCHC LAB WRDW 11.5-15.0 % 14.9 [facility] RDW LAB WPLT 150-400 k/uL 42 Low [facility] Platelet Cnt LAB WMPV 9.0-12.7 fL [facility] MPV Unable to assay. Analytical difficulty. Result Comment: Test performed at: [facility], [address] [place] [address]., [place] [address]. [place] CBC Collected: 07/28/2018 Status: F Source: [place] 7:51 AM [facility] REPOSITORY TYPE CODE TESTS RESULT OUT OF REFERENCE UNITS RANGE LAB WWBC 3.70-11.00 k/uL [place] High WBC 15.74 LAB WRBC 3.90-5.20 m/uL [place] RBC 3.99 LAB WHGB 11.5-15.5 g/dL [place] Hemoglobin 12.4 LAB WHCT 36.0-46.0 % [facility] Hematocrit 38.7 LAB WMCV 80.0-100.0 fL [facility] MCV 97.0 LAB WMCH 26.0-34.0 pg [facility] MCH 31.1 LAB WMCHC 30.5-36.0 g/dL [place] MCHC 32.0 LAB WRDW 11.5-15.0 % [facility] RDW 14.9 LAB WPLT 150-400 k/uL Low [place] Platelet Cnt 71 Result Comment: Result rechecked. Sample checked for a clot. LAB ABSNUC <0.01 k/uL Preliminary Absolute nRBC result. Interpret with caution. Final results may vary. Results requested and read back by: Result Comment: WBC=15.56,PLT=62 ABSNUC=0.04 Performed By: #### WCBC #### [facility] [employer] [place], [place] [address] [place] CBC Collected: 07/21/2018 Status: F Source: [place] 8:13 AM [facility] REPOSITORY TYPE CODE TESTS RESULT OUT OF REFERENCE UNITS RANGE LAB WWBC 3.70-11.00 k/uL [facility] High WBC 14.61 LAB WRBC 3.90-5.20 m/uL [place] RBC 4.07 LAB WHGB 11.5-15.5 g/dL [place] Hemoglobin 12.6 LAB WHCT 36.0-46.0 % [facility] Hematocrit 39.2 LAB WMCV 80.0-100.0 fL [place] MCV 96.3 LAB WMCH 26.0-34.0 pg [facility] MCH 31.0 LAB WMCHC 30.5-36.0 g/dL [facility] MCHC 32.1 LAB WRDW 11.5-15.0 % [place] RDW 14.4 LAB WPLT 150-400 k/uL Low [place] Platelet Cnt 19 Result Comment: Result checked and verified No clot detected. Called to and read back by: Anika Turcios LPN [place] 07/21/18 1543 J Magdi LAB WMPV 9.0-12.7 fL [facility] MPV Unable to report Performed By: #### WCBC #### [facility] [employer] [address] [place], [place] [address] [place] CBC Collected: 07/14/2018 Status: F Source: [place] 9:52 AM [facility] REPOSITORY TYPE CODE TESTS RESULT OUT OF REFERENCE UNITS RANGE LAB WWBC 3.70-11.00 k/uL [facility] High WBC 15.62 LAB WRBC 3.90-5.20 m/uL [place] RBC 4.06 LAB WHGB 11.5-15.5 g/dL [place] Hemoglobin 12.6 LAB WHCT 36.0-46.0 % [facility] Hematocrit 39.1 LAB WMCV 80.0-100.0 fL [place] MCV 96.3 LAB WMCH 26.0-34.0 pg [facility] MCH 31.0 LAB WMCHC 30.5-36.0 g/dL [place] MCHC 32.2 LAB WRDW 11.5-15.0 % [facility] RDW 14.6 LAB WPLT 150-400 k/uL Low [facility] Platelet Cnt 90 Result Comment: Result rechecked. Sample checked for a clot. LAB WMPV 9.0-12.7 fL Unable to [place] MPV assay. Analytical difficulty. Result Comment: Test performed at: [facility], [address] [place] [address]., [place] [address]. LAB ABSNUC <0.01 k/uL [facility]IN[facility] Absolute nRBC PLATELET=75 Performed By: #### WCBC #### [facility] [address] [place], [place] [address] [place] CBC Collected: 07/07/2018 Status: F Source: [place] 8:11 AM [facility] REPOSITORY TYPE CODE TESTS RESULT OUT OF REFERENCE UNITS RANGE LAB WWBC 3.70-11.00 k/uL [place] WBC 10.21 LAB WRBC 3.90-5.20 m/uL [place] RBC 3.92 LAB WHGB 11.5-15.5 g/dL [place] Hemoglobin 12.1 LAB WHCT 36.0-46.0 % [facility] Hematocrit 37.8 LAB WMCV 80.0-100.0 fL [place] MCV 96.4 LAB WMCH 26.0-34.0 pg [place] MCH 30.9 LAB WMCHC 30.5-36.0 g/dL [facility] MCHC 32.0 LAB WRDW 11.5-15.0 % [place] RDW 14.6 LAB WPLT 150-400 k/uL Low [facility] Platelet Cnt 124 LAB WMPV 9.0-12.7 fL [facility] High MPV 14.5 Result Comment: Test performed at: [facility] [place], [address] [place] [address]. [place] CBC Collected: 06/30/2018 Status: F Source: [place] 7:42 AM [facility] REPOSITORY TYPE CODE TESTS RESULT OUT OF REFERENCE UNITS RANGE LAB WWBC 3.70-11.00 k/uL High [place] WBC 11.40 Result Comment: Result rechecked. No clot detected. LAB WRBC 3.90-5.20 m/uL [facility] RBC 4.14 LAB WHGB 11.5-15.5 g/dL [place] Hemoglobin 13.0 LAB WHCT 36.0-46.0 % [place] Hematocrit 39.6 LAB WMCV 80.0-100.0 fL [place] MCV 95.7 LAB WMCH 26.0-34.0 pg [place] MCH 31.4 LAB WMCHC 30.5-36.0 g/dL [facility] MCHC 32.8 LAB WRDW 11.5-15.0 % [facility] RDW 14.6 LAB WPLT 150-400 k/uL [facility] Low Platelet Cnt 25 Result Comment: Result rechecked. LAB WMPV 9.0-12.7 fL Unable to [place] MPV report LAB ABSNUC <0.01 k/uL Preliminary Absolute nRBC result. Interpret with caution. Final results may vary. Results requested and read back by: Result Comment: WBC=11.92,PLT=17 P.DROUHARD BY REGULO 0758 Performed By: #### WCBC #### [facility] [address] [place], [place] [address] CNOVSP Observed: 06/23/2018 Status: COMPLETED Source: [place] 9:00 AM [facility] REPOSITORY Visit (SP) Office (HEMAWS) GEOVANNA FERNANDEZ ([id number]) 1965 F Date Time Provider Department 06/23/18 9:00 AM TAL [place] ROPERCESILIA During your visit today, we recorded the [...] bleeding) on 05/24/2008 and was admitted to [facility] for urgent IVIG administration. Tolerated 1 gm/kg [...] No jaundice or rash. No petechiae. 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 No focal motor [...] Anai Turcios LPN Referring Provider: DALLAS MCCALLUM [[id number]] Allergies As of Date: 06/23/2018 Noted Allergy Reaction ASA (SALICYLATES) 07/22/2005 4 - Hives BEES 04/01/2008 CLINDAMYCIN 01/11/2011 14 - Other: See Comments Comments: lightheadness PENICILLINS 07/22/2005 2 - Rash 9 - Itching seasonal allergies [Other] 07/22/2005 ZOFRAN (ONDANSETRON) 04/30/2013 8 - GI Upset Comments: Worse nausea. Date Reviewed: 06/23/2018 Reviewed by: Anai Turcios LPN - Fully [...] (morbid obesity*INVALID FOR* Visit Notes: >> Anai Turcios LPN TueJun 23, 2018 9:00 AM Status: Signed Est pt.discuss recent lab results, Nplate today Anai Turcios LPN Encounter Status:Closed by DALLAS MCCALLUM DO on 06/23/18 PROGRESS Observed: 06/23/2018 Status: COMPLETED Source: [place] 8:54 AM [facility] REPOSITORY HNO ID: [id number] Author: [place] Mccallum Service: (none) Author Type: Physician Type: Progress Notes Filed: 06/23/2018 9:05 AM Note Text: Diagnosis: 1) ITP HPI: Patient is a 52 yo 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 Previous treatment: 1) Prednisone for 5 weeks initially (starting 04/18/2008) with slow platelet response. Count rapidly decreased to 1K (no bleeding) on 05/24/2008 and was admitted to [facility] for urgent IVIG administration. Tolerated 1 gm/kg [...] No jaundice or rash. No petechiae. 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 No focal motor [...] AND TIBC Collected: 06/23/2018 Status: F Source: [place] 7:59 AM [facility] REPOSITORY TYPE CODE TESTS RESULT OUT OF REFERENCE UNITS RANGE LAB IRN 41-186 ug/dL Iron 107 LAB TIBC 232-386 ug/dL TIBC 343 LAB SAT 15-57 % Transferrin Saturatn 31 Performed By: #### IRON, FERR #### [facility] [address] [place], [place] [address] FERRITIN Collected: 06/23/2018 Status: F Source: [place] 7:59 AM [facility] REPOSITORY TYPE CODE TESTS RESULT OUT OF REFERENCE UNITS RANGE LAB FERR 14.7-205.1 ng/mL Ferritin 138.7 Performed By: #### IRON, FERR #### [facility] [address] [place], [place] [address] [place] CBC AND DIFF Collected: 06/23/2018 Status: F Source: [place] 7:59 AM [facility] REPOSITORY TYPE CODE TESTS RESULT OUT OF REFERENCE UNITS RANGE LAB WWBC 3.70-11.00 k/uL [facility] WBC 10.94 LAB WRBC 3.90-5.20 m/uL [place] RBC 3.98 LAB WHGB 11.5-15.5 g/dL [place] Hemoglobin 12.4 LAB WHCT 36.0-46.0 % [place] Hematocrit 38.8 LAB WMCV 80.0-100.0 fL [place] MCV 97.5 LAB WMCH 26.0-34.0 pg [place] MCH 31.2 LAB WMCHC 30.5-36.0 g/dL [facility] MCHC 32.0 LAB WRDW 11.5-15.0 % [place] High RDW 15.1 LAB WPLT 150-400 k/uL Low [facility] Platelet Cnt 124 LAB WMPV 9.0-12.7 fL [place] High MPV 14.8 Result Comment: Test performed at: [address] [place] [address]. LAB CBCCOM Preliminary Comment result. Interpret with caution. Final results may vary. Results requested and read back by: Result Comment: WBC=11.05 LAB WNEU % 57 [place] Neut% LAB WLYM % 30 [place] Lymp% LAB WMON % 8 [facility] Refugio% LAB WEO % 3 [facility] Eos% LAB WBLAST 0 % 2 High [place] Blast LAB WANEU 1.45-7.5 k/uL 0 6.24 [facility] Abs Neut LAB WALYM 1.00-4.0 k/uL 0 3.28 [place] Abs Lymp LAB WAMON <0.87 k/uL 0.88 High [facility] Abs Refugio LAB WAEO <0.46 k/uL 0.33 [place] Abs Eos LAB WRBCM Anisocytosis [place] RBC Morph Result Comment: Occasional Unger [place] Bodies LAB WPLTE [facility] Platelet Platelet Est estimate decreased Performed By: #### WCBCDF #### [facility] [address] [place] [id number] [place] CBC Collected: 06/16/2018 Status: F Source: [place] 7:36 AM [facility] REPOSITORY TYPE CODE TESTS RESULT OUT OF REFERENCE UNITS RANGE LAB WWBC 3.70-11.00 k/uL High [facility] WBC 12.38 Result Comment: Result rechecked. LAB WRBC 3.90-5.20 m/uL [facility] RBC 4.03 LAB WHGB 11.5-15.5 g/dL [facility] Hemoglobin 12.7 LAB WHCT 36.0-46.0 % [place] Hematocrit 38.6 LAB WMCV 80.0-100.0 fL [facility] MCV 95.8 LAB WMCH 26.0-34.0 pg [place] MCH 31.5 LAB WMCHC 30.5-36.0 g/dL [place] MCHC 32.9 LAB WRDW 11.5-15.0 % [place] RDW 14.7 LAB WPLT 150-400 k/uL [facility] Low Platelet Cnt 16 Result Comment: Result rechecked. No clot detected. LAB WMPV 9.0-12.7 fL Unable to [facility] MPV report LAB ABSNUC <0.01 k/uL Preliminary Absolute nRBC result. Interpret with caution. Final results may vary. Results requested and read back by: Result Comment: WBC=13.24,PLT=12 P.DROUHARD BY REGULO 0757 Performed By: #### WCBC #### [facility] [address] [place], [place] [address] [place] CBC Collected: 06/09/2018 Status: F Source: [place] 7:43 AM [facility] REPOSITORY TYPE CODE TESTS RESULT OUT OF REFERENCE UNITS RANGE LAB WWBC 3.70-11.00 k/uL 11.53 High [place] WBC LAB WRBC 3.90-5.20 m/uL 4.00 [facility] RBC LAB WHGB 11.5-15.5 g/dL 12.5 [place] Hemoglobin LAB WHCT 36.0-46.0 % 38.7 [place] Hematocrit LAB WMCV 80.0-100.0 fL 96.8 [place] MCV LAB WMCH 26.0-34.0 pg 31.3 [place] MCH LAB WMCHC 30.5-36.0 g/dL 32.3 [place] MCHC LAB WRDW 11.5-15.0 % 14.8 [place] RDW LAB WPLT 150-400 k/uL 77 Low [place] Platelet Cnt LAB WMPV 9.0-12.7 fL [place] MPV Unable to assay. Analytical difficulty. Result Comment: Test performed at: [facility], [address] [place] [address] Rd[address] [place] [address]. [place] CBC Collected: 06/02/2018 Status: F Source: [place] 8:13 AM [facility] HOSPITAL REPOSITORY TYPE CODE TESTS RESULT OUT OF REFERENCE UNITS RANGE LAB WWBC 3.70-11.00 k/uL [place] High WBC 15.17 LAB WRBC 3.90-5.20 m/uL [place] RBC 4.06 LAB WHGB 11.5-15.5 g/dL [place] Hemoglobin 12.7 LAB WHCT 36.0-46.0 % [place] Hematocrit 38.4 LAB WMCV 80.0-100.0 fL [place] MCV 94.6 LAB WMCH 26.0-34.0 pg [place] MCH 31.3 LAB WMCHC 30.5-36.0 g/dL [place] MCHC 33.1 LAB WRDW 11.5-15.0 % [place] RDW 14.4 LAB WPLT 150-400 k/uL Low [place] Platelet Cnt 24 Result Comment: Result checked and verified LAB WMPV 9.0-12.7 fL Unable to [place] MPV assay. Analytical difficulty. Result Comment: Test performed at: [facility], [address] [place] [address] Rd[address] [place] [address]. [place] CBC Collected: 05/26/2018 Status: F Source: [place] 8:12 AM [facility] REPOSITORY TYPE CODE TESTS RESULT OUT OF REFERENCE UNITS RANGE LAB WWBC 3.70-11.00 k/uL [place] High WBC 11.27 LAB WRBC 3.90-5.20 m/uL [place] RBC 4.25 LAB WHGB 11.5-15.5 g/dL [place] Hemoglobin 13.3 LAB WHCT 36.0-46.0 % [place] Hematocrit 40.4 LAB WMCV 80.0-100.0 fL [place] MCV 95.1 LAB WMCH 26.0-34.0 pg [place] MCH 31.3 LAB WMCHC 30.5-36.0 g/dL [place] MCHC 32.9 LAB WRDW 11.5-15.0 % [place] RDW 14.6 LAB WPLT 150-400 k/uL Low [place] Platelet Cnt 143 LAB WMPV 9.0-12.7 fL [place] High MPV 14.5 Result Comment: Test performed at: [facility], [address] [place], [place] [address]shyam [address] [place] [address]. [place] CBC Collected: 05/19/2018 Status: F Source: [place] 7:43 AM [facility] REPOSITORY TYPE CODE TESTS RESULT OUT OF REFERENCE UNITS RANGE LAB WWBC 3.70-11.00 k/uL [place] High WBC 11.08 LAB WRBC 3.90-5.20 m/uL [place] RBC 4.00 LAB WHGB 11.5-15.5 g/dL [place] Hemoglobin 12.5 LAB WHCT 36.0-46.0 % [place] Hematocrit 38.6 LAB WMCV 80.0-100.0 fL [place] MCV 96.5 LAB WMCH 26.0-34.0 pg [place] MCH 31.3 LAB WMCHC 30.5-36.0 g/dL [place] MCHC 32.4 LAB WRDW 11.5-15.0 % [place] RDW 14.7 LAB WPLT 150-400 k/uL Low [place] Platelet Cnt 20 Result Comment: Result checked and verified LAB WMPV 9.0-12.7 fL Unable to [place] MPV assay. Analytical difficulty. Result Comment: Test performed at: [facility], [facility] [address] [place] [address]. [place] CBC Collected: 05/12/2018 Status: F Source: [place] 8:35 AM [facility] REPOSITORY TYPE CODE TESTS RESULT OUT OF REFERENCE UNITS RANGE LAB WWBC 3.70-11.00 k/uL High [place] WBC 11.86 Result Comment: Result checked and verified No clot detected. LAB WRBC 3.90-5.20 m/uL [place] RBC 3.95 LAB WHGB 11.5-15.5 g/dL [place] Hemoglobin 12.4 LAB WHCT 36.0-46.0 % [place] Hematocrit 37.8 LAB WMCV 80.0-100.0 fL [place] MCV 95.7 LAB WMCH 26.0-34.0 pg [place] MCH 31.4 LAB WMCHC 30.5-36.0 g/dL [place] [...] Comment: WBC=11.29,PLT=92 Performed By: #### WCBC #### [facility] [address] [place], [place] [address] [place] CBC Collected: 05/05/2018 Status: F Source: [place] 8:03 AM [facility] REPOSITORY TYPE CODE TESTS RESULT OUT OF REFERENCE UNITS RANGE LAB WWBC 3.70-11.00 k/uL [place] High WBC 13.64 LAB WRBC 3.90-5.20 m/uL [place] RBC 3.99 LAB WHGB 11.5-15.5 g/dL [place] Hemoglobin 12.5 LAB WHCT 36.0-46.0 % [place] Hematocrit 38.2 LAB WMCV 80.0-100.0 fL [place] MCV 95.7 LAB WMCH 26.0-34.0 pg [place] MCH 31.3 LAB WMCHC 30.5-36.0 g/dL [place] MCHC 32.7 LAB WRDW 11.5-15.0 % [place] RDW 14.5 LAB WPLT 150-400 k/uL Low [place] Alert Platelet Cnt 7 Result Comment: Result checked and verified No clot detected. LAB WMPV 9.0-12.7 fL Unable to [place] MPV report LAB ABSNUC <0.01 k/uL Preliminary Absolute nRBC result. Interpret with caution. Final results may vary. Results requested and read back by: Result Comment: PLT=3,REESE,BY REGULO,1111 Performed By: #### WCBC #### [facility] [address] [place], [place] [address] [place] CBC Collected: 04/28/2018 Status: F Source: [place] 7:41 AM [facility] REPOSITORY TYPE CODE TESTS RESULT OUT OF REFERENCE UNITS RANGE LAB WWBC 3.70-11.00 k/uL 15.15 High [place] WBC LAB WRBC 3.90-5.20 m/uL 4.10 [place] RBC LAB WHGB 11.5-15.5 g/dL 12.8 [place] Hemoglobin LAB WHCT 36.0-46.0 % 39.0 [place] Hematocrit LAB WMCV 80.0-100.0 fL 95.1 [place] MCV LAB WMCH 26.0-34.0 pg 31.2 [place] MCH LAB WMCHC 30.5-36.0 g/dL 32.8 [place] MCHC LAB WRDW 11.5-15.0 % 14.8 [place] RDW LAB WPLT 150-400 k/uL 84 Low [place] Platelet Cnt LAB WMPV 9.0-12.7 fL [place] MPV Unable to assay. Analytical difficulty. Result Comment: NO CLOT DETECTED URINALYSIS WITH Collected: 04/21/2018 Status: F Source: [facility] 7:45 AM [facility] REPOSITORY TYPE CODE TESTS RESULT OUT OF RANGE REFERENCE UNITS LAB UCOL Yellow Color Yellow LAB [facility] Clear Clarity Abnormal Cloudy Alert LAB UGLUC Negative mg/dL Glucose, Urine Negative LAB UBIL Negative Bilirubin, Urine Negative LAB UKET Negative Ketones, Urine Negative LAB USPG 1.005-1.030 Specific [place], Ur 1.008 LAB UHGB Negative Abnormal Hemoglobin/Blood, [...] Epithelial Cells Performed By: #### UAWMIC #### [facility] [address], [place] [address] Observed: 04/21/2018 Status: F Source: [place] URINE CULTURE 7:45 AM [facility] REPOSITORY Sp. Request/Comment: - Specimen received [...] <=0.5 F Performed By: #### URCUL #### [facility] [address], [place] [address] [place] CBC Collected: 04/21/2018 Status: F Source: [place] 7:38 AM [facility] REPOSITORY TYPE CODE TESTS RESULT OUT OF REFERENCE UNITS RANGE LAB WWBC 3.70-11.00 k/uL [place] High WBC 12.75 LAB WRBC 3.90-5.20 m/uL [place] RBC 4.08 LAB WHGB 11.5-15.5 g/dL [place] Hemoglobin 12.8 LAB WHCT 36.0-46.0 % [place] Hematocrit 38.9 LAB WMCV 80.0-100.0 fL [place] MCV 95.3 LAB WMCH 26.0-34.0 pg [place] MCH 31.4 LAB WMCHC 30.5-36.0 g/dL [place] MCHC 32.9 LAB WRDW 11.5-15.0 % [place] RDW 14.3 LAB WPLT 150-400 k/uL Low [place] Platelet Cnt 34 Result Comment: Result rechecked. Sample checked for a clot. LAB ABSNUC <0.01 k/uL Preliminary Absolute nRBC result. Interpret with caution. Final results may vary. Results requested and read back by: Result Comment: PLT=28,MSaqibRESENDEZ Absolute NRBC=0.00 Performed By: #### WCBC #### [facility] [address] [place], [place] [address] [place] CBC Collected: 04/14/2018 Status: F Source: [place] 7:30 AM [facility] REPOSITORY TYPE CODE TESTS RESULT OUT OF REFERENCE UNITS RANGE LAB WWBC 3.70-11.00 k/uL [place] High WBC 13.11 LAB WRBC 3.90-5.20 m/uL [place] RBC 4.16 LAB WHGB 11.5-15.5 g/dL [place] Hemoglobin 13.0 LAB WHCT 36.0-46.0 % [place] Hematocrit 39.8 LAB WMCV 80.0-100.0 fL [place] MCV 95.7 LAB WMCH 26.0-34.0 pg [place] MCH 31.3 LAB WMCHC 30.5-36.0 g/dL [place] MCHC 32.7 LAB WRDW 11.5-15.0 % [place] RDW 14.2 LAB WPLT 150-400 k/uL Low [place] Platelet Cnt 22 Result Comment: Result checked and verified NO CLOT LAB WMPV 9.0-12.7 fL Unable to [place] MPV assay. Analytical difficulty. [place] CBC Collected: 04/07/2018 Status: F Source: [place] 7:34 AM [facility] REPOSITORY TYPE CODE TESTS RESULT OUT OF REFERENCE UNITS RANGE LAB WWBC 3.70-11.00 k/uL [place] High WBC 13.39 LAB WRBC 3.90-5.20 m/uL [place] RBC 3.94 LAB WHGB 11.5-15.5 g/dL [place] Hemoglobin 12.3 LAB WHCT 36.0-46.0 % [place] Hematocrit 37.8 LAB WMCV 80.0-100.0 fL [place] MCV 95.9 LAB WMCH 26.0-34.0 pg [place] MCH 31.2 LAB WMCHC 30.5-36.0 g/dL [place] MCHC 32.5 LAB WRDW 11.5-15.0 % [place] RDW 14.1 LAB WPLT 150-400 k/uL Low [place] Platelet Cnt 38 Result Comment: Result rechecked. NO CLOT LAB WMPV 9.0-12.7 fL Unable to [place] MPV assay. Analytical difficulty. [place] CBC Collected: 03/31/2018 Status: F Source: [place] 7:35 AM [facility] REPOSITORY TYPE CODE TESTS RESULT OUT OF REFERENCE UNITS RANGE LAB WWBC 3.70-11.00 k/uL [place] High WBC 14.59 LAB WRBC 3.90-5.20 m/uL [place] RBC 4.05 LAB WHGB 11.5-15.5 g/dL [place] Hemoglobin 12.6 LAB WHCT 36.0-46.0 % [place] Hematocrit 38.9 LAB WMCV 80.0-100.0 fL [place] MCV 96.0 LAB WMCH 26.0-34.0 pg [place] MCH 31.1 LAB WMCHC 30.5-36.0 g/dL [place] MCHC 32.4 LAB WRDW 11.5-15.0 % [place] RDW 13.6 LAB WPLT 150-400 k/uL Low [place] Platelet Cnt 14 Result Comment: Result rechecked. No clot detected. Called to and read back by: [place] [id number] 03/31/2018 1817 Jared LAB WMPV 9.0-12.7 fL [place] MPV Unable to report LAB ABSNUC <0.01 k/uL Absolute nRBC Rechecked, called to and read back by: Result Comment: PLT=7,RosalbaISAMAR Performed By: #### WCBC #### [facility] [address] [place], [place] [address] CNOVSP Observed: 03/24/2018 Status: COMPLETED Source: [place] 9:00 AM [facility] REPOSITORY Visit (SP) Office (HEMAWS) GEOVANNA FERNANDEZ ([id number]) 1965 F Date Time Provider Department 03/24/18 9:00 AM DALLAS MCCALLUM During your visit today, we recorded the following information about you: Temperature Pulse Blood pressure Weight 98.3 degrees 96/minute 118/82 103 kg Bri Alyce FLORENCE 03/24/2018 8:31 AM Signed Est patient. NPlate today. Bri Mccallum DO 03/24/2018 9:21 AM Signed Diagnosis: 1) ITP HPI: Patient is a 52 yo 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 Previous treatment: 1) Prednisone for 5 weeks initially (starting 04/18/2008) with slow platelet response. Count rapidly decreased to 1K (no bleeding) on 05/24/2008 and was admitted to [facility] for urgent IVIG administration. Tolerated 1 gm/kg [...] No jaundice or rash. No petechiae. 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 -The only side effect she experiences migraine headache following IVIG administration but this is nicely relieved with Maxalt. Plan: -She'll continue weekly CBC with possible Nplate and IVIG administration. -Continue oral iron supplement. Dallas Mccallum DO Referring Provider: DALLAS MCCALLUM [[id number]] Allergies As of Date: 03/24/2018 Noted Allergy [...] 03/24/18 PROGRESS Observed: 03/24/2018 Status: COMPLETED Source: [place] 8:53 AM [facility] REPOSITORY O ID: [id number] Author: Dallas Mccallum Service: (none) Author Type: Physician Type: Progress Notes Filed: 03/24/2018 9:21 AM Note Text: Diagnosis: 1) ITP HPI: Patient is a 52 yo 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 Previous treatment: 1) Prednisone for 5 weeks initially (starting 04/18/2008) with slow platelet response. Count rapidly decreased to 1K (no bleeding) on 05/24/2008 and was admitted to [facility] for urgent IVIG administration. Tolerated 1 gm/kg [...] No jaundice or rash. No petechiae. 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 -The only side effect she experiences migraine headache following IVIG administration but this is nicely relieved with Maxalt. Plan: -She'll continue weekly CBC with possible Nplate and IVIG administration. -Continue oral iron supplement. Dallas Mccallum DO [place] CBC Collected: 03/24/2018 Status: F Source: [place] 7:43 AM [facility] REPOSITORY TYPE CODE TESTS RESULT OUT OF REFERENCE UNITS RANGE LAB WWBC 3.70-11.00 k/uL [place] High WBC 19.08 LAB WRBC 3.90-5.20 m/uL [place] RBC 4.17 LAB WHGB 11.5-15.5 g/dL [place] Hemoglobin 13.1 LAB WHCT 36.0-46.0 % [place] Hematocrit 39.8 LAB WMCV 80.0-100.0 fL [place] MCV 95.4 LAB WMCH 26.0-34.0 pg [place] MCH 31.4 LAB WMCHC 30.5-36.0 g/dL [place] MCHC 32.9 LAB WRDW 11.5-15.0 % [place] RDW 14.2 LAB WPLT 150-400 k/uL Low [place] Platelet Cnt 54 Result Comment: Result rechecked. Sample checked for a clot. LAB WMPV 9.0-12.7 fL Unable to [place] MPV report LAB ABSNUC <0.01 k/uL Preliminary Absolute nRBC result. Interpret with caution. Final results may vary. Results requested and read back by: Result Comment: PLT=46,NO CLOT DETECTED Performed By: #### WCBC #### [facility] [address] [place], [place] [address] [place] CBC Collected: 03/17/2018 Status: F Source: [place] 7:38 AM [facility] REPOSITORY TYPE CODE TESTS RESULT OUT OF REFERENCE UNITS RANGE LAB WWBC 3.70-11.00 k/uL [place] WBC 9.45 LAB WRBC 3.90-5.20 m/uL [place] RBC 4.21 LAB WHGB 11.5-15.5 g/dL [place] Hemoglobin 13.1 LAB WHCT 36.0-46.0 % [place] Hematocrit 40.2 LAB WMCV 80.0-100.0 fL [place] MCV 95.5 LAB WMCH 26.0-34.0 pg [place] MCH 31.1 LAB WMCHC 30.5-36.0 g/dL [place] MCHC 32.6 LAB WRDW 11.5-15.0 % [place] RDW 14.5 LAB WPLT 150-400 k/uL Low [place] Platelet Cnt 49 Result Comment: Result checked and verified LAB WMPV 9.0-12.7 fL Unable to [place] MPV assay. Analytical difficulty. [place] CBC Collected: 03/10/2018 Status: F Source: [place] 7:50 AM [facility] REPOSITORY TYPE CODE TESTS RESULT OUT OF REFERENCE UNITS RANGE LAB WWBC 3.70-11.00 k/uL [place] High WBC 12.90 LAB WRBC 3.90-5.20 m/uL [place] RBC 4.09 LAB WHGB 11.5-15.5 g/dL [place] Hemoglobin 12.8 LAB WHCT 36.0-46.0 % [place] Hematocrit 39.0 LAB WMCV 80.0-100.0 fL [place] MCV 95.4 LAB WMCH 26.0-34.0 pg [place] MCH 31.3 LAB WMCHC 30.5-36.0 g/dL [place] MCHC 32.8 LAB WRDW 11.5-15.0 % [place] RDW 14.4 LAB WPLT 150-400 k/uL Low [place] Platelet Cnt 17 Result Comment: Result rechecked. No clot detected. Platelet count confirmed by manual review of peripheral blood smear. Final report called to and read back by Jason [phone] [id number] 7.20.18 K.Ernie LAB WMPV 9.0-12.7 fL High [place] MPV 16.8 LAB ABSNUC <0.01 k/uL Absolute nRBC Rechecked, called to and read back by: Result Comment: PLT=8,REESE Performed By: #### WCBC #### [facility] [address] [place] [address] [place] CBC Collected: 03/03/2018 Status: F Source: [place] 7:35 AM [facility] REPOSITORY TYPE CODE TESTS RESULT OUT OF REFERENCE UNITS RANGE LAB WWBC 3.70-11.00 k/uL [place] High WBC 22.22 LAB WRBC 3.90-5.20 m/uL [place] RBC 4.11 LAB WHGB 11.5-15.5 g/dL [place] Hemoglobin 13.0 LAB WHCT 36.0-46.0 % [place] Hematocrit 39.2 LAB WMCV 80.0-100.0 fL [place] MCV 95.4 LAB WMCH 26.0-34.0 pg [place] MCH 31.6 LAB WMCHC 30.5-36.0 g/dL [place] MCHC 33.2 LAB WRDW 11.5-15.0 % [place] RDW 14.3 LAB WPLT 150-400 k/uL Low [place] Platelet Cnt 36 Result Comment: Result checked and verified LAB WMPV 9.0-12.7 fL Unable to [place] MPV assay. Analytical difficulty. BASIC METABOLIC PANL Collected: 02/24/2018 Status: F Source: [place] 7:35 AM [facility] REPOSITORY TYPE CODE TESTS RESULT OUT OF REFERENCE UNITS RANGE LAB GLU 74-99 mg/dL High Glucose 144 Result Comment: The [place] [employer] (ADA) provides guidance for cutoff [...] Standards of Medical Care in Diabetes 2016, [place] [employer]. Diabetes Care. 2016.39(Suppl 1). LAB [...] GFR. Performed By: #### BMP, HBA1C #### [facility] [address] [place], [place] [address] HEMOGLOBIN A1C Collected: 02/24/2018 Status: F Source: [place] 7:35 [facility] REPOSITORY TYPE CODE TESTS RESULT OUT OF REFERENCE UNITS RANGE LAB HGBA1C 4.3-5.6 % High Hemoglobin A1c 5.7 LAB HBA0 mg/dL Est. Average Glucose 117 Result Comment: eAG: (Estimated average glucose) is a calculated value from HgbA1c and is software sales representative of the average blood glucose level in the last 2-3 month period. Performed By: #### BMP, HBA1C #### [facility] [address] [place], [place] [address] ALBUMIN/CREAT RATIO Collected: 02/24/2018 Status: F Source: [place] 7:35 [facility] REPOSITORY TYPE CODE TESTS RESULT OUT OF REFERENCE UNITS RANGE LAB UCRR 20-300 mg/dL 30.0 Creatinine,Ur ine,Ran LAB UALBR 0.0-23.0 mg/L <12.0 Albumin Urine Random LAB UALBCR 0-30 mg/g Not Albumin/Creat calculated Ratio Performed By: #### UACR #### [facility] [address], [place] [address] [place] CBC Collected: 02/24/2018 Status: F Source: [place] 7:35 AM [facility] REPOSITORY TYPE CODE TESTS RESULT OUT OF REFERENCE UNITS RANGE LAB WWBC 3.70-11.00 k/uL High [place] WBC 11.79 Result Comment: Result rechecked. LAB WRBC 3.90-5.20 m/uL [place] RBC 4.24 LAB WHGB 11.5-15.5 g/dL [place] Hemoglobin 13.3 LAB WHCT 36.0-46.0 % [place] Hematocrit 40.9 LAB WMCV 80.0-100.0 fL [place] MCV 96.5 LAB WMCH 26.0-34.0 pg [place] MCH 31.4 LAB WMCHC 30.5-36.0 g/dL [place] MCHC 32.5 LAB WRDW 11.5-15.0 % [place] RDW 14.3 LAB WPLT 150-400 k/uL [place] Low Platelet Cnt 45 Result Comment: Result rechecked. No clot detected. LAB WMPV 9.0-12.7 fL Unable to [place] MPV report LAB ABSNUC <0.01 k/uL Preliminary Absolute nRBC result. Interpret with caution. Final results may vary. Results requested and read back by: Result Comment: WBC=12.26,PLT=34,REESE Performed By: #### WCBC #### [facility] [address] [place], [place] [address] [place] CBC Collected: 02/17/2018 Status: F Source: [place] 7:40 AM [facility] REPOSITORY TYPE CODE TESTS RESULT OUT OF REFERENCE UNITS RANGE LAB WWBC 3.70-11.00 k/uL [place] High WBC 11.48 LAB WRBC 3.90-5.20 m/uL [place] RBC 3.96 LAB WHGB 11.5-15.5 g/dL [place] Hemoglobin 12.4 LAB WHCT 36.0-46.0 % [place] Hematocrit 38.3 LAB WMCV 80.0-100.0 fL [place] MCV 96.7 LAB WMCH 26.0-34.0 pg [place] MCH 31.3 LAB WMCHC 30.5-36.0 g/dL [place] MCHC 32.4 LAB WRDW 11.5-15.0 % [place] RDW 14.3 LAB WPLT 150-400 k/uL Low [place] Platelet Cnt 25 LAB WMPV 9.0-12.7 fL [place] MPV 12.7 Result Comment: Test performed at: [facility], [address] [place] [address] Rd[address] [place] [address]. [place] CBC Collected: 02/10/2018 Status: F Source: [place] 7:35 AM [facility] REPOSITORY TYPE CODE TESTS RESULT OUT OF REFERENCE UNITS RANGE LAB WWBC 3.70-11.00 k/uL [place] High WBC 11.93 LAB WRBC 3.90-5.20 m/uL Low [place] RBC 3.87 LAB WHGB 11.5-15.5 g/dL [place] Hemoglobin 12.1 LAB WHCT 36.0-46.0 % [place] Hematocrit 37.4 LAB WMCV 80.0-100.0 fL [place] MCV 96.6 LAB WMCH 26.0-34.0 pg [place] MCH 31.3 LAB WMCHC 30.5-36.0 g/dL [place] MCHC 32.4 LAB WRDW 11.5-15.0 % [place] RDW 14.8 LAB WPLT 150-400 k/uL Low [place] Platelet Cnt 25 Result Comment: Result checked and verified LAB WMPV 9.0-12.7 fL Unable to [place] MPV assay. Analytical difficulty. [place] CBC Collected: 02/03/2018 Status: F Source: [place] 7:42 AM [facility] REPOSITORY TYPE CODE TESTS RESULT OUT OF REFERENCE UNITS RANGE LAB WWBC 3.70-11.00 k/uL [place] High WBC 12.68 LAB WRBC 3.90-5.20 m/uL [place] RBC 3.99 LAB WHGB 11.5-15.5 g/dL [place] Hemoglobin 12.5 LAB WHCT 36.0-46.0 % [place] Hematocrit 38.5 LAB WMCV 80.0-100.0 fL [place] MCV 96.5 LAB WMCH 26.0-34.0 pg [place] MCH 31.3 LAB WMCHC 30.5-36.0 g/dL [place] MCHC 32.5 LAB WRDW 11.5-15.0 % [place] High RDW 15.2 LAB WPLT 150-400 k/uL Low [place] Platelet Cnt 129 LAB WMPV 9.0-12.7 fL [place] High MPV 14.1 Result Comment: Test performed at: [facility] [place], [address] [place] [address] Rd[address] [place] [address]. [place] CBC Collected: 01/27/2018 Status: F Source: [place] 7:41 AM [facility] REPOSITORY TYPE CODE TESTS RESULT OUT OF REFERENCE UNITS RANGE LAB WWBC 3.70-11.00 k/uL [place] High WBC 15.95 LAB WRBC 3.90-5.20 m/uL Low [place] RBC 3.76 LAB WHGB 11.5-15.5 g/dL [place] Hemoglobin 11.9 LAB WHCT 36.0-46.0 % [place] Hematocrit 36.5 LAB WMCV 80.0-100.0 fL [place] MCV 97.1 LAB WMCH 26.0-34.0 pg [place] MCH 31.6 LAB WMCHC 30.5-36.0 g/dL [place] MCHC 32.6 LAB WRDW 11.5-15.0 % [place] RDW 15.0 LAB WPLT 150-400 k/uL Low [place] Platelet Cnt 78 LAB WMPV 9.0-12.7 fL [place] MPV Unable to report Performed By: #### WCBC #### [facility] [address], [place] [address] [place] CBC Collected: 01/20/2018 Status: F Source: [place] 7:16 AM [facility] REPOSITORY TYPE CODE TESTS RESULT OUT OF REFERENCE UNITS RANGE LAB WWBC 3.70-11.00 k/uL 11.72 High [place] WBC LAB WRBC 3.90-5.20 m/uL 3.72 Low [place] RBC LAB WHGB 11.5-15.5 g/dL 11.7 [place] Hemoglobin LAB WHCT 36.0-46.0 % 36.0 [place] Hematocrit LAB WMCV 80.0-100.0 fL 96.8 [place] MCV LAB WMCH 26.0-34.0 pg 31.5 [place] MCH LAB WMCHC 30.5-36.0 g/dL 32.5 [place] MCHC LAB WRDW 11.5-15.0 % 14.6 [place] RDW LAB WPLT 150-400 k/uL 48 Low [place] Platelet Cnt LAB WMPV 9.0-12.7 fL [place] MPV Unable to assay. Analytical difficulty. [place] CBC Collected: 01/13/2018 Status: F Source: [place] 7:38 AM [facility] REPOSITORY TYPE CODE TESTS RESULT OUT OF REFERENCE UNITS RANGE LAB WWBC 3.70-11.00 k/uL [place] High WBC 13.25 LAB WRBC 3.90-5.20 m/uL [place] RBC 3.91 LAB WHGB 11.5-15.5 g/dL [place] Hemoglobin 12.1 LAB WHCT 36.0-46.0 % [place] Hematocrit 37.6 LAB WMCV 80.0-100.0 fL [place] MCV 96.2 LAB WMCH 26.0-34.0 pg [place] MCH 30.9 LAB WMCHC 30.5-36.0 g/dL [place] MCHC 32.2 LAB WRDW 11.5-15.0 % [place] RDW 14.3 LAB WPLT 150-400 k/uL Low [place] Platelet Cnt 12 Result Comment: NO CLOT DETECTED Result checked and verified Called to and read back by: eRese [place] Ref Lab 01/13/18 0825 ARoberts LAB WMPV 9.0-12.7 fL Unable to [place] MPV assay. Analytical difficulty. [place] CBC Collected: 01/06/2018 Status: F Source: [place] 7:51 AM [facility] REPOSITORY TYPE CODE TESTS RESULT OUT OF REFERENCE UNITS RANGE LAB WWBC 3.70-11.00 k/uL 12.31 High [place] WBC LAB WRBC 3.90-5.20 m/uL 3.71 Low [place] RBC LAB WHGB 11.5-15.5 g/dL 11.5 [place] Hemoglobin LAB WHCT 36.0-46.0 % 35.9 Low [place] Hematocrit LAB WMCV 80.0-100.0 fL 96.8 [place] MCV LAB WMCH 26.0-34.0 pg 31.0 [place] MCH LAB WMCHC 30.5-36.0 g/dL 32.0 [place] MCHC LAB WRDW 11.5-15.0 % 14.5 [place] RDW LAB WPLT 150-400 k/uL 68 Low [place] Platelet Cnt LAB WMPV 9.0-12.7 fL [place] MPV Unable to assay. Analytical difficulty. Result Comment: Test performed at: [facility], [address] [place] [address] Rd[address] [place] [address]. [place] CBC Collected: 12/30/2017 Status: F Source: [place] 7:54 AM [facility] REPOSITORY TYPE CODE TESTS RESULT OUT OF REFERENCE UNITS RANGE LAB WWBC 3.70-11.00 k/uL [place] WBC 10.46 LAB WRBC 3.90-5.20 m/uL [place] RBC 4.00 LAB WHGB 11.5-15.5 g/dL [place] Hemoglobin 12.4 LAB WHCT 36.0-46.0 % [place] Hematocrit 38.2 LAB WMCV 80.0-100.0 fL [place] MCV 95.5 LAB WMCH 26.0-34.0 pg [place] MCH 31.0 LAB WMCHC 30.5-36.0 g/dL [place] MCHC 32.5 LAB WRDW 11.5-15.0 % [place] RDW 14.5 LAB WPLT 150-400 k/uL [place] Alert Platelet Cnt 7 Result Comment: Called to and read back by: Reese [phone] 12/31/07 0812 [facility] LAB WMPV 9.0-12.7 fL Unable to [place] MPV assay. Analytical difficulty. Result Comment: Test performed at: [facility], [address] [place] [address] Rd[address] [place] [address]. LAB ABSNUC <0.01 k/uL Preliminary Absolute nRBC result. Interpret with caution. Final results may vary. Results requested and read back by: Result Comment: PLATELET=7,P.AVANI,DUST HANDLER,[id number],BYVALENTE [place] CBC Collected: 12/23/2017 Status: F Source: [place] 7:30 AM [facility] REPOSITORY TYPE CODE TESTS RESULT OUT OF REFERENCE UNITS RANGE LAB WWBC 3.70-11.00 k/uL [place] WBC 10.58 LAB WRBC 3.90-5.20 m/uL [place] RBC 3.94 LAB WHGB 11.5-15.5 g/dL [place] Hemoglobin 12.2 LAB WHCT 36.0-46.0 % [place] Hematocrit 37.5 LAB WMCV 80.0-100.0 fL [place] MCV 95.2 LAB WMCH 26.0-34.0 pg [place] MCH 31.0 LAB WMCHC 30.5-36.0 g/dL [place] MCHC 32.5 LAB WRDW 11.5-15.0 % [place] RDW 14.9 LAB WPLT 150-400 k/uL Low [place] Platelet Cnt 63 Result Comment: Result rechecked. NO CLOT DETECTED LAB WMPV 9.0-12.7 fL Unable to [place] MPV assay. Analytical difficulty. [place] CBC Collected: 12/16/2017 Status: F Source: [place] 7:40 AM [facility] REPOSITORY TYPE CODE TESTS RESULT OUT OF REFERENCE UNITS RANGE LAB WWBC 3.70-11.00 k/uL 14.99 High [place] WBC LAB WRBC 3.90-5.20 m/uL 4.02 [place] RBC LAB WHGB 11.5-15.5 g/dL 12.6 [place] Hemoglobin LAB WHCT 36.0-46.0 % 38.4 [place] Hematocrit LAB WMCV 80.0-100.0 fL 95.5 [place] MCV LAB WMCH 26.0-34.0 pg 31.3 [place] MCH LAB WMCHC 30.5-36.0 g/dL 32.8 [place] MCHC LAB WRDW 11.5-15.0 % 14.8 [place] RDW LAB WPLT 150-400 k/uL 26 Low [place] Platelet Cnt LAB WMPV 9.0-12.7 fL [place] MPV Unable to assay. Analytical difficulty. Result Comment: Test performed at: [facility] [address] [place] [address]. [place] CBC Collected: 12/09/2017 Status: F Source: [place] 7:42 AM [facility] REPOSITORY TYPE CODE TESTS RESULT OUT OF REFERENCE UNITS RANGE LAB WWBC 3.70-11.00 k/uL 10.23 [place] WBC LAB WRBC 3.90-5.20 m/uL 3.91 [place] RBC LAB WHGB 11.5-15.5 g/dL 12.1 [place] Hemoglobin LAB WHCT 36.0-46.0 % 38.0 [place] Hematocrit LAB WMCV 80.0-100.0 fL 97.2 [place] MCV LAB WMCH 26.0-34.0 pg 30.9 [place] MCH LAB WMCHC 30.5-36.0 g/dL 31.8 [place] MCHC LAB WRDW 11.5-15.0 % 15.4 High [place] RDW LAB WPLT 150-400 k/uL 66 Low [place] Platelet Cnt LAB WMPV 9.0-12.7 fL [place] MPV Unable to assay. Analytical difficulty. Result Comment: Test performed at: [facility], [address] [place] [address] Rd[address] [place] [address]. [place] CBC Collected: 12/02/2017 Status: F Source: [place] 7:46 AM [facility] REPOSITORY TYPE CODE TESTS RESULT OUT OF REFERENCE UNITS RANGE LAB WWBC 3.70-11.00 k/uL [place] High WBC 13.39 LAB WRBC 3.90-5.20 m/uL [place] RBC 4.00 LAB WHGB 11.5-15.5 g/dL [place] Hemoglobin 12.4 LAB WHCT 36.0-46.0 % [place] Hematocrit 38.6 LAB WMCV 80.0-100.0 fL [place] MCV 96.5 LAB WMCH 26.0-34.0 pg [place] MCH 31.0 LAB WMCHC 30.5-36.0 g/dL [place] MCHC 32.1 LAB WRDW 11.5-15.0 % [place] High RDW 15.7 LAB WPLT 150-400 k/uL Low [place] Platelet Cnt 26 Result Comment: Result rechecked. No clot detected. LAB WMPV 9.0-12.7 fL Unable to [place] MPV assay. Analytical difficulty. LAB ABSNUC <0.01 k/uL Preliminary Absolute nRBC result. Interpret with caution. Final results may vary. Results requested and read back by: Result Comment: PLATELET=16 JSO [id number] DAVID Performed By: #### WCBC #### [facility] [address] [place], [place] [address] [place] CBC Collected: 11/25/2017 Status: F Source: [place] 7:40 AM [facility] REPOSITORY TYPE CODE TESTS RESULT OUT OF REFERENCE UNITS RANGE LAB WWBC 3.70-11.00 k/uL [place] High WBC 14.23 LAB WRBC 3.90-5.20 m/uL Low [place] RBC 3.86 LAB WHGB 11.5-15.5 g/dL [place] Hemoglobin 11.9 LAB WHCT 36.0-46.0 % [place] Hematocrit 37.1 LAB WMCV 80.0-100.0 fL [place] MCV 96.1 LAB WMCH 26.0-34.0 pg [place] MCH 30.8 LAB WMCHC 30.5-36.0 g/dL [place] MCHC 32.1 LAB WRDW 11.5-15.0 % [place] High RDW 16.0 LAB WPLT 150-400 k/uL Low [place] Platelet Cnt 101 Result Comment: NO CLOT DETECTED Result rechecked. LAB WMPV 9.0-12.7 fL High [place] MPV 14.5 Result Comment: Test performed at: [facility], [address] [place] [address] Rd[address] [place] [address]. PROTIME Collected: 11/25/2017 Status: F Source: [place] 7:40 AM [facility] REPOSITORY TYPE CODE TESTS RESULT OUT OF RANGE REFERENCE UNITS LAB PSEC 9.7-13.0 sec PT Sec 10.2 LAB INR 0.9-1.3 PT INR 1.0 Result Comment: Vitamin K Antagonist (VKA) Therapeutic Range: INR 2 to 3 (Target INR of 2.5) Note: For patients treated with VKA drugs, such as warfarin, the [place] [employer] 2012 Guideline recommends [...] Chest 2012, 141:7S-47S Shad RA, et al. [facility] 2017, 70: 252-289 Performed By: #### PT, PTT #### [facility] [address] [place], [place] [address] APTT Collected: 11/25/2017 Status: F Source: [place] 7:40 AM [facility] REPOSITORY TYPE CODE TESTS RESULT OUT [...] laboratory APTT reagent in use throughout the [facility]. Performed By: #### PT, PTT #### [facility] [address] [place], [place] [address] PROGRESS Observed: 11/24/2017 Status: COMPLETED Source: [place] 4:02 PM [facility] REPOSITORY HNO ID: [id number] Author: Dallas Mccallum Service: (none) Author Type: Physician Type: Progress Notes Filed: 11/25/2017 4:30 PM Note Text: Diagnosis: 1) ITP HPI: Patient is a 52 yo 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 Previously treatment: 1) Prednisone for 5 weeks initially (starting 04/18/08) with slow platelet response. Count rapidly decreased to 1K (no bleeding) on 05/24/08 and was admitted to [facility] for urgent IVIG administration. Tolerated 1 gm/kg [...] scalp but she has areas in the buddhism region suggestive of an autoimmune process. PMH, [...] No jaundice or rash. No petechiae. 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 No focal motor [...] and IVIG administration. -I will check with [facility] about increasing dose of IVIG. -She will call to schedule possible skin biopsy early next week. CBC that morning to check platelet count. -Coags tomorrow. Dallas Mccallum DO CNOVSP Observed: 11/24/2017 Status: COMPLETED Source: [place] 4:00 PM [facility] REPOSITORY Visit (SP) Office ([facility]) GEOVANNA FERNANDEZ ([id number]) 1965 F Date Time Provider Department 11/24/17 [...] bleeding) on 05/24/08 and was admitted to [facility] for urgent IVIG administration. Tolerated 1 gm/kg [...] scalp but she has areas in the buddhism region suggestive of an autoimmune process. PMH, [...] No jaundice or rash. No petechiae. 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 No focal motor [...] and IVIG administration. -I will check with [facility] about increasing dose of IVIG. -She will call to schedule possible skin biopsy early next week. CBC that morning to check platelet count. -Coags tomorrow. Dallas Mccallum DO Referring Provider: DALLAS MCCALLUM [[id number]] Allergies As of Date: 11/24/2017 Noted Allergy [...] (HCC) [D69.3] Order(s):ACTIVATED PTT [SQPTT] Order #: [id number] FUTURE PROTHROMBIN TIME/PT [SQPT] Order #: [id number] FUTURE Follow-up and Disposition History Recorded Prescriptions [...] 11/25/17 PROGRESS Observed: 11/21/2017 Status: COMPLETED Source: [place] 1:48 PM [facility] REPOSITORY HNO ID: [id number] Author: Megan Tobar (Brennen Davenport Service: (none) [...] updated today in the History tab of [email or web address]. Current Medications and allergies reviewed. PAST MEDICAL HISTORY Diagnosis Date - Diabetes (HCC) - Hyperlipidemia with target LDL less than 100 03/08/2014 - Immune thrombocytopenic purpura (HCC) - Pulmonary embolism (HCC) 01/12/12, 12/2012 PAST SURGICAL HISTORY Procedure Laterality Date - COLONOSCOP W/ OR W/O [facility] SPEC 01-26-16 - FILTER PLACEMENT (VENA CAVA) [...] arise. - Discussed diabetic education issues of long term care pharmacist diabetic complications, diet, medications- side effects and [...] year. 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 - [facility] Health Maintenance Addressed: Will check with Dr. Mccallum re: New Shingles vaccine. Megan Davenport, MSN NEIGHBORHOOD CONSERVATION OFFICER.ENGRAVER ORNAMENTAL DESIGN CNOV Observed: 11/21/2017 Status: COMPLETED Source: [place] 1:20 PM [facility] REPOSITORY Office Visit (FAMPWS) GEOVANNA FERNANDEZ ([id number]) 1965 F Date Time Provider Department 11/21/17 1:20 PM MEGAN DAVENPORT (PIN CLEANER) KELSEY During your visit today, we recorded the following information about you: Temperature Pulse Respiration Blood pressure 99.1 degrees 86/minute 17/minute 116/84 Weight Last Period 100.7 kg 11/15/17 Megan Davenport, MSN NEIGHBORHOOD CONSERVATION OFFICER.ENGRAVER ORNAMENTAL DESIGN 11/21/2017 5:34 PM Signed Patient presents with: [...] updated today in the History tab of [email or web address]. Current Medications and allergies reviewed. PAST MEDICAL HISTORY Diagnosis Date - Diabetes (HCC) - Hyperlipidemia with target LDL less than 100 03/08/2014 - Immune thrombocytopenic purpura (HCC) - Pulmonary embolism (HCC) 01/12/12, 12/2012 PAST SURGICAL HISTORY Procedure Laterality Date - COLONOSCOP W/ OR W/O [facility] SPEC 01-26-16 - FILTER PLACEMENT (VENA CAVA) [...] arise. - Discussed diabetic education issues of fpc diabetic complications, diet, medications- side effects and [...] year. 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 - [facility] Health Maintenance Addressed: Will check with Dr. Mccallum re: New Shingles vaccine. Megan Davenport, MSN NEIGHBORHOOD CONSERVATION OFFICER.ENGRAVER ORNAMENTAL DESIGN Referring Provider: SELF [[id number]] Allergies As of Date: 11/21/2017 Noted Allergy Reaction ASA (SALICYLATES) 07/22/2005 4 - Hives BEES 04/01/2008 CLINDAMYCIN 01/11/2011 14 - Other: See Comments Comments: lightheadness PENICILLINS 07/22/2005 2 - Rash 9 - Itching ZOFRAN (ONDANSETRON) 04/30/2013 8 - GI Upset Comments: Worse nausea. seasonal allergies [Other] 07/22/2005 Date Reviewed: 11/21/2017 Reviewed by: Nadege Luis Civil Project Engineer - Fully Assessed Reason for Visit: Refill [...] mouth daily at bedtime.Disp: 90 tabletRfl: 3 [facility] [[id number]] Order #: [id number] FUTURE ALBUMIN/CREAT RATIO RND UR [SQUACR] Order #: [id number] FUTURE HGB A1C [PIYRL7J] Order #: [id number] FUTURE BASIC METABOLIC PNL [SQBMP] Order #: [id number] FUTURE Prescriptions as of 11/21/2017 Sig: METFORMIN [...] on file. Encounter Status:Closed by MEGAN DAVENPORT ENGRAVER ORNAMENTAL DESIGN on 11/21/17 [place] CBC Collected: 11/18/2017 Status: F Source: [place] 8:17 AM [facility] REPOSITORY TYPE CODE TESTS RESULT OUT OF REFERENCE UNITS RANGE LAB WWBC 3.70-11.00 k/uL [place] WBC 10.45 LAB WRBC 3.90-5.20 m/uL Low [place] RBC 3.78 LAB WHGB 11.5-15.5 g/dL [place] Hemoglobin 11.7 LAB WHCT 36.0-46.0 % Low [place] Hematocrit 35.9 LAB WMCV 80.0-100.0 fL [place] MCV 95.0 LAB WMCH 26.0-34.0 pg [place] MCH 31.0 LAB WMCHC 30.5-36.0 g/dL [place] MCHC 32.6 LAB WRDW 11.5-15.0 % [place] High RDW 15.9 LAB WPLT 150-400 k/uL Low [place] Platelet Cnt 99 LAB WMPV 9.0-12.7 fL [place] High MPV 14.7 Result Comment: Test performed at: [address] [place] [address]. IRON AND TIBC Collected: 11/18/2017 Status: F Source: [place] 8:17 AM [facility] REPOSITORY TYPE CODE TESTS RESULT OUT OF REFERENCE UNITS RANGE LAB IRN 41-186 ug/dL Iron 113 LAB TIBC 232-386 ug/dL TIBC 301 LAB SAT 15-57 % Transferrin Saturatn 38 Performed By: #### IRON, FERR #### [facility] [address] [place] [id number] FERRITIN Collected: 11/18/2017 Status: F Source: [place] 8:17 AM [facility] REPOSITORY TYPE CODE TESTS RESULT OUT OF REFERENCE UNITS RANGE LAB FERR 14.7-205.1 ng/mL Ferritin 165.0 Performed By: #### IRON, FERR #### [facility] [address] [place], [place] [address] [place] CBC Collected: 11/11/2017 Status: F Source: [place] 7:46 AM [facility] REPOSITORY TYPE CODE TESTS RESULT OUT OF REFERENCE UNITS RANGE LAB WWBC 3.70-11.00 k/uL 9.03 [place] WBC LAB WRBC 3.90-5.20 m/uL 4.06 [place] RBC LAB WHGB 11.5-15.5 g/dL 12.4 [place] Hemoglobin LAB WHCT 36.0-46.0 % 38.2 [place] Hematocrit LAB WMCV 80.0-100.0 fL 94.1 [place] MCV LAB WMCH 26.0-34.0 pg 30.5 [place] MCH LAB WMCHC 30.5-36.0 g/dL 32.5 [place] MCHC LAB WRDW 11.5-15.0 % 15.2 High [place] RDW LAB WPLT 150-400 k/uL <0 Low Alert [place] Platelet Cnt LAB WMPV 9.0-12.7 fL [place] MPV Unable to assay. Analytical difficulty. Result Comment: Test performed at: [facility] [place], [address] [place] [address]. LAB ABSNUC <0.01 k/uL Preliminary Absolute nRBC result. Interpret with caution. Final results may vary. Results requested and read back by: Result Comment: PLATLET=0,NAMAN BENITES,[id number],BYVALENTE [place] CBC Collected: 11/04/2017 Status: F Source: [place] 8:00 AM [facility] REPOSITORY TYPE CODE TESTS RESULT OUT OF REFERENCE UNITS RANGE LAB WWBC 3.70-11.00 k/uL [place] High WBC 12.94 LAB WRBC 3.90-5.20 m/uL [place] RBC 4.02 LAB WHGB 11.5-15.5 g/dL [place] Hemoglobin 12.3 LAB WHCT 36.0-46.0 % [place] Hematocrit 37.6 LAB WMCV 80.0-100.0 fL [place] MCV 93.5 LAB WMCH 26.0-34.0 pg [place] MCH 30.6 LAB WMCHC 30.5-36.0 g/dL [place] MCHC 32.7 LAB WRDW 11.5-15.0 % [place] RDW 14.9 LAB WPLT 150-400 k/uL Low [place] Alert Platelet Cnt 6 Result Comment: Result rechecked. No clot detected. Reviewed No call per procedure. 11/04/17 1620 [place] LAB ABSNUC <0.01 k/uL Preliminary Absolute nRBC result. Interpret with caution. Final results may vary. Results requested and read back by: Result Comment: PLATELET=0 KAMARI [id number] MelinaLESLIE Performed By: #### WCBC #### [facility] [address] [place] [id number] LIPID PANEL, BASIC Collected: 11/04/2017 Status: F Source: [place] 8:00 AM [facility] REPOSITORY TYPE CODE TESTS RESULT OUT [...] Desk Reference: National Heart, Lung, and Blood [place]. National Institutes of Health. 2001: NIH Publication No. 01-3305. 2. An International Atherosclerosis Society position paper: global recommendations for the management of dyslipidemia: executive summary, Atherosclerosis. 2014: 232(2):410-413. Performed By: #### LIPB, HBA1C #### [facility] [address] [place], [place] [address] HEMOGLOBIN A1C Collected: 11/04/2017 Status: F Source: [place] 8:00 AM [facility] REPOSITORY TYPE CODE TESTS RESULT OUT OF REFERENCE UNITS RANGE LAB HGBA1C 4.3-5.6 % High Hemoglobin A1c 6.6 LAB HBA0 mg/dL Est. Average Glucose 143 Result Comment: eAG: (Estimated average glucose) is a calculated value from HgbA1c and is software sales representative of the average blood glucose level in the last 2-3 month period. Performed By: #### LIPB, HBA1C #### [facility] [address] [place], [place] [address] [place] CBC Collected: 10/28/2017 Status: F Source: [place] 8:13 AM [facility] REPOSITORY TYPE CODE TESTS RESULT OUT OF REFERENCE UNITS RANGE LAB WWBC 3.70-11.00 k/uL [place] High WBC 11.20 LAB WRBC 3.90-5.20 m/uL [place] RBC 4.31 LAB WHGB 11.5-15.5 g/dL [place] Hemoglobin 13.2 LAB WHCT 36.0-46.0 % [place] Hematocrit 40.3 LAB WMCV 80.0-100.0 fL [place] MCV 93.5 LAB WMCH 26.0-34.0 pg [place] MCH 30.6 LAB WMCHC 30.5-36.0 g/dL [place] MCHC 32.8 LAB WRDW 11.5-15.0 % [place] RDW 14.8 LAB WPLT 150-400 k/uL Low [place] Platelet Cnt 97 LAB WMPV 9.0-12.7 fL [place] High MPV 14.0 Result Comment: Test performed at: [facility], [address] [place] [address] Rd[address] [place] [address]. [place] CBC Collected: 10/21/2017 Status: F Source: [place] 7:35 AM [facility] REPOSITORY TYPE CODE TESTS RESULT OUT OF REFERENCE UNITS RANGE LAB WWBC 3.70-11.00 k/uL [place] WBC 9.74 LAB WRBC 3.90-5.20 m/uL [place] RBC 4.09 LAB WHGB 11.5-15.5 g/dL [place] Hemoglobin 12.4 LAB WHCT 36.0-46.0 % [place] Hematocrit 38.4 LAB WMCV 80.0-100.0 fL [place] MCV 93.9 LAB WMCH 26.0-34.0 pg [place] MCH 30.3 LAB WMCHC 30.5-36.0 g/dL [place] MCHC 32.3 LAB WRDW 11.5-15.0 % [place] RDW 14.2 LAB WPLT 150-400 k/uL Low [place] Alert Platelet Cnt <0 Result Comment: Result rechecked. Called to and read back by: Tj Cazares at [facility] 10/21/2017 0750 Melina Valentino LAB WMPV 9.0-12.7 fL Low [place] MPV 7.1 Result Comment: Test performed at: [facility], [address] [place] [address] Rd[address] [place] [address]. LAB ABSNUC <0.01 k/uL NO CLOT Absolute nRBC DETECTED RESULTS GIVEN TO MELISSA BY DAVID OPHEIM CBC Collected: 10/14/2017 Status: F Source: [place] 8:08 AM [facility] REPOSITORY TYPE CODE TESTS RESULT OUT OF REFERENCE UNITS RANGE LAB WWBC 3.70-11.00 k/uL [place] High WBC 11.64 LAB WRBC 3.90-5.20 m/uL [place] RBC 4.23 LAB WHGB 11.5-15.5 g/dL [place] Hemoglobin 12.7 LAB WHCT 36.0-46.0 % [place] Hematocrit 39.6 LAB WMCV 80.0-100.0 fL [place] MCV 93.6 LAB WMCH 26.0-34.0 pg [place] MCH 30.0 LAB WMCHC 30.5-36.0 g/dL [place] MCHC 32.1 LAB WRDW 11.5-15.0 % [place] RDW 14.4 LAB WPLT 150-400 k/uL Low [place] Platelet Cnt 42 LAB WMPV 9.0-12.7 fL [place] MPV Unable to report Performed By: #### WCBC #### [facility] [address] [place], [place] [address] [place] CBC Collected: 10/07/2017 Status: F Source: [place] 8:04 AM [facility] REPOSITORY TYPE CODE TESTS RESULT OUT OF REFERENCE UNITS RANGE LAB WWBC 3.70-11.00 k/uL [place] High WBC 11.69 LAB WRBC 3.90-5.20 m/uL [place] RBC 4.14 LAB WHGB 11.5-15.5 g/dL [place] Hemoglobin 12.5 LAB WHCT 36.0-46.0 % [place] Hematocrit 39.2 LAB WMCV 80.0-100.0 fL [place] MCV 94.7 LAB WMCH 26.0-34.0 pg [place] MCH 30.2 LAB WMCHC 30.5-36.0 g/dL [place] MCHC 31.9 LAB WRDW 11.5-15.0 % [place] RDW 14.9 LAB WPLT 150-400 k/uL Low [place] Platelet Cnt 127 LAB WMPV 9.0-12.7 fL [place] High MPV 14.5 Result Comment: Test performed by: [facility] [place], [facility] [place] [address]. [place] CBC Collected: 09/30/2017 Status: F Source: [place] 7:38 AM [facility] REPOSITORY TYPE CODE TESTS RESULT OUT OF REFERENCE UNITS RANGE LAB WWBC 3.70-11.00 k/uL [place] WBC 10.93 LAB WRBC 3.90-5.20 m/uL [place] RBC 4.20 LAB WHGB 11.5-15.5 g/dL [place] Hemoglobin 12.8 LAB WHCT 36.0-46.0 % [place] Hematocrit 39.3 LAB WMCV 80.0-100.0 fL [place] MCV 93.6 LAB WMCH 26.0-34.0 pg [place] MCH 30.5 LAB WMCHC 30.5-36.0 g/dL [place] MCHC 32.6 LAB WRDW 11.5-15.0 % [place] RDW 14.3 LAB WPLT 150-400 k/uL Low [place] Platelet Cnt 12 Result Comment: Result checked and verified No clot detected. Called to and read back by: [place] [id number] 09/30/17 1710 Beto Douglas LAB WMPV 9.0-12.7 fL Unable to [place] MPV report LAB ABSNUC <0.01 k/uL Preliminary Absolute nRBC result. Interpret with caution. Final results may vary. Results requested and read back by: Result Comment: PLATELET=4 M.ALYCE [id number] A.CLARK Performed By: #### WCBC #### [facility] [address] [place], [place] [address] [place] CBC Collected: 09/23/2017 Status: F Source: [place] 7:13 AM [facility] REPOSITORY TYPE CODE TESTS RESULT OUT OF REFERENCE UNITS RANGE LAB WWBC 3.70-11.00 k/uL 11.61 High [place] WBC LAB WRBC 3.90-5.20 m/uL 4.11 [place] RBC LAB WHGB 11.5-15.5 g/dL 12.4 [place] Hemoglobin LAB WHCT 36.0-46.0 % 38.6 [place] Hematocrit LAB WMCV 80.0-100.0 fL 93.9 [place] MCV LAB WMCH 26.0-34.0 pg 30.2 [place] MCH LAB WMCHC 30.5-36.0 g/dL 32.1 [place] MCHC LAB WRDW 11.5-15.0 % 14.8 [place] RDW LAB WPLT 150-400 k/uL 36 Low [place] Platelet Cnt LAB WMPV 9.0-12.7 fL [place] MPV Unable to assay. Analytical difficulty. Result Comment: Test performed at: [facility], [address] [place] [address] Rd., [place] [address]. ALLERGIES ALLERGIES DATE TYPE / CODE NAME / CODE REACTION SEVERITY SOURCE 04/14/2018 Drug ondansetron Other Unknown [place] Allergy/000677959( HCl/[id number](R [facility] SNOM[facility] CT) XNORM) Hospital Repository 04/14/2018 Drug Penicillins/F001 Rash Unknown [place] Allergy/433528270( 095194(RXNORM) [facility] SNOMED CT) Hospital Repository 04/14/2018 Drug aspirin/[id number] Hives Unknown [place] Allergy/802851680( 87(RXNORM) [facility] SNOMED CT) Hospital Repository 04/14/2018 Drug clindamycin/F006 Vomiting Unknown [place] Allergy/252098579( 824968(RXNORM) [facility] SNOMED CT) Hospital Repository 04/14/2018 Drug venom-honey Swelling Unknown [place] Allergy/126716986( bee/I048119782(R [facility]) XNORM) Hospital Repository 04/14/2018 Drug rituximab/S71058 Other Unknown [place] Allergy/899567733( 7236(RXNORM) [facility]) Hospital Repository 04/30/2013 DRUG ONDANSETRON GI UPSET [place] [facility]/061725789( Clinic Main SNOMED CT) [place] Repository 02/07/2012 DRUG RITUXIMAB OTHER: SEE C [place] [facility]I/448934656( Clinic Main SNOMED CT) [place] Repository 01/11/2011 DRUG CLINDAMYCIN OTHER: SEE C [place] [facility]/154229744( Clinic Main SNOMED CT) [place] Repository 04/01/2008 Environ/731426372( BEES [place] SNOMED CT) Clinic Main [place] Repository 07/22/2005 Drug SALICYLATES HIVES [place] Class/860695911(SN [facility] Main OMED CT) [place] Repository 07/22/2005 Drug PENICILLINS RASH [facility] Class/104893388(SN [facility] Main OMED CT) [place] Repository 07/22/2005 Miscellaneous OTHER [facility] Allergy/764495108( Clinic Main SNOMED CT) [place] Repository ENCOUNTERS ENCOUNTERS ADMIT/DISCHARGE ACCOUNT ADMITTING ENCOUNTER LOCATION SOURCE NUMBER CLASS 09/15/2018/09/15/19 [id number] Ambulatory [address] Main [place] Repository 09/15/2018/09/15/19 [id number] Ambulatory [address] [place] Repository 09/09/2018/09/09/19 [id number] Ambulatory [address] ing:MEDOUTP Repository 09/08/2018/09/11/19 [id number] Ambulatory [address] Main [place] Repository 09/08/2018/09/08/19 [id number] Ambulatory [address] Main [place] Repository 09/01/2018/09/01/19 [id number] Ambulatory [address] Main [place] Repository 09/01/2018/09/01/19 [id number] Ambulatory [address] Main [place] Repository 08/26/2018/08/26/19 [id number] Ambulatory [address] ing:MEDOUTP Repository 08/25/2018/08/28/19 [id number] Ambulatory [address] Main [place] Repository 08/25/2018/08/25/19 [id number] Ambulatory [facility] [place] Repository 08/18/2018/08/21/20 [id number] Ambulatory [facility] [place] Repository 08/18/2018/08/18/20 [id number] Ambulatory [place] [facility] Main [place] Repository 08/11/2018/08/14/20 [id number] Ambulatory [facility] [facility] Main [place] Repository 08/11/2018/08/11/20 [id number] Ambulatory [facility] [facility] Main [place] Repository 08/05/2018/08/05/20 [id number] Ambulatory [place] [facility] ing:MEDOUTP Repository 08/04/2018/08/07/20 [id number] Ambulatory [place] [facility] Main [place] Repository 08/04/2018/08/04/20 [id number] Ambulatory [place] 18 [facility] Main [place] Repository 07/28/2018/07/31/20 [id number] [facility] [place] [facility] [place] Repository 07/28/2018/07/28/20 [id number] Amb[facility] [place] [facility] [place] Repository 07/22/2018/07/22/20 [id number] [facility] [place] [facility] [address] [place] [address] ing:MEDOUTPRo Repository om: [id number] 07/21/2018/07/28/20 [id number] [facility] [place] Repository 07/21/2018/07/22/20 [id number] [facility] [place] [facility] [place] Repository 07/14/2018/07/17/20 [id number] [facility] [place] Repository 07/14/2018/07/14/20 [id number] [facility] [place] [place] [facility] 07/07/2018/07/10/20 [id number] Ambulatory [place] [facility] [place] [facility] 07/07/2018/07/07/20 [id number] Amb[facility] [facility] [place] [facility] 07/01/2018/07/01/20 [id number] [facility] [address] [place] [address] ing:MEDOUTP Repository 06/30/2018/07/03/20 [id number] Ambulatory [place] [facility] [place] Rep[place] 06/30/2018/06/30/20 [id number] Ambulatory [place] [facility] [place] Rep[facility] 06/23/2018/06/26/20 [id number] Ambulatory [facility] [facility] [place] [facility] 06/23/2018/06/26/20 [id number] Ambulatory [place] [facility] [place] Rep[facility] 06/23/2018/06/23/20 [id number] Ambulatory [place] [facility] [place] Rep[place] 06/17/2018/06/17/20 [id number] Ambulatory [place] Die[facility] 18 [facility] ing:MEDOUTP Repository 06/16/2018/06/19/20 [id number] Ambulatory [place] [facility] [place] [facility] 06/16/2018/06/16/20 [id number] Ambulatory [place] [facility] [place] Rep[place] 06/09/2018/06/12/20 [id number] Ambulatory [address] [place] 06/09/2018/06/09/20 [id number] Ambulatory [address] [place] [facility] 06/03/2018/06/03/20 [id number] Ambulatory [facility] [facility] ing:MEDOUTPRo Repository om: [id number] 06/02/2018/06/05/20 [id number] Ambulatory [place] [facility] [place] [facility] 06/02/2018/06/02/20 [id number] Ambulatory [address] [place] 05/26/2018/05/29/20 [id number] Ambulatory [address] [place] 05/26/2018/05/26/20 [id number] Ambulatory [address] [place] [facility] 05/20/2018/05/20/20 [id number] Ambulatory Dieudonne Dieudonne 18 [facility] ing:MEDOUTP Repository 05/19/2018/05/22/20 [id number] Ambulatory [place] [facility] [place] [facility] 05/19/2018/05/19/20 [id number] Ambulatory [address] [place] 05/12/2018/05/12/20 [id number] Ambulatory [place] [facility] [place] Rep[facility] 05/12/2018/05/15/20 [id number] Ambulatory [address] [place] 05/06/2018/05/06/20 [id number] [facility] ing:MEDOUTPRo Repository om: [id number] 05/05/2018/05/08/20 [id number] [facility] [place] [facility] 05/05/2018/05/05/20 [id number] Ambulatory [place] [facility] [place] Rep[facility] 04/28/2018/05/01/20 [id number] Ambulatory [place] [facility] [place] Rep[facility] 04/28/2018/04/28/20 [id number] Ambulatory [place] [facility] [place] Rep[facility] 04/21/2018/04/25/20 [id number] Ambulatory [place] [facility] [place] Rep[facility] 04/21/2018/04/21/20 [id number] Ambulatory [place] [facility] [place] Rep[facility] 04/14/2018 [id number] Ambulatory [facility] ing:MEDOUTP Repository 04/14/2018/04/17/20 [id number] Ambulatory [place] [facility] [place] [facility] 04/14/2018/04/14/20 [id number] Ambulatory [place] [facility] [place] Rep[facility] 04/07/2018/04/10/20 [id number] Ambulatory [place] [facility] [place] [facility] 04/07/2018/04/07/20 [id number] Ambulatory [place] [facility] [place] Rep[facility] 04/01/2018/04/01/20 [id number] Ambulatory [facility] Dieudonne [address] [place] [address] ing:MEDOUTP Repository 03/31/2018/04/03/20 [id number] Ambulatory [place] [facility] [place] [facility] 03/31/2018/03/31/20 [id number] Ambulatory [place] [facility] [place] Rep[facility] 03/24/2018/03/27/20 [id number] Ambulatory [place] [facility] [place] Rep[facility] 03/24/2018/03/27/20 [id number] Ambulatory [place] [facility] [place] Rep[facility] 03/24/2018/03/24/20 [id number] Ambulatory [place] [facility] [place] Rep[facility] 03/17/2018/03/20/20 [id number] Ambulatory [place] [facility] [place] Rep[facility] 03/17/2018/03/17/20 [id number] Ambulatory [place] [facility] [place] [facility] 03/11/2018/03/11/20 [id number] [facility] ing:MEDOUTP Repository 03/10/2018/03/13/20 [id number] Ambulatory [place] [facility] [place] [facility] 03/10/2018/07/20 [id number] Ambulatory [facility] [facility] [place] [facility] 03/03/2018/03/06/20 [id number] Ambulatory [place] [facility] [place] Rep[facility] 03/03/2018/03/03/20 [id number] Ambulatory [place] [facility] [place] Rep[facility] 02/24/2018/02/28/20 [id number] Ambulatory [place] [facility] [place] Rep[facility] 02/24/2018/02/25/20 [id number] Ambulatory [place] [facility] [place] Rep[facility] 02/18/2018/02/19/20 [id number] Ambulatory [facility]onne Dieud[facility] 18 [facility] ing:MEDOUTP Repository 02/17/2018/02/21/20 [id number] Ambulatory [place] [facility] [place] [facility] 02/17/2018/02/18/20 [id number] Ambulatory [place] [facility] [place] Rep[facility] 02/10/2018/02/14/20 [id number] Ambulatory [place] [facility] [place] [facility] 02/10/2018/02/11/20 [id number] Ambulatory [place] [facility] [place] [facility] 02/03/2018/02/07/20 [id number] Ambulatory [place] [facility] [place] Rep[facility] 02/03/2018/02/04/20 [id number] Ambulatory [place] [facility] [place] Rep[facility] 01/27/2018/01/31/20 [id number] Ambulatory [place] [facility] [place] Rep[facility] 01/27/2018/01/28/20 [id number] Ambulatory [place] [facility] [place] Rep[facility] 01/21/2018/01/22/20 [id number] [facility] ing:MEDOUTP Repository 01/20/2018/01/24/20 [id number] Ambulatory [place] [facility] [place] [facility] 01/20/2018/01/21/20 [id number] Ambulatory [place] [facility] [place] [facility] 01/14/2018/01/15/20 [id number] [facility] ing:MEDOUTP Repository 01/13/2018/01/18/20 [id number] Ambulatory [place] [facility] [place] [facility] 01/13/2018/01/14/20 [id number] Ambulatory [place] [facility] [place] [facility] 01/06/2018/01/10/20 [id number] Ambulatory [facility] [place] [facility] 01/06/2018/01/07/20 [id number] Ambulatory [place] [facility] [place] Rep[facility] 12/31/2017/01/01/20 [id number] Ambulatory [facility] Dieudonne [address] [place] [address] ing:[id number] Repository m: MS303 12/30/2017/01/03/20 [id number] Amb[facility] [place] [facility] 12/30/2017/12/31/19 [id number] Ambulatory [place] [facility] [place] [facility] 12/23/2017/12/27/19 [id number] Ambulatory [place] [facility] [place] [facility] 12/23/2017/12/24/19 [id number] Ambulatory [place] [facility] [place] Rep[facility] 12/17/2017/12/18/19 [id number] [facility] [address] [place] [address] ing:MEDOUTP Repository 12/16/2017/12/20/19 [id number] Ambulatory [facility] [place] [facility] 12/16/2017/12/17/19 [id number] Ambulatory [place] [facility] [place] [facility] 12/09/2017/12/13/19 [id number] Ambulatory [place] [facility] [place] [facility] 12/09/2017/12/10/19 [id number] Ambulatory [place] [facility] [place] Rep[facility] 12/03/2017/12/04/19 [id number] Ambulatory [facility] ing:MEDOUTP Repository 12/02/2017/12/06/19 [id number] Ambulatory [facility] [place] [facility] 12/02/2017/12/03/19 [id number] Ambulatory [facility] [place] [facility] 11/25/2017/11/29/19 [id number] Ambulatory [facility] [place] [facility] 11/25/2017/11/26/19 [id number] Ambulatory [facility] [place] [facility] 11/24/2017/11/29/19 [id number] Ambulatory [facility] [place] [facility] 11/21/2017/11/23/19 [id number] Ambulatory [facility] [place] [facility] 11/18/2017/11/22/19 [id number] Ambulatory [facility] [place] [facility] 11/18/2017/03/30 [id number] Ambulatory [address] [place] 11/12/2017/11/13/19 [id number] Ambulatory [facility] Dieudonne [facility] ing:MS3OUT Repository 11/11/2017/11/15/19 [id number] Ambulatory [address] [place] 11/11/2017/11/12/19 [id number] Ambulatory [address] [place] 11/05/2017/11/06/19 [id number] [facility] ing:MEDOUTP Repository 11/04/2017 [id number] Ambulatory [facility] [place] 11/04/2017/11/05/19 [id number] Ambulatory [address] [place] 10/28/2017/11/01/19 [id number] Ambulatory [address] [place] 10/28/2017/10/29/19 [id number] Ambulatory [address] [place] 10/22/2017/10/23/19 [id number] [facility] [address] [place] [address] ing:MEDOUTPRo Repository om: [id number] 10/21/2017/10/25/19 [id number] Ambulatory [address] [place] 10/21/2017/10/22/19 [id number] Ambulatory [address] [place] 10/14/2017/10/17/19 [id number] Ambulatory [address] [place] 10/14/2017/10/14/19 [id number] Ambulatory [address] [place] 10/07/2017/10/10/19 [id number] Ambulatory [address] [place] 10/07/2017 [id number] Ambulatory [facility] [place] 10/01/2017/10/01/19 [id number] [facility] [place] [address] [place] [address] ing:MEDOUTP Repository 09/30/2017/10/03/19 [id number] Ambulatory [address] [place] 09/30/2017/09/30/19 [id number] Ambulatory [address] [place] 09/23/2017/09/26/19 [id number] Ambulatory [address] [place] 09/23/2017/09/23/[id number] Repository PAYERS PAYERS ENCOUNTER GUARANTOR PAYER SUBSCRIBER SOURCE 09/09/2018 GEOVANNA [id number] Primary GEOVANNA EMERSON: [facility] [place] Insurance:MEDICAL [id number] [address]Tjg: (330) Number: Repository [phone] () [id number] Date:2346-86-94HL [address] [place], [place] [address]WP: 09/09/2018 Secondary NOT GIVENUNK [place] Insurance:SELF PAY [facility] Number: Effective Repository Date:2018-09-08 08/26/2018 GEOVANNA Kenny [id number] Primary GEOVANNA EMERSON: [facility] [place] Insurance:MEDICAL [id number] [address]Znb: (330) Number: Repository [phone] () [id number] Date:2450-87-73EY [address] [place] [address]WI: 08/26/2018 Secondary NOT GIVENUNK [facility] Insurance:SELF PAY [facility] Number: Effective Repository Date:2018-08-25 08/05/2018 GEOVANNA Kenny [id number] Primary Insurance:MED GEOVANNA EMERSON: [facility] [place] [facility] [id number], [place] Number: Hospital [id number]: (330) [id number] Repository [phone] Date:9963-05-77DF [address] [address]WNVAQMIDR, [place] [address]VT: CHECK WEBSITE 08/05/2018 Secondary NOT GIVENUNK [place] Insurance:SELF PAY [facility] Number: Effective Repository Date:2018-08-04 07/22/2018 GEOVANNA Kenny [id number] Primary Insurance:MED GEOVANNA EMERSON: [facility] [place] [facility] [id number] Number: Hospital [id number]: 330) [id number] Repository [phone] (HP) Date:2179-88-58JX [address] [address]IBFJRYJRG, [place] [address]WL: CHECK WEBSITE 07/22/2018 Secondary NOT GIVENUNK [place] Insurance:SELF PAY [facility] Effective Repository Date:2018-07-21 07/01/2018 GEOVANNA Kenny [id number] Primary Insurance:MED GEOVANNA EMERSON: [facility] [place] [employer] [id number], [place] Number: Hospital [id number]: 330 [id number] Repository [phone]) Date:6312-82-98IT [address] [address]HBZGFYLTL, [place] [address]DZ: CHECK WEBSITE 07/01/2018 Secondary NOT GIVENUNK [place] Insurance:SELF PAY [facility]: Effective Repository Date:2018-06-30 06/17/2018 GEOVANNA [id number] Primary Insurance:MED GEOVANNA EMERSON: [place] [employer] [id number], [place] Number: Hospital [id number]: 330 [id number] Repository [phone] Date:7045-12-58ME [address] [address]SSUCZGDQR, [place] [address]AT: CHECK WEBSITE 06/17/2018 Secondary NOT GIVENUNK [facility] Insurance:SELF PAY [facility] Number: Effective Repository Date:2018-06-16 06/03/2018 GEOVANNA Kenny [id number] Primary Insurance:MED GEOVANNA EMERSON: [place] [employer] [id number], [place] Number: Hospital [id number]: (350) [id number] Repository [phone] Date:9175-79-53YP [address] [address]OUVQRHGER, [place] [address]RQ: CHECK WEBSITE 06/03/2018 Secondary NOT GIVENUNK [facility] Insurance:SELF PAY [facility] Number: Effective Repository Date:2018-06-02 05/20/2018 GEOVANNA Kenny [id number] Primary Insurance:MED GEOVANNA EMERSON: [place] [employer] [id number], [place] Number: Hospital [id number]: 330 [id number] Repository [phone]) Date:0500-82-32QE [address] [address]VLWNVCMQY, [place] [address]DK: CHECK WEBSITE 05/20/2018 Secondary NOT GIVENUNK [place] Insurance:SELF PAY [facility] Number: Effective Repository Date:2018-05-19 05/06/2018 GEOVANNA [id number] Primary Insurance:MED GEOVANNA MURILLOB: [place] [employer] [id number] [place] Number: Hospital [id number]: 330 [id number] Repository [phone]) Date:1774-74-70YZ [address] [address]JLSAFFVUA, [place] [address]RM: CHECK WEBSITE 05/06/2018 Secondary NOT GIVENUNK [place] Insurance:SELF PAY [facility] Number: Effective Repository Date:2018-05-05 04/14/2018 GEOVANNA [id number] Primary Insurance:MED GEOVANNA EMERSON: [place] [employer] [id number], [place] Number: Hospital [id number]: 330 [id number] Repository [phone] Date:7834-91-41JH [address] [address]HVEPJWITW, [place] [address]ZR: CHECK WEBSITE 04/14/2018 Secondary NOT GIVENUNK [place] Insurance:SELF PAY [facility] Number: Effective Repository Date:2018-04-14 04/01/2018 GEOVANNA Kenny [id number] Primary Insurance:MED GEOVANNA EMERSON: [place] [employer] [id number], [place] Number: Hospital [id number]: (539) [id number] Repository [phone] Date:4393-17-74JJ [address] [address]MRILDZMPF, [place] [address]PK: CHECK WEBSITE 04/01/2018 Secondary NOT GIVENUNK [facility] Insurance:SELF PAY [facility] Number: Effective Repository Date:2018-03-31 03/11/2018 Geovanna Kenny [id number] Primary Insurance:MED Geovanna Emerson: [facility] [place] MUTUAL TP[place]icy [id number], [place] Number: [facility] [id number]: 330 [id number] Repository [phone]) Date:8118-15-26NU [facility] [address]VQLNDHQPN, [place] [address]VV: CHECK WEBSITE 03/11/2018 Secondary NOT GIVENUNK [facility] Insurance:SELF PAY [facility] Number: Effective Repository Date:2018-03-10 02/18/2018 Geovanna [id number] Primary Insurance:MED Geovanna Emerson: [place] M[employer] TP[employer] [id number], [place] Number: Hospital [id number]: 330 [id number] Repository [phone]) Date:7327-37-42EW [address] [address]PLPMPOHJG, [place] [address]CH: CHECK WEBSITE 02/18/2018 Secondary NOT GIVENUNK [facility] Insurance:SELF PAY [facility] Number: Effective Repository Date:2018-02-17 01/21/2018 Geovanna [id number] Primary Insurance:MED Geovanna Emerson: Dieudonne Nickolasrf MUTUAL TPAP[employer] [id number], [place] Number: Hospital [id number]: 330 [id number] Repository [phone]) Date:7953-09-39XF [facility] [address]UUWEMIHQG, [place] [address]IY: CHECK WEBSITE 01/21/2018 Secondary NOT GIVENUNK [facility] Insurance:SELF PAY [facility] Number: Effective Repository Date:2018-01-20 01/14/2018 Geovanna [id number] Primary Insurance:MED Geovanna Emerson: [facility] [place] M[employer] [id number], [place] Number: Hospital [id number]: [id number] Repository [phone] Date:1746-39-72UW [address] () [address]CTYUUCJWD, [place] [address]OR: CHECK WEBSITE 01/14/2018 Secondary NOT GIVENUNK [place] Insurance:SELF PAY [facility] Number: Effective Repository Date:2018-01-13 12/31/2017 Geovanna Kenny [id number] Primary Insurance:MED Geovanna Emerson: [facility] [place] M[employer] [id number], [place] Number: Hospital [address]Gqi: [id number] Repository [phone] Date:4842-71-08UD [address] () [address]CYYFYACJP, [place] [address]JH: CHECK WEBSITE 12/31/2017 Secondary NOT GIVENUNK [place] Insurance:SELF PAY [facility] Number: Effective Repository Date:2017-12-30 12/17/2017 Geovanna Kenny [id number] Primary Insurance:MED Geovanna Emerson: [facility] [place] M[employer] TPAP[employer] [id number][facility] [place] Number[facility] Hospital [address]Fqy: [id number] Repository [phone] Date:4007-57-30ZJ [address] () [address]SCNMSIBYC, [place] [address]GJ: CHECK WEBSITE 12/17/2017 Secondary NOT GIVENUNK [facility] Insurance:SELF PAY [facility] Number: Effective Repository Date:2017-12-15 12/03/2017 Geovanna Kenny [id number] Primary Insurance:MED Geovanna Emerson: [facility] [place] MUTUAL TP[employer] [id number]-[facility]otsdam [facility] [place] Number: Hospital [address]Zyd: [id number] Repository [phone] Date:4824-91-61DF [address] () [address]TJOZAJZEM, [place] [address]XE: CHECK WEBSITE 12/03/2017 Secondary NOT GIVENUNK [facility] Insurance:SELF PAY [facility] Number: Effective Repository Date:2017-12-02 11/12/2017 Geovanna Kenny [id number] Primary Insurance:MED Geovanna Emerson: [place] M[employer] [id number], [place] Number: Hospital [id number]: [id number] Repository [phone] Date:9620-98-16SL [address] (HP) [address]PABDFFFEV, [place] [address]XX: CHECK WEBSITE 11/12/2017 Secondary NOT GIVENUNK [facility] Insurance:SELF PAY [facility] Number: Effective Repository Date:2017-11-11 11/05/2017 Geovanna [id number] Primary Insurance:MED Geovanna MurilloB: Dieudonne Ayala MUTUAL TP[employer] [id number] [facility] [place] Number: Hospital [address]Tio: [id number] Repository [phone] Date:2674-38-83XP [address] (HP) [address]TWHWNPTGL, [place] [address]NK: CHECK WEBSITE 11/05/2017 Secondary NOT GIVENUNK [place] Insurance:SELF PAY [facility] Number: Effective Repository Date:2017-11-04 10/22/2017 Geovanna Kenny [id number] Primary Insurance:MED Geovanna Emerson: Dieudonne [place]ala M[employer]UAL TP[employer] [id number], [place] Number: Hospital [id number]: [id number] Repository [phone] Date:6183-51-62MU [address] () [address]LYDXPXJWQ, [place] [address]CG: CHECK WEBSITE 10/22/2017 Secondary NOT GIVENUNK [place] Insurance:SELF PAY [facility] Number: Effective Repository Date:2017-10-21 10/01/2017 Geovanna Kenny [id number] Primary Insurance:MED Geovanna Emerson: Dieudonne Ayala MUTUAL TPAP[employer] [id number], [place] Number: Hospital [id number]: [id number] Repository [phone] Date:7505-19-98PL [address] (HP) [address]MPNIIXYQF, [place] [address]JA: CHECK WEBSITE 10/01/2017 Secondary NOT GIVENUNK [facility] Insurance:SELF PAY [facility]: Effective Repository Date:2017-09-30
== END 2018-09-09 13:02 | disposition home or self-care (01) ==
LOC: MEDOUTP 08:16 → MS3 08:18
PROVIDERS: Family Provider Family Medicine; PCP Family Medicine; Referring Provider Internal Medicine Hematology & Oncology; Visit Provider Internal Medicine Hematology & Oncology
DX: D69.3 Immune thrombocytopenic purpura (principal); D50.8 Other iron deficiency anemias
CPT/HCPCS: 96365; 96366; 96375; A4216; J1568

== ENCOUNTER 2018-09-30 07:54 | Outpatient (CLI) | payer OTHER, SELFPAY ==
[2018-09-30] VITALS (7 sets, daily range): BP systolic 118–155; BP diastolic 62–79; PULSE 69–89; RESP 16; TEMP 36.8–37.2; O2SAT 94–99
[2018-09-30] MEDS: Acetaminophen 325 MG Tablet 650 MG PO (09:02)
[2018-09-30] MEDS: 0.9% NaCl VAD Flush 10 ML IV ×2 (09:05→13:11)
[2018-09-30] MEDS: DiphenhydrAMINE 50 MG/ML Syringe 25 MG IV (09:07)
[2018-09-30] MEDS: Hydrocortisone Sod Succinate 100 MG/2 ML Vial IV (09:07)
[2018-09-30] MEDS: Immune Globulin 20 gm Premixed Solution IV ×3 (09:31→11:52)
[2018-09-30] MEDS: Immune Globulin 10 gm Premixed Solution IV (12:39)
== END 2018-09-30 13:50 | disposition home or self-care (01) ==
LOC: MEDOUTP 07:54 → MS3 07:55
PROVIDERS: Family Provider Family Medicine; PCP Family Medicine; Referring Provider Internal Medicine Hematology & Oncology; Visit Provider Internal Medicine Hematology & Oncology
DX: D69.3 Immune thrombocytopenic purpura (principal); D50.8 Other iron deficiency anemias
CPT/HCPCS: 96365; 96366 ×3; 96374; 96375; A4216; J1568

== ENCOUNTER 2018-10-21 07:58 | Outpatient (CLI) | payer OTHER, SELFPAY ==
[2018-10-21] MEDS: Hydrocortisone Sod Succinate 100 MG/2 ML Vial IV (09:05)
[2018-10-21] MEDS: DiphenhydrAMINE 50 MG/ML Syringe 25 MG IV (09:05)
[2018-10-21] MEDS: Acetaminophen 325 MG Tablet 650 MG PO (09:05)
[2018-10-21] MEDS: Immune Globulin 20 gm Premixed Solution IV ×3 (09:32→11:57)
[2018-10-21 09:37] VITALS: BP 128/81; PULSE 61; RESP 16; TEMP 36.8; O2SAT 96
[2018-10-21 10:06] VITALS: BP 123/69; PULSE 67; RESP 16; TEMP 36.8; O2SAT 96
[2018-10-21 10:30] VITALS: BP 120/73; PULSE 68; RESP 16; TEMP 36.9; O2SAT 96
[2018-10-21 11:11] VITALS: BP 128/72; PULSE 69; RESP 16; TEMP 36.9; O2SAT 95
[2018-10-21 11:50] VITALS: BP 134/82; PULSE 84; RESP 16; TEMP 36.7; O2SAT 98
[2018-10-21 12:38] VITALS: BP 142/82; PULSE 86; RESP 16; TEMP 36.7; O2SAT 95
[2018-10-21] MEDS: Immune Globulin 10 gm Premixed Solution IV (12:44)
== END 2018-10-21 13:49 | disposition home or self-care (01) ==
LOC: MEDOUTP 07:59 → MS3 08:00
PROVIDERS: Family Provider Family Medicine; PCP Family Medicine; Referring Provider Internal Medicine Hematology & Oncology; Visit Provider Internal Medicine Hematology & Oncology
DX: D69.3 Immune thrombocytopenic purpura (principal); D50.8 Other iron deficiency anemias
CPT/HCPCS: 96365; 96366; 96375; A4216; J1568

== ENCOUNTER 2018-11-11 07:42 | Outpatient (CLI) | payer OTHER, SELFPAY ==
[2018-11-11] MEDS: DiphenhydrAMINE 50 MG/ML Syringe 25 MG IV (08:22)
[2018-11-11] MEDS: Acetaminophen 325 MG Tablet 650 MG PO (08:22)
[2018-11-11] MEDS: Hydrocortisone Sod Succinate 100 MG/2 ML Vial IV (08:22)
[2018-11-11] MEDS: 0.9% NaCl VAD Flush 10 ML IV ×3 (08:22→12:33)
[2018-11-11] MEDS: Immune Globulin 20 gm Premixed Solution IV ×3 (09:09→11:22)
[2018-11-11 09:11] VITALS: BP 115/75; PULSE 62; RESP 16; TEMP 36.8; O2SAT 95
[2018-11-11 09:42] VITALS: BP 117/73; PULSE 71; RESP 16; TEMP 36.7; O2SAT 97
[2018-11-11 10:14] VITALS: BP 120/77; PULSE 64; RESP 16; TEMP 36.6; O2SAT 97
[2018-11-11 10:47] VITALS: BP 114/71; PULSE 62; RESP 16; TEMP 36.8; O2SAT 99
[2018-11-11 11:08] VITALS: BP 118/86; PULSE 73; RESP 16; TEMP 36.6; O2SAT 98
[2018-11-11 11:56] VITALS: BP 118/72; PULSE 69; RESP 16; TEMP 36.8; O2SAT 96
[2018-11-11] MEDS: Immune Globulin 10 gm Premixed Solution IV (12:07)
== END 2018-11-11 12:45 | disposition home or self-care (01) ==
LOC: MEDOUTP 07:43 → MS3 07:43
PROVIDERS: Family Provider Family Medicine; PCP Family Medicine; Referring Provider Internal Medicine Hematology & Oncology; Visit Provider Internal Medicine Hematology & Oncology
DX: D69.3 Immune thrombocytopenic purpura (principal); D50.8 Other iron deficiency anemias
CPT/HCPCS: 96365; 96366; 96375; A4216; J1568

== ENCOUNTER 2018-11-25 08:04 | Outpatient (CLI) | payer OTHER, SELFPAY ==
[2018-11-25] MEDS: Acetaminophen 325 MG Tablet 650 MG PO (08:13)
[2018-11-25] MEDS: DiphenhydrAMINE 50 MG/ML Syringe 25 MG IV (08:26)
[2018-11-25] MEDS: Hydrocortisone Sod Succinate 100 MG/2 ML Vial IV (08:26)
[2018-11-25] MEDS: Immune Globulin 20 gm Premixed Solution IV ×3 (08:43→11:01)
[2018-11-25 08:49] VITALS: BP 114/73; PULSE 75; RESP 18; TEMP 36.9; O2SAT 96
[2018-11-25 09:17] VITALS: BP 116/66; PULSE 66; RESP 16; TEMP 36.7; O2SAT 96
[2018-11-25 09:43] VITALS: BP 109/65; PULSE 68; RESP 18; TEMP 36.8; O2SAT 98
[2018-11-25 09:46] VITALS: BMI 28.2
[2018-11-25 10:17] VITALS: BP 117/73; PULSE 66; RESP 18; TEMP 36.8; O2SAT 97
[2018-11-25 10:30] VITALS: BP 118/62; PULSE 66; RESP 18; TEMP 36.8; O2SAT 96
[2018-11-25 12:03] VITALS: BP 113/67; PULSE 80; RESP 18; TEMP 36.9; O2SAT 97
[2018-11-25] MEDS: Immune Globulin 10 gm Premixed Solution IV (12:04)
== END 2018-11-25 12:40 | disposition home or self-care (01) ==
LOC: MEDOUTP 08:04 → MS2 08:05
PROVIDERS: Family Provider Family Medicine; PCP Family Medicine; Referring Provider Internal Medicine Hematology & Oncology; Visit Provider Internal Medicine Hematology & Oncology
DX: D69.3 Immune thrombocytopenic purpura (principal); D50.8 Other iron deficiency anemias
CPT/HCPCS: 96365; 96366; 96375; A4216; J1568

== ENCOUNTER 2019-01-13 08:06 | Outpatient (CLI) | payer OTHER, SELFPAY ==
[2019-01-13] VITALS (7 sets, daily range): BP systolic 108–123; BP diastolic 62–79; PULSE 68–97; RESP 14–16; TEMP 36.4–36.9; O2SAT 96–97
[2019-01-13] MEDS: Acetaminophen 325 MG Tablet 650 MG PO (08:31)
[2019-01-13] MEDS: Hydrocortisone Sod Succinate 100 MG/2 ML Vial IV (08:32)
[2019-01-13] MEDS: DiphenhydrAMINE 50 MG/ML Syringe 25 MG IV (08:32)
[2019-01-13] MEDS: Immune Globulin 20 gm Premixed Solution IV ×3 (08:58→11:42)
[2019-01-13] MEDS: Immune Globulin 10 gm Premixed Solution IV (12:36)
[2019-01-13] MEDS: 0.9% NaCl VAD Flush 10 ML IV (13:27)
== END 2019-01-13 13:34 | disposition home or self-care (01) ==
LOC: MEDOUTP 08:06 → MS3 08:08
PROVIDERS: Family Provider Family Medicine; PCP Family Medicine; Referring Provider Internal Medicine Hematology & Oncology; Visit Provider Internal Medicine Hematology & Oncology
DX: D69.3 Immune thrombocytopenic purpura (principal); D50.8 Other iron deficiency anemias
CPT/HCPCS: 96365; 96366; 96375; A4216; J1568

== ENCOUNTER 2021-09-21 05:30 | Day surgery (SDC) | payer OTHER, SELFPAY ==
--- NOTE | 2021-09-14 12:00 | RAD_ITS ---
HISTORY: PRESCENE OF VASCULAR IMPLANTS EXAMINATION/TECHNIQUE: XR Abdomen 1 View: COMPARISON: None FINDINGS: LINES AND TUBES: IVC filter tip projects at the level of the L3 superior endplate. BOWEL GAS PATTERN: Non-obstructive. No bowel or stomach distention. Large colonic stool burden. FREE AIR: None visualized. ORGANOMEGALY: Not seen. CALCIFICATIONS: No abnormal calcifications observed. LOWER CHEST: No acute pathology. BONES AND SOFT TISSUES: No acute pathology. Thoracolumbar levocurvature with lower lumbar multilevel facet arthropathy. RAD/Abdomen Single View IMPRESSION: IVC filter noted with tip at the superior endplate of L3. at 0434 Reported and signed by: Paresh Douglass MD Electronically Signed: Paresh Douglass MD at 4:33 EST Tel , Service support ,
[2021-09-21] VITALS (7 sets, daily range): BP systolic 91–134; BP diastolic 50–84; PULSE 76–91; RESP 16–82; TEMP 36.4–36.7; O2SAT 94–97; BMI 42.7
--- NOTE | 2021-09-21 05:42 | HP.PCM_ITS ---
History and Physical Date of Admission: 09/21/[address] Jorje Cavanaugh MD on 09/17/21 at 0628 Intake Chief Complaint: colonoscopy, Family Hx Allergies aspirin Allergy (Verified 09/16/21 14:57) Hives Penicillins Allergy (Verified 09/16/21 14:57) Rash rituximab [From Rituxan] Allergy (Verified 09/16/21 14:57) Other venom-honey bee [bee venom (honey bee)] Allergy (Verified 09/16/21 14:57) Swelling clindamycin Adverse Reaction (Verified 09/16/21 14:57) Vomiting ondansetron HCl [From Zofran] Adverse Reaction (Verified 09/16/21 14:57) Other Medications metformin 500 mg PO BIDCM 02/02/14 [History Confirmed 09/16/21] loratadine [Claritin] 10 mg PO DAILY PRN PRN 06/19/16 [History Confirmed 09/16/21] simvastatin 10 mg PO QHS 09/11/16 [History Confirmed 09/16/21] romiplostim [Nplate] 250 mcg SQ FR 11/05/17 [History Confirmed 09/16/21] mycophenolate mofetil 500 mg PO BID 04/01/18 [History Confirmed 09/16/21] citalopram 10 mg PO DAILY 04/14/18 [History Confirmed 09/16/21] Assessment and Plan Assessment and Plan (1) Family history of colon cancer: Status: Acute Comment: 09/15/2021 I had an opportunity to phone contact Dr. Dallas Mccallum regarding the patient's vena cava filter. It appears that she has a [employer] Eclipse filter that has been in place since January 2013. I believe that she initially had a left pulmonary embolus had a filter placed and then removed and then approximately year later developed a right pulmonary embolus. She then had this filter replaced and she tells me that it was thought that it might be safer for her to keep it. I have obtained abdominal x-rays on her yesterday and the filter appears to be upright and intact. This particular filter design however was designed for retrieval. After discussion with Dr. Mccallum it is felt that she has not had a thromboembolic event in quite a period of time. It would seem reasonable to make an attempt at filter removal. Because of the length of time that this filter has been in place I will recommend tertiary referral. We will contact the patient to see if she is interested in having this removed. I was able to personally phone call the patient. I described to her the presence of her filter. I did recommend consideration for removal. With the duration of time that this particular filters been in place although on abdominal x-ray it appears to be upright and intact I would prefer that she have an attempt be performed at a tertiary center. She concurs. We will plan a referral to [facility]. It is of note that we will leave the filter in place until after we complete the colonoscopy. Jorje Cavanaugh M.D., F.A.C.S. September 17, 2021. The patient had a soft cardiac systolic ejection murmur on clinical examination. On review from the [facility] dated January 09, 2013 she had an echocardiogram at that time. Left ventricular systolic function is normal. The ejection fraction 65%.. Trivial mitral valve insufficiency. Trivial tricuspid valve insufficiency. Jorje Cavanaugh M.D., F.A.C.S. (2) Personal history of colonic polyps: Status: Acute Plan Details Other Orders: Orders: Abdomen Single View 09/14/21 Z95.828 09/17/21 0628<Electronically signed by Jorje Cavanaugh MD>Date Jorje Cavanaugh MD cc: Dr. Ilir Xavier MD ~*Signed ADDENDUM by Dr. Jorje Cavanaugh MD on 09/15/21 at 0827 Intake Chief Complaint: colonoscopy, Family Hx Allergies aspirin Allergy (Verified 09/14/21 09:23) Hives Penicillins Allergy (Verified 09/14/21 09:23) Rash rituximab [From Rituxan] Allergy (Verified 09/14/21 09:23) Other venom-honey bee [bee venom (honey bee)] Allergy (Verified 09/14/21 09:23) Swelling clindamycin Adverse Reaction (Verified 09/14/21 09:23) Vomiting ondansetron HCl [From Zofran] Adverse Reaction (Verified 09/14/21 09:23) Other Medications metformin 500 mg PO BIDCM 02/02/14 [History Confirmed 09/14/21] loratadine [Claritin] 10 mg PO DAILY PRN PRN 06/19/16 [History Confirmed 09/14/21] simvastatin 10 mg PO QHS 09/11/16 [History Confirmed 09/14/21] romiplostim [Nplate] 250 mcg SQ QWEEK 11/05/17 [History Confirmed 09/14/21] mycophenolate mofetil 500 mg PO BID 04/01/18 [History Confirmed 09/14/21] citalopram 10 mg PO DAILY 04/14/18 [History Confirmed 09/14/21] Assessment and Plan Assessment and Plan (1) Family history of colon cancer: Status: Acute Comment: 09/15/2021 I had an opportunity to phone contact Dr. Dallas Mccallum regarding the patient's vena cava filter. It appears that she has a Bard Eclipse filter that has been in place since January 2013. I believe that she initially had a left pulmonary embolus had a filter placed and then removed and then approximately year later developed a right pulmonary embolus. She then had this filter replaced and she tells me that it was thought that it might be safer for her to keep it. I have obtained abdominal x-rays on her yesterday and the filter appears to be upright and intact. This particular filter design however was designed for retrieval. After discussion with Dr. Mccallum it is felt that she has not had a thromboembolic event in quite a period of time. It would seem reasonable to make an attempt at filter removal. Because of the length of time that this filter has been in place I will recommend tertiary referral. We will contact the patient to see if she is interested in having this removed. I was able to personally phone call the patient. I described to her the presence of her filter. I did recommend consideration for removal. With the duration of time that this particular filters been in place although on abdominal x-ray it appears to be upright and intact I would prefer that she have an attempt be performed at a tertiary center. She concurs. We will plan a referral to [facility]. It is of note that we will leave the filter in place until after we complete the colonoscopy. Jorje Cavanaugh M.D., F.A.C.S. (2) Personal history of colonic polyps: Status: Acute Plan Details Other Orders: Orders: Abdomen Single View 09/14/21 Z95.828 09/15/21 0827<Electronically signed by Jorje Cavanaugh MD>Date Jorje Cavanaugh MD cc: Dr. Ilir Xavier MD ~*Signed ADDENDUM by Dr. Jorje Cavanaugh MD on 09/15/21 at 0805 Intake Chief Complaint: colonoscopy, Family Hx Allergies aspirin Allergy (Verified 09/14/21 09:23) Hives Penicillins Allergy (Verified 09/14/21 09:23) Rash rituximab [From Rituxan] Allergy (Verified 09/14/21 09:23) Other venom-honey bee [bee venom (honey bee)] Allergy (Verified 09/14/21 09:23) Swelling clindamycin Adverse Reaction (Verified 09/14/21 09:23) Vomiting ondansetron HCl [From Zofran] Adverse Reaction (Verified 09/14/21 09:23) Other Medications metformin 500 mg PO BIDCM 02/02/14 [History Confirmed 09/14/21] loratadine [Claritin] 10 mg PO DAILY PRN PRN 06/19/16 [History Confirmed 09/14/21] simvastatin 10 mg PO QHS 09/11/16 [History Confirmed 09/14/21] romiplostim [Nplate] 250 mcg SQ QWEEK 11/05/17 [History Confirmed 09/14/21] mycophenolate mofetil 500 mg PO BID 04/01/18 [History Confirmed 09/14/21] citalopram 10 mg PO DAILY 04/14/18 [History Confirmed 09/14/21] Assessment and Plan Assessment and Plan (1) Family history of colon cancer: Status: Acute Comment: 09/15/2021 I had an opportunity to phone contact Dr. Dallas Mccallum regarding the patient's vena cava filter. It appears that she has a Bard Eclipse filter that has been in place since January 2013. I believe that she initially had a left pulmonary embolus had a filter placed and then removed and then approximately year later developed a right pulmonary embolus. She then had this filter replaced and she tells me that it was thought that it might be safer for her to keep it. I have obtained abdominal x-rays on her yesterday and the filter appears to be upright and intact. This particular filter design however was designed for retrieval. After discussion with Dr. Mccallum it is felt that she has not had a thromboembolic event in quite a period of time. It would seem reasonable to make an attempt at filter removal. Because of the length of time that this filter has been in place I will recommend tertiary referral. We will contact the patient to see if she is interested in having this removed. Jorje Cavanaugh M.D., F.A.C.S. (2) Personal history of colonic polyps: Status: Acute Plan Details Other Orders: Orders: Abdomen Single View 09/14/21 Z95.828 09/15/21 0805<Electronically signed by Jorje Cvaanaugh MD>Date Jorje Cavanaugh MD cc: Dr. Ilir Xavier MD ~*Signed Intake Vital Signs 07/20/21 10:44 09/14/21 09:22 Height 5 ft 1 in 5 ft 1 in Weight: 226 lb 8 oz BMI 42.7 BP 119/82 H Blood Pressure Location Lt brachial Position Sitting Respiration 17 Pulse 96 Pulse Source Monitor Temp 97.2 F L Temp Source Temporal Pulse Oximetry (%) 96 Oxygen Delivery Method room air Intake Visit Reasons: Colonoscopy Family HX Chief Complaint: colonoscopy, Family Hx Nibbler Operator Required: No Is patient in pain?: No Allergies aspirin Allergy (Verified 09/14/21 09:23) Hives Penicillins Allergy (Verified 09/14/21 09:23) Rash rituximab [From Rituxan] Allergy (Verified 09/14/21 09:23) Other venom-honey bee [bee venom (honey bee)] Allergy (Verified 09/14/21 09:23) Swelling clindamycin Adverse Reaction (Verified 09/14/21 09:23) Vomiting ondansetron HCl [From Zofran] Adverse Reaction (Verified 09/14/21 09:23) Other Medications metformin 500 mg PO BIDCM 02/02/14 [History Confirmed 09/14/21] loratadine [Claritin] 10 mg PO DAILY PRN PRN 06/19/16 [History Confirmed 09/14/21] simvastatin 10 mg PO QHS 09/11/16 [History Confirmed 09/14/21] romiplostim [Nplate] 250 mcg SQ QWEEK 11/05/17 [History Confirmed 09/14/21] mycophenolate mofetil 500 mg PO BID 04/01/18 [History Confirmed 09/14/21] citalopram 10 mg PO DAILY 04/14/18 [History Confirmed 09/14/21] PFSH Medical History (Updated 09/14/21 @ 09:19 by Aisha Tuesday) Port-A-Cath in place Presence of IVC filter Surgical History (Updated 09/14/21 @ 09:19 by Aisha Tuesday) History of splenectomy Family History (Updated 09/14/21 @ 09:20 by Aisha Tuesday) Mother Colon cancer Diabetes Brother Diabetes Social History Smoking Status: Never smoker HPI HPI HPI: VINH FERNANDEZ, is a 56 F who presents to the office today for ROS General General: No weakness HEENT HEENT: No difficulty swallowing, eye injury, eye surgery, swollen glands or hoarseness Endo Endocrine: Yes diabetes mellitus; No thyroid disease, thyroid cancer, Hair loss, heat intolerance or cold intolerance Skin Skin: No rash or changing moles Musc Musculoskeletal: No back problems, arthritis, rheumatoid arthritis, gout or joint pain Cardio Cardiovascular: No murmur, pacemaker, heart disease, atrial fibrillation, high blood pressure, heart attack, heart stent, palpitations, shortness of breat with exertion or chest pain Psych Psychiatric: No depression, anxiety or hearing voices Resp Respiratory: No shortness of breath, No sleep apnea, No cough, No COPD, No asthma, No emphysema and No wheezing Gastro Gastrointestinal: No abdominal pain, No nausea or vomiting, No diarrhea, No constipation, No blood in stool, No acid reflux, No hemorrhoids, No ulcers, No gallbladder problem and No black,tarry stools Siva Hematologic: No blood thinners, No blood disorders, No bleeding, No anemia and Yes blood clots Additional Details: Pt has ITP, receives injections weekly, has a history of blood clots. Neuro Neurologic: No system reviewed and no additional complaints, except as documented, No as per HPI, No abnormal gait, No abnormal hearing, No abnormal movements, No abnormal speech, No behavioral changes, No burning sensations, No confusion, No convulsions, No disequilibrium, No dizziness, No localized weakness, No frequent falls, No headache(s), No lack of coordination, No loss of vision, No memory loss, No numbness, No other visual disturbances, No radicular pain, No restless legs, No sensory deficit, No syncope, No tingling, No tremor(s), No weakness and No other Assessment and Plan Assessment and Plan (1) Family history of colon cancer: Status: Acute (2) Personal history of colonic polyps: Status: Acute Plan Details Other Orders: Orders: Abdomen Single View Today Z95.828 Coding Level of Care Code Off vis,est,level 3 Diagnoses Family history of colon cancer Z80.0 Personal history of colonic polyps Z86.010 I have re-examined the patient. There are no clinical changes since date of exam. Jorje Cavanaugh M.D., F.A.C.S.
[2021-09-21 06:00] LABS: Bedside Glucose 131 mg/dL (70-110)
[2021-09-21] MEDS: Lactated Ringers 1,000 ML 15 ML IV (06:22)
--- NOTE | 2021-09-21 06:57 | OP.COLON_ITS ---
Patient Name: Geovanna Hatfield Procedure Date: 09/21/2021 6:24 AM Date of : 1965 Age: 56 Procedure: Colonoscopy Indications: High risk colon cancer surveillance: Personal history of colonic polyps, Family history of colon cancer in a first-degree relative Providers: Jorje Cavanaugh MD Referring MD: Ilir Xavier Medicines: See the Anesthesia note for documentation of the administered medications Patient Profile: Last Colonoscopy: 5 years ago. Complications: No immediate complications. Procedure: Pre-Anesthesia Assessment: - Prior to the procedure, a History and Physical was performed, and patient medications and allergies were reviewed. The patient's tolerance of previous anesthesia was also reviewed. The risks and benefits of the procedure and the sedation options and risks were discussed with the patient. All questions were answered, and informed consent was obtained. Prior Anticoagulants: The patient has taken no previous anticoagulant or antiplatelet agents. ASA Grade Assessment: III - A patient with severe systemic disease. After reviewing the risks and benefits, the patient was deemed in satisfactory condition to undergo the procedure. After I obtained informed consent, the scope was passed under direct vision. Throughout the procedure, the patient's blood pressure, pulse, and oxygen saturations were monitored continuously. The pediatric colonoscope was introduced through the anus and advanced to the cecum, identified by appendiceal orifice and ileocecal valve. The colonoscopy was performed without difficulty. The patient tolerated the procedure well. The quality of the bowel preparation was good. The ileocecal valve was photographed. Cefotetan 2gm given IV per anesthesia secondary to history of splenectomy Scope In: 6:36:10 AM Scope Withdrawal Time 0 hours 7 minutes 58 seconds Scope Out: 6:50:04 AM Total Procedure Duration Time 0 hours 13 minutes 54 seconds Findings: Hemorrhoids were found on perianal exam. There was a small lipoma, in the mid descending colon. A few diverticula were found in the sigmoid colon. The exam was otherwise without abnormality. Impression: - Hemorrhoids found on perianal exam. - Small lipoma in the mid descending colon. - Diverticulosis in the sigmoid colon. - The examination was otherwise normal. - No specimens collected. Recommendation: - Discharge patient to home. - Resume previous diet. - Continue present medications. - Repeat colonoscopy in 5 years for surveillance. Procedure Code(s): --- Professional --- 39414, Colonoscopy, flexible; diagnostic, including collection of specimen(s) by brushing or washing, when performed (separate procedure) Diagnosis Code(s): --- Professional --- Z86.010, Personal history of colonic polyps K64.9, Unspecified hemorrhoids D17.5, Benign lipomatous neoplasm of intra-abdominal organs Z80.0, Family history of malignant neoplasm of digestive organs K57.30, Diverticulosis of large intestine without perforation or abscess without bleeding CPT copyright 2017 [employer]. All rights reserved. The codes documented in this report are preliminary and upon resource conservationist review may be revised to meet current compliance requirements. Jorje Cavanaugh MD 09/21/2021 6:57:13 AM This report has been signed electronically. Number of Addenda: 0 Note Initiated On: 09/21/2021 6:24 AM
--- NOTE | 2021-09-21 06:58 | OP.CCLET_ITS ---
09/21/2021 Dallas Mccallum [address] [place] [address] Re : Colonoscopy procedure for Geovanna Liu Dear Dr. Mccallum This procedure was performed on Tuesday, September 21, 2021. My impressions and recommendations are as follows: Impressions : - Hemorrhoids found on perianal exam. - Small lipoma in the mid descending colon. - Diverticulosis in the sigmoid colon. - The examination was otherwise normal. - No specimens collected. Recommendations : - Discharge patient to home. - Resume previous diet. - Continue present medications. - Repeat colonoscopy in 5 years for surveillance. My findings are described in the full procedure note, which is enclosed. If I can be of further assistance, please feel free to contact me at Doctor phone number(s): Work: . Sincerely, Jorje Cavanaugh MD 09/21/2021 6:57:13 AM This report has been signed electronically.
== END 2021-09-21 23:59 | disposition home or self-care (01) ==
LOC: EN 05:32 → AC 05:32
PROVIDERS: PCP Family Medicine; Referring Provider Family Medicine; Visit Provider Surgery
PROC: 0DJD8ZZ Inspection of Lower Intestinal Tract, Via Natural or Artificial Opening Endoscopic (ICD-10-PCS; CPT 45378; principal; 2021-09-21 06:25)
DX: Z12.11 Encounter for screening for malignant neoplasm of colon (principal); E11.9 Type 2 diabetes mellitus without complications; D17.5 Benign lipomatous neoplasm of intra-abdominal organs; K64.9 Unspecified hemorrhoids; K57.30 Diverticulosis of large intestine without perforation or abscess without bleeding; Z79.84 Long term (current) use of oral hypoglycemic drugs; Z79.899 Other long term (current) drug therapy; Z86.010 Personal history of colon polyps; Z86.711 Personal history of pulmonary embolism; Z20.822 Contact with and (suspected) exposure to COVID-19; Z80.0 Family history of malignant neoplasm of digestive organs
CPT/HCPCS: 45378; 74018; 82962; 87426; C9803; J7120; A4216; J2405

== ENCOUNTER 2024-05-11 08:23 | Outpatient (CLI) | payer OTHER, SELFPAY ==
[2024-05-11] VITALS (7 sets, daily range): BP systolic 113–135; BP diastolic 69–77; PULSE 74–85; RESP 16; TEMP 36–36.4; O2SAT 92–93; BMI 43.7
== END 2024-05-11 23:59 | disposition home or self-care (01) ==
PROVIDERS: PCP Family Medicine; Referring Provider Internal Medicine Hematology & Oncology; Visit Provider Internal Medicine Hematology & Oncology
DX: Z51.89 Encounter for other specified aftercare (principal); D75.81 Myelofibrosis
CPT/HCPCS: 36430; 86644; 86850; 86900; 86901; 86920; J7040; P9040; A4216